=== PATIENT | male | born 1940 | race African-American/Black ===

== ENCOUNTER 2016-09-18 10:22 | Emergency (ER) | payer MEDICARE, OTHER ==
[2016-09-18 10:48] LABS: ABSOLUTE BASOPHILS # (AUTO) 0.1 10^3/uL (0.0-0.2); ABSOLUTE LYMPHOCYTES (AUTO) 1.6 10^3/uL (0.5-4.7); ABSOLUTE MONOCYTES (AUTO) 0.5 10^3/uL (0.1-1.4); ABSOLUTE NEUT (AUTO) 11.3 10^3/uL (1.7-8.2); BASOPHILS % (AUTO) 0.5 % (0-2); EOSINOPHILS % (AUTO) 0.1 % (0-6); HEMATOCRIT 37.8 % (37.9-51.0); HEMOGLOBIN 11.6 g/dL (13.5-17.0); LYMPHOCYTES % (AUTO) 11.8 % (13-45); MEAN CORPUSCULAR HEMOGLOBIN 28.7 pg (27.0-33.4); MEAN CORPUSCULAR HGB CONC 30.6 g/dL (32.0-36.0); MEAN CORPUSCULAR VOLUME 94 fl (80-97); MONOCYTES % (AUTO) 3.4 % (3-13); RED BLOOD COUNT 4.04 10^6/uL (4.35-5.55); RED CELL DISTRIBUTION WIDTH 15.8 % (11.5-14.0); SEGMENTED NEUTROPHILS % (AUTO) 84.2 % (42-78); WHITE BLOOD COUNT 13.4 10^3/uL (4.0-10.5)
[2016-09-18] MEDS ORDERED: PIPERACILLIN/TAZOBACTAM 3.375 GM VIAL IV ONE (11:01)
[2016-09-18] MEDS ORDERED: VANCOMYCIN HCL INJ 1000 MG VIAL IV ONE (11:01)
--- NOTE | 2016-09-18 11:03 | ER Document Report ---
ED General - General Stated Complaint: RESPIRATORY DISTRESS Time Seen by Provider: 09/18/16 10:37 Mode of Arrival: Medic Information source: Emergency Med Personnel Notes: 76-year-old male who presents by EMS status post cardiac arrest. They state that the patient called EMS secondary to some shortness of breath. Supposedly the patient complained of some "congestion" yesterday EMS states that the patient. Was having some shortness of breath but was ambulating on his own. EMS states that the patient actually walked to the stretcher but then became more short of breath and then progressed to being unresponsive. They state they initially started CPR secondary to lack of pulses. They state after 2 minutes of CPR the patient had ventricular fibrillation and they shocked the patient with return of spontaneous circulation. They then rapid sequence intubated the patient. They did provide 1 dose of epinephrine. They state however that the oxygen saturations were in the low 70s en route. - HPI Onset: Just prior to arrival Onset/Duration: Sudden Quality of pain: No pain Severity: Severe Associated symptoms: Other - See above Exacerbated by: Denies Relieved by: Denies Similar symptoms previously: No Recently seen / treated by doctor: No - Related Data Allergies/Adverse Reactions: No Known Allergies Allergy (Unverified 10/16/12 14:18) Past Medical History - General Information source: Emergency Med Personnel - Social History Smoking Status: Unknown if Ever Smoked Cigarette use (# per day): No Chew tobacco use (# tins/day): No Smoking Education Provided: No Frequency of alcohol use: None Drug Abuse: None Family History: Reviewed & Not Pertinent - Past Medical History Cardiac Medical History: Reports: Hx Hypertension - medicated Denies: Hx Heart Attack Pulmonary Medical History: Denies: Hx Asthma Neurological Medical History: Denies: Hx Cerebrovascular Accident, Hx Seizures GI Medical History: Reports: Hx Hepatitis - hep A?? treated 1992. 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 CONSTITUTIONAL: Patient is intubated with a 2-23 at the teeth HEAD: Normocephalic; atraumatic EYES: Bilaterally pupils are pinpoint ENT: Patient is intubated NECK: Palpable carotid pulses; no cervical lymphadenopathy, no masses CARD: Regular rate and rhythm; no murmurs, no clicks, no rubs, no gallops; symmetric distal pulses RESP: Patient has been placed on a ventilator. Bilateral breath sounds present. No air in the stomach. Patient has some scattered rhonchi and rales ABD/GI: Normal bowel sounds; very elevated BMI; soft; no palpable organomegaly or masses BACK: The back appears normal and is non-tender to palpation EXT: No cyanosis, no effusions, no edema SKIN: Normal color for age and race; warm NEURO: Patient is currently not moving any extremity Course - Re-evaluation Re-evalutation: Patient came in supposedly status post cardiac arrest. Concern about possible increase potassium we provided bicarb and calcium carbonate. Patient's blood pressure and vital signs are otherwise stable. Patient has bilateral breath sounds with good condensation on the tube. Satting 98%. Blood cultures, lactic acid, and basic labs have been sent. Patient cardiac arrest patient with lidocaine and started the patient on lidocaine drip. I called and spoke to Dr. Washington, the field examiner at [facility]. They are trying to obtain a bed. Patient is 397 pounds and I do not believe able to fly. 09/18/16 10:45 Pressure started to decrease. Heart rate 56. EKG shows a normal sinus rhythm with first-degree AV block with inverted T waves in lead aVL. No obvious ST elevation or depression. Narrow QRS. 2 L of fluid intravenously. Repeat blood pressure still 77/40. I started the patient on Norepi drip. There is some concern about possible massive pulmonary embolism given the rapid respiratory decline. Dr. Washington agrees that he most likely bolus the patient with heparin. I did call the CT scan team here and they state they think they can perform the CTA. We are trying to stabilize the blood pressure. 09/18/16 11:01 X-ray of the chest shows what appears to be a multilobar pneumonia or heart failure. Pt has obvious cardiomegally. Vancomycin and Zosyn has been ordered. Blood cultures have been sent. 09/18/16 11:33 Blood pressure has improved to 90/50. Patient has received 3 L of fluid and is on a norepi drip. I have spoken to the family in the waiting room. Given the above history, we will provide a heparin bolus. I am uncomfortable transferring the patient currently to CT scan given his tenuous vital signs. 09/18/16 12:13 Blood pressure has normalized. ABG is still pending. The ICU physician would like a CTA prior to transfer. Patient's creatinine initially upon arrival 1.7. I have spoken to the radiology team and they do state that they will attempt to use a minimal amount of contrast. 09/18/16 12:55 Patient vital signs are still stable. Patient has returned from CT scan. We will start the cooling protocol. ABG is still pending. 09/18/16 13:09 Patient rectal examination shows no gross blood. Hemoccult has been sent. There are no lesions to the patient's back on rotation. 09/18/16 13:10 ABG appears to be most likely a venous blood gas. PH 7.29. PCO2 slightly elevated. 09/18/16 13:41 CTA of the chest shows what appears to be a bilateral pneumonia. Antibiotics have been given. No signs or evidence of pulmonary embolism - Vital Signs Vital signs: Temp Pulse Resp BP Pulse Ox 96.6 F L 16 145/115 H 95 09/18/16 13:16 09/18/16 13:16 09/18/16 13:16 09/18/16 13:16 - Laboratory Result Diagrams: 09/18/16 10:30 09/18/16 10:30 Laboratory results interpreted by me: 09/18/16 09/18/16 09/18/16 10:27 10:30 10:30 WBC 13.4 H RBC 4.04 L Hgb 11.6 L Hct 37.8 L MCHC 30.6 L RDW 15.8 H Seg Neutrophils % 84.2 H Lymphocytes % 11.8 L Absolute Neutrophils 11.3 H Carbonic Acid ABG pH ABG pCO2 ABG pO2 ABG Total CO2 ABG O2 Saturation Potassium 5.9 H BUN 41 H Creatinine 1.76 H Est GFR ( Amer) 46 L Est GFR (Non-Af Amer) 38 L Glucose 214 H POC Glucose 197 H Lactic Acid Calcium 7.6 L NT-Pro-B Natriuret Pep 09/18/16 09/18/16 09/18/16 10:30 10:30 12:30 WBC RBC Hgb Hct MCHC RDW Seg Neutrophils % Lymphocytes % Absolute Neutrophils Carbonic Acid 1.63 H ABG pH 7.29 L ABG pCO2 54.3 H ABG pO2 60.1 L ABG Total CO2 27.3 H ABG O2 Saturation 87.9 L Potassium BUN Creatinine Est GFR ( Amer) Est GFR (Non-Af Amer) Glucose POC Glucose Lactic Acid 3.7 H Calcium NT-Pro-B Natriuret Pep 5120 H Critical Care Note - Critical Care Note Total time excluding time spent on procedures (mins): 130 Discharge - Discharge Clinical Impression: Respiratory arrest, Bacterial pneumonia Condition: Critical Disposition: [facility] Unit Admitted: ICU Referrals: TOR ANDREWS MD [Primary Care Provider] - Follow up as needed
[2016-09-18] MEDS ORDERED: NOREPINEPHRINE BITARTRATE INJ/PF 4 MG/4 ML SDV IV ONE (11:04)
[2016-09-18 11:06] LABS: ANION GAP 13 (5-19); BLOOD UREA NITROGEN 41 mg/dL (7-20); CALCIUM 7.6 mg/dL (8.4-10.2); CARBON DIOXIDE 28 mmol/L (22-30); CHLORIDE 103 mmol/L (98-107); CREATININE RESULT 1.76 mg/dL (0.52-1.25); GLUCOSE 214 mg/dL (75-110); POTASSIUM 5.9 mmol/L (3.6-5.0); SODIUM 143.5 mmol/L (137-145)
[2016-09-18 11:20] LABS: TROPONIN I 0.052 ng/mL
[2016-09-18] MEDS ORDERED: HEPARIN SOD (PORCINE) 1,000 UNIT/ML 10 ML VIAL IV PRN (11:34)
[2016-09-18] MEDS ORDERED: HEPARIN SOD (PORCINE) 1,000 UNIT/ML 10 ML VIAL IV ONE (11:34)
[2016-09-18] MEDS ORDERED: HEPARIN SODIUM,PORCINE/D5W 250 ML IV PRN (11:34)
[2016-09-18] MEDS ORDERED: MIDAZOLAM 2 MG/2 ML INJ ONE ×2 (11:54→12:22)
--- NOTE | 2016-09-18 12:26 | RADIOLOGY REPORT (SQ) ---
EXAM DESCRIPTION: CHEST SINGLE VIEW COMPLETED DATE/TIME: 09/18/2016 11:12 am REASON FOR STUDY: Tr1; S/p cardiac arrest/intubation COMPARISON: None. EXAM PARAMETERS: NUMBER OF VIEWS: One view. TECHNIQUE: Single frontal radiographic view of the chest acquired. RADIATION DOSE: NA LIMITATIONS: None. FINDINGS: LUNGS AND PLEURA: Pulmonary edema is present. There is marked opacification behind the le ft heart. The left diaphragm is not definable. MEDIASTINUM AND HILAR STRUCTURES: No masses. Contour normal. HEART AND VASCULAR STRUCTURES: Cardiomegaly with pulmonary vascular congestion and pulmonary edema. BONES: No acute findings. HARDWARE: None in the chest. OTHER: No other significant finding. IMPRESSION: 1. CHF. 2. Left lower lobe consolidation cannot be ruled out. TECHNICAL DOCUMENTATION: JOB ID: [id number]
[2016-09-18] MEDS ORDERED: FENTANYL CITRATE INJ/PF 100 MCG/2 ML AMPUL ONE ×2 (12:33→13:37)
[2016-09-18 13:07] LABS: ARTERIAL BLOOD BASE EXCESS -1.6 mmol/L; ARTERIAL BLOOD O2 SATURATION 87.9 % (94-98)
--- NOTE | 2016-09-18 13:37 | RADIOLOGY REPORT (SQ) ---
EXAM DESCRIPTION: CTA CHEST COMPLETED DATE/TIME: 09/18/2016 1:02 pm REASON FOR STUDY: tr1; rapid respiratory arrest COMPARISON: None. TECHNIQUE: CT scan of the chest performed using helical scanning technique with dynamic intravenous contrast injection. Images reviewed with lung, soft tissue and bone windows. Reconstructed coronal and sagittal MPR images reviewed. Additional 3 dimensional post-processing performed to develop Maximal Intensity Projection images (WI P). All images stored on PACS. All CT scanners at this facility use dose modulation, iterative reconstruction, and/or weight based d osing when appropriate to reduce radiation dose to as low as reasonably achievable (ALARA). [facility]: Dose Right [facility]: CareDose [facility]: Dose Right [facility]: Teradose 4D [facility]: [place] [employer] CONTRAST TYPE AND DOSE: contrast/concentration: Isovue 370.00 mg/ml; Total Contrast Delivered: 71.0 ml; Total Saline Delivered: 70.0 ml RENAL FUNCTION: Creatinine 1.76 RADIATION DOSE: Up-to-date CT equipment and radiation dose reduction techniques were employed. CTDIv ol: 56.2 - 58.6 mGy. DLP: 2133 mGy-cm. . LIMITATIONS: None. FINDINGS: LUNGS AND PLEURA: Small bilateral pleural effusions. Areas of abnormal air space density are seen bilaterally in all lobes most consistent with pneumonia. Associated air bronchograms are se en. Pulmonary edema is felt to be unlikely. Mild emphysematous changes. AORTA AND GREAT VESSELS: No aneurysm or dissection. HEART: No pericardial effusion. PULMONARY ARTERIES: No emboli visualized in the main pulmonary arteries or the segmental branches. HILAR AND MEDIASTINAL STRUCTURES: Mild to moderate mediastinal and bilateral hilar adenopathy which m ay be reactive. Follow-up examination would be warranted. HARDWARE: NG tube and endotracheal tube appear to be in good position. UPPER ABDOMEN: Minimal ascites. Limited examination. THYROID AND OTHER SOFT TISSUES: No masses. No adenopathy. BONES: No acute or significant finding. 3D MIPS: Confirm above findings. OTHER: No other significant finding. IMPRESSION: 1. No evidence of pulmonary embolus. 2. Abnormal air space density is seen bilaterally the appearance of which is most suggestive of bila teral pneumonia rather than pulmonary edema. 3. Small bilateral pleural effusions. 4. Mild to moderate mediastinal and hilar adenopathy which may be reactive. Follow-up CT would be w arranted to ensure resolution. TECHNICAL DOCUMENTATION: JOB ID: [id number] Quality ID # [id number]: Final reports with documentation of one or more dose reduction techniques (e.g., Au tomated exposure control, adjustment of the mA and/or kV according to patient size, use of iterative reconstruction technique) 2010 [employer]- All Rights Reserved
[2016-09-18 16:01] VITALS: BP 119/64
--- NOTE | 2016-09-18 17:02 | EKG REPORT ---
SEVERITY:- ABNORMAL ECG - SINUS RHYTHM FIRST DEGREE AV BLOCK BORDERLINE LEFT AXIS DEVIATION : Confirmed by: Sarah Aguillon MD 18-Sep-2016 17:01:56
== END 2016-09-18 14:00 | disposition short-term general hospital (02) ==
LOC: ER 10:22
DX: I46.9 Cardiac arrest, cause unspecified (principal); J15.9 Unspecified bacterial pneumonia; I10 Essential (primary) hypertension; I44.0 Atrioventricular block, first degree; I51.7 Cardiomegaly
CPT/HCPCS: 93005; 99291; 99292; 96365; 96366; 96368; 36415; 87040; 82962; 82803; 85025; 82272; 80048; 84484; 83605; 83880; 71010; 71275; 93010; 36600; J1644; J3370

== ENCOUNTER 2016-10-26 03:56 | Inpatient (IN) | payer MEDICARE, OTHER ==
--- NOTE | 2016-10-26 04:15 | ER Document Report ---
ED Respiratory Problem - General Mode of Arrival: Medic Information source: Patient - HPI Patient complains to provider of: Short of breath Onset: Other - Refer to HPI Notes Associated symptoms: Difficulty breathing, Wheezing Similar symptoms previously: No Recently seen / treated by doctor: No <JESSIE PRUITT - Last Filed: 10/26/16 04:51> <JEFFREY LOYA - Last Filed: 10/26/16 05:58> - General Stated Complaint: BREATHING DIFFICULTY Time Seen by Provider: 10/26/16 04:07 Notes: Patient is a 76-year-old male presented emergency department for difficulty breathing. Patient states his symptoms were onset this morning. Patient was seen here on 09/18/2016 for cardiac arrest and respiratory distress. Patient was residing at [facility] for recovery and was discharged yesterday. Patient was on oxygen at [facility] and was discharged without oxygen at home yesterday. Patinet was placed on BiPAP and states he is feeling better during exam. Patient has no known drug allergies. (JESSIE PRUITT) - Related Data Allergies/Adverse Reactions: No Known Allergies Allergy (Unverified 10/16/12 14:18) Past Medical History - General Information source: Patient - Social History Smoking Status: Current Every Day Smoker Family History: None - Past Medical History Cardiac Medical History: Reports: Hx Hypertension - medicated GI Medical History: Reports: Hx Hepatitis - hep A?? treated 1992 Infectious Medical History: Reports: Hx Hepatitis - hep A?? treated 1992 <JESSIE PRUITT - Last Filed: 10/26/16 04:51> Review of Systems - Review of Systems Constitutional: No symptoms reported EENT: No symptoms reported Cardiovascular: No symptoms reported Respiratory: See HPI Gastrointestinal: No symptoms reported Genitourinary: No symptoms reported Male Genitourinary: No symptoms reported Musculoskeletal: No symptoms reported Skin: No symptoms reported Hematologic/Lymphatic: No symptoms reported Neurological/Psychological: No symptoms reported -: Yes All other systems reviewed and negative <JESSIE PRUITT - Last Filed: 10/26/16 04:51> Physical Exam - Vital signs Interpretation: Hypertensive <JESSIE PRUITT - Last Filed: 10/26/16 04:51> <JEFFREY LOYA - Last Filed: 10/26/16 05:58> - Vital signs Vitals: Temp Resp BP Pulse Ox 98.3 F 15 149/55 H 100 10/26/16 04:13 10/26/16 04:13 10/26/16 04:13 10/26/16 04:13 - Notes Notes: GENERAL: Alert, interacts well. No acute distress. HEAD: Normocephalic, atraumatic. EYES: Appear normal. Pupils equal, round, and reactive to light. ENT: Moist mucus membranes, tongue midline. NECK: Full range of motion. Supple. Trachea midline. LUNGS: Clear to auscultation bilaterally, no wheezes, rales, or rhonchi. No respiratory distress. HEART: Regular rate and rhythm. No murmurs, gallops, or rubs. ABDOMEN: Morbidly obese. Soft, non-tender. Non-distended. Normal bowel sounds. EXTREMITIES: Moves all 4 extremities spontaneously. Normal strength. No edema. NEUROLOGICAL: Alert and oriented x3. Normal speech. No focal neurological deficits. GSC 15. PSYCH: Normal affect, normal mood. SKIN: Warm, dry, normal turgor. Chronic brawning and skin thickening to the bilateral lower extremities. (JESSIE PRUITT) Course - Laboratory Result Diagrams: 10/26/16 04:15 10/26/16 04:15 <JESSIE PRUITT - Last Filed: 10/26/16 04:51> - Laboratory Result Diagrams: 10/26/16 04:15 10/26/16 04:15 - Diagnostic Test Radiology reviewed: Image reviewed, Reports reviewed - Chest x-ray is read as mild cardiac enlargement with central pulmonary edema pattern. There is mild to moderate mixed interstitial and airspace opacities improved since the visit on 09/18/2016 - EKG Interpretation by Ia EKG shows normal: Sinus rhythm, [place], Intervals, QRS Complexes. abnormal: ST-T Waves - Nonspecific lateral T abnormalities Rate: Normal - 68 Rhythm: NSR When compared to previous EKG there are: No significant change - Consults Dr. Pedersen Time consulted: 05:45 Consulted provider: will see as inpatient - Admit to the [facility] <JEFFREY LOYA - Last Filed: 10/26/16 05:58> - Re-evaluation Re-evalutation: 10/26/16 05:57 The patient reports that his breathing feels much better since being on the BiPAP. (JEFFREY LOYA) - Vital Signs Vital signs: Temp Pulse Resp BP Pulse Ox 98.8 F 20 143/52 H 94 10/26/16 05:02 10/26/16 05:02 10/26/16 05:02 10/26/16 05:02 - Laboratory Laboratory results interpreted by me: 10/26/16 10/26/16 10/26/16 04:15 04:15 04:15 RBC 3.25 L Hgb 9.5 L Hct 29.9 L MCHC 31.8 L RDW 16.6 H Plt Count 124 L Lymphocytes % 12.7 L Carbon Dioxide 31 H BUN 46 H Creatinine 1.89 H Est GFR ( Amer) 42 L Est GFR (Non-Af Amer) 35 L Glucose 150 H Calcium 8.0 L NT-Pro-B Natriuret Pep 1180 H Total Protein 6.2 L Albumin 2.6 L Critical Care Note - Critical Care Note Total time excluding time spent on procedures (mins): 30 <JEFFREY LOYA - Last Filed: 10/26/16 05:58> Discharge <JESSIE PRUITT - Last Filed: 10/26/16 04:51> - Discharge Admitting Provider: [facility] Unit Admitted: IMCU <JEFFREY LOYA - Last Filed: 10/26/16 05:58> - Discharge Clinical Impression: Pulmonary vascular congestion, Morbid obesity Dyspnea Qualifiers: Dyspnea type: unspecified Qualified Code(s): R06.00 - Dyspnea, unspecified Condition: Stable Disposition: ADMITTED INPATIENT Scribe Attestation: 10/26/16 05:57 I personally performed the services described in the documentation, reviewed and edited the documentation which was dictated to the scribe in my presence, and it accurately records my words and actions. (JEFFREY LOYA) Scribe Documentation - Scribe Written by Satish:: Satish Claudio, 10/26/2016 4:56 acting as scribe for :: Chrissy <JESSIE PRUITT - Last Filed: 10/26/16 04:51>
--- NOTE | 2016-10-26 04:47 | RADIOLOGY REPORT (SQ) ---
EXAM DESCRIPTION: CHEST SINGLE VIEW COMPLETED DATE/TIME: 10/26/2016 4:15 am REASON FOR STUDY: difficulty breathing COMPARISON: CR and CT, 09/18/2016. EXAM PARAMETERS: NUMBER OF VIEWS: One view. TECHNIQUE: Single frontal radiographic view of the chest acquired. RADIATION DOSE: NA LIMITATIONS: None. FINDINGS: LUNGS AND PLEURA: Moderate left basilar opacity -layered effusion. Small right infrahilar opacity. Central pulmonary edema pattern. Moderate lung volume. MEDIASTINUM AND HILAR STRUCTURES: No masses. Contour normal. HEART AND VASCULAR STRUCTURES: Mild enlargement of the cardiac silhouette. BONES: No acute findings. HARDWARE: Interval extubation. OTHER: No other significant finding. IMPRESSION: [id number] mixed interstitial and airspace opacities with some improvement. Mild cardiac enlargement. Interval extubation. TECHNICAL DOCUMENTATION: JOB ID: [id number]
[2016-10-26 04:53] LABS: ABSOLUTE BASOPHILS # (AUTO) 0.1 10^3/uL (0.0-0.2); ABSOLUTE EOSINOPHILS # (AUTO) 0.3 10^3/uL (0.0-0.6); ABSOLUTE MONOCYTES (AUTO) 0.5 10^3/uL (0.1-1.4); ABSOLUTE NEUT (AUTO) 6.1 10^3/uL (1.7-8.2); BASOPHILS % (AUTO) 0.9 % (0-2); EOSINOPHILS % (AUTO) 3.7 % (0-6); HEMATOCRIT 29.9 % (37.9-51.0); HEMOGLOBIN 9.5 g/dL (13.5-17.0); HGB HCT DIFFERENCE -1.4; LYMPHOCYTES % (AUTO) 12.7 % (13-45); MEAN CORPUSCULAR HEMOGLOBIN 29.2 pg (27.0-33.4); MEAN CORPUSCULAR HGB CONC 31.8 g/dL (32.0-36.0); MEAN CORPUSCULAR VOLUME 92 fl (80-97); MONOCYTES % (AUTO) 6.5 % (3-13); RED BLOOD COUNT 3.25 10^6/uL (4.35-5.55); RED CELL DISTRIBUTION WIDTH 16.6 % (11.5-14.0); SEGMENTED NEUTROPHILS % (AUTO) 76.2 % (42-78)
[2016-10-26 05:05] LABS: ALANINE AMINOTRANSFERASE 30 U/L (21-72); ALBUMIN 2.6 g/dL (3.5-5.0); ALKALINE PHOSPHATASE 109 U/L (38-126); ANION GAP 7 (5-19); ASPARTATE AMINO TRANSFERASE 31 U/L (17-59); BILIRUBIN,DIRECT 0.3 mg/dL (0.0-0.4); BILIRUBIN,TOTAL 0.5 mg/dL (0.2-1.3); BLOOD UREA NITROGEN 46 mg/dL (7-20); CARBON DIOXIDE 31 mmol/L (22-30); CHLORIDE 106 mmol/L (98-107); CREATINE KINASE 138 U/L (55-170); CREATININE RESULT 1.89 mg/dL (0.52-1.25); GLUCOSE 150 mg/dL (75-110); POTASSIUM 3.9 mmol/L (3.6-5.0); SODIUM 143.5 mmol/L (137-145); TOTAL PROTEIN 6.2 g/dL (6.3-8.2)
[2016-10-26 05:18] LABS: TROPONIN I < 0.012 ng/mL
--- NOTE | 2016-10-26 08:53 | PDOC H&P ---
History of Present Illness Admission Date/PCP: 10/26/16 06:12 TOR ANDREWS MD Patient complains of: orthopnea History of Present Illness: HANSEL DELGADILLO is a 76 year old male sent by ID to [facility] on after vf arrest, pneumonia, vent, lactic acidosis, sepsis, and nonobsructive cath. Echo showed big atria, mild mr, diastolic dysfunction, and Rv pressure 61. He refused defibrillator. He had been on oxygen at [facility] until he went home yesterday. Past Medical History Cardiac Medical History: Reports: Hyperlipidema, Hypertension - 4-6meds since Denies: Myocardial Infarction Pulmonary Medical History: Reports: Intubation, Pneumonia, Respiratory Failure Neurological Medical History: Reports: Other - diabetic neuropathy Denies: Seizures Endocrine Medical History: Reports: Diabetes Mellitus Type 2, Obesity - [id number] Renal/ Medical History: Reports: Chronic Kidney Disease - 2015 cr1.1. [id number] Malignancy Medical History: Reports: None GI Medical History: Reports: None, Hepatitis - hepB treated 1990 Denies: Hiatal Hernia Musculoskeltal Medical History: Reports: Arthritis, Gout Traumatic Medical History: Reports: None Hematology: Denies: Anemia, Sickle Cell Disease Infectious Medical History: Reports: Hepatitis B Past Surgical History Past Surgical History: Reports: Orthopedic Surgery - L menisectomy Denies: Pacemaker Social History Information Source: Dr. Vanessa Lives with: Family Smoking Status: Former Smoker Number of Years Smokin Last Time Smoked: 1991 Frequency of Alcohol Use: None Hx Recreational Drug Use: No Hx Prescription Drug Abuse: No - Advance Directive Resuscitation Status: Full Code Family History Family History: Hypertension Parental Family History Reviewed: Yes Children Family History Reviewed: Yes Sibling(s) Family History Reviewed.: Yes Medication/Allergy Home Medications: Allopurinol [Zyloprim] 300 mg PO DAILY 10/26/16 Aspirin [Aspirin 81 mg Chewable Tablet] 81 mg PO DAILY 10/26/16 Atorvastatin Calcium [Lipitor 40 mg Tablet] 40 mg PO QHS 10/26/16 Carvedilol [Coreg 25 mg Tablet] 1 tab PO Q12 10/26/16 Felodipine [Felodipine ER] 10 mg PO DAILY 10/26/16 Hydrochlorothiazide 25 mg PO DAILY 10/26/16 Insulin Glargine,Hum.rec.anlog [Lantus Solostar] 10 unit SQ QHS 10/26/16 Insulin Lispro [Humalog Kwikpen] 0 - 16 unit SQ AC 10/26/16 Lisinopril [Prinivil 40 mg Tablet] 40 mg PO DAILY 10/26/16 Allergies/Adverse Reactions: No Known Allergies Allergy (Unverified 10/16/12 14:18) Review of Systems Constitutional: ABSENT: fever(s), headache(s), weight loss Nose, Mouth, and Throat: ABSENT: sore throat Cardiovascular: PRESENT: dyspnea on exertion, orthropnea. ABSENT: chest pain Respiratory: PRESENT: cough - slight, sputum Gastrointestinal: ABSENT: abdominal pain, constipation, diarrhea, hematochezia, melena, vomiting Genitourinary: ABSENT: difficulty urinating, dysuria, hematuria Physical Exam Vital Signs: Temp Pulse Resp BP Pulse Ox 98 F 18 143/82 H 96 10/26/16 06:02 10/26/16 06:02 10/26/16 06:02 10/26/16 06:02 General appearance: PRESENT: no acute distress Mouth exam: PRESENT: moist Respiratory exam: PRESENT: decreased breath sounds Cardiovascular exam: ABSENT: diastolic murmur, irregular rhythm, systolic murmur GI/Abdominal exam: PRESENT: other - big. ABSENT: mass, organolmegaly, tenderness Extremities exam: PRESENT: pedal edema - 3+ to thighs Neurological exam: PRESENT: oriented to situation Psychiatric exam: PRESENT: appropriate affect Results Laboratory Results: Abnormal - 24 hr 10/26/16 10/26/16 10/26/16 04:15 04:15 04:15 RBC 3.25 L Hgb 9.5 L Hct 29.9 L MCHC 31.8 L RDW 16.6 H Plt Count 124 L Lymphocytes % 12.7 L Carbon Dioxide 31 H BUN 46 H Creatinine 1.89 H Est GFR ( Amer) 42 L Est GFR (Non-Af Amer) 35 L Glucose 150 H Calcium 8.0 L NT-Pro-B Natriuret Pep 1180 H Total Protein 6.2 L Albumin 2.6 L Impressions: Chest X-Ray 10/26/16 03:57 IMPRESSION: [id number] mixed interstitial and airspace opacities with some improvement. Mild cardiac enlargement. Interval extubation. Assessment & Plan - Diagnosis (1) Morbid (severe) obesity with alveolar hypoventilation Is this a current diagnosis for this admission?: YesPlan: bipap (2) Pulmonary hypertension Is this a current diagnosis for this admission?: Yes (3) Respiratory failure Qualifiers: Respiratory failure complication: hypoxia and hypercapnia Is this a current diagnosis for this admission?: YesPlan: consult pulmonary. Needs sleep study (4) Acute on chronic combined systolic and diastolic congestive heart failure Is this a current diagnosis for this admission?: YesPlan: already azotemic. Furosemide 20mg qd - Inpatient Certification Based on my medical assessment, after consideration of the patient's comorbidities, presenting symptoms, or acuity I expect that the services needed warrant INPATIENT care.: Yes I certify that my determination is in accordance with my understanding of Medicare's requirements for reasonable and necessary INPATIENT services [42 CFR 412.3e].: Yes Medical Necessity: Failure to Improve With Outpatient Therapy, Significant Comorbidiites Make Outpatient Treatment Too Risky, Need Close Monitoring Due to Risk of Patient Decompensation, Need For Continuous Telemetry Monitoring, Risk of Complication if Not Cared For in Hospital, Risk of Diagnosis Which Will Require Inpatient Eval/Care/Monitoring
[2016-10-26] MEDS ORDERED: DEXTROSE 50%-WATER 25 GM/50 ML DISP.SYRIN IV PRN ×2 (09:03)
[2016-10-26] MEDS ORDERED: GLUCAGON,HUMAN RECOMB 1 MG INJ IM PRN (09:03)
[2016-10-26] MEDS ORDERED: DEXTROSE 40% GEL 15 GM TUBE PO PRN ×2 (09:03)
[2016-10-26] MEDS ORDERED: ENOXAPARIN SODIUM INJ 30 MG/0.3 ML DISP.SYRIN SUBCUT SCH (10:00)
[2016-10-26] MEDS ORDERED: (PENDING PHARMACY ID) (Felodipine [Felodipine Er] 10 MG) PO SCH (10:00)
[2016-10-26] MEDS ORDERED: (PENDING PHARMACY ID) (Carvedilol [Coreg 25 Mg Tablet] 1 TAB) PO SCH (10:00)
--- NOTE | 2016-10-26 10:44 | PDOC CONSULTATION ---
Consultation Consult Date: 10/26/16 Attending physician:: TOR ANDREWS Consult reason:: Congestive heart failure History of Present Illness Admission Date/PCP: 10/26/16 06:12 TOR ANDREWS MD Patient complains of: Shortness of breath History of Present Illness: Patient is a 76-year-old male presented emergency department for difficulty breathing. Patient states his symptoms were onset this morning. Patient was seen here on 09/18/2016 for cardiac arrest and respiratory distress. Patient was residing at [place] for recovery and was discharged yesterday. Patient was on oxygen at [facility] and was discharged without oxygen at home yesterday. Patinet was placed on BiPAP and states he is feeling better during exam. Patient has patient is not questioning is denying any chest discomfort. He has noted some diarrhea. He denied any fever chills. Patient has morbid obesity. Past Medical History Cardiac Medical History: Reports: Hyperlipidema, Hypertension - 4-6meds since Denies: Myocardial Infarction Pulmonary Medical History: Reports: Intubation, Pneumonia, Respiratory Failure Denies: Asthma Neurological Medical History: Reports: Other - diabetic neuropathy Denies: Seizures Endocrine Medical History: Reports: Diabetes Mellitus Type 2, Obesity - [id number] Renal/ Medical History: Reports: Chronic Kidney Disease - 2016 cr1.1. [id number] Malignancy Medical History: Reports: None GI Medical History: Reports: None, Hepatitis - hepB treated 1990 Denies: Hiatal Hernia Musculoskeltal Medical History: Reports: Arthritis, Gout Traumatic Medical History: Reports: None Hematology: Denies: Anemia, Sickle Cell Disease Infectious Medical History: Reports: Hepatitis B Past Surgical History Past Surgical History: Reports: Orthopedic Surgery - L menisectomy Denies: Pacemaker Social History Information Source: Patient Lives with: Family Smoking Status: Former Smoker Number of Years Smokin Last Time Smoked: 1991 Frequency of Alcohol Use: None Hx Recreational Drug Use: No Hx Prescription Drug Abuse: No - Advance Directive Resuscitation Status: Full Code Family History Family History: Hypertension Parental Family History Reviewed: Yes Children Family History Reviewed: Yes Sibling(s) Family History Reviewed.: Yes Medication/Allergy Home Medications: Allopurinol [Zyloprim] 300 mg PO DAILY 10/26/16 Aspirin [Aspirin 81 mg Chewable Tablet] 81 mg PO DAILY 10/26/16 Atorvastatin Calcium [Lipitor 40 mg Tablet] 40 mg PO QHS 10/26/16 Carvedilol [Coreg 25 mg Tablet] 1 tab PO Q12 10/26/16 Felodipine [Felodipine ER] 10 mg PO DAILY 10/26/16 Hydrochlorothiazide 25 mg PO DAILY 10/26/16 Insulin Glargine,Hum.rec.anlog [Lantus Solostar] 10 unit SQ QHS 10/26/16 Insulin Lispro [Humalog Kwikpen] 0 - 16 unit SQ AC 10/26/16 Lisinopril [Prinivil 40 mg Tablet] 40 mg PO DAILY 10/26/16 Allergies/Adverse Reactions: No Known Allergies Allergy (Unverified 10/16/12 14:18) Review of Systems Review of Systems: Please see history of present illness and past medical history as wall. Constitutional: No fever or chills reported. Head : No recent chronic headaches, recent head injury. Eyes: No recent eye pain, diplopia, redness, discharge, acute visual changes. Ears: No recent chronic ear pain, acute hearing loss, ear discharge. Oral cavity: No recent ulcerations, bleeding, oral cavity discomfort. Neck: No recent acute neck pain reported. Hematologic: No recent easy bruising or bleeding or hematologic malignancy reported. Lymphatic: No recent lymphatic malignancy, chronic lymphadenopathy reported yet Cardiovascular system review: See history of present illness. Respiratory system review: Noted increased cough and shortness of breath but denied hemoptysis, blood clots in the lungs reported. Mild Shortness of breath on exertion Gastrointestinal system review: Negative for any recent acute or chronic abdominal pain, hematemesis, melena, recent change in bowel habits. Genitourinary system review: No recent acute or chronic hematuria, flank pain, UTI etc. reported. Skin system review: Negative for any recent abnormal bruising, no rash, no pruritus reported. Neurologic: No prior history of strokes, mini strokes, seizure disorder. Psychologic: No history of major psychosis or major depression reported. Musculoskeletal: Minor aches and pains reported. No acute joint swelling reported. Endocrine: No recent polyuria, polydipsia, recent heat or cold intolerance. Physical Exam Vital Signs: Temp Pulse Resp BP Pulse Ox 97.9 F 69 20 138/55 H 98 10/26/16 07:50 10/26/16 07:50 10/26/16 07:50 10/26/16 07:50 10/26/16 07:50 Exam: GENERAL: well-nourished and in no acute distress. Alert and oriented x3 HEAD: Atraumatic, normocephalic. EYES: Pupils equal round and reactive to light, extraocular movements intact, sclera anicteric, conjunctiva are normal. ENT: TMs normal, nares patent, oropharynx clear without exudates. Moist mucous membranes. No oral ulcerations or bleeding gums noted NECK: supple without lymphadenopathy. Trachea is central. No cervical or axillary lymphadenopathy noted. Carotids are 2+, JVD difficult to assess LUNGS: Respiration seems nonlabored, no significant accessory muscle action noted. Breath sounds clear to auscultation bilaterally and equal noted. No wheezes rales or rhonchi noted. No significant dullness noted on percussion. CHEST: Palpation of the chest wall shows no significant chest wall tenderness. No other significant abnormalities noted. 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 ABDOMEN: Soft, no significant tenderness appreciated, normoactive bowel sounds. No guarding, no rebound. No rigidity noted . No masses appreciated. EXTREMITIES: Pedal pulses are 1-2+, no calf tenderness noted. No clubbing or cyanosis. Chronic 1-2 + pedal edema noted, some dermatitis changes noted. NEUROLOGICAL: Focused neurological exam showed no significant neurologic deficit. Normal speech, no focal weakness appreciated. PSYCH: Normal mood, normal affect. Judgment and insight within normal limits. SKIN: No significant ecchymosis, ulcerations or signs of pruritus noted. Dermatitis changes noted. MUSCULOSKELETAL EXAM: No significant joint swelling noted. Results EKG Comments: Sinus rhythm, no acute ST-T wave changes noted. Impressions: Chest X-Ray 10/26/16 03:57 IMPRESSION: [id number] mixed interstitial and airspace opacities with some improvement. Mild cardiac enlargement. Interval extubation. Assessment & Plan - Diagnosis (1) Acute on chronic combined systolic and diastolic congestive heart failure Is this a current diagnosis for this admission?: Yes (2) Dyspnea Qualifiers: Dyspnea type: unspecified Qualified Code(s): R06.00 - Dyspnea, unspecified (3) Morbid (severe) obesity with alveolar hypoventilation Is this a current diagnosis for this admission?: Yes (4) Pulmonary hypertension Is this a current diagnosis for this admission?: Yes (5) Respiratory failure Qualifiers: Chronicity: chronic Respiratory failure complication: hypoxia and hypercapnia Qualified Code(s): J96.11 - Chronic respiratory failure with hypoxia; J96.12 - Chronic respiratory failure with hypercapnia Is this a current diagnosis for this admission?: Yes - Notes Notes: Switch to Diovan in preparation for switch to entresto. Continue diuretic therapy. Consider nightly bilevel therapy. Acute on chronic combined systolic and diastolic heart failure: Patient probably has significant contribution from right-sided heart failure as well. Patient's medical regimen reviewed and is noted to be satisfactory. Will recommend switch to entresto. In this regard will switch patient to Diovan in preparation for starting entresto later on. Continue diuretic therapy. Dyspnea: This is certainly multifactorial with morbid obesity, systolic and diastolic dysfunction as well as possible underlying COPD etc. contributing. May consider pulmonary evaluation. Morbid obesity with alveolar hypoventilation: Patient will benefit from nightly bilevel therapy. Pulmonary hypertension: Most likely related to obesity hypoventilation syndrome , severe obesity as well as secondary to systolic and diastolic dysfunction and chronic left heart failure. Oxygen supplementation certainly help this condition. Respiratory failure: Acute on chronic systolic plus diastolic, both hypoxemic and hypercarbic. Maintain oxygenation and ventilation. Patient would benefit from aggressive weight loss. Continue to monitor and follow patient. - Time Time Spent: 30 to 50 Minutes - CODE STATUS was discussed, patient remains full code. Surrogate decision-maker patient's spouse. Multiple medical problems were addressed. More than 50% of the time spent coordinating care, discussing management plans with involved caregivers. Management plans discussed with involved personnels. Medical decision making was of moderate to high complexity , patient's has multiple comorbidities. Medications reviewed and adjusted accordingly: Yes
[2016-10-26] MEDS: FUROSEMIDE INJ/PF 20 MG/2 ML SDV IV SCH (10:48)
[2016-10-26] MEDS: CARVEDILOL 12.5 MG TABLET PO SCH ×2 (10:48→22:02)
[2016-10-26] MEDS: LISINOPRIL 10 MG TABLET PO SCH (10:49)
[2016-10-26] MEDS: AMLODIPINE BESYLATE 5 MG TABLET PO SCH (10:49)
[2016-10-26] MEDS: ASPIRIN 81 MG TABLET, CHEWABLE PO SCH (10:49)
[2016-10-26] MEDS: ALLOPURINOL 300 MG TABLET PO SCH (10:50)
--- NOTE | 2016-10-26 12:10 | EKG REPORT ---
SEVERITY:- DEFECTIVE ECG - BASELLINE ARTIFACTS .REPEAT EKG SINUS RHYTHM NONSPECIFIC T ABNORMALITIES, LATERAL LEADS : Confirmed by: Sarah Aguillon MD 26-Oct-2016 12:09:54
[2016-10-26] MEDS ORDERED: ENOXAPARIN SODIUM INJ 40 MG/0.4 ML DISP.SYRIN SUBCUT ONE (15:00)
--- NOTE | 2016-10-26 19:45 | XCELERA REPORT ---
[address] [address] Transthoracic Echocardiogram Report Name: HANSEL DELGADILLO Age: 76 yrs Gender: Male : 1940 Patient Status: Inpatient Patient Location: [id number]\304\S\B Study Date: 10/26/2016 01:40 PM Height: 72 in Weight: 420 lb BSA: 2.9 m2 Procedure: A complete two-dimensional transthoracic echocardiogram was performed (2D, M-mode, spectral and color flow Doppler). The study was technically difficult with many images being suboptimal in quality. Reason For Study: CHF Ordering Physician: ABY RUSSELL Performed By: Mayuri Tobin Interpretation Summary The study was technically difficult with many images being suboptimal in quality. The left ventricular ejection fraction is normal. Doppler measurements suggest pseudonormalized left ventricular relaxation, which is associated with grade II/IV or mild to moderate diastolic dysfunction There is mild concentric left ventricular hypertrophy. The left ventricle is grossly normal size. Not all wall segments were well visualized. Wall motion cannot be accurately commented on, but no definite regional wall motion abnormalities noted. The right ventricular systolic function is mild to moderately reduced. The right ventricle is moderately dilated. The right ventricle appears to be hypertrophied The left atrium is moderately dilated. The right atrium is moderate to severely dilated. There is a mild amount of mitral regurgitation There is no mitral valve stenosis. No aortic regurgitation is present. There is no aortic valve stenosis The aortic root is not well visualized but is probably normal size. The inferior vena cava was not visualized There is no pericardial effusion. MMode/2D Measurements \T\ Calculations RVDd: 3.2 cm LVIDd: 5.2 cm FS: 38.2 % Ao root diam: 2.2 cm IVSd: 1.0 cm LVIDs: 3.2 cm EDV(Teich): 128.7 ml LVPWd: 1.1 cm ESV(Teich): 41.2 ml Ao root area: 3.8 cm2 EF(Teich): 68.0 % LA dimension: 4.9 cm Doppler Measurements \T\ Calculations MV E max nayeli: MV P1/2t max nayeli: Ao V2 max: LV V1 max P.6 cm/sec 135.7 cm/sec 166.8 cm/sec 6.3 mmHg MV A max nayeli: MV P1/2t: 54.9 msec Ao max PG: LV V1 max: 69.7 cm/sec 11.1 mmHg 125.4 cm/sec MV E/A: 2.0 MVA(P1/2t): 4.0 cm2 MV dec slope: 724.1 cm/sec2 PA V2 max: TR max nayeli: 108.6 cm/sec 320.3 cm/sec PA max PG: TR max P.0 mmHg 4.7 mmHg Left Ventricle The left ventricle is grossly normal size. There is mild concentric left ventricular hypertrophy. The left ventricular ejection fraction is normal. Doppler measurements suggest pseudonormalized left ventricular relaxation, which is associated with grade II/IV or mild to moderate diastolic dysfunction. Not all wall segments were well visualized. Wall motion cannot be accurately commented on, but no definite regional wall motion abnormalities noted. Right Ventricle The right ventricle is moderately dilated. The right ventricle appears to be hypertrophied. The right ventricular systolic function is mild to moderately reduced. Atria The right atrium is moderate to severely dilated. The left atrium is moderately dilated. Interarterial septum not well visualized and not well dopplered. Cannot comment on ASD/PFO presence. Mitral Valve The mitral valve is grossly normal. There is no mitral valve stenosis. There is a mild amount of mitral regurgitation. Aortic Valve The aortic valve is not well visualized secondary to technical limitations. There is no aortic valve stenosis. No aortic regurgitation is present. Tricuspid Valve The tricuspid valve is not well visualized secondary to technical limitations. There is no tricuspid stenosis. There is a mild amount of tricuspid regurgitation. There is mild to moderate pulmonary hypertension by echo. Right ventricular systolic pressure is estimated to be elevated at 40-50mmHg. Pulmonic Valve The pulmonic valve is not well visualized. Great Vessels The aortic root is not well visualized but is probably normal size. The inferior vena cava was not visualized. Effusions There is no pericardial effusion. : ABY RUSSELL > Aby Russell
[2016-10-26] MEDS: INSULIN REG, HUMAN 100 UNIT/ML 3 ML VIAL (PYX) SUBCUT PRN (22:03)
[2016-10-26] MEDS: ATORVASTATIN CALCIUM 40 MG TABLET PO SCH (22:03)
[2016-10-27 05:12] LABS: ANION GAP 7 (5-19); BLOOD UREA NITROGEN 46 mg/dL (7-20); CALCIUM 8.2 mg/dL (8.4-10.2); CARBON DIOXIDE 32 mmol/L (22-30); CHLORIDE 105 mmol/L (98-107); CREATININE RESULT 1.76 mg/dL (0.52-1.25); GLUCOSE 152 mg/dL (75-110); POTASSIUM 4.4 mmol/L (3.6-5.0); SODIUM 143.5 mmol/L (137-145)
[2016-10-27 07:02] LABS: APPEARANCE,URINE CLEAR; BILIRUBIN,URINE NEGATIVE (NEGATIVE); GLUCOSE, URINE NEGATIVE (NEGATIVE); KETONES,URINE NEGATIVE (NEGATIVE); LEUKOCYTE ESTERASE,URINE NEGATIVE (NEGATIVE); NITRITE,URINE NEGATIVE (NEGATIVE); PROTEIN,URINE NEGATIVE (NEGATIVE); UROBILINOGEN,URINE NEGATIVE mg/dL (<2.0)
--- NOTE | 2016-10-27 07:07 | PDOC PROGRESS REPORT ---
Subjective Progress Note for:: 10/27/16 Subjective:: tired of bed. Does not like nasal canula. Physical Exam Vital Signs: Temp Pulse Resp BP Pulse Ox 97.7 F 62 22 H 118/51 L 91 L 10/27/16 03:17 10/27/16 03:17 10/27/16 03:17 10/27/16 03:17 10/27/16 03:17 Intake & Output 10/25/16 10/26/16 10/27/16 07:59 07:59 07:59 Intake Total 605 Balance 605 Weight 421 lb 4.854 oz General appearance: PRESENT: no acute distress Respiratory exam: PRESENT: clear to auscultation maryann Cardiovascular exam: ABSENT: diastolic murmur, irregular rhythm, systolic murmur GI/Abdominal exam: ABSENT: mass, organolmegaly, tenderness Extremities exam: PRESENT: pedal edema - 3+ to thighs Neurological exam: PRESENT: oriented to situation Psychiatric exam: PRESENT: appropriate affect Results Laboratory Results: 10/27/16 04:03 10/27/16 04:03 Sodium 143.5 Potassium 4.4 Chloride 105 Carbon Dioxide 32 H Anion Gap 7 BUN 46 H Creatinine 1.76 H Est GFR ( Amer) 46 L Est GFR (Non-Af Amer) 38 L Glucose 152 H Calcium 8.2 L Impressions: Chest X-Ray 10/26/16 03:57 IMPRESSION: [id number] mixed interstitial and airspace opacities with some improvement. Mild cardiac enlargement. Interval extubation. 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 Needs senior care oxygen and sleep study. ?bipap at home. Pft in office. (3) Respiratory failure Qualifiers: Chronicity: chronic Respiratory failure complication: hypoxia and hypercapnia Qualified Code(s): J96.11 - Chronic respiratory failure with hypoxia Is this a current diagnosis for this admission?: YesPlan: ok on 2.5L (4) Acute on chronic combined systolic and diastolic congestive heart failure Is this a current diagnosis for this admission?: YesPlan: bun no worse on fur20 - Inpatient Certification Medical Necessity: Failure to Improve With Outpatient Therapy, Significant Comorbidiites Make Outpatient Treatment Too Risky, Need Close Monitoring Due to Risk of Patient Decompensation, Need For Continuous Telemetry Monitoring, Risk of Complication if Not Cared For in Hospital, Risk of Diagnosis Which Will Require Inpatient Eval/Care/Monitoring
[2016-10-27] MEDS: FUROSEMIDE INJ/PF 20 MG/2 ML SDV IV SCH (10:16)
[2016-10-27] MEDS: AMLODIPINE BESYLATE 5 MG TABLET PO SCH (10:18)
[2016-10-27] MEDS: ASPIRIN 81 MG TABLET, CHEWABLE PO SCH (10:18)
[2016-10-27] MEDS: ENOXAPARIN SODIUM INJ 40 MG/0.4 ML DISP.SYRIN SUBCUT SCH (10:18)
[2016-10-27] MEDS: ALLOPURINOL 300 MG TABLET PO SCH (10:18)
[2016-10-27] MEDS: LISINOPRIL 10 MG TABLET PO SCH (10:18)
[2016-10-27] MEDS: CARVEDILOL 12.5 MG TABLET PO SCH ×2 (10:23→21:17)
[2016-10-27] MEDS: INSULIN REG, HUMAN 100 UNIT/ML 3 ML VIAL (PYX) SUBCUT PRN ×2 (12:42→23:00)
--- NOTE | 2016-10-27 13:19 | PDOC PROGRESS REPORT ---
Subjective Progress Note for:: 10/27/16 Subjective:: Patient seems to be doing better with gradual improvement. Patient noted to be sitting on the bedside chair with few audible wheezing. Pt is denying any chest arm or neck discomfort. Patient denying any PND, orthopnea. Patient denied any sustained palpitations, dizziness, syncope, near syncope. Patient denying any fever chills. Patient denying any other significant discomfort. Patient is maintaining sinus rhythm. Review of systems: Rest review of systems negative. Medications: Medications have been reviewed. Physical Exam Vital Signs: Temp Pulse Resp BP Pulse Ox 97.3 F 52 L 26 H 130/60 H 100 10/27/16 11:04 10/27/16 11:04 10/27/16 11:04 10/27/16 11:04 10/27/16 11:04 Intake & Output 10/26/16 10/27/16 10/28/16 06:59 06:59 06:59 Intake Total 605 Balance 605 Weight 191.1 kg Exam: GENERAL: well-nourished and in no acute distress. Alert and oriented x3 HEAD: Atraumatic, normocephalic. EYES: Pupils equal round and reactive to light, extraocular movements intact, sclera anicteric, conjunctiva are normal. ENT: TMs normal, nares patent, oropharynx clear without exudates. Moist mucous membranes. No oral ulcerations or bleeding gums noted NECK: supple without lymphadenopathy. Trachea is central. No cervical or axillary lymphadenopathy noted. Carotids are 2+, JVD WNL LUNGS: Respiration seems nonlabored, no significant accessory muscle action noted. Breath sounds clear to auscultation bilaterally and equal noted. No wheezes rales or rhonchi noted. No significant dullness noted on percussion. CHEST: Palpation of the chest wall shows no significant chest wall tenderness. No other significant abnormalities noted. 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 ABDOMEN: Soft, no significant tenderness appreciated, normoactive bowel sounds. No guarding, no rebound. No rigidity noted . No masses appreciated. EXTREMITIES: Pedal pulses are 1-2+, no calf tenderness noted. No clubbing or cyanosis. 1+ pedal edema noted NEUROLOGICAL: Focused neurological exam showed no significant neurologic deficit. Normal speech, no focal weakness appreciated. PSYCH: Normal mood, normal affect. Judgment and insight within normal limits. SKIN: No significant ecchymosis, ulcerations or signs of pruritus noted. Chronic dermatitis changes noted both lower legs. MUSCULOSKELETAL EXAM: No significant joint swelling noted. Results Laboratory Results: 10/27/16 04:03 10/27/16 10/27/16 04:03 05:40 Sodium 143.5 Potassium 4.4 Chloride 105 Carbon Dioxide 32 H Anion Gap 7 BUN 46 H Creatinine 1.76 H Est GFR ( Amer) 46 L Est GFR (Non-Af Amer) 38 L Glucose 152 H Calcium 8.2 L Urine Color YELLOW Urine Appearance CLEAR Urine pH 5.0 Ur Specific [place] 1.010 Urine Protein NEGATIVE Urine Glucose (UA) NEGATIVE Urine Ketones NEGATIVE Urine Blood NEGATIVE Urine Nitrite NEGATIVE Ur Leukocyte Esterase NEGATIVE Urine WBC (Auto) 0 Urine RBC (Auto) 0 Impressions: Chest X-Ray 10/26/16 03:57 IMPRESSION: [id number] mixed interstitial and airspace opacities with some improvement. Mild cardiac enlargement. Interval extubation. Assessment & Plan - Diagnosis (1) Acute on chronic combined systolic and diastolic congestive heart failure Is this a current diagnosis for this admission?: Yes (2) Dyspnea Qualifiers: Dyspnea type: unspecified Qualified Code(s): R06.00 - Dyspnea, unspecified (3) Morbid (severe) obesity with alveolar hypoventilation Is this a current diagnosis for this admission?: Yes (4) Pulmonary hypertension Is this a current diagnosis for this admission?: Yes (5) Respiratory failure Qualifiers: Chronicity: chronic Respiratory failure complication: hypoxia and hypercapnia Qualified Code(s): J96.11 - Chronic respiratory failure with hypoxia Is this a current diagnosis for this admission?: Yes (6) Chronic kidney disease (CKD) Qualifiers: Chronic kidney disease stage: stage 3 (moderate) Qualified Code(s): N18.3 - Chronic kidney disease, stage 3 (moderate) Is this a current diagnosis for this admission?: Yes - Notes Notes: CHF symptoms related to RV systolic dysfunction and LV diastolic dysfunction: Patient with significant contribution from right-sided heart failure as well. Patient's medical regimen reviewed and is noted to be satisfactory. Continue with lisinopril, diuretic therapy. Dyspnea: This is certainly multifactorial with morbid obesity, RV systolic plus diastolic dysfunction, LV diastolic dysfunction as well as underlying COPD etc. contributing. May consider pulmonary evaluation. Morbid obesity with alveolar hypoventilation: Patient will benefit from nightly bilevel therapy. An order to such effect was written today. Pulmonary hypertension: Most likely related to obesity hypoventilation syndrome , severe obesity as well as secondary to chronic combined heart failure. Oxygen supplementation certainly help this condition. Respiratory failure: Acute on chronic systolic plus diastolic, both hypoxemic and hypercarbic. Maintain oxygenation and ventilation. Chronic kidney disease: This is an independent risk factor. Continue to monitor this. Patient would benefit from aggressive weight loss. Continue to monitor and follow patient. - Time Time with patient: Greater than 35 minutes - CODE STATUS was discussed, patient remains full code. Surrogate decision-maker unchanged. Multiple medical problems were addressed. More than 50% of the time spent coordinating care, discussing management plans with involved caregivers. Management plans discussed with involved personnels. Medical decision making was of high complexity, patient's has multiple comorbidities. Medications reviewed and adjusted accordingly: Yes
[2016-10-27] MEDS: ATORVASTATIN CALCIUM 40 MG TABLET PO SCH (21:10)
[2016-10-28 05:49] LABS: ANION GAP 7 (5-19); BLOOD UREA NITROGEN 49 mg/dL (7-20); CALCIUM 8.4 mg/dL (8.4-10.2); CARBON DIOXIDE 32 mmol/L (22-30); CHLORIDE 103 mmol/L (98-107); CREATININE RESULT 1.83 mg/dL (0.52-1.25); GLUCOSE 154 mg/dL (75-110); POTASSIUM 4.4 mmol/L (3.6-5.0); SODIUM 142.2 mmol/L (137-145)
--- NOTE | 2016-10-28 05:56 | PDOC PROGRESS REPORT ---
Subjective Progress Note for:: 10/28/16 Subjective:: pulled bipap off after 40min. It made face cold. Physical Exam Vital Signs: Temp Pulse Resp BP Pulse Ox 97.4 F 55 L 18 140/52 H 95 10/28/16 04:13 10/28/16 04:13 10/28/16 04:13 10/28/16 04:13 10/28/16 04:13 Intake & Output 10/26/16 10/27/16 10/28/16 07:59 07:59 07:59 Intake Total 605 564 Balance 605 564 Weight 421 lb 4.854 oz General appearance: PRESENT: no acute distress Respiratory exam: PRESENT: clear to auscultation maryann Cardiovascular exam: ABSENT: diastolic murmur, irregular rhythm, systolic murmur GI/Abdominal exam: ABSENT: mass, organolmegaly, tenderness Extremities exam: PRESENT: pedal edema - 3+ Neurological exam: PRESENT: oriented to situation Psychiatric exam: PRESENT: appropriate affect Results Laboratory Results: Abnormal - 24 hr 10/27/16 10/27/16 10/27/16 05:39 11:03 15:55 POC Glucose 153 H 172 H 194 H 10/27/16 10/28/16 22:46 05:32 POC Glucose 196 H 146 H Impressions: Chest X-Ray 10/26/16 03:57 IMPRESSION: [id number] mixed interstitial and airspace opacities with some improvement. Mild cardiac enlargement. Interval extubation. Assessment & Plan - Diagnosis (1) Morbid (severe) obesity with alveolar hypoventilation Is this a current diagnosis for this admission?: YesPlan: needs sleep study. Bipap compliance may be an issue. (2) Pulmonary hypertension Is this a current diagnosis for this admission?: Yes (3) Respiratory failure Qualifiers: Chronicity: chronic Respiratory failure complication: hypoxia and hypercapnia Qualified Code(s): J96.11 - Chronic respiratory failure with hypoxia Is this a current diagnosis for this admission?: YesPlan: improved but chronic. Consult Dr Lantigua. (4) Acute on chronic combined systolic and diastolic congestive heart failure Is this a current diagnosis for this admission?: YesPlan: switch furosemide to po 40mg - Inpatient Certification Medical Necessity: Failure to Improve With Outpatient Therapy, Significant Comorbidiites Make Outpatient Treatment Too Risky, Need Close Monitoring Due to Risk of Patient Decompensation, Risk of Complication if Not Cared For in Hospital, Risk of Diagnosis Which Will Require Inpatient Eval/Care/Monitoring
[2016-10-28] MEDS: LISINOPRIL 10 MG TABLET PO SCH (09:48)
[2016-10-28] MEDS: ENOXAPARIN SODIUM INJ 40 MG/0.4 ML DISP.SYRIN SUBCUT SCH (09:48)
[2016-10-28] MEDS: ASPIRIN 81 MG TABLET, CHEWABLE PO SCH (09:49)
[2016-10-28] MEDS: AMLODIPINE BESYLATE 5 MG TABLET PO SCH (09:49)
[2016-10-28] MEDS: ALLOPURINOL 300 MG TABLET PO SCH (09:50)
[2016-10-28] MEDS: CARVEDILOL 12.5 MG TABLET PO SCH ×2 (09:50→23:01)
[2016-10-28] MEDS ORDERED: FUROSEMIDE 40 MG TABLET PO SCH (10:00)
[2016-10-28] MEDS: INSULIN REG, HUMAN 100 UNIT/ML 3 ML VIAL (PYX) SUBCUT PRN ×2 (13:20→23:01)
--- NOTE | 2016-10-28 17:59 | PDOC PROGRESS REPORT ---
Subjective Progress Note for:: 10/28/16 Subjective:: Patient seems to be doing better with gradual improvement. Patient noted to be laying comfortably in bed with head propped up. He did use BiPAP therapy for about an hour then he took it off. Pt is denying any chest arm or neck discomfort. Patient denying any PND, orthopnea. Patient denied any sustained palpitations, dizziness, syncope, near syncope. Patient denying any fever chills. Patient denying any other significant discomfort. Patient is maintaining sinus rhythm. Patient noted to have mild intermittent bradycardia. He still has some pedal edema. Review of systems: Rest review of systems negative. Medications: Medications have been reviewed. Physical Exam Vital Signs: Temp Pulse Resp BP Pulse Ox 97.4 F 55 L 18 140/52 H 95 10/28/16 04:13 10/28/16 04:13 10/28/16 04:13 10/28/16 04:13 10/28/16 04:13 Intake & Output 10/27/16 10/28/16 10/29/16 06:59 06:59 06:59 Intake Total 605 574 250 Balance 605 574 250 Weight 191.1 kg 191 kg Exam: GENERAL: well-nourished and in no acute distress. Alert and oriented x3 HEAD: Atraumatic, normocephalic. EYES: Pupils equal round and reactive to light, extraocular movements intact, sclera anicteric, conjunctiva are normal. ENT: TMs normal, nares patent, oropharynx clear without exudates. Moist mucous membranes. No oral ulcerations or bleeding gums noted NECK: supple without lymphadenopathy. Trachea is central. No cervical or axillary lymphadenopathy noted. Carotids are 2+, JVD WNL LUNGS: Respiration seems nonlabored, no significant accessory muscle action noted. Breath sounds clear to auscultation bilaterally and equal noted. No wheezes rales or rhonchi noted. No significant dullness noted on percussion. CHEST: Palpation of the chest wall shows no significant chest wall tenderness. No other significant abnormalities noted. HEART: [place] [employer], No PSH, 1/6 JEFFREY aortic area, 1/6 newell systolic murmur mitral area, no rubs, no gallops. ABDOMEN: Soft, no significant tenderness appreciated, normoactive bowel sounds. No guarding, no rebound. No rigidity noted . No masses appreciated. EXTREMITIES: Pedal pulses are 1-2+, no calf tenderness noted. No clubbing or cyanosis. 2 + pedal edema noted, with some chronic dermatitis changes. NEUROLOGICAL: Focused neurological exam showed no significant neurologic deficit. Normal speech, no focal weakness appreciated. PSYCH: Normal mood, normal affect. Judgment and insight within normal limits. SKIN: No significant ecchymosis, rash, ulcerations or signs of pruritus noted. MUSCULOSKELETAL EXAM: No significant joint swelling noted. Results Laboratory Results: 10/28/16 04:17 10/28/16 04:17 Sodium 142.2 Potassium 4.4 Chloride 103 Carbon Dioxide 32 H Anion Gap 7 BUN 49 H Creatinine 1.83 H Est GFR ( Amer) 44 L Est GFR (Non-Af Amer) 36 L Glucose 154 H Calcium 8.4 Impressions: Chest X-Ray 10/26/16 03:57 IMPRESSION: [id number] mixed interstitial and airspace opacities with some improvement. Mild cardiac enlargement. Interval extubation. Assessment & Plan - Diagnosis (1) Acute on chronic combined systolic and diastolic congestive heart failure Is this a current diagnosis for this admission?: Yes (2) Dyspnea Qualifiers: Dyspnea type: unspecified Qualified Code(s): R06.00 - Dyspnea, unspecified (3) Morbid (severe) obesity with alveolar hypoventilation Is this a current diagnosis for this admission?: Yes (4) Pulmonary hypertension Is this a current diagnosis for this admission?: Yes (5) Respiratory failure Qualifiers: Chronicity: chronic Respiratory failure complication: hypoxia and hypercapnia Qualified Code(s): J96.11 - Chronic respiratory failure with hypoxia Is this a current diagnosis for this admission?: Yes (6) Chronic kidney disease (CKD) Qualifiers: Chronic kidney disease stage: stage 3 (moderate) Qualified Code(s): N18.3 - Chronic kidney disease, stage 3 (moderate) Is this a current diagnosis for this admission?: Yes - Notes Notes: CHF symptoms related to RV systolic dysfunction and LV diastolic dysfunction: Patient with significant contribution from right-sided heart failure as well. Patient's medical regimen reviewed and is noted to be satisfactory. Continue with lisinopril, diuretic therapy. Agree with switching to p.o. Lasix. Demadex could be used if patient develops tolerance to Lasix. Dyspnea: This is certainly multifactorial with morbid obesity, RV systolic plus diastolic dysfunction, LV diastolic dysfunction as well as underlying COPD etc. contributing. May consider pulmonary evaluation. Morbid obesity with alveolar hypoventilation: Patient will benefit from nightly bilevel therapy. An order to such effect was written today. Pulmonary hypertension: Most likely related to obesity hypoventilation syndrome , severe obesity as well as secondary to chronic combined heart failure. Oxygen supplementation certainly help this condition. Respiratory failure: Acute on chronic systolic plus diastolic, both hypoxemic and hypercarbic. Maintain oxygenation and ventilation. Chronic kidney disease: This is an independent risk factor. Continue to monitor this. Patient would benefit from aggressive weight loss. Continue to monitor and follow patient. Explained to the patient that nightly bilevel therapy would help as will aggressive weight loss. - Time Time with patient: Greater than 35 minutes - CODE STATUS was discussed, patient remains full code. Surrogate decision-maker unchanged. Multiple medical problems were addressed. More than 50% of the time spent coordinating care, discussing management plans with involved caregivers. Management plans discussed with involved personnels. Medical decision making was of moderate to high complexity, patient's has multiple comorbidities. Medications reviewed and adjusted accordingly: Yes
[2016-10-28] MEDS ORDERED: INSULIN GLARGINE,HUM.REC.ANLOG 300 UNIT/3 ML INSULN.PEN SUBCUT SCH (22:00)
[2016-10-28] MEDS: ATORVASTATIN CALCIUM 40 MG TABLET PO SCH (23:00)
[2016-10-29] MEDS ORDERED: ALBUTEROL SULFATE 0.083% NEB 2.5 MG/3 ML AMPUL NEB PRN (05:11)
[2016-10-29 05:14] LABS: PARTIAL THROMBOPLASTIN TIME 36.6 SEC (23.5-35.8)
[2016-10-29 05:25] LABS: ANION GAP 6 (5-19); BLOOD UREA NITROGEN 44 mg/dL (7-20); CALCIUM 8.3 mg/dL (8.4-10.2); CARBON DIOXIDE 34 mmol/L (22-30); CHLORIDE 103 mmol/L (98-107); CREATININE RESULT 1.69 mg/dL (0.52-1.25); GLUCOSE 160 mg/dL (75-110); POTASSIUM 4.4 mmol/L (3.6-5.0); SODIUM 143.2 mmol/L (137-145)
[2016-10-29 06:22] LABS: ABSOLUTE LYMPHOCYTES (AUTO) 0.6 10^3/uL (0.5-4.7); EOSINOPHILS % (AUTO) 0.3 % (0-6)
[2016-10-29 06:55] LABS: ABSOLUTE MONOCYTES (AUTO) 0.9 10^3/uL (0.1-1.4); ABSOLUTE NEUT (AUTO) 10.5 10^3/uL (1.7-8.2); BASOPHILS % (AUTO) 0.2 % (0-2); HEMATOCRIT 30.2 % (37.9-51.0); HEMOGLOBIN 9.6 g/dL (13.5-17.0); HGB HCT DIFFERENCE -1.4; LYMPHOCYTES % (AUTO) 5.1 % (13-45); MEAN CORPUSCULAR HEMOGLOBIN 28.9 pg (27.0-33.4); MEAN CORPUSCULAR HGB CONC 31.7 g/dL (32.0-36.0); MEAN CORPUSCULAR VOLUME 91 fl (80-97); MONOCYTES % (AUTO) 7.4 % (3-13); RED BLOOD COUNT 3.32 10^6/uL (4.35-5.55); RED CELL DISTRIBUTION WIDTH 16.8 % (11.5-14.0); WHITE BLOOD COUNT 12.1 10^3/uL (4.0-10.5)
--- NOTE | 2016-10-29 08:09 | PDOC PROGRESS REPORT ---
Subjective Progress Note for:: 10/29/16 Subjective:: more dyspnea. Slight productive cough. No dysuria. Physical Exam Vital Signs: Temp Pulse Resp BP Pulse Ox 98.2 F 62 22 H 122/51 L 91 L 10/29/16 03:30 10/29/16 03:30 10/29/16 05:20 10/29/16 03:30 10/29/16 05:20 Intake & Output 10/27/16 10/28/16 10/29/16 07:59 07:59 07:59 Intake Total 605 574 874 Output Total 300 Balance 605 574 574 Weight 421 lb 4.854 oz 421 lb 1.326 oz 421 lb 1.326 oz General appearance: PRESENT: no acute distress Respiratory exam: PRESENT: clear to auscultation maryann Cardiovascular exam: ABSENT: diastolic murmur, irregular rhythm, systolic murmur GI/Abdominal exam: ABSENT: mass, organolmegaly, tenderness Extremities exam: PRESENT: pedal edema - less=2+ Neurological exam: PRESENT: oriented to situation Psychiatric exam: PRESENT: appropriate affect Results Laboratory Results: 10/29/16 04:41 10/29/16 04:41 Abnormal - 24 hr 10/29/16 10/29/16 10/29/16 04:41 04:41 04:41 WBC 12.1 H RBC 3.32 L Hgb 9.6 L Hct 30.2 L MCHC 31.7 L RDW 16.8 H Plt Count 115 L Seg Neutrophils % 87.0 H Lymphocytes % 5.1 L Absolute Neutrophils 10.5 H APTT 36.6 H Carbon Dioxide 34 H BUN 44 H Creatinine 1.69 H Est GFR ( Amer) 48 L Est GFR (Non-Af Amer) 40 L Glucose 160 H POC Glucose Calcium 8.3 L Impressions: Chest X-Ray 10/26/16 03:57 IMPRESSION: [id number] mixed interstitial and airspace opacities with some improvement. Mild cardiac enlargement. Interval extubation. Assessment & Plan - Diagnosis (1) Respiratory failure Qualifiers: Chronicity: chronic Respiratory failure complication: hypoxia and hypercapnia Qualified Code(s): J96.11 - Chronic respiratory failure with hypoxia Is this a current diagnosis for this admission?: YesPlan: [id number]% all night for sats low 80s. WBC up. CXR & pulmonary consult pending. (2) Morbid (severe) obesity with alveolar hypoventilation Is this a current diagnosis for this admission?: YesPlan: Pulmonary consult pending. Pft, volumes, dlco. Sister wanted him transfered to [place]. He wants to stay here for now. (3) Pulmonary hypertension Is this a current diagnosis for this admission?: Yes (4) Acute on chronic combined systolic and diastolic congestive heart failure Is this a current diagnosis for this admission?: YesPlan: bun&cr stable and high. Consider torsemide at a cost of worsening renal function. (5) Hematuria Qualifiers: Hematuria type: gross Qualified Code(s): R31.0 - Gross hematuria Is this a current diagnosis for this admission?: YesPlan: ua culture. Outpatient cysto. - Inpatient Certification Medical Necessity: Failure to Improve With Outpatient Therapy, Significant Comorbidiites Make Outpatient Treatment Too Risky, Need Close Monitoring Due to Risk of Patient Decompensation, Need For Continuous Telemetry Monitoring, Risk of Complication if Not Cared For in Hospital, Risk of Diagnosis Which Will Require Inpatient Eval/Care/Monitoring
[2016-10-29] MEDS ORDERED: FUROSEMIDE INJ/PF 100 MG/10 ML SDV ONE (08:17)
--- NOTE | 2016-10-29 08:38 | PDOC PROGRESS REPORT ---
Subjective Progress Note for:: 10/29/16 Subjective:: KAMINI CAO called secondary to respiratory arrest and asystole. Nursing staff performed chest compressions briefly and patient became responsive and had pulse. He was profoundly hypoxic in the high 70s to low 80s O2 sat. Physical Exam Vital Signs: Temp Pulse Resp BP Pulse Ox 98.2 F 62 22 H 122/51 L 91 L 10/29/16 03:30 10/29/16 03:30 10/29/16 05:20 10/29/16 03:30 10/29/16 05:20 Intake & Output 10/28/16 10/29/16 10/30/16 06:59 06:59 06:59 Intake Total 574 874 Output Total 300 Balance 574 574 Weight 191 kg 191 kg GENERAL: Drowsy but arousable, tachypneic HEENT: Conjunctiva clear, nonicteric, moist mucous membranes, no JVD, midline trachea RESPIRATORY: Diffuse bilateral wheezes CARDIAC: Regular rate and rhythm, no murmurs/gallops/rubs ABDOMEN: Soft, morbidly obese, nontender, positive bowel sounds, no rebound, no guarding EXTREMETIES: 1+ bilateral lower extremity NEUROLOGIC: Alert, oriented to person/place/time, CN's grossly intact, no focal deficits SKIN: Skin changes on lower extremities consistent with chronic venous stasis Results Laboratory Results: 10/29/16 04:41 10/29/16 04:41 10/29/16 10/29/16 04:41 04:41 WBC 12.1 H RBC 3.32 L Hgb 9.6 L Hct 30.2 L MCV 91 MCH 28.9 MCHC 31.7 L RDW 16.8 H Plt Count 115 L Seg Neutrophils % 87.0 H Lymphocytes % 5.1 L Monocytes % 7.4 Eosinophils % 0.3 Basophils % 0.2 Absolute Neutrophils 10.5 H Absolute Lymphocytes 0.6 Absolute Monocytes 0.9 Absolute Eosinophils 0.0 Absolute Basophils 0.0 Sodium 143.2 Potassium 4.4 Chloride 103 Carbon Dioxide 34 H Anion Gap 6 BUN 44 H Creatinine 1.69 H Est GFR ( Amer) 48 L Est GFR (Non-Af Amer) 40 L Glucose 160 H Calcium 8.3 L Assessment & Plan - Diagnosis (1) Respiratory failure Qualifiers: Chronicity: chronic Respiratory failure complication: hypoxia and hypercapnia Qualified Code(s): J96.11 - Chronic respiratory failure with hypoxia Is this a current diagnosis for this admission?: YesPlan: Patient failed noninvasive ventilation with BiPAP. He is full CODE STATUS. Patient was intubated by anesthesia and Ambu bag ventilation performed with improvement of O2 sat into the low 90s. Patient is being transferred to the ICU for mechanical ventilation. He will need pulmonary medicine consult. (2) Acute on chronic combined systolic and diastolic congestive heart failure Is this a current diagnosis for this admission?: YesPlan: Chest x-ray shows diffuse pulmonary edema. Patient given Lasix 80 mg IV 1 dose. Will defer further management to primary care provider Dr. Pedersen. (3) Cardiac arrest Is this a current diagnosis for this admission?: YesPlan: Reviewing telemetry strips it looks like patient became bradycardic as a result of respiratory failure. (4) Chronic kidney disease (CKD) Qualifiers: Chronic kidney disease stage: stage 3 (moderate) Qualified Code(s): N18.3 - Chronic kidney disease, stage 3 (moderate) Is this a current diagnosis for this admission?: Yes (5) Hematuria Qualifiers: Hematuria type: gross Qualified Code(s): R31.0 - Gross hematuria Is this a current diagnosis for this admission?: Yes (6) Morbid obesity Is this a current diagnosis for this admission?: Yes (7) Pulmonary hypertension Is this a current diagnosis for this admission?: Yes - Time Critical Time spent with patient: 35 or more minutes
[2016-10-29] MEDS ORDERED: NOREPINEPHRINE BITARTRATE INJ/PF 4 MG/4 ML SDV IV ONE ×2 (08:48→12:01)
[2016-10-29] MEDS: DEXTROSE 5%-WATER 250 ML with NOREPINEPHRINE BITARTRATE 4 MG IV PRN ×4 (08:58→18:12)
[2016-10-29] MEDS ORDERED: FUROSEMIDE INJ/PF 20 MG/2 ML SDV IV ONE (09:00)
[2016-10-29] MEDS ORDERED: PHENYLEPHRINE HCL INJ/PF 10 MG/1 ML SDV ONE ×2 (09:01→12:06)
[2016-10-29] MEDS ORDERED: DOPAMINE HCL/DEXTROSE 5%-WATER 800 MG/250 ML RTUINJ IV ONE (09:04)
[2016-10-29] MEDS: DEXTROSE 5%-WATER 250 ML with PHENYLEPHRINE HCL 40 MG IV PRN ×4 (09:05→20:27)
[2016-10-29] MEDS: DOPAMINE HCL 800 MG/D5W 250 ML IV PRN ×2 (09:07→22:37)
[2016-10-29] MEDS ORDERED: VANCOMYCIN HCL 0 MG in DEXTROSE 5%-WATER 250 ML IV NR (09:30)
[2016-10-29] MEDS ORDERED: FUROSEMIDE INJ/PF 40 MG/4 ML SDV ONE (09:32)
[2016-10-29] MEDS ORDERED: MORPHINE SULFATE 10 MG/ML INJ ONE (09:33)
[2016-10-29] MEDS: ASPIRIN 81 MG TABLET, CHEWABLE PO SCH (10:00)
[2016-10-29] MEDS: ENOXAPARIN SODIUM INJ 40 MG/0.4 ML DISP.SYRIN SUBCUT SCH (10:00)
[2016-10-29] MEDS ORDERED: PROPOFOL 100 ML IV ONE ×4 (10:07→18:11)
--- NOTE | 2016-10-29 10:21 | RADIOLOGY REPORT (SQ) ---
EXAM DESCRIPTION: CHEST SINGLE VIEW COMPLETED DATE/TIME: 10/29/2016 8:37 am REASON FOR STUDY: wbc up hypoxia COMPARISON: 09/26/2016 and 09/18/2016 NUMBER OF VIEWS: One view. TECHNIQUE: Single frontal radiographic view of the chest acquired. LIMITATIONS: Patient is rotated to the left. The large body habitus. FINDINGS: LUNGS AND PLEURA: Continued areas diffuse infiltrate of the right lung. Left lung is obsc ured behind the heart. Likely increasing airspace density and/or atelectasis on the left. MEDIASTINUM AND HILAR STRUCTURES: Obscured HEART AND VASCULAR STRUCTURES: Cardiomegaly. Vascular congestion difficult to exclude. BONES: No acute findings. HARDWARE: Endotracheal tube tip above the anastacio. OTHER: No other significant finding. IMPRESSION: Limited filming. Endotracheal tube above the anastacio. Diffuse pulmonary airspace densit y. TECHNICAL DOCUMENTATION: JOB ID: [id number] [employer]- All Rights Reserved
--- NOTE | 2016-10-29 10:57 | OPERATIVE REPORT E ---
Operative Report NAME: HANSEL DELGADILLO : 1940 AGE: 76Y DATE OF SURGERY: ROOM: 610 PREOPERATIVE DIAGNOSES: 1. MORBID OBESITY. 2. CARDIOGENIC SHOCK. POSTOPERATIVE DIAGNOSES: 1. MORBID OBESITY. 2. CARDIOGENIC SHOCK. OPERATION: 1. Focused ultrasound of the right neck. 2. Ultrasound-directed insertion of triple lumen central venous access catheter via internal jugular vein. 3. Ultrasound-directed insertion of right radial arterial line monitoring catheter. SURGEON: ROC TORRES M.D. ANESTHESIA: 1% plain lidocaine. COMPLICATIONS: None. ESTIMATED BLOOD LOSS: Minimal. DRAINS: None. TISSUE REMOVED OR ALTERED: None. PROCEDURE: The patient was in the process of being stabilized following a cardiac arrest. He was in the intensive care unit where emergent procedures were being performed, given the circumstances of the post code. The right neck was exposed, prepped and draped in sterile fashion. Using ultrasound as a guide, a triple lumen central venous access catheter was threaded into the right internal jugular vein without difficulty. There was excellent blood flow through all 3 limbs. The catheter was flushed with heparinized saline and was secured to the skin with 2-0 silk suture x2. A Biopatch sterile dressing was applied. A portable upright chest x-ray is pending at the time of dictation. The right arm was exposed, strapped to a bedside table with the palm up. An ultrasound was used to scan the radial artery. There was evidence of previous percutaneous intervention to the distal right radial artery over the flexor crease of the wrist. We scanned and identified the brachial artery, which appeared to be of decent caliber and patent but with some tortuosity at the wrist. The skin was prepped with Betadine, anesthetized with 1% lidocaine plain. A small shauna was made with the 18-gauge needle and several attempts were made to thread a percutaneous arterial radial monitoring device into the radial artery but were unsuccessful. Therefore, the more distal radial artery was aborted and we moved up approximately 5 cm. A second area of access was then prepped with Betadine, anesthetized with 1% lidocaine plain. A second small shauna was made with the 18-gauge needle and using again, a new radial arterial line, using the Seldinger technique, we were able to successfully access the right radial artery under ultrasound guidance. The catheter was threaded into position, hooked to a monitoring device and appropriate wave form acquired. The catheter was secured to the skin at 3 sites with 3-0 Prolene suture. A Biopatch sterile dressing was applied and a wrist stabilizer was installed. The patient tolerated the procedure well. DICTATING PHYSICIAN: ROC TORRES M.D. [id number] PHY#: [id number] ID: [id number] JOB#: [id number] ACCT: [id number] cc:ROC TORRES M.D. >
[2016-10-29] MEDS ORDERED: VANCOMYCIN HCL 2,000 MG in DEXTROSE 5%-WATER 500 ML IV ONE (11:00)
[2016-10-29 11:13] LABS: ARTERIAL BLOOD BASE EXCESS 5.4 mmol/L; ARTERIAL BLOOD O2 SATURATION 95.2 % (94-98)
[2016-10-29] MEDS ORDERED: ROCURONIUM BROMIDE INJ 50 MG/5 ML VIAL IV ONE ×2 (12:00→20:15)
--- NOTE | 2016-10-29 12:10 | RADIOLOGY REPORT (SQ) ---
EXAM DESCRIPTION: CHEST SINGLE VIEW COMPLETED DATE/TIME: 10/29/2016 11:02 am REASON FOR STUDY: central line placement COMPARISON: 10/29/2016 EXAM PARAMETERS: NUMBER OF VIEWS: One view. TECHNIQUE: Single frontal radiographic view of the chest acquired. RADIATION DOSE: NA LIMITATIONS: None. FINDINGS: LUNGS AND PLEURA: Pulmonary edema is present. There is no pneumothorax. MEDIASTINUM AND HILAR STRUCTURES: No masses. Contour normal. HEART AND VASCULAR STRUCTURES: Cardiomegaly with pulmonary edema. BONES: No acute findings. HARDWARE: The endotracheal tube. A right internal jugular catheter is present. The tip of the joy ter is in the superior vena cava near the right atrium. OTHER: No other significant finding. IMPRESSION: 1. Pulmonary edema. 2. Right internal jugular catheter placement as described. TECHNICAL DOCUMENTATION: JOB ID: [id number]
--- NOTE | 2016-10-29 12:47 | PDOC CONSULTATION ---
Consultation Consult Date: 10/29/16 Attending physician:: TOR ANDREWS Consult reason:: acute resp failure History of Present Illness Admission Date/PCP: 10/26/16 08:54 TOR ANDREWS MD History of Present Illness: Patient is a 76-year-old male Recently discharged from [facility] where he was intubated and treated for congestive heart failure as well as pneumonia. He was presented today short of breath and coughing and he was subsequently reintubated was profoundly acidotic as well as hypoxemic is a long-standing history of congestive heart failure, BOUBACAR, obesity hypoventilation. Past Medical History Cardiac Medical History: Reports: Hyperlipidema, Hypertension - 4-6meds since Denies: Myocardial Infarction Pulmonary Medical History: Reports: Intubation, Pneumonia, Respiratory Failure Denies: Asthma Neurological Medical History: Reports: Other - diabetic neuropathy Denies: Seizures Endocrine Medical History: Reports: Diabetes Mellitus Type 2, Obesity - [id number] Renal/ Medical History: Reports: Chronic Kidney Disease - 2015 cr1.1. [id number] Malignancy Medical History: Reports: None GI Medical History: Reports: None, Hepatitis - hepB treated 1990 Denies: Hiatal Hernia Musculoskeltal Medical History: Reports: Arthritis, Gout Traumatic Medical History: Reports: None Hematology: Denies: Anemia, Sickle Cell Disease Infectious Medical History: Reports: Hepatitis B Past Surgical History Past Surgical History: Reports: Orthopedic Surgery - L menisectomy Denies: Pacemaker Social History Information Source: [facility] Records Lives with: Family Smoking Status: Former Smoker Number of Years Smokin Last Time Smoked: 1991 Frequency of Alcohol Use: None Hx Recreational Drug Use: No Drugs: None Hx Prescription Drug Abuse: No - Advance Directive Resuscitation Status: Full Code Family History Family History: Hypertension Parental Family History Reviewed: No Children Family History Reviewed: No Sibling(s) Family History Reviewed.: No Medication/Allergy Home Medications: Atorvastatin Calcium [Lipitor 40 mg Tablet] 40 mg PO DAILY 10/26/16 Carvedilol [Coreg 25 mg Tablet] 25 mg PO Q12 10/26/16 Felodipine [Felodipine ER] 10 mg PO DAILY 10/26/16 Insulin Glargine,Hum.rec.anlog [Lantus Solostar] 33 units SQ QHS 10/26/16 Lisinopril [Prinivil 40 mg Tablet] 40 mg PO DAILY 10/26/16 Allergies/Adverse Reactions: No Known Allergies Allergy (Unverified 10/16/12 14:18) Review of Systems ROS unobtainable: Due to endotracheal tube Physical Exam Vital Signs: Temp Pulse Resp BP Pulse Ox 98.2 F 62 22 H 122/51 L 91 L 10/29/16 03:30 10/29/16 03:30 10/29/16 05:20 10/29/16 03:30 10/29/16 05:20 Intake & Output 10/28/16 10/29/16 10/30/16 06:59 06:59 06:59 Intake Total 574 874 Output Total 300 Balance 574 574 Weight 191 kg 191 kg General appearance: PRESENT: no acute distress, disheveled, morbidly obese Head exam: PRESENT: atraumatic, normocephalic Eye exam: PRESENT: conjunctiva pale Mouth exam: PRESENT: dry mucosa, neck supple, tongue midline, other - ET tube in place Neck exam: ABSENT: carotid bruit, JVD, lymphadenopathy, thyromegaly Respiratory exam: PRESENT: decreased breath sounds, prolonged expiratory phas, rales, rhonchi, symmetrical Cardiovascular exam: PRESENT: RRR, +S1, +S2 Pulses: PRESENT: normal radial pulses GI/Abdominal exam: PRESENT: normal bowel sounds, soft. ABSENT: distended, guarding, mass, organolmegaly, rebound, tenderness Rectal exam: PRESENT: deferred Gentrourinary exam: PRESENT: indwelling catheter Extremities exam: PRESENT: +1 edema Skin exam: PRESENT: dry, warm Results Laboratory Results: 10/29/16 04:41 10/29/16 04:41 10/29/16 10/29/16 04:41 04:41 WBC 12.1 H RBC 3.32 L Hgb 9.6 L Hct 30.2 L MCV 91 MCH 28.9 MCHC 31.7 L RDW 16.8 H Plt Count 115 L Seg Neutrophils % 87.0 H Lymphocytes % 5.1 L Monocytes % 7.4 Eosinophils % 0.3 Basophils % 0.2 Absolute Neutrophils 10.5 H Absolute Lymphocytes 0.6 Absolute Monocytes 0.9 Absolute Eosinophils 0.0 Absolute Basophils 0.0 Sodium 143.2 Potassium 4.4 Chloride 103 Carbon Dioxide 34 H Anion Gap 6 BUN 44 H Creatinine 1.69 H Est GFR ( Amer) 48 L Est GFR (Non-Af Amer) 40 L Glucose 160 H Calcium 8.3 L Assessment & Plan - Diagnosis (1) Acute on chronic combined systolic and diastolic congestive heart failure Is this a current diagnosis for this admission?: YesPlan: As per cardiology currently on 3 vasopressor agents (2) Dyspnea Qualifiers: Dyspnea type: unspecified Qualified Code(s): R06.00 - Dyspnea, unspecified Is this a current diagnosis for this admission?: YesPlan: Unable to sustain oxygenation on SIMV patient was switched to BiPAP which eventually maintain his saturations in the 90% or greater level (3) Morbid (severe) obesity with alveolar hypoventilation Is this a current diagnosis for this admission?: Yes (4) Pulmonary vascular congestion Is this a current diagnosis for this admission?: YesPlan: [place] frothy sputum (5) Respiratory failure Qualifiers: Chronicity: chronic Respiratory failure complication: hypoxia and hypercapnia Qualified Code(s): J96.11 - Chronic respiratory failure with hypoxia Is this a current diagnosis for this admission?: YesPlan: Great difficulty ventilating patient oxygenating them on the mechanical ventilation they would however respond to bagging and bagging the patient with I Peep valve subsequently patient was put on by vent and begin to maintain saturations above 90% (6) Cardiac arrest Is this a current diagnosis for this admission?: YesPlan: Status post code - Time Critical Time spent with patient: 35 or more minutes - 210 minutes Spoke with attending physician RN and attending physician respiratory respiratory again respiratory third time attending physician fortunate to have ductus [place] rapidly responded to request for central line and arterial line. Decision to abandon volume Ventilation and initiate BI- ventilation
[2016-10-29 13:04] LABS: APPEARANCE,URINE CLOUDY; BILIRUBIN,URINE NEGATIVE (NEGATIVE); GLUCOSE, URINE NEGATIVE (NEGATIVE); KETONES,URINE NEGATIVE (NEGATIVE); LEUKOCYTE ESTERASE,URINE NEGATIVE (NEGATIVE); NITRITE,URINE NEGATIVE (NEGATIVE); PROTEIN,URINE NEGATIVE (NEGATIVE); URINE SPECIFIC GRAVITY 1.006; UROBILINOGEN,URINE NEGATIVE mg/dL (<2.0)
--- NOTE | 2016-10-29 13:58 | PDOC PROGRESS REPORT ---
Subjective Progress Note for:: 10/29/16 Subjective:: caded on floor. Moved to ICU. Physical Exam Vital Signs: Temp Pulse Resp BP Pulse Ox 98.2 F 61 22 H 122/51 L 91 L 10/29/16 03:30 10/29/16 07:00 10/29/16 05:20 10/29/16 03:30 10/29/16 05:20 Intake & Output 10/28/16 10/29/16 10/30/16 07:59 07:59 07:59 Intake Total 574 874 Output Total 300 Balance 574 574 Weight 421 lb 1.326 oz 421 lb 1.326 oz General appearance: PRESENT: morbidly obese Respiratory exam: PRESENT: decreased breath sounds Cardiovascular exam: ABSENT: diastolic murmur, irregular rhythm, systolic murmur GI/Abdominal exam: ABSENT: mass Extremities exam: PRESENT: pedal edema Neurological exam: ABSENT: alert Results Laboratory Results: 10/29/16 04:41 10/29/16 04:41 10/29/16 10/29/16 04:41 04:41 WBC 12.1 H RBC 3.32 L Hgb 9.6 L Hct 30.2 L MCV 91 MCH 28.9 MCHC 31.7 L RDW 16.8 H Plt Count 115 L Seg Neutrophils % 87.0 H Lymphocytes % 5.1 L Monocytes % 7.4 Eosinophils % 0.3 Basophils % 0.2 Absolute Neutrophils 10.5 H Absolute Lymphocytes 0.6 Absolute Monocytes 0.9 Absolute Eosinophils 0.0 Absolute Basophils 0.0 Sodium 143.2 Potassium 4.4 Chloride 103 Carbon Dioxide 34 H Anion Gap 6 BUN 44 H Creatinine 1.69 H Est GFR ( Amer) 48 L Est GFR (Non-Af Amer) 40 L Glucose 160 H Calcium 8.3 L Assessment & Plan - Diagnosis (1) Respiratory failure Qualifiers: Chronicity: chronic Respiratory failure complication: hypoxia and hypercapnia Qualified Code(s): J96.11 - Chronic respiratory failure with hypoxia Is this a current diagnosis for this admission?: YesPlan: chf worse. Given furosemide 100mg. Vent by Dr Lantigua. Kana & melba. Could not reach on phone. (2) Morbid (severe) obesity with alveolar hypoventilation Is this a current diagnosis for this admission?: Yes (3) Pulmonary hypertension Is this a current diagnosis for this admission?: Yes (4) Acute on chronic combined systolic and diastolic congestive heart failure Is this a current diagnosis for this admission?: Yes (5) Hematuria Qualifiers: Hematuria type: gross Qualified Code(s): R31.0 - Gross hematuria Is this a current diagnosis for this admission?: YesPlan: passed another clot. CBI started. (6) TALI (acute kidney injury) Is this a current diagnosis for this admission?: YesPlan: out40 in 4h. Consult nephrology.
[2016-10-29] MEDS ORDERED: NORMAL SALINE INJ/PF 0.9% 10 ML SDV IV PRN (14:33)
[2016-10-29] MEDS: PROPOFOL 100 ML IV PRN ×7 (14:44→22:37)
[2016-10-29] MEDS: PIPERACILLIN SODIUM/TAZOBACTAM 4.5 GM in NORMAL SALINE 100 ML IV SCH ×3 (14:53→23:30)
[2016-10-29] MEDS: MIDAZOLAM HCL 100 ML IV PRN (14:54)
[2016-10-29] MEDS ORDERED: SUCCINYLCHOLINE CHLORIDE INJ 200 MG/10 ML VIAL ONE (15:29)
[2016-10-29] MEDS ORDERED: FUROSEMIDE INJ/PF 100 MG/10 ML SDV IV ONE (19:15)
--- NOTE | 2016-10-29 19:42 | RADIOLOGY REPORT (SQ) ---
EXAM DESCRIPTION: U/S RETROPERITON (RENAL/AORTA) COMPLETED DATE/TIME: 10/29/2016 7:24 pm REASON FOR STUDY: oliguria COMPARISON: None. TECHNIQUE: Dynamic and static grayscale images acquired of the kidneys and bladder and recorded on P ACS. Additional selected color Doppler and spectral images recorded. LIMITATIONS: Study is limited due to the patient's body habitus. FINDINGS: RIGHT KIDNEY: 10.3 cm in length Normal echogenicity. No solid or suspicious masses. No hydronephrosis. No calcifications. LEFT KIDNEY: Left kidney could not be visualized. BLADDER: The bladder was not well evaluated due to its decompressed state. Eaton catheter is identif ied in the bladder. OTHER FINDINGS: No other significant finding. IMPRESSION: Limited study as noted above. No right renal abnormalities were identified. Left kidne y could not be visualized. Eaton catheter in the bladder. TECHNICAL DOCUMENTATION: JOB ID: [id number] [employer]- All Rights Reserved
--- NOTE | 2016-10-29 19:52 | PDOC PROGRESS REPORT ---
Subjective Progress Note for:: 10/29/16 Subjective:: Early this morning, KAMINI CAO was called on the patient. He was noted to be asystolic and apneic. Patient subsequently had cardiopulmonary resuscitation. He was noted to have a return of pulse but was noted to be severely hypoxic. Subsequently patient was moved to the unit. Patient was started on multiple pressure. He was intubated. He was also noted to be bradycardic. Patient was subsequently started on dopamine drip following which his heart rate improved. Review of systems: Could not be obtained. Medications: Medications have been reviewed. Physical Exam Vital Signs: Temp Pulse Resp BP Pulse Ox 97.7 F 67 6 L 122/52 L 96 10/29/16 18:00 10/29/16 18:00 10/29/16 18:08 10/29/16 18:00 10/29/16 18:09 Intake & Output 10/28/16 10/29/16 10/30/16 06:59 06:59 06:59 Intake Total 692 336 1261 Output Total 300 740 Balance 583 981 8717 Weight 191 kg 191 kg Exam: GENERAL: well-nourished and in no acute distress. Patient is intubated and sedated. Orientation cannot be checked HEAD: Atraumatic, normocephalic. EYES: Pupils equal round and reactive to light, extraocular movements could not be checked, sclera anicteric, conjunctiva are normal. ENT: TMs normal, nares patent, oropharynx clear without exudates. Moist mucous membranes. No oral ulcerations or bleeding gums noted NECK: supple without lymphadenopathy . Trachea is central. No cervical or axillary lymphadenopathy noted. Carotids are 2+. JVP is difficult to evaluate. LUNGS: Breath sounds mostly clear to auscultation patient is noted to have bibasal crackles at the extreme bases CHEST: Palpation of the chest wall shows no significant chest wall tenderness or abnormalities. HEART: [place] [employer], No PSH, 2/6 JEFFREY aortic area, 1/6 newell systolic murmur mitral area , no rubs or gallops. ABDOMEN: Soft, no significant tenderness appreciated, normoactive bowel sounds. No guarding, no rebound. No rigidity noted . No masses appreciated. EXTREMITIES: Pedal pulses are 1-2+, no calf tenderness noted, 2-3 + pedal edema noted. No clubbing or cyanosis. NEUROLOGICAL: The patient cannot participate in the neurological exam but no facial asymmetry noted. Extremities slightly hypotonic PSYCH: This cannot be evaluated. Patient cannot participate. SKIN: No significant ecchymosis, rash, or signs of pruritus noted. MUSCULOSKELETAL EXAM: No significant joint swelling noted. Patient cannot participate in musculoskeletal exam Results Laboratory Results: 10/29/16 04:41 10/29/16 04:41 10/29/16 10/29/16 10/29/16 04:41 04:41 11:00 WBC 12.1 H RBC 3.32 L Hgb 9.6 L Hct 30.2 L MCV 91 MCH 28.9 MCHC 31.7 L RDW 16.8 H Plt Count 115 L Seg Neutrophils % 87.0 H Lymphocytes % 5.1 L Monocytes % 7.4 Eosinophils % 0.3 Basophils % 0.2 Absolute Neutrophils 10.5 H Absolute Lymphocytes 0.6 Absolute Monocytes 0.9 Absolute Eosinophils 0.0 Absolute Basophils 0.0 Carbonic Acid 1.73 H HCO3/H2CO3 Ratio 18:1 ABG pH 7.36 ABG pCO2 57.6 H ABG pO2 80.0 ABG HCO3 32.1 H ABG O2 Saturation 95.2 ABG Base Excess 5.4 FiO2 100% Sodium 143.2 Potassium 4.4 Chloride 103 Carbon Dioxide 34 H Anion Gap 6 BUN 44 H Creatinine 1.69 H Est GFR ( Amer) 48 L Est GFR (Non-Af Amer) 40 L Glucose 160 H Calcium 8.3 L Urine Color Urine Appearance Urine pH Ur Specific [place] Urine Protein Urine Glucose (UA) Urine Ketones Urine Blood Urine Nitrite Ur Leukocyte Esterase Urine WBC (Auto) Urine RBC (Auto) 10/29/16 11:30 WBC RBC Hgb Hct MCV MCH MCHC RDW Plt Count Seg Neutrophils % Lymphocytes % Monocytes % Eosinophils % Basophils % Absolute Neutrophils Absolute Lymphocytes Absolute Monocytes Absolute Eosinophils Absolute Basophils Carbonic Acid HCO3/H2CO3 Ratio ABG pH ABG pCO2 ABG pO2 ABG HCO3 ABG O2 Saturation ABG Base Excess FiO2 Sodium Potassium Chloride Carbon Dioxide Anion Gap BUN Creatinine Est GFR ( Amer) Est GFR (Non-Af Amer) Glucose Calcium Urine Color RED Urine Appearance CLOUDY Urine pH 5.0 Ur Specific [place] 1.006 Urine Protein NEGATIVE Urine Glucose (UA) NEGATIVE Urine Ketones NEGATIVE Urine Blood LARGE H Urine Nitrite NEGATIVE Ur Leukocyte Esterase NEGATIVE Urine WBC (Auto) 21 Urine RBC (Auto) >182 Impressions: Chest X-Ray 10/29/16 00:00 IMPRESSION: 1. Pulmonary edema. 2. Right internal jugular catheter placement as described. Renal Ultrasound 10/29/16 00:00 IMPRESSION: Limited study as noted above. No right renal abnormalities were identified. Left kidney could not be visualized. Eaton catheter in the bladder. Assessment & Plan - Diagnosis (1) Cardiopulmonary arrest with successful resuscitation Is this a current diagnosis for this admission?: Yes (2) Respiratory failure Qualifiers: Chronicity: chronic Respiratory failure complication: hypoxia and hypercapnia Qualified Code(s): J96.11 - Chronic respiratory failure with hypoxia Is this a current diagnosis for this admission?: Yes (3) Aspiration pneumonia Qualifiers: Aspiration pneumonia type: due to gastric secretions Laterality: bilateral Lung location: unspecified part of lung Qualified Code(s): J69.0 - Pneumonitis due to inhalation of food and vomit Is this a current diagnosis for this admission?: Yes (4) Acute on chronic combined systolic and diastolic congestive heart failure Is this a current diagnosis for this admission?: Yes (5) Dyspnea Qualifiers: Dyspnea type: unspecified Qualified Code(s): R06.00 - Dyspnea, unspecified Is this a current diagnosis for this admission?: Yes (6) Morbid (severe) obesity with alveolar hypoventilation Is this a current diagnosis for this admission?: Yes (7) Pulmonary hypertension Is this a current diagnosis for this admission?: Yes (8) Chronic kidney disease (CKD) Qualifiers: Chronic kidney disease stage: stage 3 (moderate) Qualified Code(s): N18.3 - Chronic kidney disease, stage 3 (moderate) Is this a current diagnosis for this admission?: Yes - Notes Notes: Status post cardiopulmonary arrest with successful resuscitation: Believed that patient predominantly and primarily had respiratory arrest most likely brought on by aspiration pneumonia. That is my view based on chest x-ray review. Continue ventilatory support, continue oxygenation. Respiratory failure: Acute on chronic. Pulmonary assisting in care. Aspiration pneumonia: Feel that this must have happened this morning to precipitate sudden cardiopulmonary arrest. However will obtain an EKG to rule out any cardiac ischemia. Biventricular failure: Patient has LV systolic diastolic failure and significant RV failure. Continue diuretic therapy. Morbid obesity: Currently stable. Pulmonary hypertension: Possibly severe. Chronic kidney disease: Currently stable. - Time Time with patient: Greater than 35 minutes - Patient noted to be critically ill on ventilatory and cardiac support. CODE STATUS was discussed, patient remains full code. Surrogate decision-maker patient's . Multiple medical problems were addressed. More than 50% of the time spent coordinating care, discussing management plans with involved caregivers. Management plans discussed with involved personnels. Medical decision making was of moderate to high complexity, patient's has multiple comorbidities. Medications reviewed and adjusted accordingly: Yes
[2016-10-29] MEDS ORDERED: MORPHINE SULFATE 10 MG/ML INJ IV ONE (20:00)
[2016-10-29 20:18] LABS: ARTERIAL BLOOD O2 SATURATION 98.6 % (94-98)
[2016-10-29] MEDS ORDERED: NORMAL SALINE 250 ML with FUROSEMIDE 250 MG IV PRN ×2 (20:22)
--- NOTE | 2016-10-29 20:30 | EKG REPORT ---
SEVERITY:- ABNORMAL ECG - SINUS RHYTHM FIRST DEGREE AV BLOCK LOW VOLTAGE THROUGHOUT BORDERLINE R WAVE PROGRESSION, ANTERIOR LEADS : Confirmed by: Tony Clement MD 29-Oct-2016 20:30:07
[2016-10-29 20:55] LABS: CREATINE KINASE MB 1.52 ng/mL (<4.55)
[2016-10-29 21:01] LABS: TROPONIN I < 0.012 ng/mL
[2016-10-29] MEDS: VANCOMYCIN HCL 1,000 MG in DEXTROSE 5%-WATER 250 ML IV SCH (21:20)
--- NOTE | 2016-10-29 21:53 | PDOC CONSULTATION ---
Consultation Consult Date: 10/29/16 Consult reason:: Anuric renal failure History of Present Illness Admission Date/PCP: 10/26/16 08:54 TOR ANDREWS MD History of Present Illness: Patient is a 76-year-old male admitted with worsening respiratory failure.On 18 September he was admitted here with parent cardiorespiratory arrest and was transferred to [facility]. He was recently discharged from [facility] where he was intubated and treated for congestive heart failure as well as pneumonia. He was discharged to the long-term from where apparently he had been home couple of days earlier. He has a history of congestive heart failure, BOUBACAR, obesity hypoventilation. He was admitted to the floor initially failure on BiPAP. He was transferred today to the ICU because of worsening respiratory failure, bradycardia with possibility of asystole and was resuscitated with conservative measures and began on dopamine along with pressor agents because of possible septic shock with cardiogenic shock. Likelihood of aspiration/aspiration pneumonia. Is currently intubated and sedated.Has a history of intermittent clots through his bladder for the last few hours and currently he has irrigating Eaton catheter. Past Medical History Cardiac Medical History: Reports: Hyperlipidemia, Hypertension-primary Denies: Myocardial Infarction Pulmonary Medical History: Reports: Intubation, Pneumonia, Respiratory Failure Denies: Asthma Neurological Medical History: Reports: Other - diabetic neuropathy Denies: Seizures Endocrine Medical History: Reports: Diabetes Mellitus Type 2, Obesity - [id number] Complications of Diabetes: Reports: None Renal/ Medical History: Reports: Chronic Kidney Disease Stage III Malignancy Medical History: Reports: None GI Medical History: Reports: None, Hepatitis - hepB treated 1990 Denies: Hiatal Hernia Musculoskeltal Medical History: Reports: Arthritis, Gout Traumatic Medical History: Reports: None Infectious Medical History: Reports: Hepatitis B Past Surgical History Past Surgical History: Reports: Orthopedic Surgery - L menisectomy Denies: Pacemaker Social History Lives with: Family Smoking Status: Former Smoker Number of Years Smokin Last Time Smoked: 1991 Frequency of Alcohol Use: None Hx Recreational Drug Use: No Drugs: None Hx Prescription Drug Abuse: No - Advance Directive Resuscitation Status: Full Code Family History Parental Family History Reviewed: Yes - Negative for ESRD Children Family History Reviewed: No Sibling(s) Family History Reviewed.: No Medication/Allergy Home Medications: Atorvastatin Calcium [Lipitor 40 mg Tablet] 40 mg PO DAILY 10/26/16 Carvedilol [Coreg 25 mg Tablet] 25 mg PO Q12 10/26/16 Felodipine [Felodipine ER] 10 mg PO DAILY 10/26/16 Insulin Glargine,Hum.rec.anlog [Lantus Solostar] 33 units SQ QHS 10/26/16 Lisinopril [Prinivil 40 mg Tablet] 40 mg PO DAILY 10/26/16 Allergies/Adverse Reactions: No Known Allergies Allergy (Unverified 10/16/12 14:18) Review of Systems Review of Systems: Currently intubated and sedated. Therefore chart review was done and discussions were done with the treating nurse. Physical Exam Vital Signs: Temp Pulse Resp BP Pulse Ox 97.2 F 70 17 131/54 H 96 10/29/16 14:00 10/29/16 14:00 10/29/16 14:00 10/29/16 14:00 10/29/16 14:00 Intake & Output 10/28/16 10/29/16 10/30/16 06:59 06:59 06:59 Intake Total 988 393 4895 Output Total 300 4060 Balance 574 574 -60 Weight 191 kg 191 kg General appearance: PRESENT: morbidly obese Exam: Vision intubated and sedated. Discussions done with the treating nurse.Is a morbidly obese individual Eye exam: PRESENT: conjunctiva pink, EOMI, PERRLA Ear exam: PRESENT: normal external ear exam Neck exam: ABSENT: lymphadenopathy, meningismus, tenderness, thyromegaly, tracheal deviation Respiratory exam: PRESENT: clear to auscultation maryann. ABSENT: crackles, rhonchi Cardiovascular exam: PRESENT: +S1, +S2, systolic murmur GI/Abdominal exam: PRESENT: normal bowel sounds, soft. ABSENT: organomegaly, tenderness Extremities exam: PRESENT: +2 edema Skin exam: PRESENT: mottled - Venous stasis changes in both lower extremities., other - Large pannus with intertrigo. ABSENT: cyanosis, erythema, rash Results Laboratory Results: 10/29/16 04:41 10/29/16 04:41 10/29/16 10/29/16 10/29/16 04:41 04:41 11:00 WBC 12.1 H RBC 3.32 L Hgb 9.6 L Hct 30.2 L MCV 91 MCH 28.9 MCHC 31.7 L RDW 16.8 H Plt Count 115 L Seg Neutrophils % 87.0 H Lymphocytes % 5.1 L Monocytes % 7.4 Eosinophils % 0.3 Basophils % 0.2 Absolute Neutrophils 10.5 H Absolute Lymphocytes 0.6 Absolute Monocytes 0.9 Absolute Eosinophils 0.0 Absolute Basophils 0.0 Carbonic Acid 1.73 H HCO3/H2CO3 Ratio 18:1 ABG pH 7.36 ABG pCO2 57.6 H ABG pO2 80.0 ABG HCO3 32.1 H ABG O2 Saturation 95.2 ABG Base Excess 5.4 FiO2 100% Sodium 143.2 Potassium 4.4 Chloride 103 Carbon Dioxide 34 H Anion Gap 6 BUN 44 H Creatinine 1.69 H Est GFR ( Amer) 48 L Est GFR (Non-Af Amer) 40 L Glucose 160 H Calcium 8.3 L Urine Color Urine Appearance Urine pH Ur Specific [place] Urine Protein Urine Glucose (UA) Urine Ketones Urine Blood Urine Nitrite Ur Leukocyte Esterase Urine WBC (Auto) Urine RBC (Auto) 10/29/16 11:30 WBC RBC Hgb Hct MCV MCH MCHC RDW Plt Count Seg Neutrophils % Lymphocytes % Monocytes % Eosinophils % Basophils % Absolute Neutrophils Absolute Lymphocytes Absolute Monocytes Absolute Eosinophils Absolute Basophils Carbonic Acid HCO3/H2CO3 Ratio ABG pH ABG pCO2 ABG pO2 ABG HCO3 ABG O2 Saturation ABG Base Excess FiO2 Sodium Potassium Chloride Carbon Dioxide Anion Gap BUN Creatinine Est GFR ( Amer) Est GFR (Non-Af Amer) Glucose Calcium Urine Color RED Urine Appearance CLOUDY Urine pH 5.0 Ur Specific [place] 1.006 Urine Protein NEGATIVE Urine Glucose (UA) NEGATIVE Urine Ketones NEGATIVE Urine Blood LARGE H Urine Nitrite NEGATIVE Ur Leukocyte Esterase NEGATIVE Urine WBC (Auto) 21 Urine RBC (Auto) >182 Impressions: Chest X-Ray 10/29/16 00:00 IMPRESSION: 1. Pulmonary edema. 2. Right internal jugular catheter placement as described. Assessment & Plan - Diagnosis (1) CHF (congestive heart failure) Plan: Biventricular failure. start lasix infusion. Monitor. Very critical. Poor prognosis (2) CKD (chronic kidney disease) stage 3, GFR 30-59 ml/min Plan: His baseline creatinine is around 1.5 suggestive of CKD stage III.Likely underlying causes would be diabetes and hypertension with possibility of secondary FSGS (3) TALI (acute kidney injury) Is this a current diagnosis for this admission?: YesPlan: Most likely combination of prerenal from his cardiac failure in combination with septic/cardiogenic shock. Patient on multiple pressor agents in combination with multiple antibiotics. Currently the patient is fluid overloaded will start to see if he would respond to conservative measures. No indications for renal replacements currently. (4) Acute on chronic combined systolic and diastolic congestive heart failure Is this a current diagnosis for this admission?: YesPlan: Being managed by cardiology. (5) Hematuria Qualifiers: Hematuria type: gross Qualified Code(s): R31.0 - Gross hematuria Is this a current diagnosis for this admission?: YesPlan: Plan history of blood clots coming through his Eaton catheterHe did get renal ultrasound. We will had to see if he can fit in for the CT scan later on. Unsure if patient apparently was on anticoagulants like Plavix. (6) Morbid obesity Is this a current diagnosis for this admission?: Yes (7) Pulmonary hypertension Is this a current diagnosis for this admission?: YesPlan: In the face of her biventricular failure, morbid obesity with possible pickwickian and possibly underlying sleep apnea.
[2016-10-29] MEDS ORDERED: FUROSEMIDE INJ/PF 40 MG/4 ML SDV IV SCH (22:00)
[2016-10-29] MEDS: INSULIN REG, HUMAN 100 UNIT/ML 3 ML VIAL (PYX) SUBCUT PRN (23:30)
[2016-10-30] MEDS: MIDAZOLAM HCL 100 ML IV PRN ×3 (00:23→19:46)
[2016-10-30] MEDS: DEXTROSE 5%-WATER 250 ML with NOREPINEPHRINE BITARTRATE 4 MG IV PRN ×4 (01:13→14:58)
[2016-10-30 04:09] LABS: ARTERIAL BLOOD O2 SATURATION 92.6 % (94-98)
[2016-10-30 04:12] LABS: HEMATOCRIT 29.5 % (37.9-51.0); HEMOGLOBIN 9.5 g/dL (13.5-17.0); MEAN CORPUSCULAR HEMOGLOBIN 28.6 pg (27.0-33.4); MEAN CORPUSCULAR HGB CONC 32.3 g/dL (32.0-36.0); MEAN CORPUSCULAR VOLUME 89 fl (80-97); RED BLOOD COUNT 3.33 10^6/uL (4.35-5.55); RED CELL DISTRIBUTION WIDTH 16.1 % (11.5-14.0); WHITE BLOOD COUNT 14.3 10^3/uL (4.0-10.5)
[2016-10-30 04:27] LABS: ANION GAP 9 (5-19); BLOOD UREA NITROGEN 41 mg/dL (7-20); CARBON DIOXIDE 29 mmol/L (22-30); CHLORIDE 100 mmol/L (98-107); CREATINE KINASE 55 U/L (55-170); CREATININE RESULT 1.68 mg/dL (0.52-1.25); GLUCOSE 193 mg/dL (75-110); MAGNESIUM 1.5 mg/dL (1.6-2.3); PHOSPHORUS 2.6 mg/dL (2.5-4.5); SODIUM 138.3 mmol/L (137-145)
[2016-10-30 04:39] LABS: CREATINE KINASE MB 0.89 ng/mL (<4.55)
[2016-10-30 04:42] LABS: TROPONIN I < 0.012 ng/mL
[2016-10-30] MEDS: PIPERACILLIN SODIUM/TAZOBACTAM 4.5 GM in NORMAL SALINE 100 ML IV SCH ×4 (05:01→23:12)
[2016-10-30] MEDS: INSULIN REG, HUMAN 100 UNIT/ML 3 ML VIAL (PYX) SUBCUT PRN ×2 (05:02→23:12)
--- NOTE | 2016-10-30 07:00 | RADIOLOGY REPORT (SQ) ---
EXAM DESCRIPTION: CHEST SINGLE VIEW COMPLETED DATE/TIME: 10/30/2016 6:32 am REASON FOR STUDY: intubation/mechanical ventilation COMPARISON: 10/29/2016. EXAM PARAMETERS: NUMBER OF VIEWS: One view. TECHNIQUE: Single frontal radiographic view of the chest acquired. RADIATION DOSE: NA LIMITATIONS: As below. FINDINGS: LUNGS AND PLEURA: Severe extensive masslike airspace opacities of both lung linares, right more than left. Left costophrenic angle is minimally clipped off the image. MEDIASTINUM AND HILAR STRUCTURES: No masses. Contour normal. HEART AND VASCULAR STRUCTURES: Mild-moderate enlargement of the cardiac silhouette. BONES: No acute findings. HARDWARE: Adequate appearing endotracheal tube. Partially obscured right internal jugular central li ne and partially obscured distal NG tube. OTHER: No other significant finding. IMPRESSION: Severe extensive airspace opacities of both lung linares. Lines and tubes with partially imaged. Limitation. TECHNICAL DOCUMENTATION: JOB ID: [id number]
--- NOTE | 2016-10-30 07:06 | PDOC PROGRESS REPORT ---
Subjective Progress Note for:: 10/30/16 Subjective:: sedated Physical Exam Vital Signs: Temp Pulse Resp BP Pulse Ox 97.8 F 57 L 0 L 108/52 L 95 10/30/16 06:01 10/30/16 06:01 10/30/16 06:19 10/30/16 06:01 10/30/16 06:20 Intake & Output 10/28/16 10/29/16 10/30/16 07:59 07:59 07:59 Intake Total 574 874 75657 Output Total 300 9490 Balance 770 849 5623 Weight 421 lb 1.326 oz 421 lb 1.326 oz 425 lb 11.402 oz Respiratory exam: PRESENT: rhonchi Cardiovascular exam: ABSENT: diastolic murmur, irregular rhythm, systolic murmur GI/Abdominal exam: ABSENT: mass, organolmegaly Extremities exam: PRESENT: pedal edema Results Laboratory Results: 10/30/16 03:58 10/30/16 03:58 Abnormal - 24 hr 10/29/16 10/29/16 10/29/16 11:00 11:30 18:06 WBC RBC Hgb Hct RDW Plt Count Carbonic Acid 1.73 H ABG pH ABG pCO2 57.6 H ABG pO2 ABG HCO3 32.1 H ABG Total CO2 33.9 H ABG O2 Saturation BUN Creatinine Est GFR ( Amer) Est GFR (Non-Af Amer) Glucose POC Glucose 214 H Calcium Magnesium Urine Blood LARGE H 10/29/16 10/29/16 10/30/16 20:00 23:27 03:58 WBC RBC Hgb Hct RDW Plt Count Carbonic Acid 0.96 L ABG pH 7.63 H* ABG pCO2 31.8 L ABG pO2 104.7 H ABG HCO3 32.4 H ABG Total CO2 33.4 H ABG O2 Saturation 98.6 H BUN 41 H Creatinine 1.68 H Est GFR ( Amer) 49 L Est GFR (Non-Af Amer) 40 L Glucose 193 H POC Glucose 272 H Calcium 8.0 L Magnesium 1.5 L Urine Blood 10/30/16 10/30/16 03:58 03:58 WBC 14.3 H RBC 3.33 L Hgb 9.5 L Hct 29.5 L RDW 16.1 H Plt Count 131 L Carbonic Acid ABG pH 7.59 H ABG pCO2 ABG pO2 53.7 L ABG HCO3 33.3 H ABG Total CO2 34.3 H ABG O2 Saturation 92.6 L BUN Creatinine Est GFR ( Amer) Est GFR (Non-Af Amer) Glucose POC Glucose Calcium Magnesium Urine Blood Impressions: Renal Ultrasound 10/29/16 00:00 IMPRESSION: Limited study as noted above. No right renal abnormalities were identified. Left kidney could not be visualized. Eaton catheter in the bladder. Assessment & Plan - Diagnosis (1) Respiratory failure Qualifiers: Chronicity: chronic Respiratory failure complication: hypoxia and hypercapnia Qualified Code(s): J96.11 - Chronic respiratory failure with hypoxia Is this a current diagnosis for this admission?: YesPlan: sat ok with bilevel vent. Peak [id number]. XR fluffy infiltrate R>L ?edema. Continue vanc & zosyn. (2) Morbid (severe) obesity with alveolar hypoventilation Is this a current diagnosis for this admission?: Yes (3) Pulmonary hypertension Is this a current diagnosis for this admission?: Yes (4) Acute on chronic combined systolic and diastolic congestive heart failure Is this a current diagnosis for this admission?: YesPlan: making urine on furosemide 6mg/h. Down to 2 pressors. (5) Hematuria Qualifiers: Hematuria type: gross Qualified Code(s): R31.0 - Gross hematuria Is this a current diagnosis for this admission?: YesPlan: stopped. Stop irrigation. (6) TALI (acute kidney injury) Is this a current diagnosis for this admission?: YesPlan: creatinine suprisingly stable - Inpatient Certification Medical Necessity: Failure to Improve With Outpatient Therapy, Significant Comorbidiites Make Outpatient Treatment Too Risky, Need Close Monitoring Due to Risk of Patient Decompensation, Need For Continuous Telemetry Monitoring, Need for IV Antibiotics, Risk of Complication if Not Cared For in Hospital, Risk of Diagnosis Which Will Require Inpatient Eval/Care/Monitoring
[2016-10-30] MEDS ORDERED: NORMAL SALINE 250 ML with FUROSEMIDE 250 MG IV PRN ×2 (08:38)
[2016-10-30] MEDS: MAGNESIUM SULFATE/D5W 100 ML IV SCH ×2 (10:03→21:20)
[2016-10-30] MEDS: VANCOMYCIN HCL 1,000 MG in DEXTROSE 5%-WATER 250 ML IV SCH ×2 (10:03→21:19)
--- NOTE | 2016-10-30 11:40 | PDOC PROGRESS REPORT ---
Subjective Progress Note for:: 10/30/16 Physical Exam Vital Signs: Temp Pulse Resp BP Pulse Ox 97.7 F 61 15 114/55 L 97 10/30/16 08:00 10/30/16 08:00 10/30/16 08:00 10/30/16 08:00 10/30/16 08:00 Intake & Output 10/29/16 10/30/16 10/31/16 06:59 06:59 06:59 Intake Total 874 62478 Output Total 300 9490 350 Balance 574 5533 -350 Weight 191 kg 193.1 kg General appearance: PRESENT: no acute distress, disheveled, morbidly obese, well -developed Head exam: PRESENT: atraumatic, normocephalic Eye exam: PRESENT: conjunctiva pale Mouth exam: PRESENT: dry mucosa, neck supple, tongue midline, other - ET tube in place Neck exam: ABSENT: carotid bruit, JVD, lymphadenopathy, thyromegaly Respiratory exam: PRESENT: decreased breath sounds, prolonged expiratory phas, rales, rhonchi, unlabored Cardiovascular exam: PRESENT: RRR, +S1, +S2 GI/Abdominal exam: PRESENT: normal bowel sounds, soft. ABSENT: distended, guarding, mass, organolmegaly, rebound, tenderness Rectal exam: PRESENT: deferred Gentrourinary exam: PRESENT: indwelling catheter Extremities exam: PRESENT: +1 edema Skin exam: PRESENT: dry, warm Results Laboratory Results: 10/30/16 03:58 10/30/16 03:58 10/29/16 10/29/16 10/29/16 11:00 11:30 20:00 WBC RBC Hgb Hct MCV MCH MCHC RDW Plt Count Carbonic Acid 1.73 H 0.96 L HCO3/H2CO3 Ratio 18:1 33:1 ABG pH 7.36 7.63 H* ABG pCO2 57.6 H 31.8 L ABG pO2 80.0 104.7 H ABG HCO3 32.1 H 32.4 H ABG O2 Saturation 95.2 98.6 H ABG Base Excess 5.4 11.0 FiO2 100% 60% Sodium Potassium Chloride Carbon Dioxide Anion Gap BUN Creatinine Est GFR ( Amer) Est GFR (Non-Af Amer) Glucose Calcium Phosphorus Magnesium Urine Color RED Urine Appearance CLOUDY Urine pH 5.0 Ur Specific [place] 1.006 Urine Protein NEGATIVE Urine Glucose (UA) NEGATIVE Urine Ketones NEGATIVE Urine Blood LARGE H Urine Nitrite NEGATIVE Ur Leukocyte Esterase NEGATIVE Urine WBC (Auto) 21 Urine RBC (Auto) >182 10/30/16 10/30/16 10/30/16 03:58 03:58 03:58 WBC 14.3 H RBC 3.33 L Hgb 9.5 L Hct 29.5 L MCV 89 MCH 28.6 MCHC 32.3 RDW 16.1 H Plt Count 131 L Carbonic Acid 1.06 HCO3/H2CO3 Ratio 31:1 ABG pH 7.59 H ABG pCO2 35.3 ABG pO2 53.7 L ABG HCO3 33.3 H ABG O2 Saturation 92.6 L ABG Base Excess 11.0 FiO2 40% Sodium 138.3 Potassium 4.0 Chloride 100 Carbon Dioxide 29 Anion Gap 9 BUN 41 H Creatinine 1.68 H Est GFR ( Amer) 49 L Est GFR (Non-Af Amer) 40 L Glucose 193 H Calcium 8.0 L Phosphorus 2.6 Magnesium 1.5 L Urine Color Urine Appearance Urine pH Ur Specific [place] Urine Protein Urine Glucose (UA) Urine Ketones Urine Blood Urine Nitrite Ur Leukocyte Esterase Urine WBC (Auto) Urine RBC (Auto) 10/29/16 10/29/16 10/30/16 20:00 20:00 03:58 Creatine Kinase 72 55 CK-MB (CK-2) 1.52 Troponin I < 0.012 10/30/16 03:58 Creatine Kinase CK-MB (CK-2) 0.89 Troponin I < 0.012 Impressions: Renal Ultrasound 10/29/16 00:00 IMPRESSION: Limited study as noted above. No right renal abnormalities were identified. Left kidney could not be visualized. Eaton catheter in the bladder. Chest X-Ray 10/30/16 06:00 IMPRESSION: Severe extensive airspace opacities of both lung linares. Lines and tubes with partially imaged. Limitation. Assessment & Plan - Diagnosis (1) Acute on chronic combined systolic and diastolic congestive heart failure Is this a current diagnosis for this admission?: Yes (2) Dyspnea Qualifiers: Dyspnea type: unspecified Qualified Code(s): R06.00 - Dyspnea, unspecified Is this a current diagnosis for this admission?: Yes (3) Morbid (severe) obesity with alveolar hypoventilation Is this a current diagnosis for this admission?: Yes (4) Pulmonary vascular congestion Is this a current diagnosis for this admission?: Yes (5) Respiratory failure Qualifiers: Chronicity: chronic Respiratory failure complication: hypoxia and hypercapnia Qualified Code(s): J96.11 - Chronic respiratory failure with hypoxia Is this a current diagnosis for this admission?: Yes (6) Cardiac arrest Is this a current diagnosis for this admission?: Yes - Time Critical Time spent with patient: 35 or more minutes
--- NOTE | 2016-10-30 12:13 | PDOC PROGRESS REPORT ---
Subjective Progress Note for:: 10/30/16 Subjective:: Patient about the same and has made very little progress. There is no significant change in general condition. Patient remains intubated, sedated, patient however looks comfortable and in acute distress. Twelve-lead EKG shows no significant ST-T wave changes. There is low voltage QRS all over possibly related to severe RV enlargement. Cardiac enzymes surprisingly have come back all negative in spite of patient suffering cardiorespiratory arrest. Chest x-ray showed bilateral airspace disease, most likely bilateral aspiration pneumonia. Medications reviewed. Medications: Medications have been reviewed. Physical Exam Vital Signs: Temp Pulse Resp BP Pulse Ox 97.6 F 77 23 H 119/57 L 98 10/30/16 12:00 10/30/16 12:00 10/30/16 12:00 10/30/16 12:00 10/30/16 12:00 Intake & Output 10/29/16 10/30/16 10/31/16 06:59 06:59 06:59 Intake Total 874 92111 Output Total 300 9490 1025 Balance 574 5533 -1025 Weight 191 kg 193.1 kg Exam: GENERAL: well-nourished and in no acute distress. Patient is intubated and sedated. Orientation cannot be checked HEAD: Atraumatic, normocephalic. EYES: Pupils equal round and reactive to light, extraocular movements could not be checked, sclera anicteric, conjunctiva are normal. ENT: TMs normal, nares patent, oropharynx clear without exudates. Moist mucous membranes. No oral ulcerations or bleeding gums noted NECK: supple without lymphadenopathy or JVD. Trachea is central. No cervical or axillary lymphadenopathy noted. Carotids are 2+ LUNGS: Breath sounds mostly clear to auscultation patient is noted to have bibasal crackles. CHEST: Palpation of the chest wall shows no significant chest wall tenderness or abnormalities. 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 ABDOMEN: Soft, no significant tenderness appreciated, normoactive bowel sounds. No guarding, no rebound. No rigidity noted . No masses appreciated. EXTREMITIES: Pedal pulses are 1-2+, no calf tenderness noted, 1-2+ pedal edema noted. No clubbing or cyanosis. Some dermatitis changes noted. NEUROLOGICAL: The patient cannot participate in the neurological exam but no facial asymmetry noted. Extremities slightly hypotonic PSYCH: This cannot be evaluated. Patient cannot participate. SKIN: No significant ecchymosis, rash, or signs of pruritus noted. MUSCULOSKELETAL EXAM: No significant joint swelling noted. Patient cannot participate in musculoskeletal exam Results Laboratory Results: 10/30/16 03:58 10/30/16 03:58 10/29/16 10/29/16 10/30/16 11:30 20:00 03:58 WBC RBC Hgb Hct MCV MCH MCHC RDW Plt Count Carbonic Acid 0.96 L HCO3/H2CO3 Ratio 33:1 ABG pH 7.63 H* ABG pCO2 31.8 L ABG pO2 104.7 H ABG HCO3 32.4 H ABG O2 Saturation 98.6 H ABG Base Excess 11.0 FiO2 60% Sodium 138.3 Potassium 4.0 Chloride 100 Carbon Dioxide 29 Anion Gap 9 BUN 41 H Creatinine 1.68 H Est GFR ( Amer) 49 L Est GFR (Non-Af Amer) 40 L Glucose 193 H Calcium 8.0 L Phosphorus 2.6 Magnesium 1.5 L Urine Color RED Urine Appearance CLOUDY Urine pH 5.0 Ur Specific [place] 1.006 Urine Protein NEGATIVE Urine Glucose (UA) NEGATIVE Urine Ketones NEGATIVE Urine Blood LARGE H Urine Nitrite NEGATIVE Ur Leukocyte Esterase NEGATIVE Urine WBC (Auto) 21 Urine RBC (Auto) >182 10/30/16 10/30/16 03:58 03:58 WBC 14.3 H RBC 3.33 L Hgb 9.5 L Hct 29.5 L MCV 89 MCH 28.6 MCHC 32.3 RDW 16.1 H Plt Count 131 L Carbonic Acid 1.06 HCO3/H2CO3 Ratio 31:1 ABG pH 7.59 H ABG pCO2 35.3 ABG pO2 53.7 L ABG HCO3 33.3 H ABG O2 Saturation 92.6 L ABG Base Excess 11.0 FiO2 40% Sodium Potassium Chloride Carbon Dioxide Anion Gap BUN Creatinine Est GFR ( Amer) Est GFR (Non-Af Amer) Glucose Calcium Phosphorus Magnesium Urine Color Urine Appearance Urine pH Ur Specific [place] Urine Protein Urine Glucose (UA) Urine Ketones Urine Blood Urine Nitrite Ur Leukocyte Esterase Urine WBC (Auto) Urine RBC (Auto) 10/29/16 10/29/16 10/30/16 20:00 20:00 03:58 Creatine Kinase 72 55 CK-MB (CK-2) 1.52 Troponin I < 0.012 10/30/16 03:58 Creatine Kinase CK-MB (CK-2) 0.89 Troponin I < 0.012 EKG Comments: Telemetry strips shows sinus bradycardia. Impressions: Renal Ultrasound 10/29/16 00:00 IMPRESSION: Limited study as noted above. No right renal abnormalities were identified. Left kidney could not be visualized. Eaton catheter in the bladder. Chest X-Ray 10/30/16 06:00 IMPRESSION: Severe extensive airspace opacities of both lung linares. Lines and tubes with partially imaged. Limitation. Assessment & Plan - Diagnosis (1) Cardiopulmonary arrest with successful resuscitation Is this a current diagnosis for this admission?: Yes (2) Respiratory failure Qualifiers: Chronicity: chronic Respiratory failure complication: hypoxia and hypercapnia Qualified Code(s): J96.11 - Chronic respiratory failure with hypoxia Is this a current diagnosis for this admission?: Yes (3) Aspiration pneumonia Qualifiers: Aspiration pneumonia type: due to gastric secretions Laterality: bilateral Lung location: unspecified part of lung Qualified Code(s): J69.0 - Pneumonitis due to inhalation of food and vomit Is this a current diagnosis for this admission?: Yes (4) Acute on chronic combined systolic and diastolic congestive heart failure Is this a current diagnosis for this admission?: Yes (5) Dyspnea Qualifiers: Dyspnea type: unspecified Qualified Code(s): R06.00 - Dyspnea, unspecified Is this a current diagnosis for this admission?: Yes (6) Morbid (severe) obesity with alveolar hypoventilation Is this a current diagnosis for this admission?: Yes (7) Pulmonary hypertension Is this a current diagnosis for this admission?: Yes (8) Chronic kidney disease (CKD) Qualifiers: Chronic kidney disease stage: stage 3 (moderate) Qualified Code(s): N18.3 - Chronic kidney disease, stage 3 (moderate) Is this a current diagnosis for this admission?: Yes (9) Hypotension (arterial) Qualifiers: Hypotension type: other hypotension type Qualified Code(s): I95.89 - Other hypotension Is this a current diagnosis for this admission?: Yes (10) Acute kidney injury superimposed on chronic kidney disease Is this a current diagnosis for this admission?: Yes (11) Bradycardia Is this a current diagnosis for this admission?: Yes - Notes Notes: Status post cardiopulmonary arrest with successful resuscitation: Believe that patient predominantly and primarily had respiratory arrest most likely brought on by aspiration pneumonia. That is my view based on chest x-ray review. Continue ventilatory support, continue oxygenation. Respiratory failure: Acute on chronic. Pulmonary assisting in care. Hypotension: Possibly related to severe RV dysfunction, sepsis etc. continue with vasopressor therapy. Aspiration pneumonia: Feel that this must have happened this morning to precipitate sudden cardiopulmonary arrest. EKGs were negative for any significant ST segment changes and also cardiac enzymes have come back surprisingly negative. Do not feel patient had a myocardial infarction. Biventricular failure: Patient has LV systolic diastolic failure and significant RV failure. Continue diuretic therapy. Morbid obesity: Currently stable. Pulmonary hypertension: Possibly severe. Bradycardia: Patient noted to be in mild sinus bradycardia. No need for temporary pacemaker. Continue dopamine drip. Acute on Chronic kidney disease: Currently stable. Dr Mijares following. Prognosis poor. - Time Time with patient: Greater than 35 minutes - Patient remains critically ill needing both ventilatory and cardiac support. CODE STATUS was discussed, patient remains full code. Surrogate decision-maker unchanged. Multiple medical problems were addressed. More than 50% of the time spent coordinating care, discussing management plans with involved caregivers. Management plans discussed with involved personnels. Medical decision making was of moderate to high complexity, patient's has multiple comorbidities. Medications reviewed and adjusted accordingly: Yes
[2016-10-30 13:41] LABS: ARTERIAL BLOOD BASE EXCESS 11.4 mmol/L
[2016-10-30 14:24] LABS: CREATINE KINASE MB 0.46 ng/mL (<4.55)
[2016-10-30 14:31] LABS: TROPONIN I < 0.012 ng/mL
[2016-10-30] MEDS: DOPAMINE HCL 800 MG/D5W 250 ML IV PRN (14:57)
[2016-10-30 15:21] LABS: ARTERIAL BLOOD O2 SATURATION 96.9 % (94-98)
--- NOTE | 2016-10-30 15:39 | PDOC PROGRESS REPORT ---
Subjective Progress Note for:: 10/30/16 Subjective:: Patient seen in the ICU today. He remains intubated and sedated. 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 Dr. Pedersen has discontinued the bladder irrigation as it is clear now. He is making good urine output to the diuretic regimen that has been instituted medications were reviewed with the treating nurse. Electrolytes are stable but for lowish magnesium. Physical Exam Vital Signs: Temp Pulse Resp BP Pulse Ox 97.6 F 64 0 L 115/55 L 96 10/30/16 14:00 10/30/16 14:00 10/30/16 14:20 10/30/16 14:00 10/30/16 14:20 Intake & Output 10/29/16 10/30/16 10/31/16 06:59 06:59 06:59 Intake Total 874 75389 Output Total 300 9490 1425 Balance 574 5533 -1425 Weight 191 kg 193.1 kg Exam: Remains intubated and sedated. Respiratory exam: PRESENT: decreased breath sounds, other - Harsh vesicular breath sounds with scattered wheezing Cardiovascular exam: PRESENT: +S1, +S2, systolic murmur GI/Abdominal exam: PRESENT: normal bowel sounds, soft. ABSENT: organomegaly, tenderness Extremities exam: PRESENT: +2 edema Skin exam: PRESENT: mottled - Lower extremity venous stasis change Results Laboratory Results: 10/30/16 03:58 10/30/16 03:58 10/29/16 10/30/16 10/30/16 20:00 03:58 03:58 WBC RBC Hgb Hct MCV MCH MCHC RDW Plt Count Carbonic Acid 0.96 L 1.06 HCO3/H2CO3 Ratio 33:1 31:1 ABG pH 7.63 H* 7.59 H ABG pCO2 31.8 L 35.3 ABG pO2 104.7 H 53.7 L ABG HCO3 32.4 H 33.3 H ABG O2 Saturation 98.6 H 92.6 L ABG Base Excess 11.0 11.0 FiO2 60% 40% Sodium 138.3 Potassium 4.0 Chloride 100 Carbon Dioxide 29 Anion Gap 9 BUN 41 H Creatinine 1.68 H Est GFR ( Amer) 49 L Est GFR (Non-Af Amer) 40 L Glucose 193 H Calcium 8.0 L Phosphorus 2.6 Magnesium 1.5 L 10/30/16 10/30/16 10/30/16 03:58 13:30 15:12 WBC 14.3 H RBC 3.33 L Hgb 9.5 L Hct 29.5 L MCV 89 MCH 28.6 MCHC 32.3 RDW 16.1 H Plt Count 131 L Carbonic Acid 0.89 L 1.06 HCO3/H2CO3 Ratio 36:1 31:1 ABG pH 7.66 H* 7.59 H ABG pCO2 29.5 L 35.2 ABG pO2 71.6 L 74.8 L ABG HCO3 32.3 H 33.3 H ABG O2 Saturation 97.0 96.9 ABG Base Excess 11.4 11.0 FiO2 40% 40% Sodium Potassium Chloride Carbon Dioxide Anion Gap BUN Creatinine Est GFR ( Amer) Est GFR (Non-Af Amer) Glucose Calcium Phosphorus Magnesium 10/29/16 10/29/16 10/30/16 20:00 20:00 03:58 Creatine Kinase 72 55 CK-MB (CK-2) 1.52 Troponin I < 0.012 10/30/16 10/30/16 10/30/16 03:58 13:40 13:40 Creatine Kinase 45 L CK-MB (CK-2) 0.89 0.46 Troponin I < 0.012 < 0.012 Impressions: Renal Ultrasound 10/29/16 00:00 IMPRESSION: Limited study as noted above. No right renal abnormalities were identified. Left kidney could not be visualized. Eaton catheter in the bladder. Chest X-Ray 10/30/16 06:00 IMPRESSION: Severe extensive airspace opacities of both lung linares. Lines and tubes with partially imaged. Limitation. Assessment & Plan - Diagnosis (1) CHF (congestive heart failure) Plan: Biventricular failure. Will continue on Lasix infusion. Monitor. (2) CKD (chronic kidney disease) stage 3, GFR 30-59 ml/min Plan: His baseline creatinine is around 1.5 suggestive of CKD stage III.Likely underlying causes would be diabetes and hypertension with possibility of secondary FSGS (3) TALI (acute kidney injury) Is this a current diagnosis for this admission?: YesPlan: Most likely combination of prerenal from his cardiac failure and possible sepsis. Currently the patient is fluid overloaded will start to see if he would respond to conservative measures. No indications for renal replacements currently. On the Lasix infusion and see the response as he is making good urine output (4) Acute on chronic combined systolic and diastolic congestive heart failure Is this a current diagnosis for this admission?: Yes (5) Hematuria Qualifiers: Hematuria type: gross Qualified Code(s): R31.0 - Gross hematuria Is this a current diagnosis for this admission?: YesPlan: Currently clean urine of the moment with a Eaton catheter (6) Morbid obesity Is this a current diagnosis for this admission?: Yes (7) Pulmonary hypertension Is this a current diagnosis for this admission?: Yes (8) Hypomagnesemia Plan: Replace and monitor (9) Septic shock Plan: On multiple pressor agents. Monitor closely. (10) Aspiration pneumonia Qualifiers: Lung location: unspecified part of lung Is this a current diagnosis for this admission?: YesPlan: As evidenced clinically. Patient on antibiotics. Monitor.
[2016-10-30 17:03] LABS: ARTERIAL BLOOD BASE EXCESS 9.5 mmol/L; ARTERIAL BLOOD O2 SATURATION 88.7 % (94-98)
[2016-10-30 18:16] LABS: ARTERIAL BLOOD BASE EXCESS 6.7 mmol/L; ARTERIAL BLOOD O2 SATURATION 96.9 % (94-98)
[2016-10-31] MEDS: DEXTROSE 5%-WATER 250 ML with NOREPINEPHRINE BITARTRATE 4 MG IV PRN ×6 (04:19→21:16)
[2016-10-31] MEDS: MIDAZOLAM HCL 100 ML IV PRN ×3 (04:19→17:48)
[2016-10-31 04:54] LABS: HEMATOCRIT 28.8 % (37.9-51.0); HEMOGLOBIN 9.7 g/dL (13.5-17.0); HGB HCT DIFFERENCE 0.3; MEAN CORPUSCULAR HEMOGLOBIN 29.6 pg (27.0-33.4); MEAN CORPUSCULAR HGB CONC 33.8 g/dL (32.0-36.0); MEAN CORPUSCULAR VOLUME 88 fl (80-97); RED BLOOD COUNT 3.29 10^6/uL (4.35-5.55); RED CELL DISTRIBUTION WIDTH 16.6 % (11.5-14.0); WHITE BLOOD COUNT 13.8 10^3/uL (4.0-10.5)
[2016-10-31 04:58] LABS: ARTERIAL BLOOD BASE EXCESS 10.7 mmol/L; ARTERIAL BLOOD O2 SATURATION 98.2 % (94-98)
[2016-10-31] MEDS: PIPERACILLIN SODIUM/TAZOBACTAM 4.5 GM in NORMAL SALINE 100 ML IV SCH ×4 (05:11→23:28)
[2016-10-31 05:13] LABS: ANION GAP 9 (5-19); BLOOD UREA NITROGEN 44 mg/dL (7-20); CALCIUM 7.7 mg/dL (8.4-10.2); CARBON DIOXIDE 29 mmol/L (22-30); CHLORIDE 99 mmol/L (98-107); CREATININE RESULT 1.87 mg/dL (0.52-1.25); GLUCOSE 218 mg/dL (75-110); MAGNESIUM 1.6 mg/dL (1.6-2.3); PHOSPHORUS 3.2 mg/dL (2.5-4.5); POTASSIUM 3.5 mmol/L (3.6-5.0)
[2016-10-31] MEDS: INSULIN REG, HUMAN 100 UNIT/ML 3 ML VIAL (PYX) SUBCUT PRN ×2 (05:34→18:02)
--- NOTE | 2016-10-31 07:15 | RADIOLOGY REPORT (SQ) ---
EXAM DESCRIPTION: CHEST SINGLE VIEW COMPLETED DATE/TIME: 10/31/2016 6:57 am REASON FOR STUDY: intubation/mechanical ventilation COMPARISON: 10/30/2016. EXAM PARAMETERS: NUMBER OF VIEWS: One view. TECHNIQUE: Single frontal radiographic view of the chest acquired. RADIATION DOSE: NA LIMITATIONS: None. FINDINGS: LUNGS AND PLEURA: Extensive moderate -severe airspace opacity of both lung linares. MEDIASTINUM AND HILAR STRUCTURES: No masses. Contour normal. HEART AND VASCULAR STRUCTURES: Mild enlargement of the cardiac silhouette. BONES: No acute findings. HARDWARE: Adequate appearing endotracheal tube and likely adequate partially obscured NG tube. Right internal jugular central line tip is at the right atrium, partially obscured; consider 11 cm retract ion. OTHER: No other significant finding. IMPRESSION: No significant interval change. TECHNICAL DOCUMENTATION: JOB ID: [id number]
--- NOTE | 2016-10-31 08:06 | PDOC PROGRESS REPORT ---
Subjective Progress Note for:: 10/31/16 Subjective:: sedated Physical Exam Vital Signs: Temp Pulse Resp BP Pulse Ox 97.9 F 60 16 113/56 L 96 10/31/16 04:00 10/30/16 20:00 10/31/16 06:00 10/30/16 18:00 10/31/16 06:14 Intake & Output 10/29/16 10/30/16 10/31/16 07:59 07:59 07:59 Intake Total 874 59623 2677 Output Total 300 9471 4205 Balance 574 5533 -1528 Weight 421 lb 1.326 oz 425 lb 11.402 oz 425 lb 14.929 oz Respiratory exam: PRESENT: rhonchi Cardiovascular exam: ABSENT: diastolic murmur, irregular rhythm, systolic murmur GI/Abdominal exam: PRESENT: normal bowel sounds. ABSENT: mass, organolmegaly Extremities exam: PRESENT: pedal edema - 1+ Results Laboratory Results: 10/31/16 04:48 10/31/16 04:48 Abnormal - 24 hr 10/30/16 10/30/16 10/30/16 13:30 13:40 15:12 WBC RBC Hgb Hct RDW Plt Count Carbonic Acid 0.89 L ABG pH 7.66 H* 7.59 H ABG pCO2 29.5 L ABG pO2 71.6 L 74.8 L ABG HCO3 32.3 H 33.3 H ABG Total CO2 33.2 H 34.4 H ABG O2 Saturation Potassium BUN Creatinine Est GFR ( Amer) Est GFR (Non-Af Amer) Glucose POC Glucose Calcium Creatine Kinase 45 L 10/30/16 10/30/16 10/30/16 16:56 18:05 18:05 WBC RBC Hgb Hct RDW Plt Count Carbonic Acid 1.02 L 0.93 L ABG pH 7.59 H 7.58 H ABG pCO2 33.8 L 30.9 L ABG pO2 46.0 L 75.5 L ABG HCO3 31.6 H 28.5 H ABG Total CO2 32.7 H 29.5 H ABG O2 Saturation 88.7 L Potassium BUN Creatinine Est GFR ( Amer) Est GFR (Non-Af Amer) Glucose POC Glucose 194 H Calcium Creatine Kinase 10/30/16 10/31/16 10/31/16 23:09 04:48 04:48 WBC RBC Hgb Hct RDW Plt Count Carbonic Acid 0.88 L ABG pH 7.65 H* ABG pCO2 29.3 L ABG pO2 ABG HCO3 31.6 H ABG Total CO2 32.4 H ABG O2 Saturation 98.2 H Potassium 3.5 L BUN 44 H Creatinine 1.87 H Est GFR ( Amer) 43 L Est GFR (Non-Af Amer) 35 L Glucose 218 H POC Glucose 275 H Calcium 7.7 L Creatine Kinase 10/31/16 04:48 WBC 13.8 H RBC 3.29 L Hgb 9.7 L Hct 28.8 L RDW 16.6 H Plt Count 125 L Carbonic Acid ABG pH ABG pCO2 ABG pO2 ABG HCO3 ABG Total CO2 ABG O2 Saturation Potassium BUN Creatinine Est GFR ( Amer) Est GFR (Non-Af Amer) Glucose POC Glucose Calcium Creatine Kinase Impressions: Renal Ultrasound 10/29/16 00:00 IMPRESSION: Limited study as noted above. No right renal abnormalities were identified. Left kidney could not be visualized. Eaton catheter in the bladder. Chest X-Ray 10/31/16 06:00 IMPRESSION: No significant interval change. Assessment & Plan - Diagnosis (1) Aspiration pneumonia Qualifiers: Aspiration pneumonia type: due to gastric secretions Laterality: bilateral Lung location: unspecified part of lung Qualified Code(s): J69.0 - Pneumonitis due to inhalation of food and vomit Is this a current diagnosis for this admission?: YesPlan: xr same B mass like consolidations. Continue zosyn vanc. (2) Respiratory failure Qualifiers: Chronicity: chronic Respiratory failure complication: hypoxia and hypercapnia Qualified Code(s): J96.11 - Chronic respiratory failure with hypoxia Is this a current diagnosis for this admission?: YesPlan: continue bilevel vent (3) Morbid (severe) obesity with alveolar hypoventilation Is this a current diagnosis for this admission?: Yes (4) Pulmonary hypertension Is this a current diagnosis for this admission?: Yes (5) Acute on chronic combined systolic and diastolic congestive heart failure Is this a current diagnosis for this admission?: YesPlan: making urine on furosemide drip:2700 in 4100 out (6) Hematuria Qualifiers: Hematuria type: gross Qualified Code(s): R31.0 - Gross hematuria Is this a current diagnosis for this admission?: Yes (7) Cardiopulmonary arrest with successful resuscitation Is this a current diagnosis for this admission?: YesPlan: 2nd in 2 months. Prognosis guarded.
[2016-10-31] MEDS ORDERED: POTASSIUM CHLORIDE 20 MEQ/50 ML RTU IV SCH (10:00)
[2016-10-31] MEDS: DOPAMINE HCL 800 MG/D5W 250 ML IV PRN (10:05)
[2016-10-31] MEDS: VANCOMYCIN HCL 1,000 MG in DEXTROSE 5%-WATER 250 ML IV SCH (11:35)
[2016-10-31] MEDS: MAGNESIUM SULFATE/D5W 1 GM/100 ML RTUPB IV SCH ×2 (11:36→17:47)
--- NOTE | 2016-10-31 11:43 | PDOC PROGRESS REPORT ---
Subjective Progress Note for:: 10/31/16 Subjective:: Patient about the same and has made very little progress. There is no significant change in general condition. Chest x-ray and telemetry strips were reviewed. Chest x-ray showed bilateral infiltrate which seems slightly improved. Patient remains intubated, sedated, patient however looks comfortable and in acute distress. Hypotension has improved. Patient still on Levophed. Dopamine has been discontinued or currently on hold. Twelve-lead EKG shows no significant ST-T wave changes. There is low voltage QRS all over possibly related to severe RV enlargement. Cardiac enzymes surprisingly have come back all negative in spite of patient suffering cardiorespiratory arrest. Chest x-ray showed bilateral airspace disease, most likely bilateral aspiration pneumonia. Medications reviewed. Medications: Medications have been reviewed. Physical Exam Vital Signs: Temp Pulse Resp BP Pulse Ox 97.4 F 54 L 7 L 116/52 L 97 10/31/16 10:00 10/31/16 10:00 10/31/16 10:00 10/31/16 10:00 10/31/16 10:00 Intake & Output 10/30/16 10/31/16 11/01/16 06:59 06:59 06:59 Intake Total 10336 2677 Output Total 9490 4205 820 Balance 5533 -1528 -820 Weight 193.1 kg 193.2 kg Exam: GENERAL: well-nourished and in no acute distress. Patient is intubated and sedated. Orientation cannot be checked HEAD: Atraumatic, normocephalic. EYES: Pupils equal round and reactive to light, extraocular movements could not be checked, sclera anicteric, conjunctiva are normal. ENT: TMs normal, nares patent, oropharynx clear without exudates. Moist mucous membranes. No oral ulcerations or bleeding gums noted NECK: supple without lymphadenopathy or JVD. Trachea is central. No cervical or axillary lymphadenopathy noted. Carotids are 2+ LUNGS: Breath sounds mostly clear to auscultation patient is noted to have bibasal crackles at the extreme bases CHEST: Palpation of the chest wall shows no significant chest wall tenderness or abnormalities. 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 ABDOMEN: Soft, no significant tenderness appreciated, normoactive bowel sounds. No guarding, no rebound. No rigidity noted . No masses appreciated. EXTREMITIES: Pedal pulses are 1-2+, no calf tenderness noted, chronic dermatitis changes noted. 1+ pedal edema noted. No clubbing or cyanosis. NEUROLOGICAL: The patient cannot participate in the neurological exam but no facial asymmetry noted. Extremities slightly hypotonic PSYCH: This cannot be evaluated. Patient cannot participate. SKIN: No significant ecchymosis, chronic dermatitis changes noted in both legs. MUSCULOSKELETAL EXAM: No significant joint swelling noted. Patient cannot participate in musculoskeletal exam Results Laboratory Results: 10/31/16 04:48 10/31/16 04:48 10/30/16 10/30/16 10/30/16 13:30 15:12 16:56 WBC RBC Hgb Hct MCV MCH MCHC RDW Plt Count Carbonic Acid 0.89 L 1.06 1.02 L HCO3/H2CO3 Ratio 36:1 31:1 30:1 ABG pH 7.66 H* 7.59 H 7.59 H ABG pCO2 29.5 L 35.2 33.8 L ABG pO2 71.6 L 74.8 L 46.0 L ABG HCO3 32.3 H 33.3 H 31.6 H ABG O2 Saturation 97.0 96.9 88.7 L ABG Base Excess 11.4 11.0 9.5 FiO2 40% 40% 40% Sodium Potassium Chloride Carbon Dioxide Anion Gap BUN Creatinine Est GFR ( Amer) Est GFR (Non-Af Amer) Glucose Lactic Acid Calcium Phosphorus Magnesium 10/30/16 10/31/16 10/31/16 18:05 04:48 04:48 WBC RBC Hgb Hct MCV MCH MCHC RDW Plt Count Carbonic Acid 0.93 L 0.88 L HCO3/H2CO3 Ratio 30:1 35:1 ABG pH 7.58 H 7.65 H* ABG pCO2 30.9 L 29.3 L ABG pO2 75.5 L 91.2 ABG HCO3 28.5 H 31.6 H ABG O2 Saturation 96.9 98.2 H ABG Base Excess 6.7 10.7 FiO2 45% 45% Sodium 137.0 Potassium 3.5 L Chloride 99 Carbon Dioxide 29 Anion Gap 9 BUN 44 H Creatinine 1.87 H Est GFR ( Amer) 43 L Est GFR (Non-Af Amer) 35 L Glucose 218 H Lactic Acid Calcium 7.7 L Phosphorus 3.2 Magnesium 1.6 10/31/16 10/31/16 04:48 04:48 WBC 13.8 H RBC 3.29 L Hgb 9.7 L Hct 28.8 L MCV 88 MCH 29.6 MCHC 33.8 RDW 16.6 H Plt Count 125 L Carbonic Acid HCO3/H2CO3 Ratio ABG pH ABG pCO2 ABG pO2 ABG HCO3 ABG O2 Saturation ABG Base Excess FiO2 Sodium Potassium Chloride Carbon Dioxide Anion Gap BUN Creatinine Est GFR ( Amer) Est GFR (Non-Af Amer) Glucose Lactic Acid 1.4 Calcium Phosphorus Magnesium 10/29/16 11:30 Catheterized Urine Urine Culture - Final NO GROWTH 2 DAYS 10/29/16 10/29/16 10/30/16 20:00 20:00 03:58 Creatine Kinase 72 55 CK-MB (CK-2) 1.52 Troponin I < 0.012 10/30/16 10/30/16 10/30/16 03:58 13:40 13:40 Creatine Kinase 45 L CK-MB (CK-2) 0.89 0.46 Troponin I < 0.012 < 0.012 EKG Comments: Telemetry strips shows sinus bradycardia. Arterial line tracing is reviewed and noted to be satisfactory. Impressions: Renal Ultrasound 10/29/16 00:00 IMPRESSION: Limited study as noted above. No right renal abnormalities were identified. Left kidney could not be visualized. Eaton catheter in the bladder. Chest X-Ray 10/31/16 06:00 IMPRESSION: No significant interval change. Assessment & Plan - Diagnosis (1) Cardiopulmonary arrest with successful resuscitation Is this a current diagnosis for this admission?: Yes (2) Respiratory failure Qualifiers: Chronicity: chronic Respiratory failure complication: hypoxia and hypercapnia Qualified Code(s): J96.11 - Chronic respiratory failure with hypoxia Is this a current diagnosis for this admission?: Yes (3) Aspiration pneumonia Qualifiers: Aspiration pneumonia type: due to gastric secretions Laterality: bilateral Lung location: unspecified part of lung Qualified Code(s): J69.0 - Pneumonitis due to inhalation of food and vomit Is this a current diagnosis for this admission?: Yes (4) Acute on chronic combined systolic and diastolic congestive heart failure Is this a current diagnosis for this admission?: Yes (5) Dyspnea Qualifiers: Dyspnea type: unspecified Qualified Code(s): R06.00 - Dyspnea, unspecified Is this a current diagnosis for this admission?: Yes (6) Morbid (severe) obesity with alveolar hypoventilation Is this a current diagnosis for this admission?: Yes (7) Pulmonary hypertension Is this a current diagnosis for this admission?: Yes (8) Chronic kidney disease (CKD) Qualifiers: Chronic kidney disease stage: stage 3 (moderate) Qualified Code(s): N18.3 - Chronic kidney disease, stage 3 (moderate) Is this a current diagnosis for this admission?: Yes (9) Hypotension (arterial) Qualifiers: Hypotension type: other hypotension type Qualified Code(s): I95.89 - Other hypotension Is this a current diagnosis for this admission?: Yes (10) Acute kidney injury superimposed on chronic kidney disease Is this a current diagnosis for this admission?: Yes - Notes Notes: Status post cardiopulmonary arrest with successful resuscitation: Believe that patient predominantly and primarily had respiratory arrest most likely brought on by aspiration pneumonia. That is my view based on chest x-ray review. Continue ventilatory support, continue oxygenation. Chest x-ray shows slight improvement by my review. Continue antibiotic therapy. Currently on Levophed. Respiratory failure: Acute on chronic. Pulmonary assisting in care. Hypotension: Possibly related to severe RV dysfunction, sepsis etc. continue with vasopressor therapy. Currently on levophed. Aspiration pneumonia: Continue antibiotic therapy. EKGs were negative for any significant ST segment changes and also cardiac enzymes have come back surprisingly negative. Biventricular failure: Patient has LV systolic diastolic failure and significant RV failure. Continue diuretic therapy. Morbid obesity: Currently stable. Pulmonary hypertension: Possibly severe. Bradycardia: Patient noted to have minor sinus bradycardia. Will recheck a TSH free T3 and free T4 level. Acute on Chronic kidney disease: Currently stable. Dr Mijares following. - Time Time with patient: Greater than 35 minutes - Patient remains critically ill on vasopressors and also on ventilatory support. CODE STATUS was discussed, patient remains full code. Surrogate decision-maker unchanged. Multiple medical problems were addressed. More than 50% of the time spent coordinating care, discussing management plans with involved caregivers. Management plans discussed with involved personnels. Medical decision making was of high complexity, patient's has multiple comorbidities. Medications reviewed and adjusted accordingly: Yes
[2016-10-31 13:21] LABS: FREE T3 2.93 pg/mL (2.77-5.27)
[2016-10-31] MEDS ORDERED: NORMAL SALINE 250 ML with FUROSEMIDE 250 MG IV PRN ×2 (13:26)
[2016-10-31 14:22] LABS: ARTERIAL BLOOD BASE EXCESS 10.2 mmol/L; ARTERIAL BLOOD O2 SATURATION 99.5 % (94-98)
--- NOTE | 2016-10-31 16:23 | PDOC PROGRESS REPORT ---
Subjective Progress Note for:: 10/31/16 Subjective:: Patient seen in the ICU today. He remains intubated and sedated. Pains were done with the treating nurse Naomie. Medications were reviewed. He still remains hypotensive on pressors. Had a very good output of about 4 L of urine which is encouraging on current diuretic regimen. Physical Exam Vital Signs: Temp Pulse Resp BP Pulse Ox 97.4 F 66 10 L 118/59 L 100 10/31/16 14:00 10/31/16 14:00 10/31/16 14:00 10/31/16 14:00 10/31/16 14:00 Intake & Output 10/30/16 10/31/16 11/01/16 06:59 06:59 06:59 Intake Total 17373 2677 Output Total 9493 4203 1840 Balance 5533 -1528 -1840 Weight 193.1 kg 193.2 kg Exam: Remains intubated and sedated. Morbidly obese individual. Respiratory exam: PRESENT: clear to auscultation maryann, symmetrical. ABSENT: crackles, rhonchi Cardiovascular exam: PRESENT: +S1, +S2, systolic murmur GI/Abdominal exam: PRESENT: normal bowel sounds, soft. ABSENT: organomegaly, tenderness Extremities exam: PRESENT: +2 edema Skin exam: PRESENT: mottled - Venous stasis rash of both lower extremities Results Laboratory Results: 10/31/16 04:48 10/31/16 04:48 10/30/16 10/30/16 10/31/16 16:56 18:05 04:48 WBC RBC Hgb Hct MCV MCH MCHC RDW Plt Count Carbonic Acid 1.02 L 0.93 L 0.88 L HCO3/H2CO3 Ratio 30:1 30:1 35:1 ABG pH 7.59 H 7.58 H 7.65 H* ABG pCO2 33.8 L 30.9 L 29.3 L ABG pO2 46.0 L 75.5 L 91.2 ABG HCO3 31.6 H 28.5 H 31.6 H ABG O2 Saturation 88.7 L 96.9 98.2 H ABG Base Excess 9.5 6.7 10.7 FiO2 40% 45% 45% Sodium Potassium Chloride Carbon Dioxide Anion Gap BUN Creatinine Est GFR ( Amer) Est GFR (Non-Af Amer) Glucose Lactic Acid Calcium Phosphorus Magnesium TSH Free T4 Free T3 pg/mL 10/31/16 10/31/16 10/31/16 04:48 04:48 04:48 WBC 13.8 H RBC 3.29 L Hgb 9.7 L Hct 28.8 L MCV 88 MCH 29.6 MCHC 33.8 RDW 16.6 H Plt Count 125 L Carbonic Acid HCO3/H2CO3 Ratio ABG pH ABG pCO2 ABG pO2 ABG HCO3 ABG O2 Saturation ABG Base Excess FiO2 Sodium 137.0 Potassium 3.5 L Chloride 99 Carbon Dioxide 29 Anion Gap 9 BUN 44 H Creatinine 1.87 H Est GFR ( Amer) 43 L Est GFR (Non-Af Amer) 35 L Glucose 218 H Lactic Acid 1.4 Calcium 7.7 L Phosphorus 3.2 Magnesium 1.6 TSH Free T4 Free T3 pg/mL 10/31/16 10/31/16 10/31/16 11:08 11:08 14:15 WBC RBC Hgb Hct MCV MCH MCHC RDW Plt Count Carbonic Acid 1.02 L HCO3/H2CO3 Ratio 31:1 ABG pH 7.60 H* ABG pCO2 34.0 L ABG pO2 180.3 H ABG HCO3 32.3 H ABG O2 Saturation 99.5 H ABG Base Excess 10.2 FiO2 65% Sodium Potassium Chloride Carbon Dioxide Anion Gap BUN Creatinine Est GFR ( Amer) Est GFR (Non-Af Amer) Glucose Lactic Acid Calcium Phosphorus Magnesium TSH 1.53 Free T4 1.50 Free T3 pg/mL 2.93 10/30/16 08:52 Tracheal Aspirate Gram Stain - Final 10/29/16 11:30 Catheterized Urine Urine Culture - Final NO GROWTH 2 DAYS 10/29/16 10/29/16 10/30/16 20:00 20:00 03:58 Creatine Kinase 72 55 CK-MB (CK-2) 1.52 Troponin I < 0.012 10/30/16 10/30/16 10/30/16 03:58 13:40 13:40 Creatine Kinase 45 L CK-MB (CK-2) 0.89 0.46 Troponin I < 0.012 < 0.012 Impressions: Renal Ultrasound 10/29/16 00:00 IMPRESSION: Limited study as noted above. No right renal abnormalities were identified. Left kidney could not be visualized. Eaton catheter in the bladder. Chest X-Ray 10/31/16 06:00 IMPRESSION: No significant interval change. Assessment & Plan - Diagnosis (1) CHF (congestive heart failure) Plan: Biventricular failure. On Lasix infusion. Monitor. Very critical. Poor prognosis (3) TALI (acute kidney injury) Is this a current diagnosis for this admission?: YesPlan: Most likely combination of prerenal from his cardiac failure in combination with septic/cardiogenic shock. Patient on multiple pressor agents in combination with multiple antibiotics. Good response to intravenous diuretics and will therefore continue current medications. No indications for renal replacements currently. (4) Acute on chronic combined systolic and diastolic congestive heart failure Is this a current diagnosis for this admission?: Yes (5) Hematuria Qualifiers: Hematuria type: gross Qualified Code(s): R31.0 - Gross hematuria Is this a current diagnosis for this admission?: YesPlan: . Urine looks clear in the Eaton catheter. (6) Morbid obesity Is this a current diagnosis for this admission?: Yes (7) Pulmonary hypertension Is this a current diagnosis for this admission?: Yes (8) Hypomagnesemia Plan: Replace and monitor
[2016-10-31] MEDS: DEXTROSE 5%-WATER 250 ML with PHENYLEPHRINE HCL 40 MG IV PRN ×2 (17:49)
--- NOTE | 2016-10-31 18:56 | PDOC PROGRESS REPORT ---
Subjective Progress Note for:: 10/31/16 Subjective:: Intubated and sedated Physical Exam Vital Signs: Temp Pulse Resp BP Pulse Ox 97.5 F 66 17 114/55 L 98 10/31/16 08:00 10/31/16 08:00 10/31/16 08:00 10/31/16 08:00 10/31/16 08:00 Intake & Output 10/30/16 10/31/16 11/01/16 06:59 06:59 06:59 Intake Total 07507 2677 Output Total 9490 4205 420 Balance 5533 -1528 -420 Weight 193.1 kg 193.2 kg General appearance: PRESENT: no acute distress, disheveled, morbidly obese, well -developed Head exam: PRESENT: atraumatic, normocephalic Eye exam: PRESENT: conjunctiva pale Mouth exam: PRESENT: dry mucosa, neck supple, tongue midline, other - ET tube Neck exam: ABSENT: carotid bruit, JVD, lymphadenopathy, thyromegaly Respiratory exam: PRESENT: decreased breath sounds, prolonged expiratory phas, rales, rhonchi, symmetrical, unlabored Cardiovascular exam: PRESENT: RRR, +S1, +S2 Pulses: PRESENT: normal radial pulses GI/Abdominal exam: PRESENT: normal bowel sounds, soft. ABSENT: distended, guarding, mass, organolmegaly, rebound, tenderness Rectal exam: PRESENT: deferred Gentrourinary exam: PRESENT: indwelling catheter Extremities exam: PRESENT: +2 edema Results Laboratory Results: 10/31/16 04:48 10/31/16 04:48 10/30/16 10/30/16 10/30/16 13:30 15:12 16:56 WBC RBC Hgb Hct MCV MCH MCHC RDW Plt Count Carbonic Acid 0.89 L 1.06 1.02 L HCO3/H2CO3 Ratio 36:1 31:1 30:1 ABG pH 7.66 H* 7.59 H 7.59 H ABG pCO2 29.5 L 35.2 33.8 L ABG pO2 71.6 L 74.8 L 46.0 L ABG HCO3 32.3 H 33.3 H 31.6 H ABG O2 Saturation 97.0 96.9 88.7 L ABG Base Excess 11.4 11.0 9.5 FiO2 40% 40% 40% Sodium Potassium Chloride Carbon Dioxide Anion Gap BUN Creatinine Est GFR ( Amer) Est GFR (Non-Af Amer) Glucose Lactic Acid Calcium Phosphorus Magnesium 10/30/16 10/31/16 10/31/16 18:05 04:48 04:48 WBC RBC Hgb Hct MCV MCH MCHC RDW Plt Count Carbonic Acid 0.93 L 0.88 L HCO3/H2CO3 Ratio 30:1 35:1 ABG pH 7.58 H 7.65 H* ABG pCO2 30.9 L 29.3 L ABG pO2 75.5 L 91.2 ABG HCO3 28.5 H 31.6 H ABG O2 Saturation 96.9 98.2 H ABG Base Excess 6.7 10.7 FiO2 45% 45% Sodium 137.0 Potassium 3.5 L Chloride 99 Carbon Dioxide 29 Anion Gap 9 BUN 44 H Creatinine 1.87 H Est GFR ( Amer) 43 L Est GFR (Non-Af Amer) 35 L Glucose 218 H Lactic Acid Calcium 7.7 L Phosphorus 3.2 Magnesium 1.6 10/31/16 10/31/16 04:48 04:48 WBC 13.8 H RBC 3.29 L Hgb 9.7 L Hct 28.8 L MCV 88 MCH 29.6 MCHC 33.8 RDW 16.6 H Plt Count 125 L Carbonic Acid HCO3/H2CO3 Ratio ABG pH ABG pCO2 ABG pO2 ABG HCO3 ABG O2 Saturation ABG Base Excess FiO2 Sodium Potassium Chloride Carbon Dioxide Anion Gap BUN Creatinine Est GFR ( Amer) Est GFR (Non-Af Amer) Glucose Lactic Acid 1.4 Calcium Phosphorus Magnesium 10/29/16 10/29/16 10/30/16 20:00 20:00 03:58 Creatine Kinase 72 55 CK-MB (CK-2) 1.52 Troponin I < 0.012 10/30/16 10/30/16 10/30/16 03:58 13:40 13:40 Creatine Kinase 45 L CK-MB (CK-2) 0.89 0.46 Troponin I < 0.012 < 0.012 Impressions: Renal Ultrasound 10/29/16 00:00 IMPRESSION: Limited study as noted above. No right renal abnormalities were identified. Left kidney could not be visualized. Eaton catheter in the bladder. Chest X-Ray 10/31/16 06:00 IMPRESSION: No significant interval change. Assessment & Plan - Diagnosis (1) Acute on chronic combined systolic and diastolic congestive heart failure Is this a current diagnosis for this admission?: Yes (2) Dyspnea Qualifiers: Dyspnea type: unspecified Qualified Code(s): R06.00 - Dyspnea, unspecified Is this a current diagnosis for this admission?: Yes (3) Morbid (severe) obesity with alveolar hypoventilation Is this a current diagnosis for this admission?: Yes (4) Pulmonary vascular congestion Is this a current diagnosis for this admission?: Yes (5) Respiratory failure Qualifiers: Chronicity: chronic Respiratory failure complication: hypoxia and hypercapnia Qualified Code(s): J96.11 - Chronic respiratory failure with hypoxia Is this a current diagnosis for this admission?: Yes (6) Cardiac arrest Is this a current diagnosis for this admission?: Yes - Time Critical Time spent with patient: 35 or more minutes - discussed with RN RT PCP family 55 min
--- NOTE | 2016-10-31 19:15 | PDOC PROGRESS REPORT ---
Subjective Progress Note for:: 10/30/16 Subjective:: Intubated and sedated Physical Exam Vital Signs: Temp Pulse Resp BP Pulse Ox 97.7 F 54 L 0 L 112/54 L 98 10/30/16 10:00 10/30/16 10:00 10/30/16 10:55 10/30/16 10:00 10/30/16 10:55 Intake & Output 10/29/16 10/30/16 10/31/16 06:59 06:59 06:59 Intake Total 874 93275 Output Total 300 9490 675 Balance 574 5533 -675 Weight 191 kg 193.1 kg General appearance: PRESENT: no acute distress, disheveled, morbidly obese, well -developed Head exam: PRESENT: atraumatic, normocephalic Eye exam: PRESENT: conjunctiva pale Mouth exam: PRESENT: dry mucosa, neck supple, tongue midline, other - ET tube in place Neck exam: ABSENT: carotid bruit, JVD, lymphadenopathy, thyromegaly Respiratory exam: PRESENT: decreased breath sounds, prolonged expiratory phas, rales, rhonchi, symmetrical Cardiovascular exam: PRESENT: RRR, +S1 Pulses: PRESENT: normal radial pulses GI/Abdominal exam: PRESENT: normal bowel sounds, soft. ABSENT: distended, guarding, mass, organolmegaly, rebound, tenderness Rectal exam: PRESENT: deferred Gentrourinary exam: PRESENT: indwelling catheter Extremities exam: PRESENT: +2 edema Results Laboratory Results: 10/30/16 03:58 10/30/16 03:58 10/29/16 10/29/16 10/30/16 11:30 20:00 03:58 WBC RBC Hgb Hct MCV MCH MCHC RDW Plt Count Carbonic Acid 0.96 L HCO3/H2CO3 Ratio 33:1 ABG pH 7.63 H* ABG pCO2 31.8 L ABG pO2 104.7 H ABG HCO3 32.4 H ABG O2 Saturation 98.6 H ABG Base Excess 11.0 FiO2 60% Sodium 138.3 Potassium 4.0 Chloride 100 Carbon Dioxide 29 Anion Gap 9 BUN 41 H Creatinine 1.68 H Est GFR ( Amer) 49 L Est GFR (Non-Af Amer) 40 L Glucose 193 H Calcium 8.0 L Phosphorus 2.6 Magnesium 1.5 L Urine Color RED Urine Appearance CLOUDY Urine pH 5.0 Ur Specific [place] 1.006 Urine Protein NEGATIVE Urine Glucose (UA) NEGATIVE Urine Ketones NEGATIVE Urine Blood LARGE H Urine Nitrite NEGATIVE Ur Leukocyte Esterase NEGATIVE Urine WBC (Auto) 21 Urine RBC (Auto) >182 10/30/16 10/30/16 03:58 03:58 WBC 14.3 H RBC 3.33 L Hgb 9.5 L Hct 29.5 L MCV 89 MCH 28.6 MCHC 32.3 RDW 16.1 H Plt Count 131 L Carbonic Acid 1.06 HCO3/H2CO3 Ratio 31:1 ABG pH 7.59 H ABG pCO2 35.3 ABG pO2 53.7 L ABG HCO3 33.3 H ABG O2 Saturation 92.6 L ABG Base Excess 11.0 FiO2 40% Sodium Potassium Chloride Carbon Dioxide Anion Gap BUN Creatinine Est GFR ( Amer) Est GFR (Non-Af Amer) Glucose Calcium Phosphorus Magnesium Urine Color Urine Appearance Urine pH Ur Specific [place] Urine Protein Urine Glucose (UA) Urine Ketones Urine Blood Urine Nitrite Ur Leukocyte Esterase Urine WBC (Auto) Urine RBC (Auto) 10/29/16 10/29/16 10/30/16 20:00 20:00 03:58 Creatine Kinase 72 55 CK-MB (CK-2) 1.52 Troponin I < 0.012 10/30/16 03:58 Creatine Kinase CK-MB (CK-2) 0.89 Troponin I < 0.012 Impressions: Renal Ultrasound 10/29/16 00:00 IMPRESSION: Limited study as noted above. No right renal abnormalities were identified. Left kidney could not be visualized. Eaton catheter in the bladder. Chest X-Ray 10/30/16 06:00 IMPRESSION: Severe extensive airspace opacities of both lung linarse. Lines and tubes with partially imaged. Limitation. Assessment & Plan - Diagnosis (1) Acute on chronic combined systolic and diastolic congestive heart failure Is this a current diagnosis for this admission?: Yes (2) Dyspnea Qualifiers: Dyspnea type: unspecified Qualified Code(s): R06.00 - Dyspnea, unspecified Is this a current diagnosis for this admission?: Yes (3) Morbid (severe) obesity with alveolar hypoventilation Is this a current diagnosis for this admission?: Yes (4) Pulmonary vascular congestion Is this a current diagnosis for this admission?: Yes (5) Respiratory failure Qualifiers: Chronicity: chronic Respiratory failure complication: hypoxia and hypercapnia Qualified Code(s): J96.11 - Chronic respiratory failure with hypoxia Is this a current diagnosis for this admission?: Yes (6) Cardiac arrest Is this a current diagnosis for this admission?: Yes - Time Critical Time spent with patient: 35 or more minutes
[2016-10-31] MEDS: VANCOMYCIN HCL 1,250 MG in DEXTROSE 5%-WATER 250 ML IV SCH (21:15)
[2016-10-31] MEDS: FAMOTIDINE INJ/PF 20 MG/2 ML SDV IV SCH (21:16)
[2016-11-01] MEDS: INSULIN REG, HUMAN 100 UNIT/ML 3 ML VIAL (PYX) SUBCUT PRN (00:09)
[2016-11-01] MEDS: MIDAZOLAM HCL 100 ML IV PRN ×3 (02:31→17:03)
[2016-11-01] MEDS: DOPAMINE HCL 800 MG/D5W 250 ML IV PRN ×2 (02:32→18:25)
[2016-11-01 05:38] LABS: APPEARANCE,URINE CLEAR; BILIRUBIN,URINE NEGATIVE (NEGATIVE); GLUCOSE, URINE NEGATIVE (NEGATIVE); KETONES,URINE NEGATIVE (NEGATIVE); LEUKOCYTE ESTERASE,URINE NEGATIVE (NEGATIVE); NITRITE,URINE NEGATIVE (NEGATIVE); PROTEIN,URINE NEGATIVE (NEGATIVE); URINE SPECIFIC GRAVITY 1.006; UROBILINOGEN,URINE NEGATIVE mg/dL (<2.0)
[2016-11-01 05:40] LABS: ABSOLUTE EOSINOPHILS # (AUTO) 0.3 10^3/uL (0.0-0.6); ABSOLUTE LYMPHOCYTES (AUTO) 0.7 10^3/uL (0.5-4.7); ABSOLUTE MONOCYTES (AUTO) 0.6 10^3/uL (0.1-1.4); ABSOLUTE NEUT (AUTO) 8.9 10^3/uL (1.7-8.2); BASOPHILS % (AUTO) 0.4 % (0-2); EOSINOPHILS % (AUTO) 2.8 % (0-6); HEMATOCRIT 27.4 % (37.9-51.0); HEMOGLOBIN 9.3 g/dL (13.5-17.0); HGB HCT DIFFERENCE 0.5; LYMPHOCYTES % (AUTO) 6.3 % (13-45); MEAN CORPUSCULAR HEMOGLOBIN 29.2 pg (27.0-33.4); MEAN CORPUSCULAR VOLUME 86 fl (80-97); MONOCYTES % (AUTO) 5.5 % (3-13); RED BLOOD COUNT 3.19 10^6/uL (4.35-5.55); RED CELL DISTRIBUTION WIDTH 16.7 % (11.5-14.0); WHITE BLOOD COUNT 10.5 10^3/uL (4.0-10.5)
[2016-11-01] MEDS: PIPERACILLIN SODIUM/TAZOBACTAM 4.5 GM in NORMAL SALINE 100 ML IV SCH ×3 (05:46→17:04)
[2016-11-01 06:05] LABS: ANION GAP 10 (5-19)
[2016-11-01 06:08] LABS: ARTERIAL BLOOD BASE EXCESS 10.3 mmol/L; ARTERIAL BLOOD O2 SATURATION 97.8 % (94-98)
[2016-11-01 06:17] LABS: BLOOD UREA NITROGEN 45 mg/dL (7-20); CALCIUM 7.7 mg/dL (8.4-10.2); CARBON DIOXIDE 31 mmol/L (22-30); CHLORIDE 96 mmol/L (98-107); CREATININE RESULT 1.91 mg/dL (0.52-1.25); GLUCOSE 180 mg/dL (75-110); MAGNESIUM 1.8 mg/dL (1.6-2.3); POTASSIUM 3.2 mmol/L (3.6-5.0); SODIUM 137.3 mmol/L (137-145)
--- NOTE | 2016-11-01 06:50 | RADIOLOGY REPORT (SQ) ---
EXAM DESCRIPTION: CHEST SINGLE VIEW COMPLETED DATE/TIME: 11/01/2016 6:35 am REASON FOR STUDY: intubation/mechanical ventilation COMPARISON: 10/31/2016. EXAM PARAMETERS: NUMBER OF VIEWS: One view. TECHNIQUE: Single frontal radiographic view of the chest acquired. RADIATION DOSE: NA LIMITATIONS: None. FINDINGS: LUNGS AND PLEURA: Extensive multifocal airspace opacities of both lung linares. MEDIASTINUM AND HILAR STRUCTURES: No masses. Contour normal. HEART AND VASCULAR STRUCTURES: Mild enlargement of the cardiac silhouette. BONES: No acute findings. HARDWARE: Adequate appearing endotracheal tube. Tip of a right internal jugular central line is part ially obscured likely at the right atrium ; consider 10 cm retraction. Adequate appearing NG tube. OTHER: No other significant finding. IMPRESSION: Extensive multifocal airspace opacities with slight improvement. Lines and tubes. TECHNICAL DOCUMENTATION: JOB ID: [id number]
--- NOTE | 2016-11-01 07:28 | PDOC PROGRESS REPORT ---
Subjective Progress Note for:: 11/01/16 Subjective:: sedated Physical Exam Vital Signs: Temp Pulse Resp BP Pulse Ox 97.7 F 53 L 10 L 97/47 L 97 11/01/16 04:00 10/31/16 20:00 11/01/16 06:45 10/31/16 18:00 11/01/16 06:45 Intake & Output 10/30/16 10/31/16 11/01/16 07:59 07:59 07:59 Intake Total [id number] 7956 1317 Output Total 7459 1523 5351 Balance 7745 -0424 -7850 Weight 425 lb 11.402 oz 425 lb 14.929 oz 423 lb 1.073 oz Respiratory exam: PRESENT: clear to auscultation maryann Cardiovascular exam: PRESENT: bradycardia. ABSENT: diastolic murmur, irregular rhythm, systolic murmur GI/Abdominal exam: ABSENT: mass, organolmegaly Extremities exam: PRESENT: pedal edema - 1+ Results Laboratory Results: 11/01/16 05:22 11/01/16 05:22 11/01/16 11/01/16 11/01/16 05:22 05:22 05:22 WBC 10.5 RBC 3.19 L Hgb 9.3 L Hct 27.4 L MCV 86 MCH 29.2 MCHC 34.0 RDW 16.7 H Plt Count 108 L Seg Neutrophils % 85.0 H Lymphocytes % 6.3 L Monocytes % 5.5 Eosinophils % 2.8 Basophils % 0.4 Absolute Neutrophils 8.9 H Absolute Lymphocytes 0.7 Absolute Monocytes 0.6 Absolute Eosinophils 0.3 Absolute Basophils 0.0 Carbonic Acid 1.16 HCO3/H2CO3 Ratio 28:1 ABG pH 7.55 H ABG pCO2 38.6 ABG pO2 90.3 ABG HCO3 33.3 H ABG O2 Saturation 97.8 ABG Base Excess 10.3 FiO2 40% Sodium 137.3 Potassium 3.2 L Chloride 96 L Carbon Dioxide 31 H Anion Gap 10 BUN 45 H Creatinine 1.91 H Est GFR ( Amer) 42 L Est GFR (Non-Af Amer) 35 L Glucose 180 H Calcium 7.7 L Magnesium 1.8 TSH Free T4 Free T3 pg/mL Urine Color Urine Appearance Urine pH Ur Specific [place] Urine Protein Urine Glucose (UA) Urine Ketones Urine Blood Urine Nitrite Ur Leukocyte Esterase Urine WBC (Auto) Urine RBC (Auto) 10/30/16 08:52 Tracheal Aspirate Gram Stain - Final 10/29/16 11:30 Catheterized Urine Urine Culture - Final NO GROWTH 2 DAYS Impressions: Renal Ultrasound 10/29/16 00:00 IMPRESSION: Limited study as noted above. No right renal abnormalities were identified. Left kidney could not be visualized. Eaton catheter in the bladder. Chest X-Ray 11/01/16 06:00 IMPRESSION: Extensive multifocal airspace opacities with slight improvement. Lines and tubes. Assessment & Plan - Diagnosis (1) Aspiration pneumonia Qualifiers: Aspiration pneumonia type: due to gastric secretions Laterality: bilateral Lung location: unspecified part of lung Qualified Code(s): J69.0 - Pneumonitis due to inhalation of food and vomit Is this a current diagnosis for this admission?: YesPlan: xr slightly better. Vanc decreased. Start oxepa at 10/h (2) Respiratory failure Qualifiers: Chronicity: chronic Respiratory failure complication: hypoxia and hypercapnia Qualified Code(s): J96.11 - Chronic respiratory failure with hypoxia Is this a current diagnosis for this admission?: Yes (3) Morbid (severe) obesity with alveolar hypoventilation Is this a current diagnosis for this admission?: Yes (4) Pulmonary hypertension Is this a current diagnosis for this admission?: Yes (5) Acute on chronic combined systolic and diastolic congestive heart failure Is this a current diagnosis for this admission?: YesPlan: just on dopamine for john. TSH ok (6) Hematuria Qualifiers: Hematuria type: gross Qualified Code(s): R31.0 - Gross hematuria Is this a current diagnosis for this admission?: Yes (7) Cardiopulmonary arrest with successful resuscitation Is this a current diagnosis for this admission?: Yes - Inpatient Certification Medical Necessity: Failure to Improve With Outpatient Therapy, Significant Comorbidiites Make Outpatient Treatment Too Risky, Need Close Monitoring Due to Risk of Patient Decompensation, Need For Continuous Telemetry Monitoring, Need for IV Antibiotics, Risk of Complication if Not Cared For in Hospital
[2016-11-01] MEDS ORDERED: NORMAL SALINE 250 ML with FUROSEMIDE 250 MG IV PRN ×2 (09:00)
[2016-11-01] MEDS: POTASSIUM CHLORIDE 20 MEQ/50 ML RTU IV SCH ×2 (09:52→17:04)
[2016-11-01] MEDS: MAGNESIUM SULFATE/D5W 1 GM/100 ML RTUPB IV SCH ×2 (09:52→17:04)
[2016-11-01] MEDS: FAMOTIDINE INJ/PF 20 MG/2 ML SDV IV SCH ×2 (09:53→21:27)
[2016-11-01] MEDS ORDERED: POTASSI CL 20 MEQ/50 ML RIDER 20 MEQ/50 ML RTUPB IV SCH (10:00)
--- NOTE | 2016-11-01 12:11 | PDOC PROGRESS REPORT ---
Subjective Progress Note for:: 11/01/16 Subjective:: Patient about the same and has made very little progress. There is no significant change in general condition. Patient remains intubated, sedated, patient however looks comfortable and in acute distress. Chest x-ray showed bilateral airspace disease, most likely bilateral aspiration pneumonia. Medications reviewed. Medications: Medications have been reviewed. Physical Exam Vital Signs: Temp Pulse Resp BP Pulse Ox 97.7 F 54 L 0 L 115/56 L 97 11/01/16 04:00 11/01/16 10:00 11/01/16 10:10 11/01/16 08:00 11/01/16 10:10 Intake & Output 10/31/16 11/01/16 11/02/16 06:59 06:59 06:59 Intake Total 2677 1907 Output Total 4201 5385 325 Balance -3232 -4573 -325 Weight 193.2 kg 191.9 kg Exam: GENERAL: well-nourished and in no acute distress. Patient is intubated and sedated. Orientation cannot be checked HEAD: Atraumatic, normocephalic. EYES: Pupils equal round and reactive to light, extraocular movements could not be checked, sclera anicteric, conjunctiva are normal. ENT: TMs normal, nares patent, oropharynx clear without exudates. Moist mucous membranes. No oral ulcerations or bleeding gums noted NECK: supple without lymphadenopathy or JVD. Trachea is central. No cervical or axillary lymphadenopathy noted. Carotids are 2+ LUNGS: Breath sounds mostly clear to auscultation patient is noted to have bibasal crackles at the extreme bases CHEST: Palpation of the chest wall shows no significant chest wall tenderness or abnormalities. 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 ABDOMEN: Soft, no significant tenderness appreciated, normoactive bowel sounds. No guarding, no rebound. No rigidity noted . No masses appreciated. EXTREMITIES: Pedal pulses are 1-2+, no calf tenderness noted, 1-2 + pedal edema noted. No clubbing or cyanosis. NEUROLOGICAL: The patient cannot participate in the neurological exam but no facial asymmetry noted. Extremities slightly hypotonic PSYCH: This cannot be evaluated. Patient cannot participate. SKIN: No significant ecchymosis, chronic dermatitis changes noted both lower extremity. MUSCULOSKELETAL EXAM: No significant joint swelling noted. Patient cannot participate in musculoskeletal exam Results Laboratory Results: 11/01/16 05:22 11/01/16 05:22 10/31/16 10/31/16 10/31/16 11:08 11:08 14:15 WBC RBC Hgb Hct MCV MCH MCHC RDW Plt Count Seg Neutrophils % Lymphocytes % Monocytes % Eosinophils % Basophils % Absolute Neutrophils Absolute Lymphocytes Absolute Monocytes Absolute Eosinophils Absolute Basophils Carbonic Acid 1.02 L HCO3/H2CO3 Ratio 31:1 ABG pH 7.60 H* ABG pCO2 34.0 L ABG pO2 180.3 H ABG HCO3 32.3 H ABG O2 Saturation 99.5 H ABG Base Excess 10.2 FiO2 65% Sodium Potassium Chloride Carbon Dioxide Anion Gap BUN Creatinine Est GFR ( Amer) Est GFR (Non-Af Amer) Glucose Calcium Magnesium TSH 1.53 Free T4 1.50 Free T3 pg/mL 2.93 Urine Color Urine Appearance Urine pH Ur Specific [place] Urine Protein Urine Glucose (UA) Urine Ketones Urine Blood Urine Nitrite Ur Leukocyte Esterase Urine WBC (Auto) Urine RBC (Auto) 11/01/16 11/01/16 11/01/16 05:22 05:22 05:22 WBC 10.5 RBC 3.19 L Hgb 9.3 L Hct 27.4 L MCV 86 MCH 29.2 MCHC 34.0 RDW 16.7 H Plt Count 108 L Seg Neutrophils % 85.0 H Lymphocytes % 6.3 L Monocytes % 5.5 Eosinophils % 2.8 Basophils % 0.4 Absolute Neutrophils 8.9 H Absolute Lymphocytes 0.7 Absolute Monocytes 0.6 Absolute Eosinophils 0.3 Absolute Basophils 0.0 Carbonic Acid 1.16 HCO3/H2CO3 Ratio 28:1 ABG pH 7.55 H ABG pCO2 38.6 ABG pO2 90.3 ABG HCO3 33.3 H ABG O2 Saturation 97.8 ABG Base Excess 10.3 FiO2 40% Sodium 137.3 Potassium 3.2 L Chloride 96 L Carbon Dioxide 31 H Anion Gap 10 BUN 45 H Creatinine 1.91 H Est GFR ( Amer) 42 L Est GFR (Non-Af Amer) 35 L Glucose 180 H Calcium 7.7 L Magnesium 1.8 TSH Free T4 Free T3 pg/mL Urine Color Urine Appearance Urine pH Ur Specific [place] Urine Protein Urine Glucose (UA) Urine Ketones Urine Blood Urine Nitrite Ur Leukocyte Esterase Urine WBC (Auto) Urine RBC (Auto) 11/01/16 05:22 WBC RBC Hgb Hct MCV MCH MCHC RDW Plt Count Seg Neutrophils % Lymphocytes % Monocytes % Eosinophils % Basophils % Absolute Neutrophils Absolute Lymphocytes Absolute Monocytes Absolute Eosinophils Absolute Basophils Carbonic Acid HCO3/H2CO3 Ratio ABG pH ABG pCO2 ABG pO2 ABG HCO3 ABG O2 Saturation ABG Base Excess FiO2 Sodium Potassium Chloride Carbon Dioxide Anion Gap BUN Creatinine Est GFR ( Amer) Est GFR (Non-Af Amer) Glucose Calcium Magnesium TSH Free T4 Free T3 pg/mL Urine Color STRAW Urine Appearance CLEAR Urine pH 6.0 Ur Specific [place] 1.006 Urine Protein NEGATIVE Urine Glucose (UA) NEGATIVE Urine Ketones NEGATIVE Urine Blood SMALL H Urine Nitrite NEGATIVE Ur Leukocyte Esterase NEGATIVE Urine WBC (Auto) 2 Urine RBC (Auto) 3 10/30/16 08:52 Tracheal Aspirate Gram Stain - Final 10/30/16 08:52 Tracheal Aspirate Sputum Culture - Final Klebsiella Pneumoniae C.albicans/C.dubliniensis Normal Noemi Absent 10/29/16 11:30 Catheterized Urine Urine Culture - Final NO GROWTH 2 DAYS 10/29/16 10/29/16 10/30/16 20:00 20:00 03:58 Creatine Kinase 72 55 CK-MB (CK-2) 1.52 Troponin I < 0.012 10/30/16 10/30/16 10/30/16 03:58 13:40 13:40 Creatine Kinase 45 L CK-MB (CK-2) 0.89 0.46 Troponin I < 0.012 < 0.012 Impressions: Renal Ultrasound 10/29/16 00:00 IMPRESSION: Limited study as noted above. No right renal abnormalities were identified. Left kidney could not be visualized. Eaton catheter in the bladder. Chest X-Ray 11/01/16 06:00 IMPRESSION: Extensive multifocal airspace opacities with slight improvement. Lines and tubes. Assessment & Plan - Diagnosis (1) Cardiopulmonary arrest with successful resuscitation Is this a current diagnosis for this admission?: Yes (2) Respiratory failure Qualifiers: Chronicity: chronic Respiratory failure complication: hypoxia and hypercapnia Qualified Code(s): J96.11 - Chronic respiratory failure with hypoxia Is this a current diagnosis for this admission?: Yes (3) Aspiration pneumonia Qualifiers: Aspiration pneumonia type: due to gastric secretions Laterality: bilateral Lung location: unspecified part of lung Qualified Code(s): J69.0 - Pneumonitis due to inhalation of food and vomit Is this a current diagnosis for this admission?: Yes (4) Acute on chronic combined systolic and diastolic congestive heart failure Is this a current diagnosis for this admission?: Yes (5) Dyspnea Qualifiers: Dyspnea type: unspecified Qualified Code(s): R06.00 - Dyspnea, unspecified Is this a current diagnosis for this admission?: Yes (6) Morbid (severe) obesity with alveolar hypoventilation Is this a current diagnosis for this admission?: Yes (7) Pulmonary hypertension Is this a current diagnosis for this admission?: Yes (8) Chronic kidney disease (CKD) Qualifiers: Chronic kidney disease stage: stage 3 (moderate) Qualified Code(s): N18.3 - Chronic kidney disease, stage 3 (moderate) Is this a current diagnosis for this admission?: Yes (9) Hypotension (arterial) Qualifiers: Hypotension type: other hypotension type Qualified Code(s): I95.89 - Other hypotension Is this a current diagnosis for this admission?: Yes (10) Acute kidney injury superimposed on chronic kidney disease Is this a current diagnosis for this admission?: Yes (11) Bradycardia Is this a current diagnosis for this admission?: Yes - Notes Notes: Status post cardiopulmonary arrest with successful resuscitation: Believe that patient predominantly and primarily had respiratory arrest most likely brought on by aspiration pneumonia. Continue ventilatory support, continue oxygenation. Chest x-ray shows slight improvement by my review. Continue antibiotic therapy. Currently on dopamine at low-dose. Respiratory failure: Acute on chronic. Pulmonary assisting in care. Hypotension: Possibly related to severe RV dysfunction, sepsis etc. continue with vasopressor therapy. Currently on dopamine. Aspiration pneumonia: Continue antibiotic therapy. EKGs were negative for any significant ST segment changes and also cardiac enzymes were also surprisingly negative. Biventricular failure: Patient has LV systolic diastolic failure and significant RV failure. Continue diuretic therapy. Morbid obesity: Currently stable. Pulmonary hypertension: Possibly severe. Bradycardia: Patient noted to have minor sinus bradycardia. Lab work including TSH free T3 and free T4 level, came back normal. Will start patient on a scopolamine patch just to see if it will help with bradycardia if this is due to vagal stimulation. Acute on Chronic kidney disease: Currently stable. Dr Mijares following. - Time Time with patient: Greater than 35 minutes - CODE STATUS was discussed, patient remains full code. Surrogate decision-maker unchanged. Multiple medical problems were addressed. More than 50% of the time spent coordinating care, discussing management plans with involved caregivers. Management plans discussed with involved personnels. Medical decision making was of moderate to high complexity, patient's has multiple comorbidities. Medications reviewed and adjusted accordingly: Yes
[2016-11-01] MEDS ORDERED: SCOPOLAMINE HYDROBROMIDE 1.5 MG PATCH.TD72 TD ONE (12:30)
--- NOTE | 2016-11-01 14:01 | PDOC PROGRESS REPORT ---
Subjective Progress Note for:: 11/01/16 Subjective:: Intubated and sedated Physical Exam Vital Signs: Temp Pulse Resp BP Pulse Ox 97.7 F 51 L 12 115/56 L 97 11/01/16 04:00 11/01/16 08:00 11/01/16 08:00 11/01/16 08:00 11/01/16 08:00 Intake & Output 10/31/16 11/01/16 11/02/16 06:59 06:59 06:59 Intake Total 2677 1907 Output Total 4205 5385 325 Balance -1528 -3478 -325 Weight 193.2 kg 191.9 kg General appearance: PRESENT: no acute distress, disheveled, morbidly obese, well -developed Head exam: PRESENT: atraumatic, normocephalic Eye exam: PRESENT: conjunctiva pale Mouth exam: PRESENT: dry mucosa, neck supple, tongue midline, other - ET tube Neck exam: ABSENT: carotid bruit, JVD, lymphadenopathy, thyromegaly Respiratory exam: PRESENT: crackles, decreased breath sounds, prolonged expiratory phas, rhonchi, symmetrical, unlabored, wheezes Pulses: PRESENT: normal radial pulses GI/Abdominal exam: PRESENT: normal bowel sounds, soft. ABSENT: distended, guarding, mass, organolmegaly, rebound, tenderness Rectal exam: PRESENT: deferred Gentrourinary exam: PRESENT: indwelling catheter Extremities exam: PRESENT: +2 edema Skin exam: PRESENT: dry, warm Results Laboratory Results: 11/01/16 05:22 11/01/16 05:22 10/31/16 10/31/16 10/31/16 11:08 11:08 14:15 WBC RBC Hgb Hct MCV MCH MCHC RDW Plt Count Seg Neutrophils % Lymphocytes % Monocytes % Eosinophils % Basophils % Absolute Neutrophils Absolute Lymphocytes Absolute Monocytes Absolute Eosinophils Absolute Basophils Carbonic Acid 1.02 L HCO3/H2CO3 Ratio 31:1 ABG pH 7.60 H* ABG pCO2 34.0 L ABG pO2 180.3 H ABG HCO3 32.3 H ABG O2 Saturation 99.5 H ABG Base Excess 10.2 FiO2 65% Sodium Potassium Chloride Carbon Dioxide Anion Gap BUN Creatinine Est GFR ( Amer) Est GFR (Non-Af Amer) Glucose Calcium Magnesium TSH 1.53 Free T4 1.50 Free T3 pg/mL 2.93 Urine Color Urine Appearance Urine pH Ur Specific [place] Urine Protein Urine Glucose (UA) Urine Ketones Urine Blood Urine Nitrite Ur Leukocyte Esterase Urine WBC (Auto) Urine RBC (Auto) 11/01/16 11/01/16 11/01/16 05:22 05:22 05:22 WBC 10.5 RBC 3.19 L Hgb 9.3 L Hct 27.4 L MCV 86 MCH 29.2 MCHC 34.0 RDW 16.7 H Plt Count 108 L Seg Neutrophils % 85.0 H Lymphocytes % 6.3 L Monocytes % 5.5 Eosinophils % 2.8 Basophils % 0.4 Absolute Neutrophils 8.9 H Absolute Lymphocytes 0.7 Absolute Monocytes 0.6 Absolute Eosinophils 0.3 Absolute Basophils 0.0 Carbonic Acid 1.16 HCO3/H2CO3 Ratio 28:1 ABG pH 7.55 H ABG pCO2 38.6 ABG pO2 90.3 ABG HCO3 33.3 H ABG O2 Saturation 97.8 ABG Base Excess 10.3 FiO2 40% Sodium 137.3 Potassium 3.2 L Chloride 96 L Carbon Dioxide 31 H Anion Gap 10 BUN 45 H Creatinine 1.91 H Est GFR ( Amer) 42 L Est GFR (Non-Af Amer) 35 L Glucose 180 H Calcium 7.7 L Magnesium 1.8 TSH Free T4 Free T3 pg/mL Urine Color Urine Appearance Urine pH Ur Specific [place] Urine Protein Urine Glucose (UA) Urine Ketones Urine Blood Urine Nitrite Ur Leukocyte Esterase Urine WBC (Auto) Urine RBC (Auto) 11/01/16 05:22 WBC RBC Hgb Hct MCV MCH MCHC RDW Plt Count Seg Neutrophils % Lymphocytes % Monocytes % Eosinophils % Basophils % Absolute Neutrophils Absolute Lymphocytes Absolute Monocytes Absolute Eosinophils Absolute Basophils Carbonic Acid HCO3/H2CO3 Ratio ABG pH ABG pCO2 ABG pO2 ABG HCO3 ABG O2 Saturation ABG Base Excess FiO2 Sodium Potassium Chloride Carbon Dioxide Anion Gap BUN Creatinine Est GFR ( Amer) Est GFR (Non-Af Amer) Glucose Calcium Magnesium TSH Free T4 Free T3 pg/mL Urine Color STRAW Urine Appearance CLEAR Urine pH 6.0 Ur Specific [place] 1.006 Urine Protein NEGATIVE Urine Glucose (UA) NEGATIVE Urine Ketones NEGATIVE Urine Blood SMALL H Urine Nitrite NEGATIVE Ur Leukocyte Esterase NEGATIVE Urine WBC (Auto) 2 Urine RBC (Auto) 3 10/30/16 08:52 Tracheal Aspirate Gram Stain - Final 10/29/16 11:30 Catheterized Urine Urine Culture - Final NO GROWTH 2 DAYS 10/29/16 10/29/16 10/30/16 20:00 20:00 03:58 Creatine Kinase 72 55 CK-MB (CK-2) 1.52 Troponin I < 0.012 10/30/16 10/30/16 10/30/16 03:58 13:40 13:40 Creatine Kinase 45 L CK-MB (CK-2) 0.89 0.46 Troponin I < 0.012 < 0.012 Impressions: Renal Ultrasound 10/29/16 00:00 IMPRESSION: Limited study as noted above. No right renal abnormalities were identified. Left kidney could not be visualized. Eaton catheter in the bladder. Chest X-Ray 11/01/16 06:00 IMPRESSION: Extensive multifocal airspace opacities with slight improvement. Lines and tubes. Assessment & Plan - Diagnosis (1) Acute on chronic combined systolic and diastolic congestive heart failure Is this a current diagnosis for this admission?: Yes (2) Dyspnea Qualifiers: Dyspnea type: unspecified Qualified Code(s): R06.00 - Dyspnea, unspecified Is this a current diagnosis for this admission?: Yes (3) Morbid (severe) obesity with alveolar hypoventilation Is this a current diagnosis for this admission?: Yes (4) Pulmonary vascular congestion Is this a current diagnosis for this admission?: Yes (5) Respiratory failure Qualifiers: Chronicity: chronic Respiratory failure complication: hypoxia and hypercapnia Qualified Code(s): J96.11 - Chronic respiratory failure with hypoxia Is this a current diagnosis for this admission?: Yes (6) Cardiac arrest Is this a current diagnosis for this admission?: Yes - Time Critical Time spent with patient: 35 or more minutes
--- NOTE | 2016-11-01 15:45 | PDOC PROGRESS REPORT ---
Subjective Progress Note for:: 11/01/16 Subjective:: Patient is currently intubated and sedated. Plans were discussed with supervising nurse of the patient. He currently is just on Versed for sedation and his FiO2 is down to 40% compared to the 90% that it was at when I saw him yesterday. Blood pressures are stable heart rate is bradycardic. He remains on dopamine to help with his heart rate. He produced 5 L of urine yesterday even after decreasing the Lasix drip from 10 mg to 5 mg. Physical Exam Vital Signs: Temp Pulse Resp BP Pulse Ox 97.9 F 49 L 0 L 119/57 L 97 11/01/16 12:00 11/01/16 12:00 11/01/16 14:50 11/01/16 12:00 11/01/16 14:50 Intake & Output 10/31/16 11/01/16 11/02/16 06:59 06:59 06:59 Intake Total 2677 1907 Output Total 4205 5385 950 Balance -2739 -9815 -950 Weight 193.2 kg 191.9 kg General appearance: PRESENT: mild distress, morbidly obese Head exam: PRESENT: atraumatic, normocephalic Mouth exam: PRESENT: moist, neck supple Neck exam: PRESENT: other - JVD was unable to be assessed due to body habitus. ABSENT: tracheal deviation Respiratory exam: PRESENT: crackles, decreased breath sounds, rhonchi. ABSENT: accessory muscle use, clear to auscultation maryann, tachypnea, wheezes Cardiovascular exam: PRESENT: bradycardia, +S1, +S2, systolic murmur GI/Abdominal exam: PRESENT: normal bowel sounds, soft. ABSENT: organomegaly, tenderness Extremities exam: PRESENT: +1 edema. ABSENT: joint swelling Musculoskeletal exam: PRESENT: normal inspection. ABSENT: ambulatory, deformity Neurological exam: PRESENT: other - sedated with minor movements Skin exam: PRESENT: rash - ankles-scaly skin, warm. ABSENT: cyanosis Results Laboratory Results: 11/01/16 05:22 11/01/16 05:22 11/01/16 11/01/16 11/01/16 05:22 05:22 05:22 WBC 10.5 RBC 3.19 L Hgb 9.3 L Hct 27.4 L MCV 86 MCH 29.2 MCHC 34.0 RDW 16.7 H Plt Count 108 L Seg Neutrophils % 85.0 H Lymphocytes % 6.3 L Monocytes % 5.5 Eosinophils % 2.8 Basophils % 0.4 Absolute Neutrophils 8.9 H Absolute Lymphocytes 0.7 Absolute Monocytes 0.6 Absolute Eosinophils 0.3 Absolute Basophils 0.0 Carbonic Acid 1.16 HCO3/H2CO3 Ratio 28:1 ABG pH 7.55 H ABG pCO2 38.6 ABG pO2 90.3 ABG HCO3 33.3 H ABG O2 Saturation 97.8 ABG Base Excess 10.3 FiO2 40% Sodium 137.3 Potassium 3.2 L Chloride 96 L Carbon Dioxide 31 H Anion Gap 10 BUN 45 H Creatinine 1.91 H Est GFR ( Amer) 42 L Est GFR (Non-Af Amer) 35 L Glucose 180 H Calcium 7.7 L Magnesium 1.8 Urine Color Urine Appearance Urine pH Ur Specific [place] Urine Protein Urine Glucose (UA) Urine Ketones Urine Blood Urine Nitrite Ur Leukocyte Esterase Urine WBC (Auto) Urine RBC (Auto) 11/01/16 05:22 WBC RBC Hgb Hct MCV MCH MCHC RDW Plt Count Seg Neutrophils % Lymphocytes % Monocytes % Eosinophils % Basophils % Absolute Neutrophils Absolute Lymphocytes Absolute Monocytes Absolute Eosinophils Absolute Basophils Carbonic Acid HCO3/H2CO3 Ratio ABG pH ABG pCO2 ABG pO2 ABG HCO3 ABG O2 Saturation ABG Base Excess FiO2 Sodium Potassium Chloride Carbon Dioxide Anion Gap BUN Creatinine Est GFR ( Amer) Est GFR (Non-Af Amer) Glucose Calcium Magnesium Urine Color STRAW Urine Appearance CLEAR Urine pH 6.0 Ur Specific [place] 1.006 Urine Protein NEGATIVE Urine Glucose (UA) NEGATIVE Urine Ketones NEGATIVE Urine Blood SMALL H Urine Nitrite NEGATIVE Ur Leukocyte Esterase NEGATIVE Urine WBC (Auto) 2 Urine RBC (Auto) 3 10/30/16 08:52 Tracheal Aspirate Gram Stain - Final 10/30/16 08:52 Tracheal Aspirate Sputum Culture - Final Klebsiella Pneumoniae C.albicans/C.dubliniensis Normal Noemi Absent 10/29/16 10/29/16 10/30/16 20:00 20:00 03:58 Creatine Kinase 72 55 CK-MB (CK-2) 1.52 Troponin I < 0.012 10/30/16 10/30/16 10/30/16 03:58 13:40 13:40 Creatine Kinase 45 L CK-MB (CK-2) 0.89 0.46 Troponin I < 0.012 < 0.012 Impressions: Renal Ultrasound 10/29/16 00:00 IMPRESSION: Limited study as noted above. No right renal abnormalities were identified. Left kidney could not be visualized. Eaton catheter in the bladder. Chest X-Ray 11/01/16 06:00 IMPRESSION: Extensive multifocal airspace opacities with slight improvement. Lines and tubes. Assessment & Plan - Diagnosis (1) Hypokalemia Plan: low and IV potassium already ordered. If low tomorrow he may need daily potassium replacement. (2) Acute kidney injury superimposed on chronic kidney disease Is this a current diagnosis for this admission?: YesPlan: TALI looks to be resolving. He is producing several liters of urine on a lasix drip. We will decrease the Lasix drip down to 2 mg/hour. Will look to see what the urine output is and consider changing him to IV bolus Lasix if still high output. Creatinine remains to be stable around 1.8-1.9. (3) Aspiration pneumonia Qualifiers: Aspiration pneumonia type: due to gastric secretions Laterality: bilateral Lung location: unspecified part of lung Qualified Code(s): J69.0 - Pneumonitis due to inhalation of food and vomit Is this a current diagnosis for this admission?: YesPlan: Continue on vancomycin and pip tazo until cultures come back with sensitivities. (4) Bradycardia Is this a current diagnosis for this admission?: YesPlan: Looks to be unstable without dopamine. Would recommend continuing dopamine until heart rate increases. (5) CHF (congestive heart failure) Plan: Congestive heart failure looks to be resolving. Decreased the Lasix from 5 mg to 2 mg/h. (6) Respiratory failure Qualifiers: Chronicity: chronic Respiratory failure complication: hypoxia and hypercapnia Qualified Code(s): J96.11 - Chronic respiratory failure with hypoxia Is this a current diagnosis for this admission?: YesPlan: Looks to be requiring less FiO2, showing improvement.
[2016-11-01 18:21] LABS: APPEARANCE,URINE CLEAR; BILIRUBIN,URINE NEGATIVE (NEGATIVE); GLUCOSE, URINE NEGATIVE (NEGATIVE); KETONES,URINE NEGATIVE (NEGATIVE); LEUKOCYTE ESTERASE,URINE TRACE (NEGATIVE); NITRITE,URINE NEGATIVE (NEGATIVE); PROTEIN,URINE NEGATIVE (NEGATIVE); URINE SPECIFIC GRAVITY 1.008; UROBILINOGEN,URINE NEGATIVE mg/dL (<2.0)
[2016-11-01] MEDS: TOBRAMYCIN SULFATE NEB 40 MG/ML 30 ML NEB SCH (19:50)
[2016-11-01] MEDS: VANCOMYCIN HCL 1,250 MG in DEXTROSE 5%-WATER 250 ML IV SCH (21:27)
[2016-11-02] MEDS: PIPERACILLIN SODIUM/TAZOBACTAM 4.5 GM in NORMAL SALINE 100 ML IV SCH ×2 (00:04→05:10)
[2016-11-02] MEDS: INSULIN REG, HUMAN 100 UNIT/ML 3 ML VIAL (PYX) SUBCUT PRN ×2 (00:05→06:15)
[2016-11-02] MEDS: MIDAZOLAM HCL 100 ML IV PRN ×3 (00:05→12:06)
[2016-11-02] MEDS: DOPAMINE HCL 800 MG/D5W 250 ML IV PRN ×3 (03:43→20:43)
[2016-11-02] MEDS: DEXTROSE 5%-WATER 250 ML with NOREPINEPHRINE BITARTRATE 4 MG IV PRN ×4 (05:11→21:50)
[2016-11-02 05:38] LABS: ARTERIAL BLOOD BASE EXCESS -0.1 mmol/L
[2016-11-02 06:02] LABS: ANION GAP 11 (5-19); BLOOD UREA NITROGEN 45 mg/dL (7-20); CALCIUM 7.3 mg/dL (8.4-10.2); CARBON DIOXIDE 31 mmol/L (22-30); CHLORIDE 96 mmol/L (98-107); CREATININE RESULT 2.11 mg/dL (0.52-1.25); GLUCOSE 182 mg/dL (75-110); POTASSIUM 3.9 mmol/L (3.6-5.0)
--- NOTE | 2016-11-02 07:39 | RADIOLOGY REPORT (SQ) ---
EXAM DESCRIPTION: CHEST SINGLE VIEW COMPLETED DATE/TIME: 11/02/2016 7:20 am REASON FOR STUDY: ARDS COMPARISON: 11/01/2016. EXAM PARAMETERS: NUMBER OF VIEWS: One view. TECHNIQUE: Single frontal radiographic view of the chest acquired. RADIATION DOSE: NA LIMITATIONS: None. FINDINGS: LUNGS AND PLEURA: Consolidative airspace opacities both lung linares including a large opac ity of the left upper lobe and scattered opacities of the right lung. With moderate interstitial mar kings. MEDIASTINUM AND HILAR STRUCTURES: No masses. Contour normal. HEART AND VASCULAR STRUCTURES: With borderline cardiac silhouette size. BONES: No acute findings. HARDWARE: Adequate appearing endotracheal tube. Tip of a right internal jugular central line obscure d at the level of the right atrium; consider 10 cm retraction. Likely adequate NG tube distally obsc ured over the left upper abdominal quadrant. OTHER: No other significant finding. IMPRESSION: No significant interval change. TECHNICAL DOCUMENTATION: JOB ID: [id number]
--- NOTE | 2016-11-02 08:13 | PDOC PROGRESS REPORT ---
Subjective Progress Note for:: 11/02/16 Subjective:: sedated Physical Exam Vital Signs: Temp Pulse Resp BP Pulse Ox 99.5 F 50 L 9 L 124/59 L 95 11/02/16 06:30 11/01/16 20:00 11/02/16 06:25 11/01/16 18:00 11/02/16 06:30 Intake & Output 11/01/16 11/02/16 11/03/16 07:59 07:59 07:59 Intake Total 1907 2803 Output Total 5353 9650 Balance -3478 253 Weight 423 lb 1.073 oz 421 lb 4.854 oz Respiratory exam: PRESENT: clear to auscultation maryann Cardiovascular exam: ABSENT: diastolic murmur, irregular rhythm, systolic murmur GI/Abdominal exam: ABSENT: mass, organolmegaly Extremities exam: PRESENT: pedal edema Results Laboratory Results: 11/01/16 05:22 11/02/16 05:24 Abnormal - 24 hr 11/01/16 11/01/16 11/02/16 17:14 18:03 00:01 Carbonic Acid ABG pCO2 ABG Total CO2 Chloride Carbon Dioxide BUN Creatinine Est GFR ( Amer) Est GFR (Non-Af Amer) Glucose POC Glucose 184 H 213 H Calcium Urine Blood SMALL H Ur Leukocyte Esterase TRACE H 11/02/16 11/02/16 05:24 05:24 Carbonic Acid 1.42 H ABG pCO2 47.2 H ABG Total CO2 27.3 H Chloride 96 L Carbon Dioxide 31 H BUN 45 H Creatinine 2.11 H Est GFR ( Amer) 37 L Est GFR (Non-Af Amer) 31 L Glucose 182 H POC Glucose Calcium 7.3 L Urine Blood Ur Leukocyte Esterase 10/30/16 08:52 Tracheal Aspirate Gram Stain - Final 10/30/16 08:52 Tracheal Aspirate Sputum Culture - Final Klebsiella Pneumoniae C.albicans/C.dubliniensis Normal Noemi Absent Impressions: Renal Ultrasound 10/29/16 00:00 IMPRESSION: Limited study as noted above. No right renal abnormalities were identified. Left kidney could not be visualized. Eaton catheter in the bladder. Chest X-Ray 11/02/16 06:00 IMPRESSION: No significant interval change. Assessment & Plan - Diagnosis (1) Aspiration pneumonia Qualifiers: Aspiration pneumonia type: due to gastric secretions Laterality: bilateral Lung location: unspecified part of lung Qualified Code(s): J69.0 - Pneumonitis due to inhalation of food and vomit Is this a current diagnosis for this admission?: YesPlan: XR same. Growing kleb sensitive to augmentin. Try unasyn for aspiration bugs. Stop vanc since cr up (2) Respiratory failure Qualifiers: Chronicity: chronic Respiratory failure complication: hypoxia and hypercapnia Qualified Code(s): J96.11 - Chronic respiratory failure with hypoxia Is this a current diagnosis for this admission?: Yes (3) Morbid (severe) obesity with alveolar hypoventilation Is this a current diagnosis for this admission?: Yes (4) Pulmonary hypertension Is this a current diagnosis for this admission?: Yes (5) Acute on chronic combined systolic and diastolic congestive heart failure Is this a current diagnosis for this admission?: Yes (6) Hematuria Qualifiers: Hematuria type: gross Qualified Code(s): R31.0 - Gross hematuria Is this a current diagnosis for this admission?: Yes (7) Cardiopulmonary arrest with successful resuscitation Is this a current diagnosis for this admission?: Yes (8) Hypothermia due to anesthesia Is this a current diagnosis for this admission?: YesPlan: temp 90 last pm until [facility] - Inpatient Certification Medical Necessity: Failure to Improve With Outpatient Therapy, Significant Comorbidiites Make Outpatient Treatment Too Risky, Need Close Monitoring Due to Risk of Patient Decompensation, Need For IV Fluids, Need For Continuous Telemetry Monitoring, Need for IV Antibiotics, Risk of Complication if Not Cared For in Hospital, Risk of Diagnosis Which Will Require Inpatient Eval/Care/ Monitoring
[2016-11-02] MEDS: TOBRAMYCIN SULFATE NEB 40 MG/ML 30 ML NEB SCH ×2 (08:45→20:32)
[2016-11-02] MEDS: POTASSIUM CHLORIDE 20 MEQ/50 ML RTU IV SCH (09:56)
[2016-11-02] MEDS: MAGNESIUM SULFATE/D5W 1 GM/100 ML RTUPB IV SCH ×2 (09:56→17:35)
[2016-11-02] MEDS: FAMOTIDINE INJ/PF 20 MG/2 ML SDV IV SCH ×2 (09:57→21:52)
[2016-11-02] MEDS: AMPICILLIN SODIUM/SULBACTAM NA 3 GM in NORMAL SALINE 100 ML IV SCH ×3 (12:07→23:35)
--- NOTE | 2016-11-02 12:10 | PDOC PROGRESS REPORT ---
Subjective Progress Note for:: 11/02/16 Subjective:: Patient is currently intubated and sedated. Plans were discussed with supervising nurse of the patient. He currently is on 8mg of Versed for sedation and his FiO2 has maintained at 40%. Blood pressures are stable heart rate is bradycardic. His dopamine was increased to 8mcg to help with his heart rate. He is now also on 2mcg of levophed. He produced 5 L of urine yesterday even after decreasing the Lasix drip to 2mg from 5 mg. Physical Exam Vital Signs: Temp Pulse Resp BP Pulse Ox 99.3 F 63 9 L 122/53 L 94 11/02/16 11:20 11/02/16 10:00 11/02/16 11:20 11/02/16 10:00 11/02/16 11:20 Intake & Output 11/01/16 11/02/16 11/03/16 06:59 06:59 06:59 Intake Total 1907 2803 Output Total 5393 2550 275 Balance -3478 253 -275 Weight 191.9 kg 191.1 kg General appearance: PRESENT: morbidly obese, other - sedated Head exam: PRESENT: atraumatic, normocephalic Neck exam: PRESENT: other - could not determine JVD due to body habitus. ABSENT : tracheal deviation Respiratory exam: PRESENT: crackles, rales. ABSENT: accessory muscle use, chest wall tenderness, clear to auscultation maryann, tachypnea, wheezes Cardiovascular exam: PRESENT: bradycardia, +S1, +S2, systolic murmur GI/Abdominal exam: PRESENT: normal bowel sounds, soft. ABSENT: organomegaly, tenderness Extremities exam: PRESENT: +2 edema, other - stiff when trying to passively move them Neurological exam: PRESENT: other - sedated Skin exam: PRESENT: dry - around the ankles, normal color, warm Results Laboratory Results: 11/01/16 05:22 11/02/16 05:24 11/01/16 11/02/16 11/02/16 18:03 05:24 05:24 Carbonic Acid 1.42 H HCO3/H2CO3 Ratio 18:1 ABG pH 7.36 ABG pCO2 47.2 H ABG pO2 96.2 ABG HCO3 25.8 ABG O2 Saturation 97.0 ABG Base Excess -0.1 FiO2 40% Sodium 138.0 Potassium 3.9 Chloride 96 L Carbon Dioxide 31 H Anion Gap 11 BUN 45 H Creatinine 2.11 H Est GFR ( Amer) 37 L Est GFR (Non-Af Amer) 31 L Glucose 182 H Calcium 7.3 L Magnesium 2.0 Urine Color STRAW Urine Appearance CLEAR Urine pH 5.0 Ur Specific [place] 1.008 Urine Protein NEGATIVE Urine Glucose (UA) NEGATIVE Urine Ketones NEGATIVE Urine Blood SMALL H Urine Nitrite NEGATIVE Ur Leukocyte Esterase TRACE H Urine WBC (Auto) 4 Urine RBC (Auto) 3 10/30/16 08:52 Tracheal Aspirate Gram Stain - Final 10/30/16 08:52 Tracheal Aspirate Sputum Culture - Final Klebsiella Pneumoniae C.albicans/C.dubliniensis Normal Noemi Absent 10/29/16 10/29/16 10/30/16 20:00 20:00 03:58 Creatine Kinase 72 55 CK-MB (CK-2) 1.52 Troponin I < 0.012 10/30/16 10/30/16 10/30/16 03:58 13:40 13:40 Creatine Kinase 45 L CK-MB (CK-2) 0.89 0.46 Troponin I < 0.012 < 0.012 Impressions: Renal Ultrasound 10/29/16 00:00 IMPRESSION: Limited study as noted above. No right renal abnormalities were identified. Left kidney could not be visualized. Eaton catheter in the bladder. Chest X-Ray 11/02/16 06:00 IMPRESSION: No significant interval change. Assessment & Plan - Diagnosis (1) Hypokalemia Plan: Recommend continuing daily IV potassium replacement (2) Acute kidney injury superimposed on chronic kidney disease Is this a current diagnosis for this admission?: YesPlan: Recommend continuing daily IV potassium replacement creatinine has increased a slight bit. Could be due to the infection he has are due to the hypotensive episodes that he occasionally has. Also could be elevated because the creatinine is no longer diluted down since drawling off several liters. (3) Aspiration pneumonia Qualifiers: Aspiration pneumonia type: due to gastric secretions Laterality: bilateral Lung location: unspecified part of lung Qualified Code(s): J69.0 - Pneumonitis due to inhalation of food and vomit Is this a current diagnosis for this admission?: YesPlan: Culture and sensitivity came back. Vancomycin and Pip Tazo were discontinued. Antibiotics were switched to tobramycin, which is more sensitive. (4) Bradycardia Is this a current diagnosis for this admission?: YesPlan: Dopamine was recently increased, patient looks to be getting worse by needing an increased level of dopamine. Currently at 8 mcg. (5) CHF (congestive heart failure) Plan: Lungs sound more clear, but leg is more swollen. Went from 1+ edema to 2+ edema. Will increase Lasix drip to 3 mg an hour. (6) Respiratory failure Qualifiers: Chronicity: chronic Respiratory failure complication: hypoxia and hypercapnia Qualified Code(s): J96.11 - Chronic respiratory failure with hypoxia Is this a current diagnosis for this admission?: YesPlan: Respiratory failure looks to be stable has not needed increased FiO2. Chest x- ray looks about the same - Notes Notes: Patient appears to be getting worse as needed increase in dopamine, Lasix, and levophed was added back on.
--- NOTE | 2016-11-02 19:38 | PDOC PROGRESS REPORT ---
Subjective Progress Note for:: 11/02/16 Subjective:: Patient about the same and has made very little progress. There is no significant change in general condition. Patient remains intubated, sedated, patient however looks comfortable and in acute distress. Chest x-ray showed bilateral airspace disease, most likely bilateral aspiration pneumonia. Overnight dopamine drip was increased because of bradycardia and hypotension. Patient currently on a smaller dose of Levophed. Medications reviewed. Medications: Medications have been reviewed. Physical Exam Vital Signs: Temp Pulse Resp BP Pulse Ox 97.9 F 62 0 L 114/50 L 95 11/02/16 19:00 11/02/16 16:00 11/02/16 19:00 11/02/16 16:00 11/02/16 19:00 Intake & Output 11/01/16 11/02/16 11/03/16 06:59 06:59 06:59 Intake Total 1907 2803 1529 Output Total 5385 2550 750 Balance -3478 253 779 Weight 191.9 kg 191.1 kg Exam: GENERAL: well-nourished and in no acute distress. Patient is intubated and sedated. Orientation cannot be checked HEAD: Atraumatic, normocephalic. EYES: Pupils equal round and reactive to light, extraocular movements could not be checked, sclera anicteric, conjunctiva are normal. ENT: TMs normal, nares patent, oropharynx clear without exudates. Moist mucous membranes. No oral ulcerations or bleeding gums noted NECK: supple without lymphadenopathy or JVD. Trachea is central. No cervical or axillary lymphadenopathy noted. Carotids are 2+ LUNGS: Breath sounds mostly clear to auscultation patient is noted to have bibasal crackles at the extreme bases CHEST: Palpation of the chest wall shows no significant chest wall tenderness or abnormalities. 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 ABDOMEN: Soft, no significant tenderness appreciated, normoactive bowel sounds. No guarding, no rebound. No rigidity noted . No masses appreciated. EXTREMITIES: Pedal pulses are 1-2+, no calf tenderness noted, 2-3+ pedal edema noted. No clubbing or cyanosis. NEUROLOGICAL: The patient cannot participate in the neurological exam but no facial asymmetry noted. Extremities slightly hypotonic PSYCH: This cannot be evaluated. Patient cannot participate. SKIN: No significant ecchymosis, rash, or signs of pruritus noted. MUSCULOSKELETAL EXAM: No significant joint swelling noted. Patient cannot participate in musculoskeletal exam Results Laboratory Results: 11/01/16 05:22 11/02/16 05:24 11/02/16 11/02/16 05:24 05:24 Carbonic Acid 1.42 H HCO3/H2CO3 Ratio 18:1 ABG pH 7.36 ABG pCO2 47.2 H ABG pO2 96.2 ABG HCO3 25.8 ABG O2 Saturation 97.0 ABG Base Excess -0.1 FiO2 40% Sodium 138.0 Potassium 3.9 Chloride 96 L Carbon Dioxide 31 H Anion Gap 11 BUN 45 H Creatinine 2.11 H Est GFR ( Amer) 37 L Est GFR (Non-Af Amer) 31 L Glucose 182 H Calcium 7.3 L Magnesium 2.0 10/29/16 10/29/16 10/30/16 20:00 20:00 03:58 Creatine Kinase 72 55 CK-MB (CK-2) 1.52 Troponin I < 0.012 10/30/16 10/30/16 10/30/16 03:58 13:40 13:40 Creatine Kinase 45 L CK-MB (CK-2) 0.89 0.46 Troponin I < 0.012 < 0.012 Impressions: Renal Ultrasound 10/29/16 00:00 IMPRESSION: Limited study as noted above. No right renal abnormalities were identified. Left kidney could not be visualized. Eaton catheter in the bladder. Chest X-Ray 11/02/16 06:00 IMPRESSION: No significant interval change. Assessment & Plan - Diagnosis (1) Cardiopulmonary arrest with successful resuscitation Is this a current diagnosis for this admission?: Yes (2) Respiratory failure Qualifiers: Chronicity: chronic Respiratory failure complication: hypoxia and hypercapnia Qualified Code(s): J96.11 - Chronic respiratory failure with hypoxia Is this a current diagnosis for this admission?: Yes (3) Aspiration pneumonia Qualifiers: Aspiration pneumonia type: due to gastric secretions Laterality: bilateral Lung location: unspecified part of lung Qualified Code(s): J69.0 - Pneumonitis due to inhalation of food and vomit Is this a current diagnosis for this admission?: Yes (4) Acute on chronic combined systolic and diastolic congestive heart failure Is this a current diagnosis for this admission?: Yes (5) Dyspnea Qualifiers: Dyspnea type: unspecified Qualified Code(s): R06.00 - Dyspnea, unspecified Is this a current diagnosis for this admission?: Yes (6) Morbid (severe) obesity with alveolar hypoventilation Is this a current diagnosis for this admission?: Yes (7) Pulmonary hypertension Is this a current diagnosis for this admission?: Yes (8) Chronic kidney disease (CKD) Qualifiers: Chronic kidney disease stage: stage 3 (moderate) Qualified Code(s): N18.3 - Chronic kidney disease, stage 3 (moderate) Is this a current diagnosis for this admission?: Yes (9) Hypotension (arterial) Qualifiers: Hypotension type: other hypotension type Qualified Code(s): I95.89 - Other hypotension Is this a current diagnosis for this admission?: Yes (10) Acute kidney injury superimposed on chronic kidney disease Is this a current diagnosis for this admission?: Yes (11) Bradycardia Is this a current diagnosis for this admission?: Yes - Notes Notes: Status post cardiopulmonary arrest with successful resuscitation: Believe that patient predominantly and primarily had respiratory arrest most likely brought on by aspiration pneumonia. Continue ventilatory support, continue oxygenation. Chest x-ray shows progressive but slight improvement each day by my review. Continue antibiotic therapy. Currently on dopamine at low-dose. Continue Levophed. Respiratory failure: Acute on chronic. Pulmonary assisting in care. Hypotension: Possibly related to severe RV dysfunction, sepsis etc. continue with vasopressor therapy. Currently on dopamine. Aspiration pneumonia: Continue antibiotic therapy. EKGs were negative for any significant ST segment changes and also cardiac enzymes were also surprisingly negative. Biventricular failure: Patient has LV systolic diastolic failure and significant RV failure. Continue diuretic therapy. Morbid obesity: Currently stable. Pulmonary hypertension: Possibly severe. Bradycardia: Patient noted to have sinus bradycardia. Lab work including TSH free T3 and free T4 level, came back normal. Will start patient on a scopolamine patch just to see if it will help with bradycardia if this is due to vagal stimulation. Continue dopamine drip for heart rate. May consider Sudafed p.o. if needed. Acute on Chronic kidney disease: Currently stable. Dr Dyllan workman. - Time Time with patient: Greater than 35 minutes - CODE STATUS was discussed, patient remains full code. Surrogate decision-maker unchanged. Multiple medical problems were addressed. More than 50% of the time spent coordinating care, discussing management plans with involved caregivers. Management plans discussed with involved personnels. Medical decision making was of moderate to high complexity, patient's has multiple comorbidities. Overall prognosis on the poor side. Medications reviewed and adjusted accordingly: Yes
[2016-11-02] MEDS ORDERED: ALTEPLASE INJ 2 MG VIAL (CATH CLEARANCE) INJ ONE (19:45)
[2016-11-02] MEDS: HEPARIN SOD (PORCINE) 5,000 UNIT/ML 1 ML SYRINGE SUBCUT SCH (21:52)
[2016-11-02 23:10] LABS: APPEARANCE,URINE SLIGHTLY-CLOUDY; BILIRUBIN,URINE NEGATIVE (NEGATIVE); GLUCOSE, URINE NEGATIVE (NEGATIVE); KETONES,URINE NEGATIVE (NEGATIVE); LEUKOCYTE ESTERASE,URINE NEGATIVE (NEGATIVE); NITRITE,URINE NEGATIVE (NEGATIVE); PROTEIN,URINE NEGATIVE (NEGATIVE); URINE SPECIFIC GRAVITY 1.012; UROBILINOGEN,URINE NEGATIVE mg/dL (<2.0)
[2016-11-02] MEDS: NORMAL SALINE 250 ML with FUROSEMIDE 250 MG IV PRN ×2 (23:30)
[2016-11-03] MEDS: MIDAZOLAM HCL 100 ML IV PRN ×2 (00:21→08:22)
[2016-11-03] MEDS ORDERED: SODIUM CHLORIDE IV PRN (03:31)
[2016-11-03] MEDS ORDERED: HEPARIN IV PRN (03:31)
[2016-11-03] MEDS: AMPICILLIN SODIUM/SULBACTAM NA 3 GM in NORMAL SALINE 100 ML IV SCH ×4 (05:01→23:47)
[2016-11-03] MEDS: DOPAMINE HCL 800 MG/D5W 250 ML IV PRN ×2 (05:03→15:02)
[2016-11-03 05:30] LABS: ARTERIAL BLOOD BASE EXCESS 2.6 mmol/L; ARTERIAL BLOOD O2 SATURATION 97.2 % (94-98)
[2016-11-03 05:38] LABS: ABSOLUTE EOSINOPHILS # (AUTO) 0.2 10^3/uL (0.0-0.6); ABSOLUTE LYMPHOCYTES (AUTO) 0.8 10^3/uL (0.5-4.7); ABSOLUTE MONOCYTES (AUTO) 0.8 10^3/uL (0.1-1.4); ABSOLUTE NEUT (AUTO) 6.5 10^3/uL (1.7-8.2); BASOPHILS % (AUTO) 0.4 % (0-2); EOSINOPHILS % (AUTO) 2.7 % (0-6); HEMATOCRIT 25.9 % (37.9-51.0); HEMOGLOBIN 8.4 g/dL (13.5-17.0); HGB HCT DIFFERENCE -0.7; LYMPHOCYTES % (AUTO) 9.9 % (13-45); MEAN CORPUSCULAR HEMOGLOBIN 28.6 pg (27.0-33.4); MEAN CORPUSCULAR HGB CONC 32.5 g/dL (32.0-36.0); MEAN CORPUSCULAR VOLUME 88 fl (80-97); MONOCYTES % (AUTO) 9.7 % (3-13); RED BLOOD COUNT 2.94 10^6/uL (4.35-5.55); RED CELL DISTRIBUTION WIDTH 17.1 % (11.5-14.0); SEGMENTED NEUTROPHILS % (AUTO) 77.3 % (42-78); WHITE BLOOD COUNT 8.4 10^3/uL (4.0-10.5)
[2016-11-03 06:32] LABS: ALANINE AMINOTRANSFERASE 21 U/L (21-72); ALBUMIN 2.3 g/dL (3.5-5.0); ALKALINE PHOSPHATASE 88 U/L (38-126); ANION GAP 12 (5-19); ASPARTATE AMINO TRANSFERASE 17 U/L (17-59); BILIRUBIN,DIRECT 0.6 mg/dL (0.0-0.4); BILIRUBIN,TOTAL 0.7 mg/dL (0.2-1.3); BLOOD UREA NITROGEN 49 mg/dL (7-20); CALCIUM 7.3 mg/dL (8.4-10.2); CARBON DIOXIDE 29 mmol/L (22-30); CHLORIDE 98 mmol/L (98-107); CREATININE RESULT 2.46 mg/dL (0.52-1.25); GLUCOSE 191 mg/dL (75-110); MAGNESIUM 2.3 mg/dL (1.6-2.3); POTASSIUM 4.2 mmol/L (3.6-5.0); SODIUM 138.6 mmol/L (137-145); TOTAL PROTEIN 5.4 g/dL (6.3-8.2)
--- NOTE | 2016-11-03 06:50 | PDOC PROGRESS REPORT ---
Subjective Progress Note for:: 11/03/16 Subjective:: sedated by little versed Physical Exam Vital Signs: Temp Pulse Resp BP Pulse Ox 97.3 F 56 L 0 L 118/53 L 91 L 11/03/16 06:15 11/03/16 06:00 11/03/16 06:15 11/03/16 06:00 11/03/16 06:15 Intake & Output 11/01/16 11/02/16 11/03/16 07:59 07:59 07:59 Intake Total 1907 2803 2562 Output Total 5385 2550 1800 Balance -3478 253 762 Weight 423 lb 1.073 oz 421 lb 4.854 oz 420 lb 6.744 oz Respiratory exam: PRESENT: rhonchi Cardiovascular exam: ABSENT: diastolic murmur, irregular rhythm, systolic murmur GI/Abdominal exam: PRESENT: diminished bowel sounds. ABSENT: mass, organolmegaly Extremities exam: PRESENT: pedal edema Results Laboratory Results: 11/03/16 05:20 10/29/16 10/29/16 10/30/16 20:00 20:00 03:58 Creatine Kinase 72 55 CK-MB (CK-2) 1.52 Troponin I < 0.012 10/30/16 10/30/16 10/30/16 03:58 13:40 13:40 Creatine Kinase 45 L CK-MB (CK-2) 0.89 0.46 Troponin I < 0.012 < 0.012 Impressions: Renal Ultrasound 10/29/16 00:00 IMPRESSION: Limited study as noted above. No right renal abnormalities were identified. Left kidney could not be visualized. Eaton catheter in the bladder. Chest X-Ray 11/02/16 06:00 IMPRESSION: No significant interval change. Assessment & Plan - Diagnosis (1) Aspiration pneumonia Qualifiers: Aspiration pneumonia type: due to gastric secretions Laterality: bilateral Lung location: unspecified part of lung Qualified Code(s): J69.0 - Pneumonitis due to inhalation of food and vomit Is this a current diagnosis for this admission?: YesPlan: sat ok on 35%. Continue unasyn (2) Respiratory failure Qualifiers: Chronicity: chronic Respiratory failure complication: hypoxia and hypercapnia Qualified Code(s): J96.11 - Chronic respiratory failure with hypoxia Is this a current diagnosis for this admission?: YesPlan: pco2 up. ?increase rate. Had long family conference with 5 family yesterday. He had not been telling them about his chf last few years. Now they understand the poor prognosis and will confer again in 6d to consider dnr. (3) Morbid (severe) obesity with alveolar hypoventilation Is this a current diagnosis for this admission?: Yes (4) Pulmonary hypertension Is this a current diagnosis for this admission?: Yes (5) Acute on chronic combined systolic and diastolic congestive heart failure Is this a current diagnosis for this admission?: YesPlan: output slowing some on furosemide 3mg/h. BP drops without levo. Eliezer on dopamine (6) Hematuria Qualifiers: Hematuria type: gross Qualified Code(s): R31.0 - Gross hematuria Is this a current diagnosis for this admission?: YesPlan: gone. Back on heparin. (7) Cardiopulmonary arrest with successful resuscitation Is this a current diagnosis for this admission?: Yes (8) Hypothermia due to anesthesia Is this a current diagnosis for this admission?: Yes (9) Malnutrition due to starvation Is this a current diagnosis for this admission?: YesPlan: tube feeding held for residuals.
--- NOTE | 2016-11-03 08:14 | RADIOLOGY REPORT (SQ) ---
EXAM DESCRIPTION: CHEST SINGLE VIEW COMPLETED DATE/TIME: 11/03/2016 7:11 am REASON FOR STUDY: ARDS COMPARISON: Chest x-ray 11/02/2016. EXAM PARAMETERS: NUMBER OF VIEWS: One view TECHNIQUE: Single frontal radiograph of the chest. RADIATION DOSE: N/A LIMITATIONS: Patient positioning. FINDINGS: TEMPORARY SUPPORT DEVICES:ETT in expected location. An enteric tube courses along the mid line, its tip is not well evaluated on this exam. Right IJ central line with the tip overlying the re gion of the right atrium. LUNGS AND PLEURA: The patient is rotated. Redemonstration of bilateral airspace opacities, right mo re than left. No obvious pleural effusion or pneumothorax. MEDIASTINUM AND HILAR STRUCTURES: Stable. HEART AND VASCULAR STRUCTURES: Stable. BONES: No acute findings. IMPRESSION: No significant interval change in the appearance of the chest with bilateral airspace op acities. Right IJ central line with the tip overlying the region of the right atrium, retraction by approximat dereck 7 cm recommended. RECOMMENDATIONS: Retraction of the right IJ central line. TECHNICAL DOCUMENTATION: JOB ID: [id number] [employer]- All Rights Reserved
[2016-11-03] MEDS: TOBRAMYCIN SULFATE NEB 40 MG/ML 30 ML NEB SCH ×2 (08:27→20:05)
[2016-11-03] MEDS: FAMOTIDINE INJ/PF 20 MG/2 ML SDV IV SCH ×2 (09:47→21:51)
[2016-11-03] MEDS: HEPARIN SOD (PORCINE) 5,000 UNIT/ML 1 ML SYRINGE SUBCUT SCH ×2 (09:47→21:51)
[2016-11-03 10:42] LABS: ARTERIAL BLOOD BASE EXCESS 3.3 mmol/L; ARTERIAL BLOOD O2 SATURATION 88.2 % (94-98)
--- NOTE | 2016-11-03 18:12 | PDOC PROGRESS REPORT ---
Subjective Progress Note for:: 11/03/16 Subjective:: Patient about the same and has made very little progress. There is no significant change in general condition. Patient remains intubated, sedated, patient however looks comfortable and in acute distress. Chest x-ray showed bilateral airspace disease, most likely bilateral aspiration pneumonia. Overnight dopamine drip was increased because of bradycardia and hypotension. Patient currently on a smaller dose of Levophed. Patient also on a scopolamine patch, will reorder it. Medications reviewed. Medications: Medications have been reviewed. Physical Exam Vital Signs: Temp Pulse Resp BP Pulse Ox 97.0 F 73 18 129/54 H 92 11/03/16 17:58 11/03/16 17:58 11/03/16 17:58 11/03/16 17:58 11/03/16 17:58 Intake & Output 11/02/16 11/03/16 11/04/16 06:59 06:59 06:59 Intake Total 2803 2562 908 Output Total 2550 1800 2550 Balance 253 762 -1642 Weight 191.1 kg 190.7 kg Exam: GENERAL: well-nourished and in no acute distress. Patient is intubated and sedated. Orientation cannot be checked HEAD: Atraumatic, normocephalic. EYES: Pupils equal round and reactive to light, extraocular movements could not be checked, sclera anicteric, conjunctiva are normal. ENT: TMs normal, nares patent, oropharynx clear without exudates. Moist mucous membranes. No oral ulcerations or bleeding gums noted NECK: supple without lymphadenopathy or JVD. Trachea is central. No cervical or axillary lymphadenopathy noted. Carotids are 2+ LUNGS: Breath sounds mostly clear to auscultation patient is noted to have bibasal crackles at the extreme bases CHEST: Palpation of the chest wall shows no significant chest wall tenderness or abnormalities. 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 ABDOMEN: Soft, no significant tenderness appreciated, normoactive bowel sounds. No guarding, no rebound. No rigidity noted . No masses appreciated. EXTREMITIES: Pedal pulses are 1-2+, no calf tenderness noted, 1+ pedal edema noted. No clubbing or cyanosis. NEUROLOGICAL: The patient cannot participate in the neurological exam but no facial asymmetry noted. Extremities slightly hypotonic PSYCH: This cannot be evaluated. Patient cannot participate. SKIN: No significant ecchymosis, dermatitis changes noted both lower extremity MUSCULOSKELETAL EXAM: No significant joint swelling noted. Patient cannot participate in musculoskeletal exam Results Laboratory Results: 11/03/16 05:20 11/03/16 05:20 11/02/16 11/03/16 11/03/16 19:55 05:20 05:20 WBC 8.4 RBC 2.94 L Hgb 8.4 L Hct 25.9 L MCV 88 MCH 28.6 MCHC 32.5 RDW 17.1 H Plt Count 109 L Seg Neutrophils % 77.3 Lymphocytes % 9.9 L Monocytes % 9.7 Eosinophils % 2.7 Basophils % 0.4 Absolute Neutrophils 6.5 Absolute Lymphocytes 0.8 Absolute Monocytes 0.8 Absolute Eosinophils 0.2 Absolute Basophils 0.0 Carbonic Acid 1.85 H HCO3/H2CO3 Ratio 16:1 ABG pH 7.31 L ABG pCO2 61.4 H ABG pO2 105.2 H ABG HCO3 29.9 H ABG O2 Saturation 97.2 ABG Base Excess 2.6 FiO2 30% Sodium Potassium Chloride Carbon Dioxide Anion Gap BUN Creatinine Est GFR ( Amer) Est GFR (Non-Af Amer) Glucose Calcium Magnesium Total Bilirubin AST ALT Alkaline Phosphatase Total Protein Albumin Urine Color YELLOW Urine Appearance SLIGHTLY-CLOUDY Urine pH 5.0 Ur Specific [place] 1.012 Urine Protein NEGATIVE Urine Glucose (UA) NEGATIVE Urine Ketones NEGATIVE Urine Blood MODERATE H Urine Nitrite NEGATIVE Ur Leukocyte Esterase NEGATIVE Urine WBC (Auto) 13 Urine RBC (Auto) 74 11/03/16 11/03/16 05:20 10:30 WBC RBC Hgb Hct MCV MCH MCHC RDW Plt Count Seg Neutrophils % Lymphocytes % Monocytes % Eosinophils % Basophils % Absolute Neutrophils Absolute Lymphocytes Absolute Monocytes Absolute Eosinophils Absolute Basophils Carbonic Acid 1.39 H HCO3/H2CO3 Ratio 20:1 ABG pH 7.41 ABG pCO2 46.2 H ABG pO2 54.3 L ABG HCO3 28.4 H ABG O2 Saturation 88.2 L ABG Base Excess 3.3 FiO2 35% Sodium 138.6 Potassium 4.2 Chloride 98 Carbon Dioxide 29 Anion Gap 12 BUN 49 H Creatinine 2.46 H Est GFR ( Amer) 31 L Est GFR (Non-Af Amer) 26 L Glucose 191 H Calcium 7.3 L Magnesium 2.3 Total Bilirubin 0.7 AST 17 ALT 21 Alkaline Phosphatase 88 Total Protein 5.4 L Albumin 2.3 L Urine Color Urine Appearance Urine pH Ur Specific [place] Urine Protein Urine Glucose (UA) Urine Ketones Urine Blood Urine Nitrite Ur Leukocyte Esterase Urine WBC (Auto) Urine RBC (Auto) 10/29/16 10/29/16 10/30/16 20:00 20:00 03:58 Creatine Kinase 72 55 CK-MB (CK-2) 1.52 Troponin I < 0.012 10/30/16 10/30/16 10/30/16 03:58 13:40 13:40 Creatine Kinase 45 L CK-MB (CK-2) 0.89 0.46 Troponin I < 0.012 < 0.012 EKG Comments: Telemetry strips shows sinus bradycardia intermittent. Impressions: Renal Ultrasound 10/29/16 00:00 IMPRESSION: Limited study as noted above. No right renal abnormalities were identified. Left kidney could not be visualized. Eaton catheter in the bladder. Chest X-Ray 11/03/16 06:00 IMPRESSION: No significant interval change in the appearance of the chest with bilateral airspace opacities. Right IJ central line with the tip overlying the region of the right atrium, retraction by approximately 7 cm recommended. Assessment & Plan - Diagnosis (1) Cardiopulmonary arrest with successful resuscitation Is this a current diagnosis for this admission?: Yes (2) Respiratory failure Qualifiers: Chronicity: chronic Respiratory failure complication: hypoxia and hypercapnia Qualified Code(s): J96.11 - Chronic respiratory failure with hypoxia Is this a current diagnosis for this admission?: Yes (3) Aspiration pneumonia Qualifiers: Aspiration pneumonia type: due to gastric secretions Laterality: bilateral Lung location: unspecified part of lung Qualified Code(s): J69.0 - Pneumonitis due to inhalation of food and vomit Is this a current diagnosis for this admission?: Yes (4) Acute on chronic combined systolic and diastolic congestive heart failure Is this a current diagnosis for this admission?: Yes (5) Dyspnea Qualifiers: Dyspnea type: unspecified Qualified Code(s): R06.00 - Dyspnea, unspecified Is this a current diagnosis for this admission?: Yes (6) Morbid (severe) obesity with alveolar hypoventilation Is this a current diagnosis for this admission?: Yes (7) Pulmonary hypertension Is this a current diagnosis for this admission?: Yes (8) Chronic kidney disease (CKD) Qualifiers: Chronic kidney disease stage: stage 3 (moderate) Qualified Code(s): N18.3 - Chronic kidney disease, stage 3 (moderate) Is this a current diagnosis for this admission?: Yes (9) Hypotension (arterial) Qualifiers: Hypotension type: other hypotension type Qualified Code(s): I95.89 - Other hypotension Is this a current diagnosis for this admission?: Yes (10) Acute kidney injury superimposed on chronic kidney disease Is this a current diagnosis for this admission?: Yes (11) Bradycardia Is this a current diagnosis for this admission?: Yes - Notes Notes: Status post cardiopulmonary arrest with successful resuscitation: Believe that patient predominantly and primarily had respiratory arrest most likely brought on by aspiration pneumonia. Continue ventilatory support, continue oxygenation. Chest x-ray shows progressive but slight improvement each day by my review. Continue antibiotic therapy. Currently on dopamine at low-dose to moderate dose. Continue Levophed. Respiratory failure: Acute on chronic. Pulmonary assisting in care. Hypotension: Possibly related to severe RV dysfunction, sepsis etc. continue with vasopressor therapy. Currently on dopamine. Aspiration pneumonia: Continue antibiotic therapy. EKGs were negative for any significant ST segment changes and also cardiac enzymes were also surprisingly negative. Biventricular failure: Patient has LV systolic diastolic failure and significant RV failure. Continue diuretic therapy. Morbid obesity: Currently stable. Pulmonary hypertension: Possibly severe. Bradycardia: Patient noted to have sinus bradycardia. Lab work including TSH free T3 and free T4 level, came back normal. Reorder scopolamine patch just to see if it will help with bradycardia if this is due to vagal stimulation. Continue dopamine drip for heart rate. May consider Sudafed p.o. if needed or may consider theophylline. Acute on Chronic kidney disease: Currently stable. Dr Dyllan workman. - Time Time with patient: Greater than 35 minutes - CODE STATUS was discussed, patient remains full code. Surrogate decision-maker unchanged. Multiple medical problems were addressed. More than 50% of the time spent coordinating care, discussing management plans with involved caregivers. Management plans discussed with involved personnels. Medical decision making was of moderate to high complexity, patient's has multiple comorbidities. Medications reviewed and adjusted accordingly: Yes
--- NOTE | 2016-11-03 18:26 | PDOC PROGRESS REPORT ---
Subjective Progress Note for:: 11/02/16 Subjective:: Intubated and sedated Physical Exam Vital Signs: Temp Pulse Resp BP Pulse Ox 99.5 F 50 L 9 L 124/59 L 95 11/02/16 06:30 11/01/16 20:00 11/02/16 06:25 11/01/16 18:00 11/02/16 06:30 Intake & Output 11/01/16 11/02/16 11/03/16 06:59 06:59 06:59 Intake Total 1907 2803 Output Total 5355 8160 Balance -3478 253 Weight 191.9 kg 191.1 kg General appearance: PRESENT: no acute distress, morbidly obese Head exam: PRESENT: atraumatic, normocephalic Eye exam: PRESENT: conjunctiva pale Mouth exam: PRESENT: dry mucosa, neck supple, tongue midline Neck exam: ABSENT: carotid bruit, JVD, lymphadenopathy, thyromegaly Respiratory exam: PRESENT: decreased breath sounds, prolonged expiratory phas, rales, rhonchi, symmetrical, unlabored Cardiovascular exam: PRESENT: RRR, +S1, +S2 Pulses: PRESENT: normal radial pulses GI/Abdominal exam: PRESENT: diminished bowel sounds, soft. ABSENT: distended, guarding, mass, organolmegaly, rebound, tenderness Rectal exam: PRESENT: deferred Gentrourinary exam: PRESENT: indwelling catheter Skin exam: PRESENT: dry Results Laboratory Results: 11/01/16 05:22 11/02/16 05:24 11/01/16 11/02/16 11/02/16 18:03 05:24 05:24 Carbonic Acid 1.42 H HCO3/H2CO3 Ratio 18:1 ABG pH 7.36 ABG pCO2 47.2 H ABG pO2 96.2 ABG HCO3 25.8 ABG O2 Saturation 97.0 ABG Base Excess -0.1 FiO2 40% Sodium 138.0 Potassium 3.9 Chloride 96 L Carbon Dioxide 31 H Anion Gap 11 BUN 45 H Creatinine 2.11 H Est GFR ( Amer) 37 L Est GFR (Non-Af Amer) 31 L Glucose 182 H Calcium 7.3 L Magnesium 2.0 Urine Color STRAW Urine Appearance CLEAR Urine pH 5.0 Ur Specific [place] 1.008 Urine Protein NEGATIVE Urine Glucose (UA) NEGATIVE Urine Ketones NEGATIVE Urine Blood SMALL H Urine Nitrite NEGATIVE Ur Leukocyte Esterase TRACE H Urine WBC (Auto) 4 Urine RBC (Auto) 3 10/30/16 08:52 Tracheal Aspirate Gram Stain - Final 10/30/16 08:52 Tracheal Aspirate Sputum Culture - Final Klebsiella Pneumoniae C.albicans/C.dubliniensis Normal Noemi Absent 10/29/16 10/29/16 10/30/16 20:00 20:00 03:58 Creatine Kinase 72 55 CK-MB (CK-2) 1.52 Troponin I < 0.012 10/30/16 10/30/16 10/30/16 03:58 13:40 13:40 Creatine Kinase 45 L CK-MB (CK-2) 0.89 0.46 Troponin I < 0.012 < 0.012 Impressions: Renal Ultrasound 10/29/16 00:00 IMPRESSION: Limited study as noted above. No right renal abnormalities were identified. Left kidney could not be visualized. Eaton catheter in the bladder. Chest X-Ray 11/02/16 06:00 IMPRESSION: No significant interval change. Assessment & Plan - Diagnosis (1) Acute on chronic combined systolic and diastolic congestive heart failure Is this a current diagnosis for this admission?: YesPlan: improved (2) Dyspnea Qualifiers: Dyspnea type: unspecified Qualified Code(s): R06.00 - Dyspnea, unspecified Is this a current diagnosis for this admission?: Yes (3) Morbid (severe) obesity with alveolar hypoventilation Is this a current diagnosis for this admission?: Yes (4) Pulmonary vascular congestion Is this a current diagnosis for this admission?: Yes (5) Respiratory failure Qualifiers: Chronicity: chronic Respiratory failure complication: hypoxia and hypercapnia Qualified Code(s): J96.11 - Chronic respiratory failure with hypoxia Is this a current diagnosis for this admission?: YesPlan: improving (6) Cardiac arrest Is this a current diagnosis for this admission?: Yes - Time Critical Time spent with patient: 35 or more minutes - 50 min discussions with rn rt family
--- NOTE | 2016-11-03 18:31 | PDOC PROGRESS REPORT ---
Subjective Progress Note for:: 11/03/16 Subjective:: Intubated and sedated Physical Exam Vital Signs: Temp Pulse Resp BP Pulse Ox 96.6 F L 57 L 9 L 121/64 96 11/03/16 07:53 11/03/16 08:25 11/03/16 08:25 11/03/16 07:53 11/03/16 08:25 Intake & Output 11/02/16 11/03/16 11/04/16 06:59 06:59 06:59 Intake Total 2803 2562 Output Total 2550 1800 100 Balance 253 762 -100 Weight 191.1 kg 190.7 kg General appearance: PRESENT: no acute distress, disheveled, morbidly obese Head exam: PRESENT: normocephalic Eye exam: PRESENT: conjunctiva pale Mouth exam: PRESENT: dry mucosa, neck supple, tongue midline, other - ET tube Teeth exam: PRESENT: poor dentation Neck exam: ABSENT: carotid bruit, JVD, lymphadenopathy, thyromegaly Respiratory exam: PRESENT: crackles, decreased breath sounds, prolonged expiratory phas, rhonchi, symmetrical, unlabored Cardiovascular exam: PRESENT: RRR, +S1, +S2 Pulses: PRESENT: normal radial pulses GI/Abdominal exam: PRESENT: diminished bowel sounds, soft. ABSENT: distended, guarding, mass, organolmegaly, rebound, tenderness Rectal exam: PRESENT: deferred Gentrourinary exam: PRESENT: indwelling catheter Extremities exam: PRESENT: +1 edema Skin exam: PRESENT: dry Results Laboratory Results: 11/03/16 05:20 11/03/16 05:20 11/02/16 11/03/16 11/03/16 19:55 05:20 05:20 WBC 8.4 RBC 2.94 L Hgb 8.4 L Hct 25.9 L MCV 88 MCH 28.6 MCHC 32.5 RDW 17.1 H Plt Count 109 L Seg Neutrophils % 77.3 Lymphocytes % 9.9 L Monocytes % 9.7 Eosinophils % 2.7 Basophils % 0.4 Absolute Neutrophils 6.5 Absolute Lymphocytes 0.8 Absolute Monocytes 0.8 Absolute Eosinophils 0.2 Absolute Basophils 0.0 Carbonic Acid 1.85 H HCO3/H2CO3 Ratio 16:1 ABG pH 7.31 L ABG pCO2 61.4 H ABG pO2 105.2 H ABG HCO3 29.9 H ABG O2 Saturation 97.2 ABG Base Excess 2.6 FiO2 30% Sodium Potassium Chloride Carbon Dioxide Anion Gap BUN Creatinine Est GFR ( Amer) Est GFR (Non-Af Amer) Glucose Calcium Magnesium Total Bilirubin AST ALT Alkaline Phosphatase Total Protein Albumin Urine Color YELLOW Urine Appearance SLIGHTLY-CLOUDY Urine pH 5.0 Ur Specific [place] 1.012 Urine Protein NEGATIVE Urine Glucose (UA) NEGATIVE Urine Ketones NEGATIVE Urine Blood MODERATE H Urine Nitrite NEGATIVE Ur Leukocyte Esterase NEGATIVE Urine WBC (Auto) 13 Urine RBC (Auto) 74 11/03/16 05:20 WBC RBC Hgb Hct MCV MCH MCHC RDW Plt Count Seg Neutrophils % Lymphocytes % Monocytes % Eosinophils % Basophils % Absolute Neutrophils Absolute Lymphocytes Absolute Monocytes Absolute Eosinophils Absolute Basophils Carbonic Acid HCO3/H2CO3 Ratio ABG pH ABG pCO2 ABG pO2 ABG HCO3 ABG O2 Saturation ABG Base Excess FiO2 Sodium 138.6 Potassium 4.2 Chloride 98 Carbon Dioxide 29 Anion Gap 12 BUN 49 H Creatinine 2.46 H Est GFR ( Amer) 31 L Est GFR (Non-Af Amer) 26 L Glucose 191 H Calcium 7.3 L Magnesium 2.3 Total Bilirubin 0.7 AST 17 ALT 21 Alkaline Phosphatase 88 Total Protein 5.4 L Albumin 2.3 L Urine Color Urine Appearance Urine pH Ur Specific [place] Urine Protein Urine Glucose (UA) Urine Ketones Urine Blood Urine Nitrite Ur Leukocyte Esterase Urine WBC (Auto) Urine RBC (Auto) 10/29/16 10/29/16 10/30/16 20:00 20:00 03:58 Creatine Kinase 72 55 CK-MB (CK-2) 1.52 Troponin I < 0.012 10/30/16 10/30/16 10/30/16 03:58 13:40 13:40 Creatine Kinase 45 L CK-MB (CK-2) 0.89 0.46 Troponin I < 0.012 < 0.012 Impressions: Renal Ultrasound 10/29/16 00:00 IMPRESSION: Limited study as noted above. No right renal abnormalities were identified. Left kidney could not be visualized. Eaton catheter in the bladder. Chest X-Ray 11/03/16 06:00 IMPRESSION: No significant interval change in the appearance of the chest with bilateral airspace opacities. Right IJ central line with the tip overlying the region of the right atrium, retraction by approximately 7 cm recommended. Assessment & Plan - Diagnosis (1) Acute on chronic combined systolic and diastolic congestive heart failure Is this a current diagnosis for this admission?: Yes (2) Dyspnea Qualifiers: Dyspnea type: unspecified Qualified Code(s): R06.00 - Dyspnea, unspecified Is this a current diagnosis for this admission?: YesPlan: Unable to sustain oxygenation on SIMV patient was switched to BiPAP which eventually maintain his saturations in the 90% or greater level (3) Morbid (severe) obesity with alveolar hypoventilation Is this a current diagnosis for this admission?: Yes (4) Pulmonary vascular congestion Is this a current diagnosis for this admission?: Yes (5) Respiratory failure Qualifiers: Chronicity: chronic Respiratory failure complication: hypoxia and hypercapnia Qualified Code(s): J96.11 - Chronic respiratory failure with hypoxia Is this a current diagnosis for this admission?: YesPlan: FIO2 decreased (6) Cardiac arrest Is this a current diagnosis for this admission?: Yes - Time Critical Time spent with patient: 35 or more minutes - 40 min
[2016-11-04] MEDS: DOPAMINE HCL 800 MG/D5W 250 ML IV PRN ×3 (02:17→21:48)
[2016-11-04] MEDS: AMPICILLIN SODIUM/SULBACTAM NA 3 GM in NORMAL SALINE 100 ML IV SCH ×4 (05:28→23:29)
[2016-11-04 05:47] LABS: ARTERIAL BLOOD BASE EXCESS 7.3 mmol/L; ARTERIAL BLOOD O2 SATURATION 94.9 % (94-98)
[2016-11-04 05:48] LABS: ABSOLUTE BASOPHILS # (AUTO) 0.1 10^3/uL (0.0-0.2); ABSOLUTE EOSINOPHILS # (AUTO) 0.3 10^3/uL (0.0-0.6); ABSOLUTE LYMPHOCYTES (AUTO) 1.1 10^3/uL (0.5-4.7); ABSOLUTE MONOCYTES (AUTO) 0.9 10^3/uL (0.1-1.4); ABSOLUTE NEUT (AUTO) 5.2 10^3/uL (1.7-8.2); BASOPHILS % (AUTO) 0.7 % (0-2); EOSINOPHILS % (AUTO) 3.8 % (0-6); HEMATOCRIT 28.7 % (37.9-51.0); HEMOGLOBIN 9.5 g/dL (13.5-17.0); HGB HCT DIFFERENCE -0.2; LYMPHOCYTES % (AUTO) 14.4 % (13-45); MEAN CORPUSCULAR HEMOGLOBIN 28.6 pg (27.0-33.4); MEAN CORPUSCULAR HGB CONC 33.1 g/dL (32.0-36.0); MEAN CORPUSCULAR VOLUME 87 fl (80-97); MONOCYTES % (AUTO) 12.3 % (3-13); RED BLOOD COUNT 3.31 10^6/uL (4.35-5.55); RED CELL DISTRIBUTION WIDTH 16.5 % (11.5-14.0); SEGMENTED NEUTROPHILS % (AUTO) 68.8 % (42-78); WHITE BLOOD COUNT 7.5 10^3/uL (4.0-10.5)
[2016-11-04 06:11] LABS: ALANINE AMINOTRANSFERASE 26 U/L (21-72); ALBUMIN 2.4 g/dL (3.5-5.0); ALKALINE PHOSPHATASE 96 U/L (38-126); ANION GAP 14 (5-19); ASPARTATE AMINO TRANSFERASE 29 U/L (17-59); BILIRUBIN,DIRECT 0.6 mg/dL (0.0-0.4); BILIRUBIN,TOTAL 0.8 mg/dL (0.2-1.3); BLOOD UREA NITROGEN 47 mg/dL (7-20); CALCIUM 7.5 mg/dL (8.4-10.2); CARBON DIOXIDE 30 mmol/L (22-30); CHLORIDE 98 mmol/L (98-107); CREATININE RESULT 2.38 mg/dL (0.52-1.25); GLUCOSE 172 mg/dL (75-110); MAGNESIUM 2.1 mg/dL (1.6-2.3); PHOSPHORUS 4.9 mg/dL (2.5-4.5); POTASSIUM 3.4 mmol/L (3.6-5.0); SODIUM 141.6 mmol/L (137-145); TOTAL PROTEIN 5.9 g/dL (6.3-8.2)
[2016-11-04] MEDS ORDERED: POTASSI CL 20 MEQ/50 ML RIDER 50 ML IV ONE (06:45)
--- NOTE | 2016-11-04 06:47 | PDOC PROGRESS REPORT ---
Subjective Progress Note for:: 11/04/16 Subjective:: shakes head NO to ?pain Physical Exam Vital Signs: Temp Pulse Resp BP Pulse Ox 98.8 F 74 19 137/57 H 98 11/04/16 06:05 11/04/16 04:00 11/04/16 06:00 11/04/16 04:00 11/04/16 06:05 Intake & Output 11/02/16 11/03/16 11/04/16 07:59 07:59 07:59 Intake Total 2803 2562 1651 Output Total 2550 1900 7950 Balance 253 662 -6255 Weight 421 lb 4.854 oz 420 lb 6.744 oz 411 lb 2.594 oz General appearance: PRESENT: no acute distress Respiratory exam: PRESENT: clear to auscultation maryann Cardiovascular exam: PRESENT: bradycardia - pauses. ABSENT: diastolic murmur, irregular rhythm, systolic murmur GI/Abdominal exam: PRESENT: hypoactive bowel sounds. ABSENT: mass, organolmegaly, tenderness Extremities exam: PRESENT: pedal edema Results Laboratory Results: 11/04/16 05:34 11/04/16 05:34 Abnormal - 24 hr 11/03/16 11/04/16 11/04/16 23:50 05:34 05:34 RBC 3.31 L Hgb 9.5 L Hct 28.7 L RDW 16.5 H Plt Count 148 L Carbonic Acid ABG pH 7.49 H ABG pCO2 ABG pO2 68.3 L ABG HCO3 31.2 H ABG Total CO2 32.5 H ABG O2 Saturation Potassium BUN Creatinine Est GFR ( Amer) Est GFR (Non-Af Amer) Glucose POC Glucose 155 H Calcium Phosphorus Direct Bilirubin Total Protein Albumin 11/04/16 05:34 RBC Hgb Hct RDW Plt Count Carbonic Acid ABG pH ABG pCO2 ABG pO2 ABG HCO3 ABG Total CO2 ABG O2 Saturation Potassium 3.4 L BUN 47 H Creatinine 2.38 H Est GFR ( Amer) 32 L Est GFR (Non-Af Amer) 27 L Glucose 172 H POC Glucose Calcium 7.5 L Phosphorus 4.9 H Direct Bilirubin 0.6 H Total Protein 5.9 L Albumin 2.4 L 10/29/16 21:48 Blood Blood Culture - Final NO GROWTH IN 5 DAYS 10/29/16 20:00 Blood Blood Culture - Final NO GROWTH IN 5 DAYS Impressions: Renal Ultrasound 10/29/16 00:00 IMPRESSION: Limited study as noted above. No right renal abnormalities were identified. Left kidney could not be visualized. Eaton catheter in the bladder. Chest X-Ray 11/03/16 06:00 IMPRESSION: No significant interval change in the appearance of the chest with bilateral airspace opacities. Right IJ central line with the tip overlying the region of the right atrium, retraction by approximately 7 cm recommended. Assessment & Plan - Diagnosis (1) Aspiration pneumonia Qualifiers: Aspiration pneumonia type: due to gastric secretions Laterality: bilateral Lung location: unspecified part of lung Qualified Code(s): J69.0 - Pneumonitis due to inhalation of food and vomit Is this a current diagnosis for this admission?: YesPlan: xr same. Afebrile. Continue unasyn. (2) Respiratory failure Qualifiers: Chronicity: chronic Respiratory failure complication: hypoxia and hypercapnia Qualified Code(s): J96.11 - Chronic respiratory failure with hypoxia Is this a current diagnosis for this admission?: YesPlan: stupor off versed. 50% simv. Peak [id number]. XR not ready for wean. Grim prognosis (3) Morbid (severe) obesity with alveolar hypoventilation Is this a current diagnosis for this admission?: Yes (4) Pulmonary hypertension Is this a current diagnosis for this admission?: Yes (5) Acute on chronic combined systolic and diastolic congestive heart failure Is this a current diagnosis for this admission?: YesPlan: [id number]. Less each day on furosemide 3/h. Off levophed on dopamine. K3.4. 1 rider pending. Cr2.4 (6) Hematuria Qualifiers: Hematuria type: gross Qualified Code(s): R31.0 - Gross hematuria Is this a current diagnosis for this admission?: Yes (7) Cardiopulmonary arrest with successful resuscitation Is this a current diagnosis for this admission?: Yes (8) Hypothermia due to anesthesia Is this a current diagnosis for this admission?: Yes (9) Malnutrition due to starvation Is this a current diagnosis for this admission?: YesPlan: feeding held for G output 300. No stool since admisson.
--- NOTE | 2016-11-04 07:44 | RADIOLOGY REPORT (SQ) ---
EXAM DESCRIPTION: CHEST SINGLE VIEW COMPLETED DATE/TIME: 11/04/2016 7:08 am REASON FOR STUDY: ARDS COMPARISON: Chest x-ray 11/03/2016. EXAM PARAMETERS: NUMBER OF VIEWS: One view TECHNIQUE: Single frontal radiograph of the chest. RADIATION DOSE: N/A LIMITATIONS: None. FINDINGS: TEMPORARY SUPPORT DEVICES:ETT in expected location. NG tube courses below the left ada-d iaphragm in to the stomach. Right IJ central catheter with the tip overlying the region of the right atrium. LUNGS AND PLEURA: There are small bilateral pleural effusions. Mild interval increase in the bilater al patchy ground-glass opacities. No pneumothorax. MEDIASTINUM AND HILAR STRUCTURES: Stable. HEART AND VASCULAR STRUCTURES: The heart is enlarged. There is vascular congestion. BONES: No acute findings. IMPRESSION: Worsening appearance of the chest with small bilateral pleural effusions and mild interv al increase in the bilateral patchy ground-glass opacities. Cardiomegaly and vascular congestion. Right IJ central line with the tip overlying the region of the right atrium, retraction by approximat dereck 7 cm recommended. RECOMMENDATIONS: Retraction of the right IJ central line. TECHNICAL DOCUMENTATION: JOB ID: [id number]- All Rights Reserved
[2016-11-04] MEDS: TOBRAMYCIN SULFATE NEB 40 MG/ML 30 ML NEB SCH ×2 (08:46→19:33)
[2016-11-04] MEDS: FAMOTIDINE INJ/PF 20 MG/2 ML SDV IV SCH ×2 (10:34→21:49)
[2016-11-04] MEDS: HEPARIN SOD (PORCINE) 5,000 UNIT/ML 1 ML SYRINGE SUBCUT SCH ×2 (10:34→21:50)
[2016-11-04] MEDS: NORMAL SALINE 250 ML with FUROSEMIDE 250 MG IV PRN ×2 (11:09)
[2016-11-04] MEDS: THEOPHYLLINE ANHYDROUS 80 MG/15 ML PO SCH ×3 (11:45→23:29)
[2016-11-04] MEDS: UDCUP PO SCH ×3 (11:45→23:29)
[2016-11-04 11:48] LABS: ARTERIAL BLOOD BASE EXCESS 9.1 mmol/L; ARTERIAL BLOOD O2 SATURATION 97.5 % (94-98)
[2016-11-04] MEDS ORDERED: SCOPOLAMINE HYDROBROMIDE 1.5 MG PATCH.TD72 TD SCH (12:00)
--- NOTE | 2016-11-04 15:37 | PDOC PROGRESS REPORT ---
Subjective Progress Note for:: 11/04/16 Subjective:: Patient about the same and has made very little progress. There is no significant change in general condition. Patient has been noted to have significant bradycardia intermittently but these are short lasting and heart rate has been in the high 30s with normal blood pressure. Looks like sinus arrhythmia. Patient remains intubated, sedated, patient however looks comfortable and in acute distress. Chest x-ray showed bilateral airspace disease, most likely bilateral aspiration pneumonia. Overnight dopamine drip was increased because of bradycardia and hypotension. Patient currently off Levophed. Patient also on a scopolamine patch, will reorder it. Have also placed patient on theophylline elixir 200 mg p.o. every 6 p.o. Medications reviewed. Medications: Medications have been reviewed. Physical Exam Vital Signs: Temp Pulse Resp BP Pulse Ox 98.4 F 71 8 L 137/57 H 97 11/04/16 14:15 11/04/16 09:37 11/04/16 14:15 11/04/16 04:00 11/04/16 14:15 Intake & Output 11/03/16 11/04/16 11/05/16 06:59 06:59 06:59 Intake Total 2562 1651 Output Total 1800 8089 2185 Balance 426 -7717 -2099 Weight 190.7 kg 186.5 kg Exam: GENERAL: well-nourished and in no acute distress. Patient is intubated and sedated. Orientation cannot be checked HEAD: Atraumatic, normocephalic. EYES: Pupils equal round and reactive to light, extraocular movements could not be checked, sclera anicteric, conjunctiva are normal. ENT: TMs normal, nares patent, oropharynx clear without exudates. Moist mucous membranes. No oral ulcerations or bleeding gums noted NECK: supple without lymphadenopathy or JVD. Trachea is central. No cervical or axillary lymphadenopathy noted. Carotids are 2+ LUNGS: Breath sounds mostly clear to auscultation patient is noted to have bibasal crackles at the extreme bases CHEST: Palpation of the chest wall shows no significant chest wall tenderness or abnormalities. 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 ABDOMEN: Soft, no significant tenderness appreciated, normoactive bowel sounds. No guarding, no rebound. No rigidity noted . No masses appreciated. EXTREMITIES: Pedal pulses are 1-2+, no calf tenderness noted, 1+ pedal edema noted. No clubbing or cyanosis. NEUROLOGICAL: The patient cannot participate in the neurological exam but no facial asymmetry noted. Extremities slightly hypotonic PSYCH: This cannot be evaluated. Patient cannot participate. SKIN: No significant ecchymosis, rash, or signs of pruritus noted. MUSCULOSKELETAL EXAM: No significant joint swelling noted. Patient cannot participate in musculoskeletal exam Results Laboratory Results: 11/04/16 05:34 11/04/16 05:34 11/04/16 11/04/16 11/04/16 05:34 05:34 05:34 WBC 7.5 RBC 3.31 L Hgb 9.5 L Hct 28.7 L MCV 87 MCH 28.6 MCHC 33.1 RDW 16.5 H Plt Count 148 L Seg Neutrophils % 68.8 Lymphocytes % 14.4 Monocytes % 12.3 Eosinophils % 3.8 Basophils % 0.7 Absolute Neutrophils 5.2 Absolute Lymphocytes 1.1 Absolute Monocytes 0.9 Absolute Eosinophils 0.3 Absolute Basophils 0.1 Carbonic Acid 1.25 HCO3/H2CO3 Ratio 24:1 ABG pH 7.49 H ABG pCO2 41.5 ABG pO2 68.3 L ABG HCO3 31.2 H ABG O2 Saturation 94.9 ABG Base Excess 7.3 FiO2 50% Sodium 141.6 Potassium 3.4 L Chloride 98 Carbon Dioxide 30 Anion Gap 14 BUN 47 H Creatinine 2.38 H Est GFR ( Amer) 32 L Est GFR (Non-Af Amer) 27 L Glucose 172 H Calcium 7.5 L Phosphorus 4.9 H Magnesium 2.1 Total Bilirubin 0.8 AST 29 ALT 26 Alkaline Phosphatase 96 Total Protein 5.9 L Albumin 2.4 L 11/04/16 11:30 WBC RBC Hgb Hct MCV MCH MCHC RDW Plt Count Seg Neutrophils % Lymphocytes % Monocytes % Eosinophils % Basophils % Absolute Neutrophils Absolute Lymphocytes Absolute Monocytes Absolute Eosinophils Absolute Basophils Carbonic Acid 1.39 H HCO3/H2CO3 Ratio 24:1 ABG pH 7.48 H ABG pCO2 46.3 H ABG pO2 93.3 ABG HCO3 33.6 H ABG O2 Saturation 97.5 ABG Base Excess 9.1 FiO2 50% Sodium Potassium Chloride Carbon Dioxide Anion Gap BUN Creatinine Est GFR ( Amer) Est GFR (Non-Af Amer) Glucose Calcium Phosphorus Magnesium Total Bilirubin AST ALT Alkaline Phosphatase Total Protein Albumin 10/29/16 21:48 Blood Blood Culture - Final NO GROWTH IN 5 DAYS 10/29/16 20:00 Blood Blood Culture - Final NO GROWTH IN 5 DAYS 10/29/16 10/29/16 10/30/16 20:00 20:00 03:58 Creatine Kinase 72 55 CK-MB (CK-2) 1.52 Troponin I < 0.012 10/30/16 10/30/16 10/30/16 03:58 13:40 13:40 Creatine Kinase 45 L CK-MB (CK-2) 0.89 0.46 Troponin I < 0.012 < 0.012 EKG Comments: Telemetry strips reviews shows sinus bradycardia, intermittently severe but with normal blood pressure. Impressions: Renal Ultrasound 10/29/16 00:00 IMPRESSION: Limited study as noted above. No right renal abnormalities were identified. Left kidney could not be visualized. Eaton catheter in the bladder. Chest X-Ray 11/04/16 06:00 IMPRESSION: Worsening appearance of the chest with small bilateral pleural effusions and mild interval increase in the bilateral patchy ground-glass opacities. Cardiomegaly and vascular congestion. Right IJ central line with the tip overlying the region of the right atrium, retraction by approximately 7 cm recommended. Assessment & Plan - Diagnosis (1) Cardiopulmonary arrest with successful resuscitation Is this a current diagnosis for this admission?: Yes (2) Respiratory failure Qualifiers: Chronicity: chronic Respiratory failure complication: hypoxia and hypercapnia Qualified Code(s): J96.11 - Chronic respiratory failure with hypoxia Is this a current diagnosis for this admission?: Yes (3) Aspiration pneumonia Qualifiers: Aspiration pneumonia type: due to gastric secretions Laterality: bilateral Lung location: unspecified part of lung Qualified Code(s): J69.0 - Pneumonitis due to inhalation of food and vomit Is this a current diagnosis for this admission?: Yes (4) Acute on chronic combined systolic and diastolic congestive heart failure Is this a current diagnosis for this admission?: Yes (5) Dyspnea Qualifiers: Dyspnea type: unspecified Qualified Code(s): R06.00 - Dyspnea, unspecified Is this a current diagnosis for this admission?: Yes (6) Morbid (severe) obesity with alveolar hypoventilation Is this a current diagnosis for this admission?: Yes (7) Pulmonary hypertension Is this a current diagnosis for this admission?: Yes (8) Chronic kidney disease (CKD) Qualifiers: Chronic kidney disease stage: stage 3 (moderate) Qualified Code(s): N18.3 - Chronic kidney disease, stage 3 (moderate) Is this a current diagnosis for this admission?: Yes (9) Hypotension (arterial) Qualifiers: Hypotension type: other hypotension type Qualified Code(s): I95.89 - Other hypotension Is this a current diagnosis for this admission?: Yes (10) Acute kidney injury superimposed on chronic kidney disease Is this a current diagnosis for this admission?: Yes (11) Bradycardia Is this a current diagnosis for this admission?: Yes - Notes Notes: Telemetry strips reviewed shows intermittent severe bradycardia. Have reordered a scopolamine patch and also started patient on theophylline. Continue dopamine for blood pressure and heart rate support. Chest x-ray reviewed shows significant worsening. Status post cardiopulmonary arrest with successful resuscitation: Believe that patient predominantly and primarily had respiratory arrest most likely brought on by aspiration pneumonia. Continue ventilatory support, continue oxygenation. Chest x-ray shows progressive but slight improvement each day by my review. Continue antibiotic therapy. Currently on dopamine at low-dose to moderate dose. Continue Levophed. Respiratory failure: Acute on chronic. Pulmonary assisting in care. Hypotension: Possibly related to severe RV dysfunction, sepsis etc. continue with vasopressor therapy. Currently on dopamine. Aspiration pneumonia: Continue antibiotic therapy. EKGs were negative for any significant ST segment changes and also cardiac enzymes were also surprisingly negative. Biventricular failure: Patient has LV systolic diastolic failure and significant RV failure. Continue diuretic therapy. Morbid obesity: Currently stable. Pulmonary hypertension: Possibly severe. Bradycardia: Patient noted to have sinus bradycardia. Lab work including TSH free T3 and free T4 level, came back normal. Reorder scopolamine patch just to see if it will help with bradycardia if this is due to vagal stimulation. Continue dopamine drip for heart rate. Have reordered a scopolamine patch and also started patient on theophylline. Acute on Chronic kidney disease: Currently stable. Dr Dyllan workman. Overall prognosis is poor. - Time Time with patient: Greater than 35 minutes - CODE STATUS was discussed, patient remains full code. Surrogate decision-maker unchanged. Multiple medical problems were addressed. More than 50% of the time spent coordinating care, discussing management plans with involved caregivers. Management plans discussed with involved personnels. Medical decision making was of moderate to high complexity, patient's has multiple comorbidities. Medications reviewed and adjusted accordingly: Yes
--- NOTE | 2016-11-04 17:05 | PDOC PROGRESS REPORT ---
Subjective Progress Note for:: 11/04/16 Subjective:: Intubated and sedated Physical Exam Vital Signs: Temp Pulse Resp BP Pulse Ox 98.8 F 71 18 137/57 H 98 11/04/16 06:05 11/04/16 09:37 11/04/16 08:00 11/04/16 04:00 11/04/16 08:45 Intake & Output 11/03/16 11/04/16 11/05/16 06:59 06:59 06:59 Intake Total 2562 1651 Output Total 1800 8050 660 Balance 213 -0799 -660 Weight 190.7 kg 186.5 kg General appearance: PRESENT: no acute distress, disheveled, morbidly obese Head exam: PRESENT: atraumatic, normocephalic Eye exam: PRESENT: conjunctiva pale, EOMI Mouth exam: PRESENT: dry mucosa, neck supple, tongue midline, other - ET tube Teeth exam: PRESENT: poor dentation Neck exam: ABSENT: carotid bruit, JVD, lymphadenopathy, thyromegaly Skin exam: PRESENT: dry, warm Results Laboratory Results: 11/04/16 05:34 11/04/16 05:34 11/04/16 11/04/16 11/04/16 05:34 05:34 05:34 WBC 7.5 RBC 3.31 L Hgb 9.5 L Hct 28.7 L MCV 87 MCH 28.6 MCHC 33.1 RDW 16.5 H Plt Count 148 L Seg Neutrophils % 68.8 Lymphocytes % 14.4 Monocytes % 12.3 Eosinophils % 3.8 Basophils % 0.7 Absolute Neutrophils 5.2 Absolute Lymphocytes 1.1 Absolute Monocytes 0.9 Absolute Eosinophils 0.3 Absolute Basophils 0.1 Carbonic Acid 1.25 HCO3/H2CO3 Ratio 24:1 ABG pH 7.49 H ABG pCO2 41.5 ABG pO2 68.3 L ABG HCO3 31.2 H ABG O2 Saturation 94.9 ABG Base Excess 7.3 FiO2 50% Sodium 141.6 Potassium 3.4 L Chloride 98 Carbon Dioxide 30 Anion Gap 14 BUN 47 H Creatinine 2.38 H Est GFR ( Amer) 32 L Est GFR (Non-Af Amer) 27 L Glucose 172 H Calcium 7.5 L Phosphorus 4.9 H Magnesium 2.1 Total Bilirubin 0.8 AST 29 ALT 26 Alkaline Phosphatase 96 Total Protein 5.9 L Albumin 2.4 L 10/29/16 21:48 Blood Blood Culture - Final NO GROWTH IN 5 DAYS 10/29/16 20:00 Blood Blood Culture - Final NO GROWTH IN 5 DAYS 10/29/16 10/29/16 10/30/16 20:00 20:00 03:58 Creatine Kinase 72 55 CK-MB (CK-2) 1.52 Troponin I < 0.012 10/30/16 10/30/16 10/30/16 03:58 13:40 13:40 Creatine Kinase 45 L CK-MB (CK-2) 0.89 0.46 Troponin I < 0.012 < 0.012 Impressions: Renal Ultrasound 10/29/16 00:00 IMPRESSION: Limited study as noted above. No right renal abnormalities were identified. Left kidney could not be visualized. Eaton catheter in the bladder. Chest X-Ray 11/04/16 06:00 IMPRESSION: Worsening appearance of the chest with small bilateral pleural effusions and mild interval increase in the bilateral patchy ground-glass opacities. Cardiomegaly and vascular congestion. Right IJ central line with the tip overlying the region of the right atrium, retraction by approximately 7 cm recommended. Assessment & Plan - Diagnosis (1) Acute on chronic combined systolic and diastolic congestive heart failure Is this a current diagnosis for this admission?: YesPlan: still requires vasopressors (2) Dyspnea Qualifiers: Dyspnea type: unspecified Qualified Code(s): R06.00 - Dyspnea, unspecified Is this a current diagnosis for this admission?: Yes (3) Morbid (severe) obesity with alveolar hypoventilation Is this a current diagnosis for this admission?: Yes (4) Pulmonary vascular congestion Is this a current diagnosis for this admission?: Yes (5) Respiratory failure Qualifiers: Chronicity: chronic Respiratory failure complication: hypoxia and hypercapnia Qualified Code(s): J96.11 - Chronic respiratory failure with hypoxia Is this a current diagnosis for this admission?: YesPlan: significant improval airway pressures improved still requiring high peep (6) Cardiac arrest Is this a current diagnosis for this admission?: YesPlan: as per cardiology - Time Critical Time spent with patient: 25-34 minutes
[2016-11-05] MEDS: MIDAZOLAM HCL 100 ML IV PRN (03:30)
[2016-11-05] MEDS: AMPICILLIN SODIUM/SULBACTAM NA 3 GM in NORMAL SALINE 100 ML IV SCH ×4 (05:42→23:34)
[2016-11-05] MEDS: UDCUP PO SCH ×4 (05:43→23:34)
[2016-11-05] MEDS: THEOPHYLLINE ANHYDROUS 80 MG/15 ML PO SCH ×4 (05:43→23:34)
[2016-11-05 06:09] LABS: ABSOLUTE EOSINOPHILS # (AUTO) 0.2 10^3/uL (0.0-0.6); ABSOLUTE LYMPHOCYTES (AUTO) 0.9 10^3/uL (0.5-4.7); ABSOLUTE NEUT (AUTO) 5.9 10^3/uL (1.7-8.2); BASOPHILS % (AUTO) 0.5 % (0-2); EOSINOPHILS % (AUTO) 2.8 % (0-6); HEMATOCRIT 27.7 % (37.9-51.0); HGB HCT DIFFERENCE -0.7; LYMPHOCYTES % (AUTO) 10.7 % (13-45); MEAN CORPUSCULAR HEMOGLOBIN 28.2 pg (27.0-33.4); MEAN CORPUSCULAR HGB CONC 32.6 g/dL (32.0-36.0); MEAN CORPUSCULAR VOLUME 87 fl (80-97); MONOCYTES % (AUTO) 12.8 % (3-13); RED CELL DISTRIBUTION WIDTH 16.3 % (11.5-14.0); SEGMENTED NEUTROPHILS % (AUTO) 73.2 % (42-78); WHITE BLOOD COUNT 8.1 10^3/uL (4.0-10.5)
[2016-11-05 06:13] LABS: ARTERIAL BLOOD BASE EXCESS 5.3 mmol/L; ARTERIAL BLOOD O2 SATURATION 95.4 % (94-98)
[2016-11-05 06:24] LABS: ANION GAP 12 (5-19); BLOOD UREA NITROGEN 41 mg/dL (7-20); CALCIUM 7.8 mg/dL (8.4-10.2); CARBON DIOXIDE 31 mmol/L (22-30); CHLORIDE 98 mmol/L (98-107); CREATININE RESULT 2.15 mg/dL (0.52-1.25); GLUCOSE 185 mg/dL (75-110); MAGNESIUM 1.8 mg/dL (1.6-2.3); POTASSIUM 3.2 mmol/L (3.6-5.0); SODIUM 140.5 mmol/L (137-145)
--- NOTE | 2016-11-05 07:23 | RADIOLOGY REPORT (SQ) ---
EXAM DESCRIPTION: CHEST SINGLE VIEW COMPLETED DATE/TIME: 11/05/2016 6:59 am REASON FOR STUDY: ARDS COMPARISON: 11/04/2016. EXAM PARAMETERS: NUMBER OF VIEWS: One view. TECHNIQUE: Single frontal radiographic view of the chest acquired. RADIATION DOSE: NA LIMITATIONS: None. FINDINGS: LUNGS AND PLEURA: Moderate to severe extensive bilateral airspace opacities with lower lob e predominance. Moderate bibasilar opacity-effusion. MEDIASTINUM AND HILAR STRUCTURES: No masses. Contour normal. HEART AND VASCULAR STRUCTURES: Moderate enlargement of the cardiac silhouette. BONES: No acute findings. HARDWARE: Adequate appearing endotracheal tube. NG tube is obscured at the level of the distal esoph holli. OTHER: No other significant finding. IMPRESSION: No significant interval change. TECHNICAL DOCUMENTATION: JOB ID: [id number]
--- NOTE | 2016-11-05 07:51 | EKG REPORT ---
SEVERITY:- ABNORMAL ECG - SINUS RHYTHM FIRST DEGREE AV BLOCK BORDERLINE R WAVE PROGRESSION, ANTERIOR LEADS NONSPECIFIC T ABNORMALITIES, LATERAL LEADS : Confirmed by: Aby Brownlee 05-Nov-2016 07:50:35
[2016-11-05] MEDS: TOBRAMYCIN SULFATE NEB 40 MG/ML 30 ML NEB SCH ×2 (07:55→20:15)
--- NOTE | 2016-11-05 08:06 | PDOC PROGRESS REPORT ---
Subjective Progress Note for:: 11/05/16 Subjective:: sedated back on versed Physical Exam Vital Signs: Temp Pulse Resp BP Pulse Ox 97.0 F 58 L 26 H 130/61 H 98 11/05/16 07:34 11/05/16 07:34 11/05/16 07:34 11/05/16 07:34 11/05/16 07:34 Intake & Output 11/03/16 11/04/16 11/05/16 07:59 07:59 07:59 Intake Total 2562 1651 1128 Output Total 1900 8248 5125 Balance 722 -5540 -2891 Weight 420 lb 6.744 oz 411 lb 2.594 oz 401 lb 14.443 oz Respiratory exam: PRESENT: rhonchi Cardiovascular exam: ABSENT: diastolic murmur, irregular rhythm, systolic murmur GI/Abdominal exam: PRESENT: diminished bowel sounds. ABSENT: mass, organolmegaly Extremities exam: PRESENT: pedal edema Results Laboratory Results: 11/05/16 05:15 11/05/16 05:15 Abnormal - 24 hr 11/04/16 11/04/16 11/05/16 11:30 17:14 05:15 RBC Hgb Hct RDW Lymphocytes % Carbonic Acid 1.39 H ABG pH 7.48 H 7.51 H ABG pCO2 46.3 H ABG pO2 69.2 L ABG HCO3 33.6 H 28.6 H ABG Total CO2 35.1 H 29.8 H Potassium Carbon Dioxide BUN Creatinine Est GFR ( Amer) Est GFR (Non-Af Amer) Glucose POC Glucose 161 H Calcium 11/05/16 11/05/16 05:15 05:15 RBC 3.20 L Hgb 9.0 L Hct 27.7 L RDW 16.3 H Lymphocytes % 10.7 L Carbonic Acid ABG pH ABG pCO2 ABG pO2 ABG HCO3 ABG Total CO2 Potassium 3.2 L Carbon Dioxide 31 H BUN 41 H Creatinine 2.15 H Est GFR ( Amer) 37 L Est GFR (Non-Af Amer) 30 L Glucose 185 H POC Glucose Calcium 7.8 L Impressions: Renal Ultrasound 10/29/16 00:00 IMPRESSION: Limited study as noted above. No right renal abnormalities were identified. Left kidney could not be visualized. Eaton catheter in the bladder. Chest X-Ray 11/05/16 06:00 IMPRESSION: No significant interval change. Assessment & Plan - Diagnosis (1) Respiratory failure Qualifiers: Chronicity: chronic Respiratory failure complication: hypoxia and hypercapnia Qualified Code(s): J96.11 - Chronic respiratory failure with hypoxia Is this a current diagnosis for this admission?: YesPlan: pCO2=37. Day 8 on vent (2) Aspiration pneumonia Qualifiers: Aspiration pneumonia type: due to gastric secretions Laterality: bilateral Lung location: unspecified part of lung Qualified Code(s): J69.0 - Pneumonitis due to inhalation of food and vomit Is this a current diagnosis for this admission?: YesPlan: infiltrates worse. Effusions inspite of diuresis. (3) Acute on chronic combined systolic and diastolic congestive heart failure Is this a current diagnosis for this admission?: YesPlan: 5100 out on furosemide 3mg/h. BUN 41. K3.4. Increase riders to q8h (4) Malnutrition due to starvation Is this a current diagnosis for this admission?: YesPlan: on hold for high Gtube output 550 (5) Morbid (severe) obesity with alveolar hypoventilation Is this a current diagnosis for this admission?: Yes (6) Pulmonary hypertension Is this a current diagnosis for this admission?: Yes (7) Hematuria Qualifiers: Hematuria type: gross Qualified Code(s): R31.0 - Gross hematuria Is this a current diagnosis for this admission?: Yes (8) Cardiopulmonary arrest with successful resuscitation Is this a current diagnosis for this admission?: Yes (9) Hypothermia due to anesthesia Is this a current diagnosis for this admission?: Yes - Inpatient Certification Medical Necessity: Failure to Improve With Outpatient Therapy, Significant Comorbidiites Make Outpatient Treatment Too Risky, Need Close Monitoring Due to Risk of Patient Decompensation, Need For Continuous Telemetry Monitoring, Need for IV Antibiotics, Risk of Complication if Not Cared For in Hospital, Risk of Diagnosis Which Will Require Inpatient Eval/Care/Monitoring
[2016-11-05 08:34] LABS: PROTHROMBIN TIME 14.9 SEC (11.4-15.4)
[2016-11-05 08:35] LABS: PARTIAL THROMBOPLASTIN TIME 61.9 SEC (23.5-35.8)
[2016-11-05] MEDS ORDERED: FUROSEMIDE INJ/PF 20 MG/2 ML SDV IV ONE (09:00)
[2016-11-05] MEDS: HEPARIN SOD (PORCINE) 5,000 UNIT/ML 1 ML SYRINGE SUBCUT SCH ×2 (09:54→22:00)
[2016-11-05] MEDS: POTASSI CL 20 MEQ/50 ML RIDER 20 MEQ/50 ML RTUPB IV SCH ×2 (09:54→18:48)
[2016-11-05] MEDS: FAMOTIDINE INJ/PF 20 MG/2 ML SDV IV SCH ×2 (09:55→21:29)
--- NOTE | 2016-11-05 11:05 | PDOC PROGRESS REPORT ---
Subjective Progress Note for:: 11/05/16 Subjective:: Intubated and sedated;Was responding appropriately during sedation vacation Physical Exam Vital Signs: Temp Pulse Resp BP Pulse Ox 97.0 F 58 L 26 H 130/61 H 98 11/05/16 07:34 11/05/16 07:34 11/05/16 07:34 11/05/16 07:34 11/05/16 07:34 Intake & Output 11/04/16 11/05/16 11/06/16 06:59 06:59 06:59 Intake Total 1651 1128 Output Total 8050 5280 175 [facility] -6399 -4152 -175 Weight 186.5 kg 182.3 kg General appearance: PRESENT: no acute distress, disheveled, morbidly obese Head exam: PRESENT: atraumatic, normocephalic Eye exam: PRESENT: conjunctiva pale Mouth exam: PRESENT: dry mucosa, neck supple, tongue midline, other - ET tube in place Neck exam: ABSENT: carotid bruit, JVD, lymphadenopathy, thyromegaly Respiratory exam: PRESENT: decreased breath sounds, prolonged expiratory phas, rales, rhonchi, symmetrical, unlabored Cardiovascular exam: PRESENT: bradycardia, RRR, +S1, +S2 Pulses: PRESENT: normal radial pulses GI/Abdominal exam: PRESENT: normal bowel sounds, soft. ABSENT: distended, guarding, mass, organolmegaly, rebound, tenderness Rectal exam: PRESENT: deferred Gentrourinary exam: PRESENT: indwelling catheter Extremities exam: PRESENT: +1 edema Skin exam: PRESENT: dry, warm Results Laboratory Results: 11/05/16 05:15 11/05/16 05:15 11/04/16 11/05/16 11/05/16 11:30 05:15 05:15 WBC RBC Hgb Hct MCV MCH MCHC RDW Plt Count Seg Neutrophils % Lymphocytes % Monocytes % Eosinophils % Basophils % Absolute Neutrophils Absolute Lymphocytes Absolute Monocytes Absolute Eosinophils Absolute Basophils Carbonic Acid 1.39 H 1.11 HCO3/H2CO3 Ratio 24:1 25:1 ABG pH 7.48 H 7.51 H ABG pCO2 46.3 H 36.8 ABG pO2 93.3 69.2 L ABG HCO3 33.6 H 28.6 H ABG O2 Saturation 97.5 95.4 ABG Base Excess 9.1 5.3 FiO2 50% 30% Sodium 140.5 Potassium 3.2 L Chloride 98 Carbon Dioxide 31 H Anion Gap 12 BUN 41 H Creatinine 2.15 H Est GFR ( Amer) 37 L Est GFR (Non-Af Amer) 30 L Glucose 185 H Calcium 7.8 L Magnesium 1.8 11/05/16 05:15 WBC 8.1 RBC 3.20 L Hgb 9.0 L Hct 27.7 L MCV 87 MCH 28.2 MCHC 32.6 RDW 16.3 H Plt Count 159 Seg Neutrophils % 73.2 Lymphocytes % 10.7 L Monocytes % 12.8 Eosinophils % 2.8 Basophils % 0.5 Absolute Neutrophils 5.9 Absolute Lymphocytes 0.9 Absolute Monocytes 1.0 Absolute Eosinophils 0.2 Absolute Basophils 0.0 Carbonic Acid HCO3/H2CO3 Ratio ABG pH ABG pCO2 ABG pO2 ABG HCO3 ABG O2 Saturation ABG Base Excess FiO2 Sodium Potassium Chloride Carbon Dioxide Anion Gap BUN Creatinine Est GFR ( Amer) Est GFR (Non-Af Amer) Glucose Calcium Magnesium 10/29/16 10/29/16 10/30/16 20:00 20:00 03:58 Creatine Kinase 72 55 CK-MB (CK-2) 1.52 Troponin I < 0.012 10/30/16 10/30/16 10/30/16 03:58 13:40 13:40 Creatine Kinase 45 L CK-MB (CK-2) 0.89 0.46 Troponin I < 0.012 < 0.012 Impressions: Renal Ultrasound 10/29/16 00:00 IMPRESSION: Limited study as noted above. No right renal abnormalities were identified. Left kidney could not be visualized. Eaton catheter in the bladder. Chest X-Ray 11/05/16 06:00 IMPRESSION: No significant interval change. Assessment & Plan - Diagnosis (1) Acute on chronic combined systolic and diastolic congestive heart failure Is this a current diagnosis for this admission?: Yes (2) Dyspnea Qualifiers: Dyspnea type: unspecified Qualified Code(s): R06.00 - Dyspnea, unspecified Is this a current diagnosis for this admission?: Yes (3) Morbid (severe) obesity with alveolar hypoventilation Is this a current diagnosis for this admission?: Yes (4) Pulmonary vascular congestion Is this a current diagnosis for this admission?: Yes (5) Respiratory failure Qualifiers: Chronicity: chronic Respiratory failure complication: hypoxia and hypercapnia Qualified Code(s): J96.11 - Chronic respiratory failure with hypoxia Is this a current diagnosis for this admission?: YesPlan: significant improvement in airway pressures improved still requiring high peep; Dramatic improvements over the last 7 days many medical issues not yet resolved (6) Cardiac arrest Is this a current diagnosis for this admission?: Yes - Plan Summary Plan Summary: Although significantly improved long-term prognosis remains poor
--- NOTE | 2016-11-05 14:34 | PDOC PROGRESS REPORT ---
Subjective Progress Note for:: 11/05/16 Subjective:: Patient is currently intubated and sedated. Plans were discussed with supervising nurse of the patient. He currently is on 8mg of Versed for sedation and his FiO2 has maintained at 35%. Blood pressures increasing to the 130s and heart rate has increased to the 70s. His dopamine drip is decreased 2mcg. Levophed is turned off now. He produced 12.7L of urine over the weekend wit the lasix drip being at 3mg/hour. Patient showed ability to open eyes and follow commands. Physical Exam Vital Signs: Temp Pulse Resp BP Pulse Ox 97.0 F 62 9 L 112/54 L 95 11/05/16 10:55 11/05/16 10:00 11/05/16 10:55 11/05/16 10:49 11/05/16 10:55 Intake & Output 11/04/16 11/05/16 11/06/16 06:59 06:59 06:59 Intake Total 1651 1128 Output Total 8050 5280 535 Balance -6399 -4152 -535 Weight 186.5 kg 182.3 kg General appearance: PRESENT: mild distress, well-developed, well-nourished Head exam: PRESENT: atraumatic, normocephalic Mouth exam: PRESENT: moist, neck supple Respiratory exam: PRESENT: crackles - -bases of the lungs. ABSENT: accessory muscle use, clear to auscultation maryann, rales, rhonchi Cardiovascular exam: PRESENT: RRR, +S1, +S2, systolic murmur GI/Abdominal exam: PRESENT: normal bowel sounds, soft. ABSENT: organomegaly, tenderness Extremities exam: PRESENT: tenderness, +1 edema. ABSENT: joint swelling Neurological exam: PRESENT: altered, awake, other - -patient was able to follow commands and had his eyes open Skin exam: PRESENT: normal color. ABSENT: erythema, rash Results Laboratory Results: 11/05/16 05:15 11/05/16 05:15 11/04/16 11/05/16 11/05/16 11:30 05:15 05:15 WBC RBC Hgb Hct MCV MCH MCHC RDW Plt Count Seg Neutrophils % Lymphocytes % Monocytes % Eosinophils % Basophils % Absolute Neutrophils Absolute Lymphocytes Absolute Monocytes Absolute Eosinophils Absolute Basophils Carbonic Acid 1.39 H 1.11 HCO3/H2CO3 Ratio 24:1 25:1 ABG pH 7.48 H 7.51 H ABG pCO2 46.3 H 36.8 ABG pO2 93.3 69.2 L ABG HCO3 33.6 H 28.6 H ABG O2 Saturation 97.5 95.4 ABG Base Excess 9.1 5.3 FiO2 50% 30% Sodium 140.5 Potassium 3.2 L Chloride 98 Carbon Dioxide 31 H Anion Gap 12 BUN 41 H Creatinine 2.15 H Est GFR ( Amer) 37 L Est GFR (Non-Af Amer) 30 L Glucose 185 H Calcium 7.8 L Magnesium 1.8 11/05/16 05:15 WBC 8.1 RBC 3.20 L Hgb 9.0 L Hct 27.7 L MCV 87 MCH 28.2 MCHC 32.6 RDW 16.3 H Plt Count 159 Seg Neutrophils % 73.2 Lymphocytes % 10.7 L Monocytes % 12.8 Eosinophils % 2.8 Basophils % 0.5 Absolute Neutrophils 5.9 Absolute Lymphocytes 0.9 Absolute Monocytes 1.0 Absolute Eosinophils 0.2 Absolute Basophils 0.0 Carbonic Acid HCO3/H2CO3 Ratio ABG pH ABG pCO2 ABG pO2 ABG HCO3 ABG O2 Saturation ABG Base Excess FiO2 Sodium Potassium Chloride Carbon Dioxide Anion Gap BUN Creatinine Est GFR ( Amer) Est GFR (Non-Af Amer) Glucose Calcium Magnesium 10/29/16 10/29/16 10/30/16 20:00 20:00 03:58 Creatine Kinase 72 55 CK-MB (CK-2) 1.52 Troponin I < 0.012 10/30/16 10/30/16 10/30/16 03:58 13:40 13:40 Creatine Kinase 45 L CK-MB (CK-2) 0.89 0.46 Troponin I < 0.012 < 0.012 Impressions: Renal Ultrasound 10/29/16 00:00 IMPRESSION: Limited study as noted above. No right renal abnormalities were identified. Left kidney could not be visualized. Eaton catheter in the bladder. Chest X-Ray 11/05/16 06:00 IMPRESSION: No significant interval change. Assessment & Plan - Diagnosis (1) Hypokalemia Plan: Recommend continuing daily IV potassium replacement (2) Acute kidney injury superimposed on chronic kidney disease Is this a current diagnosis for this admission?: YesPlan: creatinine has improved a slight bit. Changing IV infusion lasix to bolus lasix. Will adjust to 20mg q8. (3) Aspiration pneumonia Qualifiers: Aspiration pneumonia type: due to gastric secretions Laterality: bilateral Lung location: unspecified part of lung Qualified Code(s): J69.0 - Pneumonitis due to inhalation of food and vomit Is this a current diagnosis for this admission?: YesPlan: looks to be resolving (4) Bradycardia Is this a current diagnosis for this admission?: YesPlan: resolving down to 2mc of dopamine (5) CHF (congestive heart failure) Plan: Looks to be improving. IV lasix changed to bolus 20mg q8. (6) Respiratory failure Qualifiers: Chronicity: chronic Respiratory failure complication: hypoxia and hypercapnia Qualified Code(s): J96.11 - Chronic respiratory failure with hypoxia Is this a current diagnosis for this admission?: YesPlan: looks to be improving
--- NOTE | 2016-11-05 18:13 | PDOC PROGRESS REPORT ---
Subjective Progress Note for:: 11/05/16 Subjective:: Patient about the same and has made very little progress. There is no significant change in general condition. Patient has been noted to have significant bradycardia intermittently but these are short lasting and heart rate has been in the high 30s with normal blood pressure. Looks like sinus arrhythmia. Patient remains intubated, sedated, patient however looks comfortable and in acute distress. Chest x-ray showed bilateral airspace disease, most likely bilateral aspiration pneumonia. Overnight dopamine drip was increased because of bradycardia and hypotension. Patient currently off Levophed. Patient also on a scopolamine patch, will reorder it. Have also placed patient on theophylline elixir 200 mg p.o. every 6 p.o. have ordered a theophylline level today. I have also pulled back the central line about 6 cm. A chest x-ray to be obtained tomorrow. Medications reviewed. Medications: Medications have been reviewed. Physical Exam Vital Signs: Temp Pulse Resp BP Pulse Ox 97.0 F 69 16 130/61 H 99 11/05/16 07:34 11/05/16 07:56 11/05/16 07:56 11/05/16 07:34 11/05/16 07:56 Intake & Output 11/04/16 11/05/16 11/06/16 06:59 06:59 06:59 Intake Total 1651 1128 Output Total 8050 5280 175 [facility], [place] -6399 -4152 -175 Weight 186.5 kg 182.3 kg Exam: GENERAL: well-nourished and in no acute distress. Patient is intubated and sedated. Orientation cannot be checked HEAD: Atraumatic, normocephalic. EYES: Pupils equal round and reactive to light, extraocular movements could not be checked, sclera anicteric, conjunctiva are normal. ENT: TMs normal, nares patent, oropharynx clear without exudates. Moist mucous membranes. No oral ulcerations or bleeding gums noted NECK: supple without lymphadenopathy or JVD. Trachea is central. No cervical or axillary lymphadenopathy noted. Carotids are 2+ LUNGS: Breath sounds mostly clear to auscultation patient is noted to have bibasal crackles at the extreme bases CHEST: Palpation of the chest wall shows no significant chest wall tenderness or abnormalities. HEART: [place] [employer], No PSH, 2/6 JEFFREY aortic area, 1/6 newell systolic murmur mitral area , no rubs or gallops. ABDOMEN: Soft, no significant tenderness appreciated, normoactive bowel sounds. No guarding, no rebound. No rigidity noted . No masses appreciated. EXTREMITIES: Pedal pulses are 1-2+, no calf tenderness noted, 1+ pedal edema noted. No clubbing or cyanosis. NEUROLOGICAL: The patient cannot participate in the neurological exam but no facial asymmetry noted. Extremities slightly hypotonic PSYCH: This cannot be evaluated. Patient cannot participate. SKIN: No significant ecchymosis, chronic dermatitis changes noted both lower extremities. MUSCULOSKELETAL EXAM: No significant joint swelling noted. Patient cannot participate in musculoskeletal exam Results Laboratory Results: 11/05/16 05:15 11/05/16 05:15 11/04/16 11/05/16 11/05/16 11:30 05:15 05:15 WBC RBC Hgb Hct MCV MCH MCHC RDW Plt Count Seg Neutrophils % Lymphocytes % Monocytes % Eosinophils % Basophils % Absolute Neutrophils Absolute Lymphocytes Absolute Monocytes Absolute Eosinophils Absolute Basophils Carbonic Acid 1.39 H 1.11 HCO3/H2CO3 Ratio 24:1 25:1 ABG pH 7.48 H 7.51 H ABG pCO2 46.3 H 36.8 ABG pO2 93.3 69.2 L ABG HCO3 33.6 H 28.6 H ABG O2 Saturation 97.5 95.4 ABG Base Excess 9.1 5.3 FiO2 50% 30% Sodium 140.5 Potassium 3.2 L Chloride 98 Carbon Dioxide 31 H Anion Gap 12 BUN 41 H Creatinine 2.15 H Est GFR ( Amer) 37 L Est GFR (Non-Af Amer) 30 L Glucose 185 H Calcium 7.8 L Magnesium 1.8 11/05/16 05:15 WBC 8.1 RBC 3.20 L Hgb 9.0 L Hct 27.7 L MCV 87 MCH 28.2 MCHC 32.6 RDW 16.3 H Plt Count 159 Seg Neutrophils % 73.2 Lymphocytes % 10.7 L Monocytes % 12.8 Eosinophils % 2.8 Basophils % 0.5 Absolute Neutrophils 5.9 Absolute Lymphocytes 0.9 Absolute Monocytes 1.0 Absolute Eosinophils 0.2 Absolute Basophils 0.0 Carbonic Acid HCO3/H2CO3 Ratio ABG pH ABG pCO2 ABG pO2 ABG HCO3 ABG O2 Saturation ABG Base Excess FiO2 Sodium Potassium Chloride Carbon Dioxide Anion Gap BUN Creatinine Est GFR ( Amer) Est GFR (Non-Af Amer) Glucose Calcium Magnesium 10/29/16 10/29/16 10/30/16 20:00 20:00 03:58 Creatine Kinase 72 55 CK-MB (CK-2) 1.52 Troponin I < 0.012 10/30/16 10/30/16 10/30/16 03:58 13:40 13:40 Creatine Kinase 45 L CK-MB (CK-2) 0.89 0.46 Troponin I < 0.012 < 0.012 Impressions: Renal Ultrasound 10/29/16 00:00 IMPRESSION: Limited study as noted above. No right renal abnormalities were identified. Left kidney could not be visualized. Eaton catheter in the bladder. Chest X-Ray 11/05/16 06:00 IMPRESSION: No significant interval change. Assessment & Plan - Diagnosis (1) Cardiopulmonary arrest with successful resuscitation Is this a current diagnosis for this admission?: Yes (2) Respiratory failure Qualifiers: Chronicity: chronic Respiratory failure complication: hypoxia and hypercapnia Qualified Code(s): J96.11 - Chronic respiratory failure with hypoxia Is this a current diagnosis for this admission?: Yes (3) Aspiration pneumonia Qualifiers: Aspiration pneumonia type: due to gastric secretions Laterality: bilateral Lung location: unspecified part of lung Qualified Code(s): J69.0 - Pneumonitis due to inhalation of food and vomit Is this a current diagnosis for this admission?: Yes (4) Acute on chronic combined systolic and diastolic congestive heart failure Is this a current diagnosis for this admission?: Yes (5) Dyspnea Qualifiers: Dyspnea type: unspecified Qualified Code(s): R06.00 - Dyspnea, unspecified Is this a current diagnosis for this admission?: Yes (6) Morbid (severe) obesity with alveolar hypoventilation Is this a current diagnosis for this admission?: Yes (7) Pulmonary hypertension Is this a current diagnosis for this admission?: Yes (8) Chronic kidney disease (CKD) Qualifiers: Chronic kidney disease stage: stage 3 (moderate) Qualified Code(s): N18.3 - Chronic kidney disease, stage 3 (moderate) Is this a current diagnosis for this admission?: Yes (9) Hypotension (arterial) Qualifiers: Hypotension type: other hypotension type Qualified Code(s): I95.89 - Other hypotension Is this a current diagnosis for this admission?: Yes (10) Acute kidney injury superimposed on chronic kidney disease Is this a current diagnosis for this admission?: Yes (11) Bradycardia Is this a current diagnosis for this admission?: Yes - Notes Notes: Status post cardiopulmonary arrest with successful resuscitation: Believe that patient predominantly and primarily had respiratory arrest most likely brought on by aspiration pneumonia. Continue ventilatory support, continue oxygenation. Chest x-ray shows progressive but slight improvement each day by my review. Continue antibiotic therapy. Currently on dopamine at low-dose to moderate dose. Currently also on a scopolamine and theophylline. Respiratory failure: Acute on chronic. Pulmonary assisting in care. Hypotension: Possibly related to severe RV dysfunction, sepsis etc. continue with vasopressor therapy. Currently on dopamine at low-dose. Aspiration pneumonia: Continue antibiotic therapy. EKGs were negative for any significant ST segment changes and also cardiac enzymes were also surprisingly negative. Biventricular failure: Patient has LV systolic diastolic failure and significant RV failure. Continue diuretic therapy. Morbid obesity: Currently stable. Pulmonary hypertension: Possibly severe. Bradycardia: Patient noted to have sinus bradycardia. Telemetry strips reviewed showed intermittent Wenckebach. Lab work including TSH free T3 and free T4 level, came back normal. Continue dopamine drip for heart rate. Have reordered a scopolamine patch and also started patient on theophylline. Theophylline level to be obtained later on today Acute on Chronic kidney disease: Currently stable. Dr Mijares following. Overall prognosis is poor. - Time Time with patient: Greater than 35 minutes - CODE STATUS was discussed, patient remains full code. Surrogate decision-maker unchanged. Multiple medical problems were addressed. More than 50% of the time spent coordinating care, discussing management plans with involved caregivers. Management plans discussed with involved personnels. Medical decision making was of moderate to high complexity, patient's has multiple comorbidities. Dr. Cohn covering from tomorrow. Medications reviewed and adjusted accordingly: Yes
[2016-11-05] MEDS: FUROSEMIDE INJ/PF 20 MG/2 ML SDV IV SCH (18:48)
[2016-11-06] MEDS: POTASSI CL 20 MEQ/50 ML RIDER 20 MEQ/50 ML RTUPB IV SCH (01:34)
[2016-11-06] MEDS: FUROSEMIDE INJ/PF 20 MG/2 ML SDV IV SCH ×3 (01:44→17:33)
[2016-11-06 04:58] LABS: ARTERIAL BLOOD BASE EXCESS 9.2 mmol/L; ARTERIAL BLOOD O2 SATURATION 98.3 % (94-98)
[2016-11-06 05:00] LABS: ABSOLUTE BASOPHILS # (AUTO) 0.1 10^3/uL (0.0-0.2); ABSOLUTE EOSINOPHILS # (AUTO) 0.3 10^3/uL (0.0-0.6); ABSOLUTE MONOCYTES (AUTO) 0.7 10^3/uL (0.1-1.4); ABSOLUTE NEUT (AUTO) 5.4 10^3/uL (1.7-8.2); BASOPHILS % (AUTO) 0.8 % (0-2); EOSINOPHILS % (AUTO) 3.8 % (0-6); HEMATOCRIT 24.4 % (37.9-51.0); HGB HCT DIFFERENCE -0.7; LYMPHOCYTES % (AUTO) 13.1 % (13-45); MEAN CORPUSCULAR HEMOGLOBIN 28.2 pg (27.0-33.4); MEAN CORPUSCULAR HGB CONC 32.3 g/dL (32.0-36.0); MEAN CORPUSCULAR VOLUME 87 fl (80-97); RED CELL DISTRIBUTION WIDTH 16.2 % (11.5-14.0); SEGMENTED NEUTROPHILS % (AUTO) 73.3 % (42-78); WHITE BLOOD COUNT 7.4 10^3/uL (4.0-10.5)
[2016-11-06 05:06] LABS: HEMOGLOBIN 7.9 g/dL (13.5-17.0)
[2016-11-06] MEDS: AMPICILLIN SODIUM/SULBACTAM NA 3 GM in NORMAL SALINE 100 ML IV SCH ×4 (05:06→23:31)
[2016-11-06] MEDS: THEOPHYLLINE ANHYDROUS 80 MG/15 ML PO SCH ×4 (05:06→23:30)
[2016-11-06] MEDS: UDCUP PO SCH ×4 (05:06→23:30)
[2016-11-06] MEDS ORDERED: NORMAL SALINE 250 ML IV PRN (05:10)
[2016-11-06 05:21] LABS: ALANINE AMINOTRANSFERASE 26 U/L (21-72); ALBUMIN 2.2 g/dL (3.5-5.0); ALKALINE PHOSPHATASE 74 U/L (38-126); ANION GAP 9 (5-19); ASPARTATE AMINO TRANSFERASE 27 U/L (17-59); BILIRUBIN,DIRECT 0.5 mg/dL (0.0-0.4); BILIRUBIN,TOTAL 0.6 mg/dL (0.2-1.3); BLOOD UREA NITROGEN 39 mg/dL (7-20); CALCIUM 7.7 mg/dL (8.4-10.2); CARBON DIOXIDE 33 mmol/L (22-30); CHLORIDE 100 mmol/L (98-107); CREATININE RESULT 1.99 mg/dL (0.52-1.25); GLUCOSE 137 mg/dL (75-110); MAGNESIUM 1.7 mg/dL (1.6-2.3); POTASSIUM 3.4 mmol/L (3.6-5.0); TOTAL PROTEIN 5.3 g/dL (6.3-8.2)
[2016-11-06] MEDS ORDERED: MIDAZOLAM 2 MG/2 ML INJ ONE (07:42)
[2016-11-06] MEDS: TOBRAMYCIN SULFATE NEB 40 MG/ML 30 ML NEB SCH ×2 (07:46→19:55)
--- NOTE | 2016-11-06 07:58 | RADIOLOGY REPORT (SQ) ---
EXAM DESCRIPTION: CHEST SINGLE VIEW COMPLETED DATE/TIME: 11/06/2016 6:55 am REASON FOR STUDY: ARDS COMPARISON: 11/05/2016. EXAM PARAMETERS: NUMBER OF VIEWS: One view. TECHNIQUE: Single frontal radiographic view of the chest acquired. RADIATION DOSE: NA LIMITATIONS: As below. FINDINGS: LUNGS AND PLEURA: Moderate -severe opacity-effusion of bilateral lower hemithoraces and mo derate -severe extensive mixed airspace and interstitial opacities of both lung linares. Lung bases a nd costophrenic angles clipped off the image. MEDIASTINUM AND HILAR STRUCTURES: No masses. Contour normal. HEART AND VASCULAR STRUCTURES: Mild enlargement of the cardiac silhouette. BONES: No acute findings. HARDWARE: Adequate appearing endotracheal tube. Tip of a right internal jugular central line at the right atrium ; consider 6 cm retraction. Likely enteric tube obscured distally. OTHER: No other significant finding. IMPRESSION: Stable. Limitation. TECHNICAL DOCUMENTATION: JOB ID: [id number]
--- NOTE | 2016-11-06 08:30 | PDOC PROGRESS REPORT ---
Subjective Progress Note for:: 11/06/16 Subjective:: off versed squeezed R grip5 Physical Exam Vital Signs: Temp Pulse Resp BP Pulse Ox 99.7 F 90 11 L 93/49 L 98 11/06/16 08:14 11/06/16 08:14 11/06/16 08:14 11/06/16 08:14 11/06/16 08:14 Intake & Output 11/05/16 11/06/16 11/07/16 07:59 07:59 07:59 Intake Total 1128 882 0 Output Total 5125 4190 Balance -3997 -3308 0 Weight 401 lb 14.443 oz 395 lb 4.621 oz General appearance: PRESENT: no acute distress Respiratory exam: PRESENT: clear to auscultation maryann Cardiovascular exam: ABSENT: diastolic murmur, irregular rhythm, systolic murmur GI/Abdominal exam: ABSENT: mass, organolmegaly, tenderness Extremities exam: PRESENT: pedal edema Neurological exam: PRESENT: oriented to situation Psychiatric exam: PRESENT: appropriate affect Results Laboratory Results: 11/06/16 04:45 11/06/16 04:45 Abnormal - 24 hr 11/05/16 11/05/16 11/05/16 08:05 12:33 16:00 RBC Hgb Hct RDW APTT 61.9 H ABG pH ABG pO2 ABG HCO3 ABG Total CO2 ABG O2 Saturation Potassium 3.3 L Carbon Dioxide BUN Creatinine Est GFR ( Amer) Est GFR (Non-Af Amer) Glucose POC Glucose 157 H Calcium Direct Bilirubin Total Protein Albumin Crossmatch 11/05/16 11/06/16 11/06/16 18:41 00:27 04:45 RBC Hgb Hct RDW APTT ABG pH 7.53 H ABG pO2 107.1 H ABG HCO3 32.8 H ABG Total CO2 34.0 H ABG O2 Saturation 98.3 H Potassium Carbon Dioxide BUN Creatinine Est GFR ( Amer) Est GFR (Non-Af Amer) Glucose POC Glucose 155 H 135 H Calcium Direct Bilirubin Total Protein Albumin Crossmatch 11/06/16 11/06/16 11/06/16 04:45 04:45 05:25 RBC 2.80 L Hgb 7.9 L Hct 24.4 L RDW 16.2 H APTT ABG pH ABG pO2 ABG HCO3 ABG Total CO2 ABG O2 Saturation Potassium 3.4 L Carbon Dioxide 33 H BUN 39 H Creatinine 1.99 H Est GFR ( Amer) 40 L Est GFR (Non-Af Amer) 33 L Glucose 137 H POC Glucose Calcium 7.7 L Direct Bilirubin 0.5 H Total Protein 5.3 L Albumin 2.2 L Crossmatch See Detail Impressions: Renal Ultrasound 10/29/16 00:00 IMPRESSION: Limited study as noted above. No right renal abnormalities were identified. Left kidney could not be visualized. Eaton catheter in the bladder. Chest X-Ray 11/06/16 06:00 IMPRESSION: Stable. Limitation. Assessment & Plan - Diagnosis (1) Respiratory failure Qualifiers: Chronicity: chronic Respiratory failure complication: hypoxia and hypercapnia Qualified Code(s): J96.11 - Chronic respiratory failure with hypoxia Is this a current diagnosis for this admission?: YesPlan: now that he is alert, he may be amenable to begin weaning (2) Aspiration pneumonia Qualifiers: Aspiration pneumonia type: due to gastric secretions Laterality: bilateral Lung location: unspecified part of lung Qualified Code(s): J69.0 - Pneumonitis due to inhalation of food and vomit Is this a current diagnosis for this admission?: YesPlan: radiologists say same but looks a little better to me (3) Acute on chronic combined systolic and diastolic congestive heart failure Is this a current diagnosis for this admission?: YesPlan: still diuresing a lot on 20mg tid (4) Malnutrition due to starvation Is this a current diagnosis for this admission?: YesPlan: still high G output (5) Morbid (severe) obesity with alveolar hypoventilation Is this a current diagnosis for this admission?: Yes (6) Pulmonary hypertension Is this a current diagnosis for this admission?: Yes (7) Hematuria Qualifiers: Hematuria type: gross Qualified Code(s): R31.0 - Gross hematuria Is this a current diagnosis for this admission?: Yes (8) Cardiopulmonary arrest with successful resuscitation Is this a current diagnosis for this admission?: Yes (9) Hypothermia due to anesthesia Is this a current diagnosis for this admission?: YesPlan: hypothermic again (10) Anemia due to blood loss, acute Is this a current diagnosis for this admission?: YesPlan: would have been worse without diuresis. 2u prbc. Stop heparin
--- NOTE | 2016-11-06 08:31 | EKG REPORT ---
SEVERITY:- ABNORMAL ECG - SINUS RHYTHM FIRST DEGREE AV BLOCK ABNRM R PROG, CONSIDER ASMI OR LEAD PLACEMENT NONSPECIFIC T ABNORMALITIES, LATERAL LEADS : Confirmed by: Aby Brownlee 06-Nov-2016 08:31:04
[2016-11-06] MEDS ORDERED: ALTEPLASE INJ 2 MG VIAL (CATH CLEARANCE) INJ ONE (10:15)
[2016-11-06] MEDS: DOPAMINE HCL 800 MG/D5W 250 ML IV PRN (10:16)
[2016-11-06] MEDS: FAMOTIDINE INJ/PF 20 MG/2 ML SDV IV SCH ×2 (10:19→21:50)
[2016-11-06] MEDS ORDERED: PROPOFOL 100 ML IV ONE (11:00)
[2016-11-06] MEDS: DEXTROSE 5%-WATER 250 ML with NOREPINEPHRINE BITARTRATE 4 MG IV PRN ×4 (11:08→17:32)
--- NOTE | 2016-11-06 11:17 | PDOC PROGRESS REPORT ---
Subjective Progress Note for:: 11/06/16 Subjective:: Intubated and sedated Physical Exam Vital Signs: Temp Pulse Resp BP Pulse Ox 99.7 F 90 11 L 93/49 L 98 11/06/16 08:14 11/06/16 08:14 11/06/16 08:14 11/06/16 08:14 11/06/16 08:14 Intake & Output 11/05/16 11/06/16 11/07/16 06:59 06:59 06:59 Intake Total 1128 882 0 Output Total 5280 4365 Balance -7374 -2843 0 Weight 182.3 kg 179.3 kg General appearance: PRESENT: no acute distress, disheveled, morbidly obese Head exam: PRESENT: atraumatic, normocephalic Eye exam: PRESENT: conjunctiva pale Mouth exam: PRESENT: moist, neck supple, tongue midline, other - ET Neck exam: ABSENT: carotid bruit, JVD, lymphadenopathy, thyromegaly Respiratory exam: PRESENT: decreased breath sounds, prolonged expiratory phas, rhonchi, symmetrical, unlabored, wheezes Cardiovascular exam: PRESENT: RRR, +S1, +S2 Pulses: PRESENT: normal radial pulses GI/Abdominal exam: PRESENT: normal bowel sounds, soft. ABSENT: distended, guarding, mass, organolmegaly, rebound, tenderness Rectal exam: PRESENT: deferred Gentrourinary exam: PRESENT: indwelling catheter Extremities exam: PRESENT: +1 edema Musculoskeletal exam: PRESENT: normal inspection Neurological exam: PRESENT: awake Psychiatric exam: PRESENT: normal mood Skin exam: PRESENT: dry, warm Results Laboratory Results: 11/06/16 04:45 11/06/16 04:45 11/05/16 11/06/16 11/06/16 16:00 04:45 04:45 WBC 7.4 RBC 2.80 L Hgb 7.9 L Hct 24.4 L MCV 87 MCH 28.2 MCHC 32.3 RDW 16.2 H Plt Count 163 Seg Neutrophils % 73.3 Lymphocytes % 13.1 Monocytes % 9.0 Eosinophils % 3.8 Basophils % 0.8 Absolute Neutrophils 5.4 Absolute Lymphocytes 1.0 Absolute Monocytes 0.7 Absolute Eosinophils 0.3 Absolute Basophils 0.1 Carbonic Acid 1.22 HCO3/H2CO3 Ratio 26:1 ABG pH 7.53 H ABG pCO2 40.6 ABG pO2 107.1 H ABG HCO3 32.8 H ABG O2 Saturation 98.3 H ABG Base Excess 9.2 FiO2 35% Sodium Potassium 3.3 L Chloride Carbon Dioxide Anion Gap BUN Creatinine Est GFR ( Amer) Est GFR (Non-Af Amer) Glucose Calcium Magnesium Total Bilirubin AST ALT Alkaline Phosphatase Total Protein Albumin Blood Type Antibody Screen 11/06/16 11/06/16 04:45 05:25 WBC RBC Hgb Hct MCV MCH MCHC RDW Plt Count Seg Neutrophils % Lymphocytes % Monocytes % Eosinophils % Basophils % Absolute Neutrophils Absolute Lymphocytes Absolute Monocytes Absolute Eosinophils Absolute Basophils Carbonic Acid HCO3/H2CO3 Ratio ABG pH ABG pCO2 ABG pO2 ABG HCO3 ABG O2 Saturation ABG Base Excess FiO2 Sodium 142.0 Potassium 3.4 L Chloride 100 Carbon Dioxide 33 H Anion Gap 9 BUN 39 H Creatinine 1.99 H Est GFR ( Amer) 40 L Est GFR (Non-Af Amer) 33 L Glucose 137 H Calcium 7.7 L Magnesium 1.7 Total Bilirubin 0.6 AST 27 ALT 26 Alkaline Phosphatase 74 Total Protein 5.3 L Albumin 2.2 L Blood Type B POSITIVE Antibody Screen NEGATIVE 10/29/16 10/29/16 10/30/16 20:00 20:00 03:58 Creatine Kinase 72 55 CK-MB (CK-2) 1.52 Troponin I < 0.012 10/30/16 10/30/16 10/30/16 03:58 13:40 13:40 Creatine Kinase 45 L CK-MB (CK-2) 0.89 0.46 Troponin I < 0.012 < 0.012 Impressions: Renal Ultrasound 10/29/16 00:00 IMPRESSION: Limited study as noted above. No right renal abnormalities were identified. Left kidney could not be visualized. Eaton catheter in the bladder. Chest X-Ray 11/06/16 06:00 IMPRESSION: Stable. Limitation. Assessment & Plan - Diagnosis (1) Acute on chronic combined systolic and diastolic congestive heart failure Is this a current diagnosis for this admission?: Yes (2) Dyspnea Qualifiers: Dyspnea type: unspecified Qualified Code(s): R06.00 - Dyspnea, unspecified Is this a current diagnosis for this admission?: Yes (3) Morbid (severe) obesity with alveolar hypoventilation Is this a current diagnosis for this admission?: Yes (4) Pulmonary vascular congestion Is this a current diagnosis for this admission?: Yes (5) Respiratory failure Qualifiers: Chronicity: chronic Respiratory failure complication: hypoxia and hypercapnia Qualified Code(s): J96.11 - Chronic respiratory failure with hypoxia Is this a current diagnosis for this admission?: Yes (6) Cardiac arrest Is this a current diagnosis for this admission?: Yes - Time Critical Time spent with patient: 35 or more minutes - RN RT PCP 50 min
[2016-11-06] MEDS ORDERED: SCOPOLAMINE HYDROBROMIDE 1.5 MG PATCH.TD72 TD SCH (12:00)
--- NOTE | 2016-11-06 12:08 | EKG REPORT ---
SEVERITY:- ABNORMAL ECG - SINUS RHYTHM PROLONGED 1ST DEGREE AV BLOCK AND RARE WENCHEBACH, 2ND MOBITZ TYPE 1 NONSPECIFIC T ABNORMALITIES, LATERAL LEADS : Confirmed by: Aby Brownlee 06-Nov-2016 12:07:57
--- NOTE | 2016-11-06 12:47 | PROGRESS NOTE E ---
Progress Note NAME: HANSEL DELGADILLO : 1940 AGE: 76Y DATE: 11/06/2016 ROOM: [facility] SUBJECTIVE: The patient has made slight improvement. He is awake and he nods appropriately. He gestures that he has no chest pain, but he continues to have some shortness of breath. Also, his heart rate has come up and he is not any more bradycardic on theophylline. He had an EKG this morning which showed significant first-degree AV block and subsequent EKG showed what seems to be a second-degree Wenckebach but there is no dropped P wave since there is intermittent accelerated junction escape rhythm. He is also off pressors. He continues to require mechanical ventilation. There is no ventricular arrhythmia seen. PHYSICAL EXAMINATION: GENERAL: The patient is morbidly obese, at present in no acute distress. He is not fighting the ventilator. He seems to be slightly short of breath, but there are no accessory muscles of respiration in use. The patient is intubated and he is sedated. He is off pressors. VITAL SIGNS: His temperature is 99.7 degrees Fahrenheit, pulse is 87 beats per minute, blood pressure 100/51 off all pressors. His respiratory rate is 14, O2 sats are 91% on the mechanical ventilator with an FIO2 of 50%. HEENT: Head is atraumatic and normocephalic. Eyes: Pupils are equal, round, regular, reactive to light and accommodation. Extraocular movements could not be checked. There is conjunctival pallor. ENT is negative. NECK: Supple without lymphadenopathy or JVD. Trachea is central. There is no goiter. Carotids are equal without any bruits. LUNGS: Breath sounds are mostly clear to auscultation, except for having bibasilar crackles at the extreme bases. HEART: S1 and S2 is heard. There is no S3 gallop. There is no S4 gallop. There is a systolic murmur in the left sternal border and systolic murmur in the mitral area. There is no rub. ABDOMEN: Soft, obese, nontender. Bowel sounds are normal. There is no hepatosplenomegaly. EXTREMITIES: There is 1+ pedal edema in both the feet. There is trace edema in the legs. Femorals are diminished. Leg pulses are diminished. There are no femoral bruits. There is no evidence of cellulitis. CENTRAL NERVOUS SYSTEM: The patient seems to be conscious but further examination could not be tested except that the patient does follow commands. PSYCHIATRIC: The patient does not appear to be agitated. DIAGNOSTICS: The patient's chest x-ray shows [id number] opacity effusion in bilateral lower hemithoraces and [id number] extensive airspace interstitial opacities of both lungs. Lung bases and costophrenic angles *------* image. The patient's EKG this morning shows sinus rhythm with significant first-degree AV block. A subsequent EKG as mentioned earlier shows sinus rhythm with second-degree Wenckebach but there is no dropped P wave because there is accelerated junctional rhythm. His 24-hour intake is 882 mL, output is 4365 mL. The patient's ABG shows a pH of 7.53, PCO2 40.6, PCO2 is 107.1, and O2 sats are 98.3% on an FIO2 of 35%. The patient's sodium is 142, potassium 3.4, chloride is 100, CO2 is 33. The patient's BUN is 39, creatinine is 1.99, and GFR is reduced at 40 mL, which is chronic kidney disease stage 3. The patient's calcium is 7.7. His liver function tests are normal, except for direct bilirubin being high at 0.5. The patient's albumin is 2.2 and his total protein is 5.3. The patient's white count is 7400. His hemoglobin has dropped to 7.9 from 9 yesterday. His hematocrit is 24.4 and his platelet count is 163,000. IMPRESSION: 1. CARDIOPULMONARY ARREST WITH SUCCESSFUL RESUSCITATION. 2. ACUTE ON CHRONIC RESPIRATORY FAILURE. PATIENT WAS HYPOXIC AND HYPERCAPNIC, WHICH NOW HAVE RESOLVED. 3. ASPIRATION PNEUMONIA, BILATERAL. 4. FIRST-DEGREE AV BLOCK. 5. SECOND-DEGREE AV BLOCK (WENCKEBACH) WITHOUT DROPPED QRS DUE TO PATIENT HAVING INTERMITTENT ACCELERATED JUNCTIONAL RHYTHM. 6. ACUTE ON CHRONIC COMBINED SYSTOLIC AND DIASTOLIC HEART FAILURE. THE PATIENT CONTINUES TO HAVE SOME EVIDENCE OF HEART FAILURE. 7. DYSPNEA. THE PATIENT CONTINUES TO HAVE DYSPNEA. 8. SEVERE OBESITY WITH ALVEOLAR HYPOVENTILATION. 9. PULMONARY HYPERTENSION. 10. CHRONIC KIDNEY DISEASE, STAGE 3. 11. DIABETES MELLITUS, INSULIN REQUIRING. 12. HYPOTENSION; THIS SEEMS TO HAVE RESOLVED. THE PATIENT IS OFF PRESSORS. 13. ACUTE ON CHRONIC KIDNEY DISEASE. 14. BRADYCARDIA; THIS SEEMS TO HAVE RESOLVED. NOTE THAT THE PATIENT'S COREG AND LISINOPRIL HAVE BEEN HELD. 15. ANEMIA. THE PATIENT RECEIVED 2 UNITS PACKED RED BLOOD CELLS. 16. HYPOKALEMIA. 17. HISTORY OF HYPERTENSION. BP LOW NORMAL NOW OFF PRESSORS. 18. HYPERLIPIDEMIA. PLAN: 1. Note that the patient is status post successful cardiopulmonary arrest resuscitation. Most likely this was respiratory failure cardiac arrest and respiratory arrest. The chest x-ray continues to be without much improvement compared to yesterday. 2. For the patient's hypotension, the patient is off all pressors with low normal blood pressure. 3. For bradycardia, the patient is on scopolamine and theophylline. 4. The patient's respiratory failure is acute on chronic. The patient is intubated and sedated. The patient's oxygen delivery percentage has been reduced. 5. Hypotension, most likely related to RV dysfunction and sepsis. The patient's blood pressure now seems to be low normal off pressors. 6. Aspiration pneumonia. Continue antibiotic therapy. 7. Acute on chronic biventricular failure. Patient has both systolic left ventricular and systolic right ventricular and diastolic left ventricular failure. Continue diuretic therapy. 8. Morbid obesity, at present seems to be stable. 9. Pulmonary hypertension, probably severe bradycardia. Patient on scopolamine and theophylline seems to be improved, but the patient has significant AV block, which includes both first-degree AV block and second-degree AV block (Wenckebach) with episodes of accelerated junctional rhythm. 10. Acute on chronic kidney disease, currently stable, being followed by golf ball inspector. 11. Of note, the pulmonary condition is being followed by the parts remover. 12. Discussed with her caregiving providers. Medications have been reviewed. This continues to be a highly complex medical decision making case in view of the multiple comorbidities and the patient's very slow improvement. NOTE: Thirty minutes were spent on this patient with more than 50% of the time spent in direct patient care and review of medications and discussions with other physicians on the case. DICTATING PHYSICIAN: MIGUEL LOZANO M.D. [id number] PHY#: [id number] ID: [id number] JOB#: [id number] ACCT: [id number] cc: >
[2016-11-06] MEDS: PROPOFOL 100 ML IV PRN ×3 (16:06→23:36)
[2016-11-06 18:09] LABS: HEMATOCRIT 29.3 % (37.9-51.0); HEMOGLOBIN 9.7 g/dL (13.5-17.0); HGB HCT DIFFERENCE -0.2; MEAN CORPUSCULAR HEMOGLOBIN 28.7 pg (27.0-33.4); MEAN CORPUSCULAR HGB CONC 33.1 g/dL (32.0-36.0); MEAN CORPUSCULAR VOLUME 87 fl (80-97); RED BLOOD COUNT 3.38 10^6/uL (4.35-5.55); RED CELL DISTRIBUTION WIDTH 16.3 % (11.5-14.0)
--- NOTE | 2016-11-06 21:35 | PDOC PROGRESS REPORT ---
Subjective Progress Note for:: 11/06/16 Subjective:: Patient is currently intubated and sedated. Plans were discussed with supervising nurse of the patient. He look to be more aleart today. He was trying to mouth some words, but could not tell what he was saying due to the ET tube. His FiO2 has maintained at 35%. Blood pressures increasing to the 130s and heart rate has increased to the 80s. His dopamine drip was off and he is now on theophylline. Levophed is on now at 10mcg due to a drop in blood pressure. He produced 4L of urine yesterday while on 20mg TID of IV lasix. Patient showed ability to open eyes and follow commands once again. Physical Exam Vital Signs: Temp Pulse Resp BP Pulse Ox 98.4 F 81 13 114/81 90 L 11/06/16 19:46 11/06/16 19:55 11/06/16 19:55 11/06/16 14:50 11/06/16 19:55 Intake & Output 11/05/16 11/06/16 11/07/16 06:59 06:59 06:59 Intake Total 1252 296 2673 Output Total 5280 4365 1400 Balance -4152 -3483 -138 Weight 182.3 kg 179.3 kg General appearance: PRESENT: no acute distress, morbidly obese Head exam: PRESENT: atraumatic, normocephalic Mouth exam: PRESENT: moist, neck supple Respiratory exam: PRESENT: crackles. ABSENT: accessory muscle use, chest wall tenderness, clear to auscultation maryann, rales, rhonchi, stridor, tachypnea Cardiovascular exam: PRESENT: RRR, +S1, +S2, systolic murmur GI/Abdominal exam: PRESENT: normal bowel sounds, soft. ABSENT: organomegaly, tenderness Extremities exam: PRESENT: +1 edema. ABSENT: joint swelling Musculoskeletal exam: PRESENT: normal inspection. ABSENT: deformity Neurological exam: PRESENT: alert, awake Skin exam: PRESENT: dry, intact, warm. ABSENT: cyanosis Results Laboratory Results: 11/06/16 17:40 11/06/16 04:45 11/06/16 11/06/16 11/06/16 04:45 04:45 04:45 WBC 7.4 RBC 2.80 L Hgb 7.9 L Hct 24.4 L MCV 87 MCH 28.2 MCHC 32.3 RDW 16.2 H Plt Count 163 Seg Neutrophils % 73.3 Lymphocytes % 13.1 Monocytes % 9.0 Eosinophils % 3.8 Basophils % 0.8 Absolute Neutrophils 5.4 Absolute Lymphocytes 1.0 Absolute Monocytes 0.7 Absolute Eosinophils 0.3 Absolute Basophils 0.1 Carbonic Acid 1.22 HCO3/H2CO3 Ratio 26:1 ABG pH 7.53 H ABG pCO2 40.6 ABG pO2 107.1 H ABG HCO3 32.8 H ABG O2 Saturation 98.3 H ABG Base Excess 9.2 FiO2 35% Sodium 142.0 Potassium 3.4 L Chloride 100 Carbon Dioxide 33 H Anion Gap 9 BUN 39 H Creatinine 1.99 H Est GFR ( Amer) 40 L Est GFR (Non-Af Amer) 33 L Glucose 137 H Calcium 7.7 L Magnesium 1.7 Total Bilirubin 0.6 AST 27 ALT 26 Alkaline Phosphatase 74 Total Protein 5.3 L Albumin 2.2 L Blood Type Antibody Screen 11/06/16 11/06/16 05:25 17:40 WBC 10.0 RBC 3.38 L Hgb 9.7 L Hct 29.3 L MCV 87 MCH 28.7 MCHC 33.1 RDW 16.3 H Plt Count 188 Seg Neutrophils % Lymphocytes % Monocytes % Eosinophils % Basophils % Absolute Neutrophils Absolute Lymphocytes Absolute Monocytes Absolute Eosinophils Absolute Basophils Carbonic Acid HCO3/H2CO3 Ratio ABG pH ABG pCO2 ABG pO2 ABG HCO3 ABG O2 Saturation ABG Base Excess FiO2 Sodium Potassium Chloride Carbon Dioxide Anion Gap BUN Creatinine Est GFR ( Amer) Est GFR (Non-Af Amer) Glucose Calcium Magnesium Total Bilirubin AST ALT Alkaline Phosphatase Total Protein Albumin Blood Type B POSITIVE Antibody Screen NEGATIVE 10/29/16 10/29/16 10/30/16 20:00 20:00 03:58 Creatine Kinase 72 55 CK-MB (CK-2) 1.52 Troponin I < 0.012 10/30/16 10/30/16 10/30/16 03:58 13:40 13:40 Creatine Kinase 45 L CK-MB (CK-2) 0.89 0.46 Troponin I < 0.012 < 0.012 Impressions: Renal Ultrasound 10/29/16 00:00 IMPRESSION: Limited study as noted above. No right renal abnormalities were identified. Left kidney could not be visualized. Eaton catheter in the bladder. Chest X-Ray 11/06/16 06:00 IMPRESSION: Stable. Limitation. Assessment & Plan - Diagnosis (1) Hypokalemia Plan: Currently trending up, recommend continue doing daily IV potassium replacements. If potassium trends down tomorrow may need to increase the amount of IV potassium he is receiving to twice a day. (2) Acute kidney injury superimposed on chronic kidney disease Is this a current diagnosis for this admission?: YesPlan: creatinine has improved a slight bit. Continuing IV lasix at current dose. If urine production continues at the 4L a day rate, will decrease dosage to twice a day. (3) Aspiration pneumonia Qualifiers: Aspiration pneumonia type: due to gastric secretions Laterality: bilateral Lung location: unspecified part of lung Qualified Code(s): J69.0 - Pneumonitis due to inhalation of food and vomit Is this a current diagnosis for this admission?: YesPlan: Resolving, white count is down (4) Bradycardia Is this a current diagnosis for this admission?: YesPlan: Resolved while on Theophylline (5) CHF (congestive heart failure) Plan: Resolving, continuing IV lasix at current dosage. (6) Respiratory failure Qualifiers: Chronicity: chronic Respiratory failure complication: hypoxia and hypercapnia Qualified Code(s): J96.11 - Chronic respiratory failure with hypoxia Is this a current diagnosis for this admission?: YesPlan: Looks to be making great improvement on vent.
[2016-11-06] MEDS ORDERED: DILTIAZEM HCL 60 MG TABLET NG SCH (22:00)
[2016-11-07] MEDS: FUROSEMIDE INJ/PF 20 MG/2 ML SDV IV SCH ×3 (01:47→17:05)
[2016-11-07 04:51] LABS: ABSOLUTE EOSINOPHILS # (AUTO) 0.2 10^3/uL (0.0-0.6); ABSOLUTE LYMPHOCYTES (AUTO) 1.1 10^3/uL (0.5-4.7); ABSOLUTE MONOCYTES (AUTO) 0.9 10^3/uL (0.1-1.4); ABSOLUTE NEUT (AUTO) 6.1 10^3/uL (1.7-8.2); BASOPHILS % (AUTO) 0.6 % (0-2); EOSINOPHILS % (AUTO) 2.9 % (0-6); HEMATOCRIT 27.2 % (37.9-51.0); HEMOGLOBIN 9.1 g/dL (13.5-17.0); HGB HCT DIFFERENCE 0.1; LYMPHOCYTES % (AUTO) 13.3 % (13-45); MEAN CORPUSCULAR HEMOGLOBIN 28.6 pg (27.0-33.4); MEAN CORPUSCULAR HGB CONC 33.4 g/dL (32.0-36.0); MEAN CORPUSCULAR VOLUME 86 fl (80-97); MONOCYTES % (AUTO) 11.2 % (3-13); RED BLOOD COUNT 3.19 10^6/uL (4.35-5.55); RED CELL DISTRIBUTION WIDTH 16.2 % (11.5-14.0); WHITE BLOOD COUNT 8.4 10^3/uL (4.0-10.5)
[2016-11-07 04:52] LABS: ARTERIAL BLOOD O2 SATURATION 97.9 % (94-98)
[2016-11-07 05:10] LABS: ALANINE AMINOTRANSFERASE 26 U/L (21-72); ALBUMIN 2.2 g/dL (3.5-5.0); ALKALINE PHOSPHATASE 73 U/L (38-126); ANION GAP 10 (5-19); ASPARTATE AMINO TRANSFERASE 34 U/L (17-59); BILIRUBIN,DIRECT 0.6 mg/dL (0.0-0.4); BILIRUBIN,TOTAL 0.6 mg/dL (0.2-1.3); BLOOD UREA NITROGEN 37 mg/dL (7-20); CALCIUM 7.9 mg/dL (8.4-10.2); CARBON DIOXIDE 32 mmol/L (22-30); CHLORIDE 101 mmol/L (98-107); CREATININE RESULT 2.13 mg/dL (0.52-1.25); GLUCOSE 177 mg/dL (75-110); MAGNESIUM 1.7 mg/dL (1.6-2.3); POTASSIUM 3.1 mmol/L (3.6-5.0); SODIUM 143.2 mmol/L (137-145); TOTAL PROTEIN 5.5 g/dL (6.3-8.2); TRIGLYCERIDES 143 mg/dL (<150)
[2016-11-07 05:18] LABS: PREALBUMIN 10.3 mg/dL (17.6-36.0)
[2016-11-07] MEDS: AMPICILLIN SODIUM/SULBACTAM NA 3 GM in NORMAL SALINE 100 ML IV SCH ×3 (05:36→17:05)
[2016-11-07] MEDS: UDCUP PO SCH ×2 (05:41→12:31)
[2016-11-07] MEDS: THEOPHYLLINE ANHYDROUS 80 MG/15 ML PO SCH ×2 (05:41→12:31)
--- NOTE | 2016-11-07 07:25 | RADIOLOGY REPORT (SQ) ---
EXAM DESCRIPTION: CHEST SINGLE VIEW COMPLETED DATE/TIME: 11/07/2016 6:45 am REASON FOR STUDY: ARDS COMPARISON: 11/06/2016. EXAM PARAMETERS: NUMBER OF VIEWS: One view. TECHNIQUE: Single frontal radiographic view of the chest acquired. RADIATION DOSE: NA LIMITATIONS: None. FINDINGS: LUNGS AND PLEURA: Moderate mixed airspace and interstitial opacities of bilateral mid and lower lung linares, right more than left. Possible bilateral moderate effusions. Moderate lung volum e. MEDIASTINUM AND HILAR STRUCTURES: No masses. Contour normal. HEART AND VASCULAR STRUCTURES: Mild enlargement of the cardiac silhouette. BONES: No acute findings. HARDWARE: Adequate appearing endotracheal tube and likely adequate NG tube partially obscured distall y. Tip of a right internal jugular central line tip at the right atrium ; consider 8.6 cm retraction . OTHER: No other significant finding. IMPRESSION: No significant interval change pre TECHNICAL DOCUMENTATION: JOB ID: [id number]
--- NOTE | 2016-11-07 07:55 | PDOC PROGRESS REPORT ---
Subjective Progress Note for:: 11/07/16 Subjective:: back on propofol Physical Exam Vital Signs: Temp Pulse Resp BP Pulse Ox 96.8 F L 77 12 116/57 L 100 11/07/16 06:15 11/06/16 22:00 11/07/16 06:15 11/07/16 06:09 11/07/16 06:15 Intake & Output 11/05/16 11/06/16 11/07/16 07:59 07:59 07:59 Intake Total 8862 351 0008 Output Total 5124 4190 2335 Balance -3997 -3308 -457 Weight 401 lb 14.443 oz 395 lb 4.621 oz 392 lb 6.765 oz Respiratory exam: PRESENT: rhonchi Cardiovascular exam: ABSENT: diastolic murmur, irregular rhythm, systolic murmur GI/Abdominal exam: ABSENT: mass, organolmegaly Extremities exam: PRESENT: pedal edema Results Laboratory Results: 11/07/16 04:35 11/07/16 04:35 Abnormal - 24 hr 11/06/16 11/06/16 11/06/16 05:25 17:40 23:19 RBC 3.38 L Hgb 9.7 L Hct 29.3 L RDW 16.3 H Carbonic Acid ABG pCO2 ABG pO2 ABG HCO3 ABG Total CO2 Potassium Carbon Dioxide BUN Creatinine Est GFR ( Amer) Est GFR (Non-Af Amer) Glucose POC Glucose 169 H Calcium Direct Bilirubin Total Protein Albumin Prealbumin Crossmatch See Detail 11/07/16 11/07/16 11/07/16 04:35 04:35 04:35 RBC 3.19 L Hgb 9.1 L Hct 27.2 L RDW 16.2 H Carbonic Acid 1.59 H ABG pCO2 52.8 H ABG pO2 104.6 H ABG HCO3 35.6 H ABG Total CO2 37.2 H Potassium 3.1 L Carbon Dioxide 32 H BUN 37 H Creatinine 2.13 H Est GFR ( Amer) 37 L Est GFR (Non-Af Amer) 31 L Glucose 177 H POC Glucose Calcium 7.9 L Direct Bilirubin 0.6 H Total Protein 5.5 L Albumin 2.2 L Prealbumin 10.3 L Crossmatch Impressions: Renal Ultrasound 10/29/16 00:00 IMPRESSION: Limited study as noted above. No right renal abnormalities were identified. Left kidney could not be visualized. Eaton catheter in the bladder. Chest X-Ray 11/07/16 06:00 IMPRESSION: No significant interval change pre Assessment & Plan - Diagnosis (1) Respiratory failure Qualifiers: Chronicity: chronic Respiratory failure complication: hypoxia and hypercapnia Qualified Code(s): J96.11 - Chronic respiratory failure with hypoxia Is this a current diagnosis for this admission?: YesPlan: 35% peak [id number]. XR looks a little better. Day 10 vent (2) Aspiration pneumonia Qualifiers: Aspiration pneumonia type: due to gastric secretions Laterality: bilateral Lung location: unspecified part of lung Qualified Code(s): J69.0 - Pneumonitis due to inhalation of food and vomit Is this a current diagnosis for this admission?: Yes (3) Acute on chronic combined systolic and diastolic congestive heart failure Is this a current diagnosis for this admission?: YesPlan: [id number]. Down 29# p admission (4) Malnutrition due to starvation Is this a current diagnosis for this admission?: Yes (5) Morbid (severe) obesity with alveolar hypoventilation Is this a current diagnosis for this admission?: Yes (6) Pulmonary hypertension Is this a current diagnosis for this admission?: Yes (7) Hematuria Qualifiers: Hematuria type: gross Qualified Code(s): R31.0 - Gross hematuria Is this a current diagnosis for this admission?: Yes (8) Cardiopulmonary arrest with successful resuscitation Is this a current diagnosis for this admission?: Yes (9) Hypothermia due to anesthesia Is this a current diagnosis for this admission?: Yes (10) Anemia due to blood loss, acute Is this a current diagnosis for this admission?: Yes
[2016-11-07] MEDS: TOBRAMYCIN SULFATE NEB 40 MG/ML 30 ML NEB SCH ×2 (08:18→20:47)
[2016-11-07] MEDS: PROPOFOL 100 ML IV PRN ×4 (09:03→22:28)
[2016-11-07] MEDS: FAMOTIDINE INJ/PF 20 MG/2 ML SDV IV SCH ×2 (09:04→22:03)
[2016-11-07] MEDS: POTASSI CL 20 MEQ/50 ML RIDER 50 ML IV SCH ×2 (09:05→17:06)
--- NOTE | 2016-11-07 10:45 | EKG REPORT ---
SEVERITY:- ABNORMAL ECG - SINUS RHYTHM FIRST DEGREE AV BLOCK NONSPECIFIC T ABNORMALITIES, LATERAL LEADS : Confirmed by: Aby Brownlee 07-Nov-2016 10:44:47
--- NOTE | 2016-11-07 11:08 | PDOC PROGRESS REPORT ---
Subjective Progress Note for:: 11/07/16 Subjective:: Intubated and sedated Physical Exam Vital Signs: Temp Pulse Resp BP Pulse Ox 97.7 F 71 11 L 157/62 H 99 11/07/16 08:00 11/07/16 08:00 11/07/16 08:00 11/07/16 08:00 11/07/16 08:00 Intake & Output 11/06/16 11/07/16 11/08/16 06:59 06:59 06:59 Intake Total 882 1878 Output Total 4365 2335 250 Balance -3483 -457 -250 Weight 179.3 kg 178 kg General appearance: PRESENT: disheveled, morbidly obese Head exam: PRESENT: atraumatic, normocephalic Eye exam: PRESENT: conjunctiva pale Mouth exam: PRESENT: dry mucosa, neck supple, tongue midline, other - ET tube in place Neck exam: ABSENT: carotid bruit, JVD, lymphadenopathy, thyromegaly Respiratory exam: PRESENT: decreased breath sounds, prolonged expiratory phas, rales, rhonchi, symmetrical, unlabored Cardiovascular exam: PRESENT: irregular rhythm Pulses: PRESENT: normal radial pulses GI/Abdominal exam: PRESENT: normal bowel sounds, soft. ABSENT: distended, guarding, mass, organolmegaly, rebound, tenderness Rectal exam: PRESENT: deferred Gentrourinary exam: PRESENT: indwelling catheter Extremities exam: PRESENT: +1 edema Skin exam: PRESENT: dry, warm Results Laboratory Results: 11/07/16 04:35 11/07/16 04:35 11/06/16 11/06/16 11/07/16 05:25 17:40 04:35 WBC 10.0 RBC 3.38 L Hgb 9.7 L Hct 29.3 L MCV 87 MCH 28.7 MCHC 33.1 RDW 16.3 H Plt Count 188 Seg Neutrophils % Lymphocytes % Monocytes % Eosinophils % Basophils % Absolute Neutrophils Absolute Lymphocytes Absolute Monocytes Absolute Eosinophils Absolute Basophils Carbonic Acid 1.59 H HCO3/H2CO3 Ratio 22:1 ABG pH 7.45 ABG pCO2 52.8 H ABG pO2 104.6 H ABG HCO3 35.6 H ABG O2 Saturation 97.9 ABG Base Excess 10.0 FiO2 35% Sodium Potassium Chloride Carbon Dioxide Anion Gap BUN Creatinine Est GFR ( Amer) Est GFR (Non-Af Amer) Glucose Calcium Magnesium Total Bilirubin AST ALT Alkaline Phosphatase Total Protein Albumin Prealbumin Triglycerides Blood Type B POSITIVE Antibody Screen NEGATIVE 11/07/16 11/07/16 04:35 04:35 WBC 8.4 RBC 3.19 L Hgb 9.1 L Hct 27.2 L MCV 86 MCH 28.6 MCHC 33.4 RDW 16.2 H Plt Count 186 Seg Neutrophils % 72.0 Lymphocytes % 13.3 Monocytes % 11.2 Eosinophils % 2.9 Basophils % 0.6 Absolute Neutrophils 6.1 Absolute Lymphocytes 1.1 Absolute Monocytes 0.9 Absolute Eosinophils 0.2 Absolute Basophils 0.0 Carbonic Acid HCO3/H2CO3 Ratio ABG pH ABG pCO2 ABG pO2 ABG HCO3 ABG O2 Saturation ABG Base Excess FiO2 Sodium 143.2 Potassium 3.1 L Chloride 101 Carbon Dioxide 32 H Anion Gap 10 BUN 37 H Creatinine 2.13 H Est GFR ( Amer) 37 L Est GFR (Non-Af Amer) 31 L Glucose 177 H Calcium 7.9 L Magnesium 1.7 Total Bilirubin 0.6 AST 34 ALT 26 Alkaline Phosphatase 73 Total Protein 5.5 L Albumin 2.2 L Prealbumin 10.3 L Triglycerides 143 Blood Type Antibody Screen 10/29/16 10/29/16 10/30/16 20:00 20:00 03:58 Creatine Kinase 72 55 CK-MB (CK-2) 1.52 Troponin I < 0.012 10/30/16 10/30/16 10/30/16 03:58 13:40 13:40 Creatine Kinase 45 L CK-MB (CK-2) 0.89 0.46 Troponin I < 0.012 < 0.012 Impressions: Renal Ultrasound 10/29/16 00:00 IMPRESSION: Limited study as noted above. No right renal abnormalities were identified. Left kidney could not be visualized. Eaton catheter in the bladder. Chest X-Ray 11/07/16 06:00 IMPRESSION: No significant interval change pre Assessment & Plan - Diagnosis (1) Acute on chronic combined systolic and diastolic congestive heart failure Is this a current diagnosis for this admission?: Yes (2) Dyspnea Qualifiers: Dyspnea type: unspecified Qualified Code(s): R06.00 - Dyspnea, unspecified Is this a current diagnosis for this admission?: Yes (3) Morbid (severe) obesity with alveolar hypoventilation Is this a current diagnosis for this admission?: Yes (4) Pulmonary vascular congestion Is this a current diagnosis for this admission?: Yes (5) Respiratory failure Qualifiers: Chronicity: chronic Respiratory failure complication: hypoxia and hypercapnia Qualified Code(s): J96.11 - Chronic respiratory failure with hypoxia Is this a current diagnosis for this admission?: YesPlan: ARDs Radiographically PAO2/FIO@ improved (6) Cardiac arrest Is this a current diagnosis for this admission?: Yes - Time Critical Time spent with patient: 25-34 minutes
--- NOTE | 2016-11-07 16:53 | PDOC PROGRESS REPORT ---
Subjective Progress Note for:: 11/07/16 Subjective:: Patient was seen in the ICU today. Though he is intubated he is less sedated. Therefore he is able to interact to your questions with eye movements and sometimes moving his hands. Discussions were done with the treating nurse as well as with Dr. Lantigua. Labs and medications were reviewed. He continues to make decent amounts of urine. . Physical Exam Vital Signs: Temp Pulse Resp BP Pulse Ox 97.0 F 71 15 129/56 H 100 11/07/16 12:00 11/07/16 14:00 11/07/16 14:00 11/07/16 14:00 11/07/16 14:00 Intake & Output 11/06/16 11/07/16 11/08/16 06:59 06:59 06:59 Intake Total 882 1878 Output Total 4365 2335 1000 Balance -3483 -457 -1000 Weight 179.3 kg 178 kg Exam: Remains intubated though less sedated Respiratory exam: PRESENT: clear to auscultation maryann. ABSENT: crackles, rhonchi Cardiovascular exam: PRESENT: RRR, +S1, +S2, systolic murmur GI/Abdominal exam: PRESENT: normal bowel sounds, soft. ABSENT: organomegaly, tenderness Extremities exam: PRESENT: +1 edema Skin exam: ABSENT: erythema, mottled Results Laboratory Results: 11/07/16 04:35 11/07/16 04:35 11/06/16 11/07/16 11/07/16 17:40 04:35 04:35 WBC 10.0 8.4 RBC 3.38 L 3.19 L Hgb 9.7 L 9.1 L Hct 29.3 L 27.2 L MCV 87 86 MCH 28.7 28.6 MCHC 33.1 33.4 RDW 16.3 H 16.2 H Plt Count 188 186 Seg Neutrophils % 72.0 Lymphocytes % 13.3 Monocytes % 11.2 Eosinophils % 2.9 Basophils % 0.6 Absolute Neutrophils 6.1 Absolute Lymphocytes 1.1 Absolute Monocytes 0.9 Absolute Eosinophils 0.2 Absolute Basophils 0.0 Carbonic Acid 1.59 H HCO3/H2CO3 Ratio 22:1 ABG pH 7.45 ABG pCO2 52.8 H ABG pO2 104.6 H ABG HCO3 35.6 H ABG O2 Saturation 97.9 ABG Base Excess 10.0 FiO2 35% Sodium Potassium Chloride Carbon Dioxide Anion Gap BUN Creatinine Est GFR ( Amer) Est GFR (Non-Af Amer) Glucose Calcium Magnesium Total Bilirubin AST ALT Alkaline Phosphatase Total Protein Albumin Prealbumin Triglycerides 11/07/16 04:35 WBC RBC Hgb Hct MCV MCH MCHC RDW Plt Count Seg Neutrophils % Lymphocytes % Monocytes % Eosinophils % Basophils % Absolute Neutrophils Absolute Lymphocytes Absolute Monocytes Absolute Eosinophils Absolute Basophils Carbonic Acid HCO3/H2CO3 Ratio ABG pH ABG pCO2 ABG pO2 ABG HCO3 ABG O2 Saturation ABG Base Excess FiO2 Sodium 143.2 Potassium 3.1 L Chloride 101 Carbon Dioxide 32 H Anion Gap 10 BUN 37 H Creatinine 2.13 H Est GFR ( Amer) 37 L Est GFR (Non-Af Amer) 31 L Glucose 177 H Calcium 7.9 L Magnesium 1.7 Total Bilirubin 0.6 AST 34 ALT 26 Alkaline Phosphatase 73 Total Protein 5.5 L Albumin 2.2 L Prealbumin 10.3 L Triglycerides 143 10/29/16 10/29/16 10/30/16 20:00 20:00 03:58 Creatine Kinase 72 55 CK-MB (CK-2) 1.52 Troponin I < 0.012 10/30/16 10/30/16 10/30/16 03:58 13:40 13:40 Creatine Kinase 45 L CK-MB (CK-2) 0.89 0.46 Troponin I < 0.012 < 0.012 Impressions: Renal Ultrasound 10/29/16 00:00 IMPRESSION: Limited study as noted above. No right renal abnormalities were identified. Left kidney could not be visualized. Eaton catheter in the bladder. Chest X-Ray 11/07/16 06:00 IMPRESSION: No significant interval change pre Assessment & Plan - Diagnosis (1) CHF (congestive heart failure) Plan: Biventricular failure. On Lasix . Decent urine output on current doses of diuretics. Monitor. (2) CKD (chronic kidney disease) stage 3, GFR 30-59 ml/min Plan: His baseline creatinine is around 1.5 suggestive of CKD stage III.Likely underlying causes would be diabetes and hypertension with possibility of secondary FSGS (3) TALI (acute kidney injury) Is this a current diagnosis for this admission?: YesPlan: Most likely combination of prerenal from his cardiac failure in combination with septic/cardiogenic shock. He is currently off all his pressor agents which is encouraging. Good response to intravenous diuretics and will therefore continue current medications. No indications for renal replacements currently. (4) Acute on chronic combined systolic and diastolic congestive heart failure Is this a current diagnosis for this admission?: YesPlan: Being managed by cardiology. (5) Hematuria Qualifiers: Hematuria type: gross Qualified Code(s): R31.0 - Gross hematuria Is this a current diagnosis for this admission?: Yes (6) Morbid obesity Is this a current diagnosis for this admission?: Yes (7) Pulmonary hypertension Is this a current diagnosis for this admission?: Yes (8) Hypomagnesemia Plan: Replace and monitor (9) Bradycardia Is this a current diagnosis for this admission?: YesPlan: Currently maintained by theophylline.
--- NOTE | 2016-11-07 21:32 | PROGRESS NOTE E ---
Progress Note NAME: HANSEL DELGADILLO : 1940 AGE: 76Y DATE: 11/07/2016 ROOM: 610 SUBJECTIVE: Note that the patient remains status post. There is not much improvement from yesterday. From his pulmonary point of view he is still intubated and sedated, but the patient's heart rate now is in the 70s and the patient now has sinus rhythm with a first degree AV block. There are no ventricular arrhythmias. The patient is awake. *------* shows that his shortness of breath is the same as yesterday (dyspnea is the same as yesterday). He denies any chest pain or discomfort. There is no PND or orthopnea. His leg edema remains the same. There are no symptoms of confusion. OBJECTIVE: GENERAL: On examination the patient is morbidly obese, at present in no acute distress. He is not fighting the ventilator. He seems to be slightly short of breath like yesterday, but there are no accessory muscles of respiration in use. The patient is off pressors now and his blood pressure is good. VITAL SIGNS: Temperature is 97.7 degrees Fahrenheit. His pulse is 71 beats per minute. Blood pressure 157/62. Respirations are 11 per minute. O2 saturations are 99% on a mechanical ventilator with an FiO2 of 35%. HEENT: Head is atraumatic and normocephalic. Eyes: Pupils are equal, round, regular, reactive to light and accommodation. Extraocular movements are normal. There is no conjunctival pallor. ENT is negative. NECK: Supple without lymphadenopathy or JVD. Trachea is central. There is no goiter. Carotids are equal without any bruits. LUNGS: Breath sounds show bibasilar dry crackles. There is no chest wall tenderness. HEART: S1 and S2 is heard. There is no S3 gallop. There is no S4 gallop. There is a systolic murmur in the left sternal border and a systolic murmur in the mitral area. There is no rub. ABDOMEN: Soft, obese, nontender. Bowel sounds are normal. There is no hepatosplenomegaly. EXTREMITIES: There is 1+ pedal edema in both feet. There is trace pedal edema in the legs. CENTRAL NERVOUS SYSTEM: The patient seems to be conscious but further examination could not be tested except that the patient does follow commands. PSYCHIATRIC: The patient does not appear to be agitated. INTAKE/OUTPUT: The patient's total intake is 1878 mL, output is 2335 mL. DIAGNOSTIC STUDIES: Chest x-ray shows moderate mixed airspace and interstitial opacities of bilateral mid and lower lung linares, right more than left. Possible bilateral moderate effusions. There is mild enlargement of the cardiac silhouette but no definite evidence of heart failure. The patient's EKG shows sinus rhythm with significant first degree AV block, nonspecific T-wave abnormalities in the lateral leads. The patient's white count is 8400, hemoglobin 9.1, hematocrit is 27.2, platelet count is 186,000. The patient's sodium is 143.2, potassium is 3.1, chloride 101, CO2 is 32. The patient's BUN is 37, creatinine is 2.13, and GFR is reduced at 37 mL, which is stage 3 chronic kidney disease. The patient's calcium is 7.9, his glucose is 152. His liver function tests are normal except for a slightly direct bilirubin of 0.6. The patient's total protein is 5.5, albumin is 2.2. The patient's prealbumin is 10.3. Triglycerides are 143. IMPRESSION: 1. CARDIOPULMONARY ARREST WITH SUCCESSFUL RESUSCITATION. 2. ACUTE ON CHRONIC RESPIRATORY FAILURE. THE PATIENT WAS HYPOXIC AND HYPERCAPNIC. THE HYPOXIA HAS RESOLVED. THE PATIENT IS STILL HYPERCAPNIC. Blood gas shows a pH of 7.45, pCO2 is elevated at 52.8, pO2 is 104.6, and his O2 sats are 97.9% on FiO2 of 35%. 3. BILATERAL ASPIRATION PNEUMONIA. 4. FIRST DEGREE AV BLOCK. 5. SECOND DEGREE AV BLOCK ([place]) WHICH IS RESOLVED. 6. ACCELERATED JUNCTIONAL RHYTHM WHICH IS RESOLVED. 7. ACUTE ON CHRONIC LEFT VENTRICULAR DIASTOLIC HEART FAILURE AND AT PRESENT THERE IS NO EVIDENCE OF HEART FAILURE. 8. ACUTE ON CHRONIC RIGHT VENTRICULAR SYSTOLIC FAILURE. 9. DYSPNEA. 10. SEVERE OBESITY WITH ALVEOLAR HYPOVENTILATION. 11. PULMONARY HYPERTENSION, WHICH SEEMS TO BE MODERATE. 12. CHRONIC KIDNEY DISEASE STAGE 3. 13. DIABETES MELLITUS, INSULIN REQUIRING. 14. HYPOTENSION. THIS SEEMS TO HAVE RESOLVED, THE PATIENT IS OFF PRESSORS. 15. ACUTE ON CHRONIC KIDNEY DISEASE, IT SEEMS GFR IS WORSENED BUT ONLY SLIGHTLY. 16. BRADYCARDIA. THIS HAS RESOLVED. Note that the patient's Coreg and lisinopril have been held. The Coreg may be the cause of the patient's bradycardia and AV blocks. 17. ANEMIA. 18. HYPOKALEMIA. 19. HISTORY OF HYPERTENSION. Blood pressure now back to normal per pressors. 20. HYPERLIPIDEMIA. PLAN: 1. As mentioned earlier the patient is status post successful resuscitation of cardiopulmonary arrest, most likely this is respiratory failure causing respiratory arrest leading to cardiac arrest. The chest x-ray continues to be without much improvement compared to yesterday. 2. Hypotension, this is resolved. The patient's blood pressure is normal. We will later see if we can start the patient on hydralazine, but we will wait. 3. Bradycardia. This seems to be resolved. The patient continues to be in first degree AV block. We will stop the patient's theophylline and scopolamine. 4. Acute on chronic respiratory failure. The patient is intubated and sedated. Continue oxygen generally. 5. Hypotension. Most likely related to RV dysfunction and sepsis. The patient's blood pressure now is normal off pressors. 6. Aspiration pneumonia. Continue antibiotic therapy. There is not much improvement. 7. Acute on chronic left ventricular diastolic heart failure and right ventricular systolic heart failure. Continue diuretic therapy. 8. Morbid obesity, at present stable. 9. Pulmonary hypertension, moderate. 10. Acute on chronic kidney disease. It seems to be the GFR has worsened slightly but still stage 3. 11. 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 As mentioned earlier we will stop the patient's scopolamine and theophylline. We will wait until tomorrow to see if we can start the patient on hydralazine. Would not restart the patient on Coreg. The patient may benefit from Norvasc, but the problem with Norvasc it can cause further swelling of his extremities. NOTE: Thirty minutes were spent on this patient with more than 50% of the time spent in direct patient care and medications were reviewed and discussions with the other physicians on the case. Still continuous to be high level medical decision making in view of the high complexity of this case. We will follow with you. DICTATING PHYSICIAN: MIGUEL LOZANO M.D. [id number] [id number] ID: [id number] JOB#: [id number] ACCT: [id number] cc: >
[2016-11-08] MEDS: AMPICILLIN SODIUM/SULBACTAM NA 3 GM in NORMAL SALINE 100 ML IV SCH ×4 (00:13→17:23)
[2016-11-08] MEDS: PROPOFOL 100 ML IV PRN ×4 (00:27→08:20)
[2016-11-08] MEDS: FUROSEMIDE INJ/PF 20 MG/2 ML SDV IV SCH ×2 (01:43→10:32)
[2016-11-08 05:05] LABS: ARTERIAL BLOOD BASE EXCESS 9.5 mmol/L; ARTERIAL BLOOD O2 SATURATION 97.9 % (94-98)
[2016-11-08 05:23] LABS: ABSOLUTE EOSINOPHILS # (AUTO) 0.3 10^3/uL (0.0-0.6); ABSOLUTE LYMPHOCYTES (AUTO) 0.9 10^3/uL (0.5-4.7); ABSOLUTE MONOCYTES (AUTO) 0.6 10^3/uL (0.1-1.4); ABSOLUTE NEUT (AUTO) 5.1 10^3/uL (1.7-8.2); BASOPHILS % (AUTO) 0.6 % (0-2); EOSINOPHILS % (AUTO) 4.4 % (0-6); HEMATOCRIT 25.5 % (37.9-51.0); HEMOGLOBIN 8.5 g/dL (13.5-17.0); MEAN CORPUSCULAR HGB CONC 33.5 g/dL (32.0-36.0); MEAN CORPUSCULAR VOLUME 87 fl (80-97); MONOCYTES % (AUTO) 8.3 % (3-13); RED BLOOD COUNT 2.94 10^6/uL (4.35-5.55); RED CELL DISTRIBUTION WIDTH 16.3 % (11.5-14.0); SEGMENTED NEUTROPHILS % (AUTO) 73.7 % (42-78); WHITE BLOOD COUNT 6.9 10^3/uL (4.0-10.5)
[2016-11-08 05:26] LABS: ALANINE AMINOTRANSFERASE 32 U/L (21-72); ALBUMIN 2.1 g/dL (3.5-5.0); ALKALINE PHOSPHATASE 72 U/L (38-126); ANION GAP 9 (5-19); ASPARTATE AMINO TRANSFERASE 45 U/L (17-59); BILIRUBIN,DIRECT 0.5 mg/dL (0.0-0.4); BILIRUBIN,TOTAL 0.5 mg/dL (0.2-1.3); BLOOD UREA NITROGEN 33 mg/dL (7-20); CALCIUM 7.9 mg/dL (8.4-10.2); CARBON DIOXIDE 34 mmol/L (22-30); CHLORIDE 100 mmol/L (98-107); GLUCOSE 133 mg/dL (75-110); POTASSIUM 3.1 mmol/L (3.6-5.0); SODIUM 142.7 mmol/L (137-145); TOTAL PROTEIN 5.3 g/dL (6.3-8.2)
--- NOTE | 2016-11-08 07:33 | PDOC PROGRESS REPORT ---
Subjective Progress Note for:: 11/08/16 Subjective:: sedated Physical Exam Vital Signs: Temp Pulse Resp BP Pulse Ox 96.6 F L 68 13 147/63 H 98 11/08/16 06:25 11/07/16 20:47 11/08/16 06:25 11/07/16 17:56 11/08/16 06:25 Intake & Output 11/06/16 11/07/16 11/08/16 07:59 07:59 07:59 Intake Total 882 1878 1245 Output Total 4192 2985 3120 Balance -7740 -457 -1873 Weight 395 lb 4.621 oz 392 lb 6.765 oz 391 lb 12.183 oz Respiratory exam: PRESENT: clear to auscultation maryann Cardiovascular exam: ABSENT: diastolic murmur, irregular rhythm, systolic murmur GI/Abdominal exam: PRESENT: hypoactive bowel sounds. ABSENT: mass, organolmegaly Extremities exam: PRESENT: pedal edema Results Laboratory Results: 11/08/16 04:57 11/08/16 04:57 11/08/16 11/08/16 11/08/16 04:57 04:57 04:57 WBC 6.9 RBC 2.94 L Hgb 8.5 L Hct 25.5 L MCV 87 MCH 29.0 MCHC 33.5 RDW 16.3 H Plt Count 179 Seg Neutrophils % 73.7 Lymphocytes % 13.0 Monocytes % 8.3 Eosinophils % 4.4 Basophils % 0.6 Absolute Neutrophils 5.1 Absolute Lymphocytes 0.9 Absolute Monocytes 0.6 Absolute Eosinophils 0.3 Absolute Basophils 0.0 Carbonic Acid 1.69 H HCO3/H2CO3 Ratio 20:1 ABG pH 7.42 ABG pCO2 56.3 H ABG pO2 108.1 H ABG HCO3 35.3 H ABG O2 Saturation 97.9 ABG Base Excess 9.5 FiO2 35% Sodium 142.7 Potassium 3.1 L Chloride 100 Carbon Dioxide 34 H Anion Gap 9 BUN 33 H Creatinine 2.00 H Est GFR ( Amer) 40 L Est GFR (Non-Af Amer) 33 L Glucose 133 H Calcium 7.9 L Total Bilirubin 0.5 AST 45 ALT 32 Alkaline Phosphatase 72 Total Protein 5.3 L Albumin 2.1 L Impressions: Renal Ultrasound 10/29/16 00:00 IMPRESSION: Limited study as noted above. No right renal abnormalities were identified. Left kidney could not be visualized. Eaton catheter in the bladder. Assessment & Plan - Diagnosis (1) Respiratory failure Qualifiers: Chronicity: chronic Respiratory failure complication: hypoxia and hypercapnia Qualified Code(s): J96.11 - Chronic respiratory failure with hypoxia Is this a current diagnosis for this admission?: YesPlan: Pamela suspects ARDS now. (2) Aspiration pneumonia Qualifiers: Aspiration pneumonia type: due to gastric secretions Laterality: bilateral Lung location: unspecified part of lung Qualified Code(s): J69.0 - Pneumonitis due to inhalation of food and vomit Is this a current diagnosis for this admission?: YesPlan: d11 antibiotics & vent (3) Acute on chronic combined systolic and diastolic congestive heart failure Is this a current diagnosis for this admission?: YesPlan: still diuresing. Down 30# (4) Malnutrition due to starvation Is this a current diagnosis for this admission?: YesPlan: G out 100. Try suplena again (5) Morbid (severe) obesity with alveolar hypoventilation Is this a current diagnosis for this admission?: Yes (6) Pulmonary hypertension Is this a current diagnosis for this admission?: Yes (7) Hematuria Qualifiers: Hematuria type: gross Qualified Code(s): R31.0 - Gross hematuria Is this a current diagnosis for this admission?: Yes (8) Cardiopulmonary arrest with successful resuscitation Is this a current diagnosis for this admission?: Yes (9) Hypothermia due to anesthesia Is this a current diagnosis for this admission?: YesPlan: back on [facility] [place] (10) Anemia due to blood loss, acute Is this a current diagnosis for this admission?: YesPlan: hct25. May need 2u tomorrow - Inpatient Certification Medical Necessity: Failure to Improve With Outpatient Therapy, Significant Comorbidiites Make Outpatient Treatment Too Risky, Need Close Monitoring Due to Risk of Patient Decompensation, Need For IV Fluids, Need For Continuous Telemetry Monitoring, Need for IV Antibiotics, Risk of Complication if Not Cared For in Hospital, Risk of Diagnosis Which Will Require Inpatient Eval/Care/ Monitoring
--- NOTE | 2016-11-08 07:51 | RADIOLOGY REPORT (SQ) ---
EXAM DESCRIPTION: CHEST SINGLE VIEW COMPLETED DATE/TIME: 11/08/2016 6:37 am REASON FOR STUDY: Mechanical ventilation COMPARISON: 11/07/2016. EXAM PARAMETERS: NUMBER OF VIEWS: One view. TECHNIQUE: Single frontal radiographic view of the chest acquired. RADIATION DOSE: NA LIMITATIONS: None. FINDINGS: LUNGS AND PLEURA: Moderate mixed airspace and interstitial opacities with moderate bilater al lower haziness -layered effusion. Deep left costophrenic sulcus partially clipped. MEDIASTINUM AND HILAR STRUCTURES: No masses. Contour normal. HEART AND VASCULAR STRUCTURES: Moderate enlargement of the cardiac silhouette. BONES: No acute findings. HARDWARE: Adequate appearing endotracheal tube tip at the thoracic inlet. Likely adequate NG tube no t imaged distally. Right IJ central line tip at the lower cavoatrial junction. OTHER: No other significant finding. IMPRESSION: No significant interval change. TECHNICAL DOCUMENTATION: JOB ID: [id number]
[2016-11-08] MEDS: TOBRAMYCIN SULFATE NEB 40 MG/ML 30 ML NEB SCH (08:23)
[2016-11-08] MEDS: POTASSI CL 20 MEQ/50 ML RIDER 50 ML IV SCH ×2 (10:18→17:23)
[2016-11-08] MEDS: MIDAZOLAM HCL 100 ML IV PRN ×3 (10:32→22:56)
[2016-11-08] MEDS: FAMOTIDINE INJ/PF 20 MG/2 ML SDV IV SCH ×2 (10:32→21:19)
--- NOTE | 2016-11-08 10:56 | PDOC PROGRESS REPORT ---
Subjective Progress Note for:: 11/08/16 Subjective:: Intubated and sedated Physical Exam Vital Signs: Temp Pulse Resp BP Pulse Ox 97.7 F 70 10 L 106/47 L 96 11/08/16 07:59 11/08/16 07:59 11/08/16 07:59 11/08/16 07:59 11/08/16 07:59 Intake & Output 11/07/16 11/08/16 11/09/16 06:59 06:59 06:59 Intake Total 1878 1245 Output Total 9985 3120 180 Balance -457 -1875 -180 Weight 178 kg 177.7 kg General appearance: PRESENT: no acute distress, disheveled, morbidly obese Head exam: PRESENT: atraumatic, normocephalic Eye exam: PRESENT: conjunctiva pale Mouth exam: PRESENT: dry mucosa, neck supple, tongue midline, other - ET tube in place Neck exam: ABSENT: carotid bruit, JVD, lymphadenopathy, thyromegaly Respiratory exam: PRESENT: decreased breath sounds, prolonged expiratory phas, rales, rhonchi, symmetrical, tachypnea Cardiovascular exam: PRESENT: irregular rhythm Pulses: PRESENT: normal radial pulses GI/Abdominal exam: PRESENT: normal bowel sounds, soft. ABSENT: distended, guarding, mass, organolmegaly, rebound, tenderness Rectal exam: PRESENT: deferred Gentrourinary exam: PRESENT: indwelling catheter Extremities exam: PRESENT: +1 edema Skin exam: PRESENT: dry, warm Results Laboratory Results: 11/08/16 04:57 11/08/16 04:57 11/08/16 11/08/16 11/08/16 04:57 04:57 04:57 WBC 6.9 RBC 2.94 L Hgb 8.5 L Hct 25.5 L MCV 87 MCH 29.0 MCHC 33.5 RDW 16.3 H Plt Count 179 Seg Neutrophils % 73.7 Lymphocytes % 13.0 Monocytes % 8.3 Eosinophils % 4.4 Basophils % 0.6 Absolute Neutrophils 5.1 Absolute Lymphocytes 0.9 Absolute Monocytes 0.6 Absolute Eosinophils 0.3 Absolute Basophils 0.0 Carbonic Acid 1.69 H HCO3/H2CO3 Ratio 20:1 ABG pH 7.42 ABG pCO2 56.3 H ABG pO2 108.1 H ABG HCO3 35.3 H ABG O2 Saturation 97.9 ABG Base Excess 9.5 FiO2 35% Sodium 142.7 Potassium 3.1 L Chloride 100 Carbon Dioxide 34 H Anion Gap 9 BUN 33 H Creatinine 2.00 H Est GFR ( Amer) 40 L Est GFR (Non-Af Amer) 33 L Glucose 133 H Calcium 7.9 L Total Bilirubin 0.5 AST 45 ALT 32 Alkaline Phosphatase 72 Total Protein 5.3 L Albumin 2.1 L 10/29/16 10/29/16 10/30/16 20:00 20:00 03:58 Creatine Kinase 72 55 CK-MB (CK-2) 1.52 Troponin I < 0.012 10/30/16 10/30/16 10/30/16 03:58 13:40 13:40 Creatine Kinase 45 L CK-MB (CK-2) 0.89 0.46 Troponin I < 0.012 < 0.012 Impressions: Renal Ultrasound 10/29/16 00:00 IMPRESSION: Limited study as noted above. No right renal abnormalities were identified. Left kidney could not be visualized. Eaton catheter in the bladder. Chest X-Ray 11/08/16 06:00 IMPRESSION: No significant interval change. Assessment & Plan - Diagnosis (1) Acute on chronic combined systolic and diastolic congestive heart failure Is this a current diagnosis for this admission?: Yes (2) Dyspnea Qualifiers: Dyspnea type: unspecified Qualified Code(s): R06.00 - Dyspnea, unspecified Is this a current diagnosis for this admission?: No (3) Morbid (severe) obesity with alveolar hypoventilation Is this a current diagnosis for this admission?: Yes (4) Pulmonary vascular congestion Is this a current diagnosis for this admission?: YesPlan: Radiographically improved (5) Respiratory failure Qualifiers: Chronicity: chronic Respiratory failure complication: hypoxia and hypercapnia Qualified Code(s): J96.11 - Chronic respiratory failure with hypoxia Is this a current diagnosis for this admission?: YesPlan: Labs- All tests 24 hr 11/08/16 11/08/16 11/08/16 04:57 04:57 04:57 WBC 6.9 Hgb 8.5 L Hct 25.5 L Plt Count 179 ABG pH 7.42 ABG pCO2 56.3 H ABG pO2 108.1 H ABG O2 Saturation 97.9 FiO2 35% Carbon Dioxide 34 H 10/30/16 08:52 Gram Stain - Final Tracheal Aspirate Sputum Culture - Final Klebsiella Pneumoniae C.albicans/C.dubliniensis Normal Noemi Absent Very encouraged to speech has been weaned slowly from 15 cm of water to 7 cm water (6) Cardiac arrest Is this a current diagnosis for this admission?: Yes - Time Critical Time spent with patient: 35 or more minutes - Discussed with RN, RT, cardiology and nutrition 55min
[2016-11-08] MEDS: DEXTROSE 5%-WATER 250 ML with NOREPINEPHRINE BITARTRATE 4 MG IV PRN ×2 (11:24)
[2016-11-08] MEDS: MIDAZOLAM 2 MG/2 ML INJ IV PRN (16:19)
--- NOTE | 2016-11-08 16:39 | PDOC PROGRESS REPORT ---
Subjective Progress Note for:: 11/08/16 Subjective:: Patient is currently intubated and sedated. Plans were discussed with supervising nurse of the patient. He is responding questions and is able to point to things in the room. He was trying to mouth some words, but could not tell what he was saying due to the ET tube. His FiO2 is 40% as a work on weaning off the vent. Currently still sedated by 6mg of versed. Blood pressures increasing to the 140s to 150s and heart rate in the 80s. His dopamine drip was off and he is off theophylline. Levophed is off as well. He produced 3L of urine yesterday while on 20mg TID of IV lasix. Physical Exam Vital Signs: Temp Pulse Resp BP Pulse Ox 98.8 F 88 12 126/58 H 96 11/08/16 16:00 11/08/16 16:00 11/08/16 16:00 11/08/16 16:00 11/08/16 16:00 Intake & Output 11/07/16 11/08/16 11/09/16 06:59 06:59 06:59 Intake Total 1878 1245 Output Total 2335 3120 1080 Balance -457 -1875 -1080 Weight 178 kg 177.7 kg General appearance: PRESENT: no acute distress, morbidly obese, well-developed, well-nourished Head exam: PRESENT: atraumatic, normocephalic Mouth exam: PRESENT: moist, neck supple Neck exam: ABSENT: JVD, tracheal deviation Respiratory exam: PRESENT: clear to auscultation maryann. ABSENT: accessory muscle use, chest wall tenderness, crackles, rales, rhonchi, wheezes Cardiovascular exam: PRESENT: RRR, +S1, +S2, systolic murmur GI/Abdominal exam: PRESENT: normal bowel sounds, soft. ABSENT: organomegaly, tenderness Extremities exam: PRESENT: pedal edema - 1/2+. ABSENT: tenderness Musculoskeletal exam: PRESENT: normal inspection. ABSENT: deformity Neurological exam: PRESENT: alert, awake Skin exam: PRESENT: dry, intact, normal color Results Laboratory Results: 11/08/16 04:57 11/08/16 04:57 11/08/16 11/08/16 11/08/16 04:57 04:57 04:57 WBC 6.9 RBC 2.94 L Hgb 8.5 L Hct 25.5 L MCV 87 MCH 29.0 MCHC 33.5 RDW 16.3 H Plt Count 179 Seg Neutrophils % 73.7 Lymphocytes % 13.0 Monocytes % 8.3 Eosinophils % 4.4 Basophils % 0.6 Absolute Neutrophils 5.1 Absolute Lymphocytes 0.9 Absolute Monocytes 0.6 Absolute Eosinophils 0.3 Absolute Basophils 0.0 Carbonic Acid 1.69 H HCO3/H2CO3 Ratio 20:1 ABG pH 7.42 ABG pCO2 56.3 H ABG pO2 108.1 H ABG HCO3 35.3 H ABG O2 Saturation 97.9 ABG Base Excess 9.5 FiO2 35% Sodium 142.7 Potassium 3.1 L Chloride 100 Carbon Dioxide 34 H Anion Gap 9 BUN 33 H Creatinine 2.00 H Est GFR ( Amer) 40 L Est GFR (Non-Af Amer) 33 L Glucose 133 H Calcium 7.9 L Total Bilirubin 0.5 AST 45 ALT 32 Alkaline Phosphatase 72 Total Protein 5.3 L Albumin 2.1 L 10/29/16 10/29/16 10/30/16 20:00 20:00 03:58 Creatine Kinase 72 55 CK-MB (CK-2) 1.52 Troponin I < 0.012 10/30/16 10/30/16 10/30/16 03:58 13:40 13:40 Creatine Kinase 45 L CK-MB (CK-2) 0.89 0.46 Troponin I < 0.012 < 0.012 Impressions: Renal Ultrasound 10/29/16 00:00 IMPRESSION: Limited study as noted above. No right renal abnormalities were identified. Left kidney could not be visualized. Eaton catheter in the bladder. Chest X-Ray 11/08/16 06:00 IMPRESSION: No significant interval change. Assessment & Plan - Diagnosis (1) Hypokalemia Plan: Recommend IV potassium three times while he is urinating so much. (2) Acute kidney injury superimposed on chronic kidney disease Is this a current diagnosis for this admission?: YesPlan: Looks to be stable but still a slight bit above baseline. Decreasing lasix to 20mg IV BID. (3) Aspiration pneumonia Qualifiers: Aspiration pneumonia type: due to gastric secretions Laterality: bilateral Lung location: unspecified part of lung Qualified Code(s): J69.0 - Pneumonitis due to inhalation of food and vomit Is this a current diagnosis for this admission?: YesPlan: Resolving, white count is down (4) Bradycardia Is this a current diagnosis for this admission?: YesPlan: Resolved (5) CHF (congestive heart failure) Plan: Resolving, decreasing lasix to 20mg IV BID (6) Respiratory failure Qualifiers: Chronicity: chronic Respiratory failure complication: hypoxia and hypercapnia Qualified Code(s): J96.11 - Chronic respiratory failure with hypoxia Is this a current diagnosis for this admission?: YesPlan: Looks to be making great improvement on vent. He is currently working towards extubation.
[2016-11-08] MEDS ORDERED: FUROSEMIDE INJ/PF 20 MG/2 ML SDV IV SCH (22:00)
--- NOTE | 2016-11-08 22:32 | PROGRESS NOTE E ---
Progress Note NAME: HANSEL DELGADILLO : 1940 AGE: 76Y DATE: 11/08/2016 ROOM: 610 SUBJECTIVE: Note that the patient remains status post. There is not much improvement. The patient continues to have bilateral pleural effusions and also bilateral infiltrates. The patient has gone back into his rhythm of severe first degree AV block alternating with accelerated junctional escape rhythm, but the patient is not bradycardic. His blood pressure is stable. The patient is drowsy but still responds to questions by nodding his head. He denies any chest pain. He continues to have some dyspnea. Although it is difficult to state but the patient is straining on his restraints, suggest that there is no CVA. OBJECTIVE: GENERAL: On examination the patient is morbidly obese. VITAL SIGNS: He is afebrile with a temperature of 98.4 degrees Fahrenheit, pulse is 81 beats per minute, blood pressure 127/59, respirations are 10 on the mechanical ventilator and O2 saturations are 95% on an FiO2 of 40%. HEENT: Head is atraumatic and normocephalic. Eyes: Pupils are equal, round, regular, reactive to light and accommodation. Extraocular movements are normal. There is no conjunctival pallor. ENT is negative. NECK: Supple without lymphadenopathy. There appears to be some mild JVD today. Trachea is central. There is no goiter. Carotids are equal without any bruits. LUNGS: There is absent breath sounds in both bases and *------* bibasilar dry crackles. There is no chest wall tenderness since the patient does not grimace when pressed on the chest. HEART: S1 and S2 is heard. There is no S3 gallop. There is no S4 gallop. There is a variable S1 in intensity. There is a systolic murmur in the left sternal border and a systolic murmur in the mitral area. There is no rub. ABDOMEN: Soft, obese, nontender. Bowel sounds are normal. There is no hepatosplenomegaly. EXTREMITIES: There is still pedal edema in both feet. There is mild edema in the legs also. There is no cellulitis. CENTRAL NERVOUS SYSTEM: The patient appears to be slightly drowsy but still able to follow commands and from my judgment there are no focal deficits, but I cannot be sure. PSYCHIATRIC: The patient does not appear to be agitated. He is not fighting the ventilator. DIAGNOSTIC STUDIES: The patient's chest x-ray continues to show moderate cardiomegaly. Lungs show bilateral pleural effusions and also mixed airspace and interstitial opacities. There is moderate pleural effusions bilaterally. There is moderate cardiomegaly. The patient's rhythm strips on the monitor shows severe first degree AV block alternating with a skipped junctional escape rhythm. The patient's white count is 6900, hemoglobin has dropped to 8.5, hematocrit is 25.5, and his platelet count is 179,000. The patient's sodium is 142.7, potassium is 3.1, chloride is 100, CO2 is 34. The patient's BUN is 33, creatinine is 2.0, and the patient's GFR is 40, still chronic kidney disease but has slightly improved. Glucose is 133. His calcium is 7.6. His liver function tests are normal. His albumin is low at 2.1 and total protein is 5.3. IMPRESSION: 1. ACUTE ON CHRONIC RIGHT VENTRICULAR SYSTOLIC HEART FAILURE WITH BILATERAL LEG EDEMA AND BILATERAL PLEURAL EFFUSION. 2. PULMONARY HYPERTENSION. 3. SEVERE FIRST DEGREE AV BLOCK. 4. RIGHT FAILED JUNCTIONAL RHYTHM. 5. CARDIOPULMONARY ARREST BY HISTORY WITH SUCCESSFUL RESUSCITATION. 6. ACUTE ON CHRONIC RESPIRATORY FAILURE. Note that the patient's ABGs today shows a pH of 7.42, his pCO2 is still elevated at 56.3, but his pO2 is 108.1, and his O2 saturation are 97.9% on FiO2 of 35%. Hence the patient is still hypoxic respiratory failure. 7. ACUTE ON CHRONIC LEFT VENTRICULAR DIASTOLIC HEART FAILURE, AT PRESENT THERE IS NO SIGNIFICANT EVIDENCE OF HEART FAILURE. 8. ACUTE ON CHRONIC RIGHT VENTRICULAR SYSTOLIC FAILURE. 9. DYSPNEA. 10. SEVERE OBESITY WITH ALVEOLAR HYPOVENTILATION. 11. CHRONIC KIDNEY DISEASE STAGE 3 WITH SLIGHT IMPROVEMENT IN THE GFR. 12. DIABETES MELLITUS, INSULIN REQUIRING. BLOOD PRESSURE FAIRLY STABLE. 13. HYPOTENSION, RESOLVED. 14. BRADYCARDIA, RESOLVED. 15. ANEMIA. The patient's hemoglobin has dropped, this may be dilution. 16. HYPOKALEMIA. 17. HISTORY OF HYPERTENSION. 18. HYPERLIPIDEMIA. PLAN: We will cut down the fluids to KVO. Would change the patient's propofol to Versed drip for sedation. Also would continue the patient's Lasix. We will start the patient on Levophed at 1 mcg/min to see if this will help the patient's pulmonary hypertension. This has been discussed with filler leaf cutter long and attending physician on the case. TIME SPENT: Note 30 minutes of time spent on this patient with more than 50% of the time spent in direct patient care and also medications were reviewed and adjustment of medications and starting new medications. Continues to be high level medical decision making case. We will follow with you. Would also on anemia workup to make sure that this drop in hemoglobin is not dilution. ADDENDUM: The patient's 24 hour intake is 1245 mL, output is 3120 mL. PROGNOSIS: The patient's prognosis is very grave. Will follow with you, thanking you. DICTATING PHYSICIAN: MIGUEL LOZANO M.D. [id number] RENETTA#: [id number] ID: [id number] JOB#: [id number] ACCT: [id number] cc: >
[2016-11-09] MEDS: AMPICILLIN SODIUM/SULBACTAM NA 3 GM in NORMAL SALINE 100 ML IV SCH ×4 (00:30→17:56)
[2016-11-09] MEDS: MIDAZOLAM 2 MG/2 ML INJ IV PRN (02:54)
[2016-11-09] MEDS: MIDAZOLAM HCL 100 ML IV PRN (04:28)
[2016-11-09] MEDS: FUROSEMIDE INJ/PF 20 MG/2 ML SDV IV SCH ×3 (05:35→21:57)
[2016-11-09 05:58] LABS: ARTERIAL BLOOD BASE EXCESS 9.7 mmol/L; ARTERIAL BLOOD O2 SATURATION 94.7 % (94-98)
[2016-11-09] MEDS: POTASSI CL 20 MEQ/50 ML RIDER 20 MEQ/50 ML RTUPB IV SCH ×3 (05:58→21:59)
[2016-11-09 06:01] LABS: ABSOLUTE BASOPHILS # (AUTO) 0.1 10^3/uL (0.0-0.2); ABSOLUTE EOSINOPHILS # (AUTO) 0.3 10^3/uL (0.0-0.6); ABSOLUTE LYMPHOCYTES (AUTO) 1.3 10^3/uL (0.5-4.7); ABSOLUTE MONOCYTES (AUTO) 0.7 10^3/uL (0.1-1.4); ABSOLUTE NEUT (AUTO) 6.6 10^3/uL (1.7-8.2); BASOPHILS % (AUTO) 0.7 % (0-2); EOSINOPHILS % (AUTO) 2.8 % (0-6); HEMATOCRIT 29.2 % (37.9-51.0); HEMOGLOBIN 9.5 g/dL (13.5-17.0); HGB HCT DIFFERENCE -0.7; MEAN CORPUSCULAR HEMOGLOBIN 28.5 pg (27.0-33.4); MEAN CORPUSCULAR HGB CONC 32.4 g/dL (32.0-36.0); MEAN CORPUSCULAR VOLUME 88 fl (80-97); MONOCYTES % (AUTO) 8.4 % (3-13); RED BLOOD COUNT 3.33 10^6/uL (4.35-5.55); RED CELL DISTRIBUTION WIDTH 16.4 % (11.5-14.0); SEGMENTED NEUTROPHILS % (AUTO) 74.1 % (42-78)
[2016-11-09 06:26] LABS: ALANINE AMINOTRANSFERASE 37 U/L (21-72); ALBUMIN 2.4 g/dL (3.5-5.0); ALKALINE PHOSPHATASE 84 U/L (38-126); ANION GAP 10 (5-19); ASPARTATE AMINO TRANSFERASE 57 U/L (17-59); BILIRUBIN,DIRECT 0.6 mg/dL (0.0-0.4); BILIRUBIN,TOTAL 0.6 mg/dL (0.2-1.3); BLOOD UREA NITROGEN 29 mg/dL (7-20); CALCIUM 8.3 mg/dL (8.4-10.2); CARBON DIOXIDE 34 mmol/L (22-30); CHLORIDE 101 mmol/L (98-107); CREATININE RESULT 1.96 mg/dL (0.52-1.25); GLUCOSE 150 mg/dL (75-110); MAGNESIUM 1.6 mg/dL (1.6-2.3); SODIUM 144.9 mmol/L (137-145); TOTAL PROTEIN 5.7 g/dL (6.3-8.2)
[2016-11-09 07:33] LABS: FOLATE 6.68 ng/mL (>2.76)
--- NOTE | 2016-11-09 08:01 | RADIOLOGY REPORT (SQ) ---
EXAM DESCRIPTION: CHEST SINGLE VIEW COMPLETED DATE/TIME: 11/09/2016 6:28 am REASON FOR STUDY: Mechanical ventilation COMPARISON: 11/08/2016. EXAM PARAMETERS: NUMBER OF VIEWS: One view. TECHNIQUE: Single frontal radiographic view of the chest acquired. RADIATION DOSE: NA LIMITATIONS: None. FINDINGS: LUNGS AND PLEURA: Moderate mixed interstitial and airspace opacities of both lung linares, right more than left. Moderate left basilar opacity -effusion. MEDIASTINUM AND HILAR STRUCTURES: No masses. Contour normal. HEART AND VASCULAR STRUCTURES: Moderate enlargement of the cardiac silhouette. BONES: No acute findings. HARDWARE: Adequate appearing endotracheal tube. Tip of a right internal jugular central line at the right atrium ; consider 5 cm retraction. OTHER: No other significant finding. IMPRESSION: No significant interval change. TECHNICAL DOCUMENTATION: JOB ID: [id number]
[2016-11-09] MEDS: FAMOTIDINE INJ/PF 20 MG/2 ML SDV IV SCH ×2 (09:19→21:57)
--- NOTE | 2016-11-09 10:28 | PDOC PROGRESS REPORT ---
Subjective Progress Note for:: 11/09/16 Subjective:: trying to talk & write Physical Exam Vital Signs: Temp Pulse Resp BP Pulse Ox 96.6 F L 92 15 149/58 H 95 11/09/16 06:35 11/08/16 22:00 11/09/16 06:35 11/09/16 02:00 11/09/16 08:00 Intake & Output 11/08/16 11/09/16 11/10/16 07:59 07:59 07:59 Intake Total 1245 1378 Output Total 3308 2089 Balance -2054 Weight 391 lb 12.183 oz 382 lb 4.505 oz General appearance: PRESENT: no acute distress Respiratory exam: PRESENT: clear to auscultation maryann Cardiovascular exam: ABSENT: diastolic murmur, irregular rhythm, systolic murmur GI/Abdominal exam: ABSENT: mass, organolmegaly, tenderness Extremities exam: PRESENT: pedal edema Results Laboratory Results: 11/09/16 05:45 11/09/16 05:45 11/09/16 11/09/16 11/09/16 05:45 05:45 05:45 WBC 9.0 RBC 3.33 L Hgb 9.5 L Hct 29.2 L MCV 88 MCH 28.5 MCHC 32.4 RDW 16.4 H Plt Count 209 Seg Neutrophils % 74.1 Lymphocytes % 14.0 Monocytes % 8.4 Eosinophils % 2.8 Basophils % 0.7 Absolute Neutrophils 6.6 Absolute Lymphocytes 1.3 Absolute Monocytes 0.7 Absolute Eosinophils 0.3 Absolute Basophils 0.1 Retic Count (auto) 1.24 Absolute Retic 0.041 Carbonic Acid 1.69 H HCO3/H2CO3 Ratio 21:1 ABG pH 7.42 ABG pCO2 56.0 H ABG pO2 73.5 L ABG HCO3 35.7 H ABG O2 Saturation 94.7 ABG Base Excess 9.7 FiO2 35% Sodium 144.9 Potassium 3.0 L* Chloride 101 Carbon Dioxide 34 H Anion Gap 10 BUN 29 H Creatinine 1.96 H Est GFR ( Amer) 41 L Est GFR (Non-Af Amer) 34 L Glucose 150 H Calcium 8.3 L Magnesium 1.6 Iron 26.5 L TIBC Not Reportable % Saturation 11 Ferritin 236.00 Total Bilirubin 0.6 AST 57 ALT 37 Alkaline Phosphatase 84 Total Protein 5.7 L Albumin 2.4 L Vitamin B12 756.0 Folate 6.68 Impressions: Renal Ultrasound 10/29/16 00:00 IMPRESSION: Limited study as noted above. No right renal abnormalities were identified. Left kidney could not be visualized. Eaton catheter in the bladder. Chest X-Ray 11/09/16 06:00 IMPRESSION: No significant interval change. Assessment & Plan - Diagnosis (1) Respiratory failure Qualifiers: Chronicity: chronic Respiratory failure complication: hypoxia and hypercapnia Qualified Code(s): J96.11 - Chronic respiratory failure with hypoxia Is this a current diagnosis for this admission?: YesPlan: d12 vent. Less peep than at first. (2) Aspiration pneumonia Qualifiers: Aspiration pneumonia type: due to gastric secretions Laterality: bilateral Lung location: unspecified part of lung Qualified Code(s): J69.0 - Pneumonitis due to inhalation of food and vomit Is this a current diagnosis for this admission?: YesPlan: xr improving (3) Acute on chronic combined systolic and diastolic congestive heart failure Is this a current diagnosis for this admission?: YesPlan: diuresing. K3. Increased KCl to q8h (4) Malnutrition due to starvation Is this a current diagnosis for this admission?: YesPlan: feeding held 2h for residual 120 then restarted (5) Morbid (severe) obesity with alveolar hypoventilation Is this a current diagnosis for this admission?: Yes (6) Pulmonary hypertension Is this a current diagnosis for this admission?: Yes (7) Hematuria Qualifiers: Hematuria type: gross Qualified Code(s): R31.0 - Gross hematuria Is this a current diagnosis for this admission?: Yes (8) Cardiopulmonary arrest with successful resuscitation Is this a current diagnosis for this admission?: Yes (9) Hypothermia due to anesthesia Is this a current diagnosis for this admission?: Yes (10) Anemia due to blood loss, acute Is this a current diagnosis for this admission?: Yes - Inpatient Certification Medical Necessity: Significant Comorbidiites Make Outpatient Treatment Too Risky , Need Close Monitoring Due to Risk of Patient Decompensation, Need For Continuous Telemetry Monitoring, Need for IV Antibiotics, Risk of Complication if Not Cared For in Hospital, Risk of Diagnosis Which Will Require Inpatient Eval/Care/Monitoring
--- NOTE | 2016-11-09 12:56 | PDOC PROGRESS REPORT ---
Subjective Progress Note for:: 11/09/16 Subjective:: Patient is currently intubated and sedated. He is a little bit more sedated today. He was not opening his eyes but he was obeying commands. His FiO2 is 35% as he works on weaning off the vent. Currently still sedated by 2mg of versed. Blood pressures increasing to the 140s to 150s and heart rate in the 80s. His dopamine drip was off and he is off theophylline. Levophed is off as well. He produced 2L of urine yesterday while on 20mg TID of IV lasix. Physical Exam Vital Signs: Temp Pulse Resp BP Pulse Ox 96.6 F L 84 24 H 149/58 H 98 11/09/16 07:00 11/09/16 10:00 11/09/16 11:00 11/09/16 02:00 11/09/16 11:50 Intake & Output 11/08/16 11/09/16 11/10/16 06:59 06:59 06:59 Intake Total 1245 1378 Output Total 3120 2145 1535 Balance -1875 -767 -1535 Weight 177.7 kg 173.4 kg General appearance: PRESENT: no acute distress, morbidly obese, well-developed, well-nourished Head exam: PRESENT: atraumatic, normocephalic Mouth exam: PRESENT: moist, neck supple Neck exam: ABSENT: JVD, tracheal deviation Respiratory exam: PRESENT: crackles, rales. ABSENT: accessory muscle use, wheezes Cardiovascular exam: PRESENT: RRR, +S1, +S2, systolic murmur Vascular exam: PRESENT: normal capillary refill GI/Abdominal exam: PRESENT: normal bowel sounds, soft. ABSENT: organomegaly, tenderness Extremities exam: PRESENT: pedal edema - 1/2+. ABSENT: joint swelling Musculoskeletal exam: PRESENT: normal inspection. ABSENT: deformity Neurological exam: PRESENT: other - -currently sedated Skin exam: PRESENT: dry, normal color Results Laboratory Results: 11/09/16 05:45 11/09/16 05:45 11/09/16 11/09/16 11/09/16 05:45 05:45 05:45 WBC 9.0 RBC 3.33 L Hgb 9.5 L Hct 29.2 L MCV 88 MCH 28.5 MCHC 32.4 RDW 16.4 H Plt Count 209 Seg Neutrophils % 74.1 Lymphocytes % 14.0 Monocytes % 8.4 Eosinophils % 2.8 Basophils % 0.7 Absolute Neutrophils 6.6 Absolute Lymphocytes 1.3 Absolute Monocytes 0.7 Absolute Eosinophils 0.3 Absolute Basophils 0.1 Retic Count (auto) 1.24 Absolute Retic 0.041 Carbonic Acid 1.69 H HCO3/H2CO3 Ratio 21:1 ABG pH 7.42 ABG pCO2 56.0 H ABG pO2 73.5 L ABG HCO3 35.7 H ABG O2 Saturation 94.7 ABG Base Excess 9.7 FiO2 35% Sodium 144.9 Potassium 3.0 L* Chloride 101 Carbon Dioxide 34 H Anion Gap 10 BUN 29 H Creatinine 1.96 H Est GFR ( Amer) 41 L Est GFR (Non-Af Amer) 34 L Glucose 150 H Calcium 8.3 L Magnesium 1.6 Iron 26.5 L TIBC Not Reportable % Saturation 11 Ferritin 236.00 Total Bilirubin 0.6 AST 57 ALT 37 Alkaline Phosphatase 84 Total Protein 5.7 L Albumin 2.4 L Vitamin B12 756.0 Folate 6.68 10/29/16 10/29/16 10/30/16 20:00 20:00 03:58 Creatine Kinase 72 55 CK-MB (CK-2) 1.52 Troponin I < 0.012 10/30/16 10/30/16 10/30/16 03:58 13:40 13:40 Creatine Kinase 45 L CK-MB (CK-2) 0.89 0.46 Troponin I < 0.012 < 0.012 Impressions: Renal Ultrasound 10/29/16 00:00 IMPRESSION: Limited study as noted above. No right renal abnormalities were identified. Left kidney could not be visualized. Eaton catheter in the bladder. Chest X-Ray 11/09/16 06:00 IMPRESSION: No significant interval change. Assessment & Plan - Diagnosis (1) Hypokalemia Plan: Recent increase to 20mEQ IV TID, Will monitor to see if this raises the potassium levels. (2) Acute kidney injury superimposed on chronic kidney disease Is this a current diagnosis for this admission?: YesPlan: Looks to be stable but still a slight bit above baseline. Keep lasix at current dosage (3) CHF (congestive heart failure) Plan: Bilateral pleural effusions on X-ray. Keep IV lasix to 20mg TID. (4) Respiratory failure Qualifiers: Chronicity: chronic Respiratory failure complication: hypoxia and hypercapnia Qualified Code(s): J96.11 - Chronic respiratory failure with hypoxia Is this a current diagnosis for this admission?: YesPlan: Looks to be making great improvement on vent. He is currently working towards extubation.
[2016-11-09] MEDS: DEXTROSE 5%-WATER 250 ML with NOREPINEPHRINE BITARTRATE 4 MG IV PRN ×2 (18:16)
--- NOTE | 2016-11-09 21:57 | PROGRESS NOTE E ---
Progress Note NAME: HANSEL DELGADILLO : 1940 AGE: 76Y DATE: 11/09/2016 ROOM: [facility] SUBJECTIVE: Note that the patient is a little more sedated, but still able to follow commands. There is no arrhythmia seen on the monitor. The patient is able to lie down flat. He is still intubated and sedated. His rhythm is more like an accelerated junctional rhythm. Note I had started the patient on Levophed for his pulmonary hypertension and right heart failure but without my knowledge drip has been tapered and stopped by the nurse. OBJECTIVE: GENERAL: On examination the patient is morbidly obese. VITAL SIGNS: He is afebrile with a temperature of 96.3 degrees Fahrenheit, pulse is 79 beats per minute, blood pressure is 134/76, respirations are 12 per minute, O2 saturations are 95% on an FiO2 of 40%. HEENT: Head is atraumatic and normocephalic. Eyes: Pupils are equal, round, regular, reactive to light. Extraocular movements are not tested. There is no conjunctival pallor. ENT is negative. NECK: Supple without lymphadenopathy. There appears to be some mild JVD present. Trachea is central. There is no goiter. Carotids are equal without any bruits. LUNGS: There is absent breath sounds in both bases and there are bibasilar dry crackles above the area of dullness. There is no chest wall tenderness. HEART: S1 and S2 is heard. There is no S3 gallop. There is no S4 gallop. There is a systolic murmur in the left sternal border and the apex and in the mitral area. There is no rub. ABDOMEN: Soft, obese, nontender. Bowel sounds are normal. There is no hepatosplenomegaly. EXTREMITIES: There is still some edema in both lower extremities. Femorals are diminished and deep and there is no femoral bruits. Leg pulses are difficult to palpate. Capillary refill is normal. There is no cyanosis or clubbing. CENTRAL NERVOUS SYSTEM: Not tested since the patient today is more deeply sedated than yesterday. PSYCHIATRIC: Not tested since the patient today is more deeply sedated than yesterday. INTAKE/OUTPUT: The patient's 24 hour intake is 1378 mL, output is 2145 mL. DIAGNOSTIC STUDIES: Reports it seems to be still some bibasilar opacities and pleural effusions seem to be slightly improved. The patient's white count is 9000, hemoglobin is 9.5, hematocrit is 29.2, platelet count is 209,000. The patient's sodium is 144.9, potassium is 3.0, chloride is 101, CO2 is 34. The patient's BUN is 29, creatinine is 1.96, GFR is 41. The glucose is 150, calcium is 8.3. The patient's magnesium is 1.6. The patient's iron is 26.5 which is low, TIBC is not reportable, the percent saturation is 11, the ferritin is 236. The liver function tests are normal except for a slightly increased direct bilirubin 0.6. The patient's vitamin B12 is 756 and the patient's folate is 6.68. Albumin is 2.4, total protein is 5.7. IMPRESSION: 1. ACUTE ON CHRONIC RIGHT VENTRICULAR SYSTOLIC HEART FAILURE WITH BILATERAL LEG EDEMA AND BILATERAL PLEURAL EFFUSION. 2. PULMONARY HYPERTENSION. 3. SEVERE FIRST DEGREE AV BLOCK. AT PRESENT PATIENT IN ACCELERATED JUNCTIONAL RHYTHM. 4. ACCELERATED JUNCTIONAL RHYTHM. 5. CARDIOPULMONARY ARREST BY HISTORY WITH SUCCESSFUL RESUSCITATION. 6. ACUTE ON CHRONIC RESPIRATORY FAILURE. 7. ACUTE ON CHRONIC LEFT VENTRICULAR DIASTOLIC HEART FAILURE, AT PRESENT THERE IS NO SIGNIFICANT EVIDENCE OF LEFT HEART FAILURE. 8. ACUTE ON CHRONIC RIGHT VENTRICULAR SYSTOLIC FAILURE. 9. SEVERE OBESITY WITH ALVEOLAR HYPOVENTILATION. 10. CHRONIC KIDNEY DISEASE STAGE 3 WITH SLIGHT IMPROVEMENT IN THE GFR. 11. DIABETES MELLITUS, INSULIN REQUIRING. BLOOD SUGAR FAIRLY STABLE. 12. HYPOTENSION, RESOLVED. 13. BRADYCARDIA, RESOLVED. 14. ANEMIA, SEEMS TO BE IRON DEFICIENCY ANEMIA. 15. HYPOKALEMIA. 16. HISTORY OF HYPERTENSION. 17. HYPERLIPIDEMIA. RECOMMENDATION: Continue ventilator support and sedation. Would lighten the patient's sedation, replace the patient's potassium. Continue antibiotics. Continue diuretics. Continue the patient on Levophed for pulmonary hypertension. I have instructed the nurses not to wean off the Levophed and if there should be any complications with Levophed such as arrhythmias or increased blood pressure to call me before stopping it. Note, nephrology is following the case and later we will try to start the patient on hydralazine. TIME SPENT: Note 30 minutes spent on this patient with more than 50% of the time spent on direct patient care. His medications have been reviewed and discussions with the nurses and other caregiving providers. The patient continues to be in a scenario where high complex medical decision making is necessary. Will follow with you, thanking you. DICTATING PHYSICIAN: MIGUEL LOZANO M.D. [id number] RENETTA#: [id number] ID: [id number] JOB#: [id number] ACCT: [id number] cc: >
[2016-11-10] MEDS: AMPICILLIN SODIUM/SULBACTAM NA 3 GM in NORMAL SALINE 100 ML IV SCH ×5 (00:08→23:00)
[2016-11-10] MEDS: FUROSEMIDE INJ/PF 20 MG/2 ML SDV IV SCH ×3 (05:18→21:33)
[2016-11-10] MEDS: POTASSI CL 20 MEQ/50 ML RIDER 20 MEQ/50 ML RTUPB IV SCH ×3 (05:29→20:51)
[2016-11-10 05:38] LABS: ARTERIAL BLOOD BASE EXCESS 11.4 mmol/L; ARTERIAL BLOOD O2 SATURATION 96.6 % (94-98)
[2016-11-10 05:40] LABS: ABSOLUTE BASOPHILS # (AUTO) 0.1 10^3/uL (0.0-0.2); ABSOLUTE EOSINOPHILS # (AUTO) 0.3 10^3/uL (0.0-0.6); ABSOLUTE LYMPHOCYTES (AUTO) 1.2 10^3/uL (0.5-4.7); ABSOLUTE MONOCYTES (AUTO) 0.8 10^3/uL (0.1-1.4); ABSOLUTE NEUT (AUTO) 9.6 10^3/uL (1.7-8.2); BASOPHILS % (AUTO) 0.5 % (0-2); EOSINOPHILS % (AUTO) 2.2 % (0-6); HEMATOCRIT 31.9 % (37.9-51.0); HEMOGLOBIN 10.4 g/dL (13.5-17.0); HGB HCT DIFFERENCE -0.7; LYMPHOCYTES % (AUTO) 9.9 % (13-45); MEAN CORPUSCULAR HEMOGLOBIN 28.2 pg (27.0-33.4); MEAN CORPUSCULAR HGB CONC 32.5 g/dL (32.0-36.0); MEAN CORPUSCULAR VOLUME 87 fl (80-97); MONOCYTES % (AUTO) 7.1 % (3-13); RED BLOOD COUNT 3.68 10^6/uL (4.35-5.55); RED CELL DISTRIBUTION WIDTH 16.3 % (11.5-14.0); SEGMENTED NEUTROPHILS % (AUTO) 80.3 % (42-78)
[2016-11-10 05:55] LABS: ALANINE AMINOTRANSFERASE 44 U/L (21-72); ALBUMIN 2.7 g/dL (3.5-5.0); ALKALINE PHOSPHATASE 108 U/L (38-126); ANION GAP 10 (5-19); ASPARTATE AMINO TRANSFERASE 69 U/L (17-59); BILIRUBIN,DIRECT 0.6 mg/dL (0.0-0.4); BILIRUBIN,TOTAL 0.6 mg/dL (0.2-1.3); BLOOD UREA NITROGEN 23 mg/dL (7-20); CALCIUM 8.9 mg/dL (8.4-10.2); CARBON DIOXIDE 38 mmol/L (22-30); CHLORIDE 98 mmol/L (98-107); CREATININE RESULT 1.73 mg/dL (0.52-1.25); GLUCOSE 198 mg/dL (75-110); MAGNESIUM 1.5 mg/dL (1.6-2.3); PHOSPHORUS 3.7 mg/dL (2.5-4.5); POTASSIUM 3.1 mmol/L (3.6-5.0); SODIUM 146.4 mmol/L (137-145); TOTAL PROTEIN 6.4 g/dL (6.3-8.2); TRIGLYCERIDES 104 mg/dL (<150)
[2016-11-10] MEDS ORDERED: MAGNESIUM SULFATE/D5W 100 ML IV ONE (06:44)
--- NOTE | 2016-11-10 07:28 | PDOC PROGRESS REPORT ---
Subjective Progress Note for:: 11/10/16 Subjective:: nods Physical Exam Vital Signs: Temp Pulse Resp BP Pulse Ox 97.2 F 94 14 149/58 H 98 11/10/16 06:00 11/09/16 21:10 11/10/16 06:00 11/09/16 02:00 11/10/16 06:00 Intake & Output 11/08/16 11/09/16 11/10/16 07:59 07:59 07:59 Intake Total 1245 1378 1728 Output Total 3301 1159 2582 Balance -0009 -6121 -0684 Weight 391 lb 12.183 oz 382 lb 4.505 oz 375 lb 3.628 oz General appearance: PRESENT: no acute distress Respiratory exam: PRESENT: clear to auscultation maryann Cardiovascular exam: ABSENT: diastolic murmur, irregular rhythm, systolic murmur GI/Abdominal exam: ABSENT: mass, organolmegaly, tenderness Extremities exam: PRESENT: pedal edema - but less Neurological exam: PRESENT: alert Psychiatric exam: PRESENT: appropriate affect Results Laboratory Results: 11/10/16 05:25 11/10/16 05:25 Abnormal - 24 hr 11/09/16 11/09/16 11/09/16 05:45 11:26 15:35 WBC RBC Hgb Hct RDW Seg Neutrophils % Lymphocytes % Absolute Neutrophils Carbonic Acid ABG pCO2 ABG HCO3 ABG Total CO2 Sodium Potassium 3.0 L* Carbon Dioxide 34 H BUN 29 H Creatinine 1.96 H Est GFR ( Amer) 41 L Est GFR (Non-Af Amer) 34 L Glucose 150 H POC Glucose 157 H 160 H Calcium 8.3 L Magnesium Iron 26.5 L Direct Bilirubin 0.6 H AST Total Protein 5.7 L Albumin 2.4 L 11/09/16 11/10/16 11/10/16 18:03 05:25 05:25 WBC 12.0 H RBC 3.68 L Hgb 10.4 L Hct 31.9 L RDW 16.3 H Seg Neutrophils % 80.3 H Lymphocytes % 9.9 L Absolute Neutrophils 9.6 H Carbonic Acid 1.64 H ABG pCO2 54.6 H ABG HCO3 37.2 H ABG Total CO2 38.9 H Sodium Potassium Carbon Dioxide BUN Creatinine Est GFR ( Amer) Est GFR (Non-Af Amer) Glucose POC Glucose 164 H Calcium Magnesium Iron Direct Bilirubin AST Total Protein Albumin 11/10/16 05:25 WBC RBC Hgb Hct RDW Seg Neutrophils % Lymphocytes % Absolute Neutrophils Carbonic Acid ABG pCO2 ABG HCO3 ABG Total CO2 Sodium 146.4 H Potassium 3.1 L Carbon Dioxide 38 H BUN 23 H Creatinine 1.73 H Est GFR ( Amer) 47 L Est GFR (Non-Af Amer) 39 L Glucose 198 H POC Glucose Calcium Magnesium 1.5 L Iron Direct Bilirubin 0.6 H AST 69 H Total Protein Albumin 2.7 L Impressions: Renal Ultrasound 10/29/16 00:00 IMPRESSION: Limited study as noted above. No right renal abnormalities were identified. Left kidney could not be visualized. Eaton catheter in the bladder. Assessment & Plan - Diagnosis (1) Respiratory failure Qualifiers: Chronicity: chronic Respiratory failure complication: hypoxia and hypercapnia Qualified Code(s): J96.11 - Chronic respiratory failure with hypoxia Is this a current diagnosis for this admission?: YesPlan: I think he may be ready to wean. (2) Aspiration pneumonia Qualifiers: Aspiration pneumonia type: due to gastric secretions Laterality: bilateral Lung location: unspecified part of lung Qualified Code(s): J69.0 - Pneumonitis due to inhalation of food and vomit Is this a current diagnosis for this admission?: Yes (3) Acute on chronic combined systolic and diastolic congestive heart failure Is this a current diagnosis for this admission?: YesPlan: down50#. Mag rider (4) Malnutrition due to starvation Is this a current diagnosis for this admission?: YesPlan: feeding 35/h. Goal50 (5) Morbid (severe) obesity with alveolar hypoventilation Is this a current diagnosis for this admission?: Yes (6) Pulmonary hypertension Is this a current diagnosis for this admission?: YesPlan: continue levophed (7) Hematuria Qualifiers: Hematuria type: gross Qualified Code(s): R31.0 - Gross hematuria Is this a current diagnosis for this admission?: Yes (8) Cardiopulmonary arrest with successful resuscitation Is this a current diagnosis for this admission?: Yes (9) Hypothermia due to anesthesia Is this a current diagnosis for this admission?: Yes (10) Anemia due to blood loss, acute Is this a current diagnosis for this admission?: Yes
--- NOTE | 2016-11-10 07:43 | RADIOLOGY REPORT (SQ) ---
EXAM DESCRIPTION: CHEST SINGLE VIEW COMPLETED DATE/TIME: 11/10/2016 7:09 am REASON FOR STUDY: Mechanical ventilation COMPARISON: 11/09/2016. EXAM PARAMETERS: NUMBER OF VIEWS: One view. TECHNIQUE: Single frontal radiographic view of the chest acquired. RADIATION DOSE: NA LIMITATIONS: None. FINDINGS: LUNGS AND PLEURA: Moderate mixed airspace and interstitial opacity, moderate lung volume, and moderate left basilar opacity -layered effusion. Mild central pulmonary edema pattern. MEDIASTINUM AND HILAR STRUCTURES: No masses. Contour normal. HEART AND VASCULAR STRUCTURES: Heart normal in size. Normal vasculature. BONES: No acute findings. HARDWARE: Adequate appearing endotracheal tube. Rotated view. Right internal jugular line at the ri ght atrium; consider 4 cm retraction. Adequate appearing NG tube. OTHER: No other significant finding. IMPRESSION: No significant interval change. TECHNICAL DOCUMENTATION: JOB ID: [id number]
[2016-11-10] MEDS ORDERED: DEXAMETHASONE SOD PHOSPHATE INJ 4 MG/1 ML VIAL ONE (09:58)
[2016-11-10] MEDS ORDERED: PHENYLEPHRINE HCL INJ/PF 10 MG/1 ML SDV ONE (10:11)
[2016-11-10] MEDS ORDERED: SUCCINYLCHOLINE CHLORIDE INJ 200 MG/10 ML VIAL ONE (10:11)
[2016-11-10] MEDS: FAMOTIDINE INJ/PF 20 MG/2 ML SDV IV SCH ×2 (10:28→21:34)
[2016-11-10] MEDS ORDERED: DEXAMETHASONE SOD PHOSPHATE INJ 4 MG/1 ML VIAL IV ONE (11:15)
[2016-11-10] MEDS ORDERED: PROPOFOL 100 ML IV ONE (12:02)
[2016-11-10] MEDS: PROPOFOL 100 ML IV PRN ×5 (12:34→23:12)
[2016-11-10] MEDS ORDERED: PROPOFOL INJ 200 MG/20 ML VIAL IV ONE (12:36)
--- NOTE | 2016-11-10 12:43 | RADIOLOGY REPORT (SQ) ---
EXAM DESCRIPTION: CHEST SINGLE VIEW COMPLETED DATE/TIME: 11/10/2016 12:33 pm REASON FOR STUDY: EET PLACEMENT COMPARISON: 11/10/2016 EXAM PARAMETERS: NUMBER OF VIEWS: One view. TECHNIQUE: Single frontal radiographic view of the chest acquired. RADIATION DOSE: NA LIMITATIONS: Patient has made a shallow inspiration. FINDINGS: LUNGS AND PLEURA: There is increasing opacification of the right hemithorax which could re present atelectatic changes or pneumonic consolidation. Minimal densities are again identified in th e left lung. MEDIASTINUM AND HILAR STRUCTURES: No masses. Contour normal. HEART AND VASCULAR STRUCTURES: The configuration of the heart and mediastinal structures is unchanged . BONES: No acute findings. HARDWARE: Endotracheal tube is identified with its tip the level of the thoracic inlet. Central line is unchanged in position with its tip at the level of the right atrium. NG tube is seen in course t o the abdomen OTHER: No other significant finding. IMPRESSION: Increasing opacification of the right hemithorax as noted above. Other findings as note d above TECHNICAL DOCUMENTATION: JOB ID: [id number]
[2016-11-10] MEDS: INSULIN REG, HUMAN 100 UNIT/ML 3 ML VIAL (PYX) SUBCUT PRN ×3 (13:23→23:12)
--- NOTE | 2016-11-10 13:47 | PDOC PROGRESS REPORT ---
Subjective Progress Note for:: 11/09/16 Subjective:: Intubated and sedated responds appropriaye during vacation Physical Exam Vital Signs: Temp Pulse Resp BP Pulse Ox 96.6 F L 92 15 149/58 H 93 11/09/16 06:35 11/08/16 22:00 11/09/16 06:35 11/09/16 02:00 11/09/16 06:35 Intake & Output 11/08/16 11/09/16 11/10/16 06:59 06:59 06:59 Intake Total 1245 1378 Output Total 3120 2145 125 Balance -1875 -767 -125 Weight 177.7 kg 173.4 kg General appearance: PRESENT: no acute distress, cooperative, disheveled, morbidly obese Head exam: PRESENT: atraumatic, normocephalic Eye exam: PRESENT: conjunctiva pale, EOMI Mouth exam: PRESENT: dry mucosa, neck supple, tongue midline, other - R E Neck exam: ABSENT: carotid bruit, JVD, lymphadenopathy, thyromegaly Respiratory exam: PRESENT: decreased breath sounds, prolonged expiratory phas, rales, rhonchi, symmetrical, unlabored Cardiovascular exam: PRESENT: irregular rhythm Pulses: PRESENT: normal radial pulses GI/Abdominal exam: PRESENT: normal bowel sounds, soft. ABSENT: distended, guarding, mass, organolmegaly, rebound, tenderness Rectal exam: PRESENT: deferred Gentrourinary exam: PRESENT: indwelling catheter Extremities exam: PRESENT: +1 edema Neurological exam: PRESENT: alert, awake Psychiatric exam: PRESENT: flat affect Skin exam: PRESENT: dry Results Laboratory Results: 11/09/16 05:45 11/09/16 05:45 11/09/16 11/09/16 11/09/16 05:45 05:45 05:45 WBC 9.0 RBC 3.33 L Hgb 9.5 L Hct 29.2 L MCV 88 MCH 28.5 MCHC 32.4 RDW 16.4 H Plt Count 209 Seg Neutrophils % 74.1 Lymphocytes % 14.0 Monocytes % 8.4 Eosinophils % 2.8 Basophils % 0.7 Absolute Neutrophils 6.6 Absolute Lymphocytes 1.3 Absolute Monocytes 0.7 Absolute Eosinophils 0.3 Absolute Basophils 0.1 Retic Count (auto) 1.24 Absolute Retic 0.041 Carbonic Acid 1.69 H HCO3/H2CO3 Ratio 21:1 ABG pH 7.42 ABG pCO2 56.0 H ABG pO2 73.5 L ABG HCO3 35.7 H ABG O2 Saturation 94.7 ABG Base Excess 9.7 FiO2 35% Sodium 144.9 Potassium 3.0 L* Chloride 101 Carbon Dioxide 34 H Anion Gap 10 BUN 29 H Creatinine 1.96 H Est GFR ( Amer) 41 L Est GFR (Non-Af Amer) 34 L Glucose 150 H Calcium 8.3 L Magnesium 1.6 Iron 26.5 L TIBC Not Reportable % Saturation 11 Ferritin 236.00 Total Bilirubin 0.6 AST 57 ALT 37 Alkaline Phosphatase 84 Total Protein 5.7 L Albumin 2.4 L Vitamin B12 756.0 Folate 6.68 10/29/16 10/29/16 10/30/16 20:00 20:00 03:58 Creatine Kinase 72 55 CK-MB (CK-2) 1.52 Troponin I < 0.012 10/30/16 10/30/16 10/30/16 03:58 13:40 13:40 Creatine Kinase 45 L CK-MB (CK-2) 0.89 0.46 Troponin I < 0.012 < 0.012 Impressions: Renal Ultrasound 10/29/16 00:00 IMPRESSION: Limited study as noted above. No right renal abnormalities were identified. Left kidney could not be visualized. Eaton catheter in the bladder. Chest X-Ray 11/09/16 06:00 IMPRESSION: No significant interval change. Assessment & Plan - Diagnosis (1) Acute on chronic combined systolic and diastolic congestive heart failure Is this a current diagnosis for this admission?: Yes (2) Dyspnea Qualifiers: Dyspnea type: unspecified Qualified Code(s): R06.00 - Dyspnea, unspecified Is this a current diagnosis for this admission?: Yes (3) Morbid (severe) obesity with alveolar hypoventilation Is this a current diagnosis for this admission?: Yes (4) Pulmonary vascular congestion Is this a current diagnosis for this admission?: YesPlan: low dose levophed per cardiology (5) Respiratory failure Qualifiers: Chronicity: chronic Respiratory failure complication: hypoxia and hypercapnia Qualified Code(s): J96.11 - Chronic respiratory failure with hypoxia Is this a current diagnosis for this admission?: YesPlan: improving decreased FIO2 and PEEP requirements (6) Cardiac arrest Is this a current diagnosis for this admission?: Yes - Time Critical Time spent with patient: 35 or more minutes - 40 min
[2016-11-10 13:54] LABS: ARTERIAL BLOOD O2 SATURATION 95.9 % (94-98)
--- NOTE | 2016-11-10 13:54 | PDOC PROGRESS REPORT ---
Subjective Progress Note for:: 11/10/16 Subjective:: Intubated responds appropriately to commands Physical Exam Vital Signs: Temp Pulse Resp BP Pulse Ox 97.5 F 88 14 177/72 H 97 11/10/16 08:00 11/10/16 08:00 11/10/16 08:00 11/10/16 08:00 11/10/16 08:00 Intake & Output 11/09/16 11/10/16 11/11/16 06:59 06:59 06:59 Intake Total 1378 1728 Output Total 2148 4555 250 Balance -767 -2827 -250 Weight 173.4 kg 170.2 kg General appearance: PRESENT: no acute distress, cooperative, disheveled, morbidly obese Head exam: PRESENT: atraumatic, normocephalic Eye exam: PRESENT: conjunctiva pale, EOMI Mouth exam: PRESENT: dry mucosa, neck supple, tongue midline, other - ET tube in placed Neck exam: ABSENT: carotid bruit, JVD, lymphadenopathy, thyromegaly Respiratory exam: PRESENT: decreased breath sounds, prolonged expiratory phas, rhonchi, symmetrical, unlabored Cardiovascular exam: PRESENT: irregular rhythm Pulses: PRESENT: normal radial pulses GI/Abdominal exam: PRESENT: normal bowel sounds, soft. ABSENT: distended, guarding, mass, organolmegaly, rebound, tenderness Rectal exam: PRESENT: deferred Gentrourinary exam: PRESENT: indwelling catheter Extremities exam: PRESENT: +1 edema Neurological exam: PRESENT: alert, awake Skin exam: PRESENT: dry Results Laboratory Results: 11/10/16 05:25 11/10/16 05:25 11/10/16 11/10/16 11/10/16 05:25 05:25 05:25 WBC 12.0 H RBC 3.68 L Hgb 10.4 L Hct 31.9 L MCV 87 MCH 28.2 MCHC 32.5 RDW 16.3 H Plt Count 254 Seg Neutrophils % 80.3 H Lymphocytes % 9.9 L Monocytes % 7.1 Eosinophils % 2.2 Basophils % 0.5 Absolute Neutrophils 9.6 H Absolute Lymphocytes 1.2 Absolute Monocytes 0.8 Absolute Eosinophils 0.3 Absolute Basophils 0.1 Carbonic Acid 1.64 H HCO3/H2CO3 Ratio 22:1 ABG pH 7.45 ABG pCO2 54.6 H ABG pO2 84.4 ABG HCO3 37.2 H ABG O2 Saturation 96.6 ABG Base Excess 11.4 FiO2 40% Sodium 146.4 H Potassium 3.1 L Chloride 98 Carbon Dioxide 38 H Anion Gap 10 BUN 23 H Creatinine 1.73 H Est GFR ( Amer) 47 L Est GFR (Non-Af Amer) 39 L Glucose 198 H Calcium 8.9 Phosphorus 3.7 Magnesium 1.5 L Total Bilirubin 0.6 AST 69 H ALT 44 Alkaline Phosphatase 108 Total Protein 6.4 Albumin 2.7 L Triglycerides 104 10/29/16 10/29/16 10/30/16 20:00 20:00 03:58 Creatine Kinase 72 55 CK-MB (CK-2) 1.52 Troponin I < 0.012 10/30/16 10/30/16 10/30/16 03:58 13:40 13:40 Creatine Kinase 45 L CK-MB (CK-2) 0.89 0.46 Troponin I < 0.012 < 0.012 Impressions: Renal Ultrasound 10/29/16 00:00 IMPRESSION: Limited study as noted above. No right renal abnormalities were identified. Left kidney could not be visualized. Eaton catheter in the bladder. Chest X-Ray 11/10/16 06:00 IMPRESSION: No significant interval change. Assessment & Plan - Diagnosis (1) Acute on chronic combined systolic and diastolic congestive heart failure Is this a current diagnosis for this admission?: Yes (2) Dyspnea Qualifiers: Dyspnea type: unspecified Qualified Code(s): R06.00 - Dyspnea, unspecified Is this a current diagnosis for this admission?: Yes (3) Morbid (severe) obesity with alveolar hypoventilation Is this a current diagnosis for this admission?: No (4) Pulmonary vascular congestion Is this a current diagnosis for this admission?: YesPlan: low dose levophed per cardiology (5) Respiratory failure Qualifiers: Chronicity: chronic Respiratory failure complication: hypoxia and hypercapnia Qualified Code(s): J96.11 - Chronic respiratory failure with hypoxia Is this a current diagnosis for this admission?: YesPlan: min vol,fio2,rr,airway pressures and mental status suggest sucessful extubation (6) Cardiac arrest Is this a current diagnosis for this admission?: Yes - Time Critical Time spent with patient: 35 or more minutes - spoke with patient, RN,RT ,cardiology extubated but with in 2 hrs patient lethargic tachcipnic and hypoxic reintubated 85 min
[2016-11-10 16:04] LABS: ARTERIAL BLOOD BASE EXCESS 9.7 mmol/L; ARTERIAL BLOOD O2 SATURATION 97.5 % (94-98)
[2016-11-10] MEDS: DEXTROSE 5%-WATER 250 ML with NOREPINEPHRINE BITARTRATE 4 MG IV PRN ×2 (16:41)
[2016-11-11] MEDS: PROPOFOL 100 ML IV PRN ×5 (02:42→21:32)
[2016-11-11] MEDS: FUROSEMIDE INJ/PF 20 MG/2 ML SDV IV SCH ×3 (05:22→21:31)
[2016-11-11] MEDS: AMPICILLIN SODIUM/SULBACTAM NA 3 GM in NORMAL SALINE 100 ML IV SCH ×3 (05:23→18:10)
[2016-11-11 05:51] LABS: ARTERIAL BLOOD O2 SATURATION 97.4 % (94-98)
[2016-11-11 06:03] LABS: ABSOLUTE MONOCYTES (AUTO) 0.7 10^3/uL (0.1-1.4); ABSOLUTE NEUT (AUTO) 12.2 10^3/uL (1.7-8.2); BASOPHILS % (AUTO) 0.3 % (0-2); EOSINOPHILS % (AUTO) 0.1 % (0-6); HEMATOCRIT 28.4 % (37.9-51.0); HEMOGLOBIN 9.1 g/dL (13.5-17.0); HGB HCT DIFFERENCE -1.1; LYMPHOCYTES % (AUTO) 6.9 % (13-45); MEAN CORPUSCULAR HEMOGLOBIN 27.7 pg (27.0-33.4); MEAN CORPUSCULAR HGB CONC 32.1 g/dL (32.0-36.0); MEAN CORPUSCULAR VOLUME 86 fl (80-97); MONOCYTES % (AUTO) 4.8 % (3-13); RED BLOOD COUNT 3.28 10^6/uL (4.35-5.55); RED CELL DISTRIBUTION WIDTH 16.8 % (11.5-14.0); SEGMENTED NEUTROPHILS % (AUTO) 87.9 % (42-78); WHITE BLOOD COUNT 13.8 10^3/uL (4.0-10.5)
[2016-11-11 06:08] LABS: ANION GAP 9 (5-19); BLOOD UREA NITROGEN 25 mg/dL (7-20); CALCIUM 8.5 mg/dL (8.4-10.2); CARBON DIOXIDE 37 mmol/L (22-30); CHLORIDE 97 mmol/L (98-107); CREATININE RESULT 1.82 mg/dL (0.52-1.25); GLUCOSE 232 mg/dL (75-110); MAGNESIUM 1.6 mg/dL (1.6-2.3); PHOSPHORUS 3.8 mg/dL (2.5-4.5); POTASSIUM 3.2 mmol/L (3.6-5.0); SODIUM 143.4 mmol/L (137-145)
--- NOTE | 2016-11-11 06:49 | PDOC PROGRESS REPORT ---
Subjective Progress Note for:: 11/11/16 Subjective:: sedated Physical Exam Vital Signs: Temp Pulse Resp BP Pulse Ox 99.0 F 74 12 153/64 H 97 11/11/16 06:00 11/10/16 20:41 11/11/16 06:00 11/11/16 05:41 11/11/16 06:00 Intake & Output 11/09/16 11/10/16 11/11/16 07:59 07:59 07:59 Intake Total 1378 1728 1910 Output Total 2564 3514 2024 Balance -1187 -2227 -115 Weight 382 lb 4.505 oz 375 lb 3.628 oz 380 lb 8.285 oz Respiratory exam: PRESENT: rhonchi Cardiovascular exam: ABSENT: diastolic murmur, irregular rhythm, systolic murmur GI/Abdominal exam: ABSENT: mass, organolmegaly Extremities exam: PRESENT: pedal edema Results Laboratory Results: 11/11/16 05:45 11/11/16 05:45 11/11/16 11/11/16 05:45 05:45 WBC 13.8 H RBC 3.28 L Hgb 9.1 L Hct 28.4 L MCV 86 MCH 27.7 MCHC 32.1 RDW 16.8 H Plt Count 256 Seg Neutrophils % 87.9 H Lymphocytes % 6.9 L Monocytes % 4.8 Eosinophils % 0.1 Basophils % 0.3 Absolute Neutrophils 12.2 H Absolute Lymphocytes 1.0 Absolute Monocytes 0.7 Absolute Eosinophils 0.0 Absolute Basophils 0.0 Carbonic Acid HCO3/H2CO3 Ratio ABG pH ABG pCO2 ABG pO2 ABG HCO3 ABG O2 Saturation ABG Base Excess FiO2 Sodium 143.4 Potassium 3.2 L Chloride 97 L Carbon Dioxide 37 H Anion Gap 9 BUN 25 H Creatinine 1.82 H Est GFR ( Amer) 44 L Est GFR (Non-Af Amer) 37 L Glucose 232 H Calcium 8.5 Phosphorus 3.8 Magnesium 1.6 Impressions: Renal Ultrasound 10/29/16 00:00 IMPRESSION: Limited study as noted above. No right renal abnormalities were identified. Left kidney could not be visualized. Eaton catheter in the bladder. Chest X-Ray 11/10/16 06:00 IMPRESSION: No significant interval change. Assessment & Plan - Diagnosis (1) Respiratory failure Qualifiers: Chronicity: chronic Respiratory failure complication: hypoxia and hypercapnia Qualified Code(s): J96.11 - Chronic respiratory failure with hypoxia Is this a current diagnosis for this admission?: YesPlan: reintubated after 85min. Day14 vent. Trach or dnr? (2) Aspiration pneumonia Qualifiers: Aspiration pneumonia type: due to gastric secretions Laterality: bilateral Lung location: unspecified part of lung Qualified Code(s): J69.0 - Pneumonitis due to inhalation of food and vomit Is this a current diagnosis for this admission?: YesPlan: wbc14. Day 14 antibiotics. Reculture sputum. (3) Acute on chronic combined systolic and diastolic congestive heart failure Is this a current diagnosis for this admission?: YesPlan: less output on 40mg tid (4) Malnutrition due to starvation Is this a current diagnosis for this admission?: YesPlan: Feding held for residual then resumed this am. (5) Morbid (severe) obesity with alveolar hypoventilation Is this a current diagnosis for this admission?: NoPlan: On xr lungs look clear but small for body size with high diaphrams. (6) Pulmonary hypertension Is this a current diagnosis for this admission?: Yes (7) Hematuria Qualifiers: Hematuria type: gross Qualified Code(s): R31.0 - Gross hematuria Is this a current diagnosis for this admission?: Yes (8) Cardiopulmonary arrest with successful resuscitation Is this a current diagnosis for this admission?: Yes (9) Hypothermia due to anesthesia Is this a current diagnosis for this admission?: Yes (10) Anemia due to blood loss, acute Is this a current diagnosis for this admission?: Yes - Inpatient Certification Medical Necessity: Failure to Improve With Outpatient Therapy, Significant Comorbidiites Make Outpatient Treatment Too Risky, Need Close Monitoring Due to Risk of Patient Decompensation, Need For IV Fluids, Need For Continuous Telemetry Monitoring, Need for IV Antibiotics, Risk of Complication if Not Cared For in Hospital, Risk of Diagnosis Which Will Require Inpatient Eval/Care/ Monitoring
--- NOTE | 2016-11-11 08:41 | RADIOLOGY REPORT (SQ) ---
EXAM DESCRIPTION: CHEST SINGLE VIEW COMPLETED DATE/TIME: 11/11/2016 6:37 am REASON FOR STUDY: acute resp failure/pna COMPARISON: 11/10/2016 EXAM PARAMETERS: NUMBER OF VIEWS: One view. TECHNIQUE: Single frontal radiographic view of the chest acquired. RADIATION DOSE: NA LIMITATIONS: Patient has made a shallow inspiration FINDINGS: LUNGS AND PLEURA: The previously described bilateral airspace opacities show interval impr ovement with decreasing confluence. Residual changes are identified predominately in the right upper lung field. MEDIASTINUM AND HILAR STRUCTURES: No masses. Contour normal. HEART AND VASCULAR STRUCTURES: The configuration of the heart and mediastinal structures is unchanged . BONES: No acute findings. HARDWARE: Endotracheal tube and central line are unchanged in position. OTHER: No other significant finding. IMPRESSION: Interval improvement as noted above TECHNICAL DOCUMENTATION: JOB ID: [id number]
[2016-11-11] MEDS: FAMOTIDINE INJ/PF 20 MG/2 ML SDV IV SCH ×2 (09:18→21:30)
[2016-11-11] MEDS: DEXTROSE 5%-WATER 250 ML with NOREPINEPHRINE BITARTRATE 4 MG IV PRN ×2 (11:57)
[2016-11-11] MEDS: INSULIN REG, HUMAN 100 UNIT/ML 3 ML VIAL (PYX) SUBCUT PRN ×2 (12:09→18:13)
[2016-11-11] MEDS: POTASSIUM CHLORIDE 20 MEQ/50 ML RTU IV SCH ×2 (14:17→21:32)
--- NOTE | 2016-11-11 17:02 | PDOC PROGRESS REPORT ---
Subjective Progress Note for:: 11/11/16 Subjective:: Intubated responds appropriately to commands spouse at bedside Physical Exam Vital Signs: Temp Pulse Resp BP Pulse Ox 99.1 F 73 14 141/62 H 98 11/11/16 08:00 11/11/16 08:53 11/11/16 08:00 11/11/16 08:00 11/11/16 08:00 Intake & Output 11/10/16 11/11/16 11/12/16 06:59 06:59 06:59 Intake Total 1728 1910 Output Total 2 2024 125 Balance -2827 -115 -125 Weight 170.2 kg 172.6 kg General appearance: PRESENT: no acute distress, cooperative, disheveled, morbidly obese Head exam: PRESENT: atraumatic, normocephalic Eye exam: PRESENT: conjunctiva pale, EOMI Mouth exam: PRESENT: dry mucosa, neck supple, tongue midline, other - ET tube Neck exam: ABSENT: carotid bruit, JVD, lymphadenopathy, thyromegaly Respiratory exam: PRESENT: decreased breath sounds, prolonged expiratory phas, rales, rhonchi, symmetrical, tachypnea Cardiovascular exam: PRESENT: irregular rhythm Pulses: PRESENT: normal radial pulses GI/Abdominal exam: PRESENT: diminished bowel sounds, soft - obese. ABSENT: distended, guarding, mass, organolmegaly, rebound, tenderness Rectal exam: PRESENT: deferred Gentrourinary exam: PRESENT: indwelling catheter Extremities exam: PRESENT: +1 edema Neurological exam: PRESENT: alert, awake Psychiatric exam: PRESENT: flat affect Skin exam: PRESENT: dry Results Laboratory Results: 11/11/16 05:45 11/11/16 05:45 11/10/16 11/10/16 11/11/16 13:15 15:52 05:45 WBC RBC Hgb Hct MCV MCH MCHC RDW Plt Count Seg Neutrophils % Lymphocytes % Monocytes % Eosinophils % Basophils % Absolute Neutrophils Absolute Lymphocytes Absolute Monocytes Absolute Eosinophils Absolute Basophils Carbonic Acid 2.43 H 1.63 H 1.48 H HCO3/H2CO3 Ratio 16:1 21:1 25:1 ABG pH 7.30 L 7.44 7.50 H ABG pCO2 80.7 H* 54.1 H 49.3 H ABG pO2 92.5 97.7 89.7 ABG HCO3 38.9 H 35.5 H 37.8 H ABG O2 Saturation 95.9 97.5 97.4 ABG Base Excess 10.0 9.7 13.0 FiO2 70% 60% 40% Sodium Potassium Chloride Carbon Dioxide Anion Gap BUN Creatinine Est GFR ( Amer) Est GFR (Non-Af Amer) Glucose Calcium Phosphorus Magnesium 11/11/16 11/11/16 05:45 05:45 WBC 13.8 H RBC 3.28 L Hgb 9.1 L Hct 28.4 L MCV 86 MCH 27.7 MCHC 32.1 RDW 16.8 H Plt Count 256 Seg Neutrophils % 87.9 H Lymphocytes % 6.9 L Monocytes % 4.8 Eosinophils % 0.1 Basophils % 0.3 Absolute Neutrophils 12.2 H Absolute Lymphocytes 1.0 Absolute Monocytes 0.7 Absolute Eosinophils 0.0 Absolute Basophils 0.0 Carbonic Acid HCO3/H2CO3 Ratio ABG pH ABG pCO2 ABG pO2 ABG HCO3 ABG O2 Saturation ABG Base Excess FiO2 Sodium 143.4 Potassium 3.2 L Chloride 97 L Carbon Dioxide 37 H Anion Gap 9 BUN 25 H Creatinine 1.82 H Est GFR ( Amer) 44 L Est GFR (Non-Af Amer) 37 L Glucose 232 H Calcium 8.5 Phosphorus 3.8 Magnesium 1.6 10/29/16 10/29/16 10/30/16 20:00 20:00 03:58 Creatine Kinase 72 55 CK-MB (CK-2) 1.52 Troponin I < 0.012 10/30/16 10/30/16 10/30/16 03:58 13:40 13:40 Creatine Kinase 45 L CK-MB (CK-2) 0.89 0.46 Troponin I < 0.012 < 0.012 Impressions: Renal Ultrasound 10/29/16 00:00 IMPRESSION: Limited study as noted above. No right renal abnormalities were identified. Left kidney could not be visualized. Eaton catheter in the bladder. Chest X-Ray 11/11/16 06:00 IMPRESSION: Interval improvement as noted above Assessment & Plan - Diagnosis (1) Acute on chronic combined systolic and diastolic congestive heart failure Is this a current diagnosis for this admission?: Yes (2) Dyspnea Qualifiers: Dyspnea type: unspecified Qualified Code(s): R06.00 - Dyspnea, unspecified Is this a current diagnosis for this admission?: Yes (3) Morbid (severe) obesity with alveolar hypoventilation Is this a current diagnosis for this admission?: No (4) Pulmonary vascular congestion Is this a current diagnosis for this admission?: Yes (5) Respiratory failure Qualifiers: Chronicity: chronic Respiratory failure complication: hypoxia and hypercapnia Qualified Code(s): J96.11 - Chronic respiratory failure with hypoxia Is this a current diagnosis for this admission?: YesPlan: extubated later acute desaturation and hypercapnia consulted surgery for tracheostomy (6) Cardiac arrest Is this a current diagnosis for this admission?: Yes - Time Critical Time spent with patient: 35 or more minutes - spoke with RN,RT,spouse and patient 55 min
--- NOTE | 2016-11-11 21:07 | PROGRESS NOTE E ---
Progress Note NAME: HANSEL DELGADILLO : 1940 AGE: 76Y DATE: 11/11/2016 ROOM: [facility] SUBJECTIVE: The patient is intubated and sedated. He seems to be now in sinus rhythm with severe first-degree AV block. There is no ventricular arrhythmia seen. He continues to be on Levophed at 3 mcg/min. OBJECTIVE: GENERAL: On examination the patient is morbidly obese. VITAL SIGNS: He is afebrile with a temperature of 98.8 degrees Fahrenheit, pulse is 69 beats per minute, blood pressure is 167/68, respirations are 12 per minute, O2 saturations are 97% on FiO2 of 40%. HEENT: Head is atraumatic and normocephalic. Eyes: Pupils are equal, round, regular, reactive to light. There is no conjunctival pallor. ENT is negative. NECK: Supple without lymphadenopathy. There is still some mild JVD. Trachea is central. There is no goiter. Carotids are equal without any bruits. LUNGS: There is absent breath sounds in both bases and there are bibasilar dry crackles above the area of dullness. There are no rales or CHF. HEART: S1 and S2 is heard. There is no S3 gallop. There is no S4 gallop. There is a systolic murmur in the left sternal border and the apex and the mitral area. There is no rub. ABDOMEN: Soft, obese, nontender. Bowel sounds are normal. There is no hepatosplenomegaly. EXTREMITIES: There is mild pedal edema which is 1+. Femorals are diminished and deep. There are no femoral bruits. Leg pulses are difficult to palpate. Capillary refill is normal. There is no cyanosis or clubbing. CENTRAL NERVOUS SYSTEM: Not tested. PSYCHIATRIC: Not tested. INTAKE/OUTPUT: The patient's intake is 1910 mL, output is 2025 mL. IMAGING STUDIES: The patient's chest x-ray shows bilateral airspace and opacity. It showed interval improvement with decreasing confluence. There is no congestive heart failure/pulmonary edema by chest x-ray. DIAGNOSTIC STUDIES: The patient's white count is 13,800, hemoglobin is 9.1, hematocrit 28.4 and platelet count 256,000. The patient's sodium is 143.4, potassium is 3.2, chloride is 97, CO2 is 37. The patient's BUN is 25, creatinine is 1.82, GFR is reduced at 44 mL, which is chronic kidney disease stage 3. The patient's glucose is 232. The patient's calcium is 8.5, phosphorus is 3.8, magnesium is 1.6. ABG showed a pH of 7.50, pCO2 is 49.3, pO2 is 89.7 and O2 sats are 97.4% on FiO2 of 40%. IMPRESSION: 1. [id number] RIGHT VENTRICULAR SYSTOLIC HEART FAILURE WITH BILATERAL LEG EDEMA AND BILATERAL PLEURAL EFFUSION. There is some improvement with the current treatment. 2. PULMONARY HYPERTENSION. 3. SEVERE FIRST DEGREE AV BLOCK. 4. ACCELERATED JUNCTIONAL RHYTHM HAS RESOLVED. The patient is now in severe first degree AV block. 5. HISTORY OF CARDIOPULMONARY ARREST THIS ADMISSION WITH SUCCESSFUL RESUSCITATION. 6. [id number] RESPIRATORY FAILURE. 7. [id number] LEFT VENTRICULAR DIASTOLIC HEART FAILURE. 8. ACUTE ON CHRONIC RIGHT VENTRICULAR SYSTOLIC FAILURE. 9. SEVERE OBESITY WITH ALVEOLAR HYPOVENTILATION. 10. CHRONIC KIDNEY DISEASE STAGE 3 WITH SLIGHT IMPROVEMENT IN THE GFR. 11. DIABETES MELLITUS, INSULIN REQUIRING. Blood sugar fairly stable. 12. HYPOTENSION, RESOLVED. 13. BRADYCARDIA, RESOLVED. 14. ANEMIA, SEEMS TO BE IRON DEFICIENCY ANEMIA. 15. HYPOKALEMIA. 16. HISTORY OF HYPERTENSION. Blood pressure is still not well controlled. 17. HYPERLIPIDEMIA. RECOMMENDATION: Will continue the patient on ventilator support and off supplementation. Will continue respiratory treatment. Continue antibiotics. Continue Levophed. Continue IV Lasix. TIME SPENT: Note 30 minutes spent on this patient with more than 50% of the time spent on direct patient care. His medications have been reviewed and medications have been adjusted and added and discussed with other caregiving providers. The patient continues to be a case where highly complex medical decision making is necessary. Will follow with you, thanking you. DICTATING PHYSICIAN: MIGUEL LOZANO M.D. [id number] PHY#: [id number] ID: [id number] JOB#: [id number] ACCT: [id number] cc: >
[2016-11-12] MEDS: AMPICILLIN SODIUM/SULBACTAM NA 3 GM in NORMAL SALINE 100 ML IV SCH ×4 (00:44→17:06)
[2016-11-12] MEDS: INSULIN REG, HUMAN 100 UNIT/ML 3 ML VIAL (PYX) SUBCUT PRN ×3 (00:45→18:44)
[2016-11-12] MEDS: PROPOFOL 100 ML IV PRN ×5 (02:24→21:48)
[2016-11-12] MEDS: FUROSEMIDE INJ/PF 20 MG/2 ML SDV IV SCH (05:10)
[2016-11-12] MEDS: POTASSIUM CHLORIDE 20 MEQ/50 ML RTU IV SCH ×2 (05:12→17:07)
[2016-11-12 05:38] LABS: ABSOLUTE BASOPHILS # (AUTO) 0.1 10^3/uL (0.0-0.2); ABSOLUTE EOSINOPHILS # (AUTO) 0.3 10^3/uL (0.0-0.6); ABSOLUTE LYMPHOCYTES (AUTO) 1.8 10^3/uL (0.5-4.7); ABSOLUTE NEUT (AUTO) 12.8 10^3/uL (1.7-8.2); BASOPHILS % (AUTO) 0.6 % (0-2); EOSINOPHILS % (AUTO) 2.1 % (0-6); HEMATOCRIT 29.1 % (37.9-51.0); HEMOGLOBIN 9.4 g/dL (13.5-17.0); HGB HCT DIFFERENCE -0.9; LYMPHOCYTES % (AUTO) 11.2 % (13-45); MEAN CORPUSCULAR HEMOGLOBIN 28.1 pg (27.0-33.4); MEAN CORPUSCULAR HGB CONC 32.2 g/dL (32.0-36.0); MEAN CORPUSCULAR VOLUME 87 fl (80-97); MONOCYTES % (AUTO) 6.3 % (3-13); RED BLOOD COUNT 3.34 10^6/uL (4.35-5.55); RED CELL DISTRIBUTION WIDTH 16.5 % (11.5-14.0); SEGMENTED NEUTROPHILS % (AUTO) 79.8 % (42-78); WHITE BLOOD COUNT 16.1 10^3/uL (4.0-10.5)
[2016-11-12 06:02] LABS: ARTERIAL BLOOD BASE EXCESS 13.7 mmol/L; ARTERIAL BLOOD O2 SATURATION 98.1 % (94-98)
[2016-11-12 06:02] LABS: ALANINE AMINOTRANSFERASE 35 U/L (21-72); ALBUMIN 2.4 g/dL (3.5-5.0); ALKALINE PHOSPHATASE 94 U/L (38-126); ANION GAP 8 (5-19); ASPARTATE AMINO TRANSFERASE 44 U/L (17-59); BILIRUBIN,DIRECT 0.5 mg/dL (0.0-0.4); BILIRUBIN,TOTAL 0.5 mg/dL (0.2-1.3); BLOOD UREA NITROGEN 28 mg/dL (7-20); CALCIUM 8.6 mg/dL (8.4-10.2); CARBON DIOXIDE 39 mmol/L (22-30); CHLORIDE 97 mmol/L (98-107); CREATININE RESULT 1.83 mg/dL (0.52-1.25); GLUCOSE 246 mg/dL (75-110); MAGNESIUM 1.5 mg/dL (1.6-2.3); POTASSIUM 3.1 mmol/L (3.6-5.0); SODIUM 143.6 mmol/L (137-145)
[2016-11-12] MEDS ORDERED: LIDOCAINE 2% INJ-PF (20 MG/ML) 10 ML AMPUL ONE (07:38)
[2016-11-12] MEDS ORDERED: VECURONIUM BROMIDE INJ 10 MG VIAL IV ONE (07:38)
--- NOTE | 2016-11-12 07:57 | RADIOLOGY REPORT (SQ) ---
EXAM DESCRIPTION: CHEST SINGLE VIEW COMPLETED DATE/TIME: 11/12/2016 6:52 am REASON FOR STUDY: pna/chf/resp failure COMPARISON: 11/11/2016. EXAM PARAMETERS: NUMBER OF VIEWS: One view. TECHNIQUE: Single frontal radiographic view of the chest acquired. RADIATION DOSE: NA LIMITATIONS: None. FINDINGS: LUNGS AND PLEURA: Moderate mixed airspace and interstitial opacities of both lung linares. Moderate-small lung volumes. Minimal left basilar opacity -effusion. MEDIASTINUM AND HILAR STRUCTURES: No masses. Contour normal. HEART AND VASCULAR STRUCTURES: Heart normal in size. Normal vasculature. BONES: No acute findings. HARDWARE: Adequate appearing endotracheal tube. Right internal jugular central line at the inferior right atrium ; consider 8 cm retraction. Adequate appearing NG tube. OTHER: No other significant finding. IMPRESSION: No significant interval change. TECHNICAL DOCUMENTATION: JOB ID: [id number]
--- NOTE | 2016-11-12 08:30 | PDOC PROGRESS REPORT ---
Subjective Subjective:: alert on diprivan Physical Exam Vital Signs: Temp Pulse Resp BP Pulse Ox 98.1 F 45 L 12 157/63 H 100 11/12/16 07:45 11/12/16 07:45 11/12/16 07:45 11/12/16 07:45 11/12/16 07:45 Intake & Output 11/11/16 11/12/16 11/13/16 07:59 07:59 07:59 Intake Total 1910 2381 Output Total 3 3364 Balance -115 -1344 Weight 380 lb 8.285 oz 373 lb 10.936 oz General appearance: PRESENT: no acute distress Respiratory exam: PRESENT: rhonchi Cardiovascular exam: ABSENT: diastolic murmur, irregular rhythm, systolic murmur GI/Abdominal exam: ABSENT: mass, organolmegaly, tenderness Extremities exam: PRESENT: pedal edema Results Laboratory Results: 11/12/16 05:30 11/12/16 05:30 11/12/16 11/12/16 11/12/16 05:30 05:30 05:30 WBC 16.1 H RBC 3.34 L Hgb 9.4 L Hct 29.1 L MCV 87 MCH 28.1 MCHC 32.2 RDW 16.5 H Plt Count 241 Seg Neutrophils % 79.8 H Lymphocytes % 11.2 L Monocytes % 6.3 Eosinophils % 2.1 Basophils % 0.6 Absolute Neutrophils 12.8 H Absolute Lymphocytes 1.8 Absolute Monocytes 1.0 Absolute Eosinophils 0.3 Absolute Basophils 0.1 Carbonic Acid Cancelled HCO3/H2CO3 Ratio Cancelled ABG pH Cancelled ABG pCO2 Cancelled ABG pO2 Cancelled ABG HCO3 Cancelled ABG O2 Saturation Cancelled ABG Base Excess Cancelled FiO2 Cancelled Sodium 143.6 Potassium 3.1 L Chloride 97 L Carbon Dioxide 39 H Anion Gap 8 BUN 28 H Creatinine 1.83 H Est GFR ( Amer) 44 L Est GFR (Non-Af Amer) 36 L Glucose 246 H Calcium 8.6 Magnesium 1.5 L Total Bilirubin 0.5 AST 44 ALT 35 Alkaline Phosphatase 94 Total Protein 6.0 L Albumin 2.4 L 11/12/16 05:45 WBC RBC Hgb Hct MCV MCH MCHC RDW Plt Count Seg Neutrophils % Lymphocytes % Monocytes % Eosinophils % Basophils % Absolute Neutrophils Absolute Lymphocytes Absolute Monocytes Absolute Eosinophils Absolute Basophils Carbonic Acid 1.32 HCO3/H2CO3 Ratio 28:1 ABG pH 7.55 H ABG pCO2 44.0 ABG pO2 99.3 ABG HCO3 37.5 H ABG O2 Saturation 98.1 H ABG Base Excess 13.7 FiO2 40% Sodium Potassium Chloride Carbon Dioxide Anion Gap BUN Creatinine Est GFR ( Amer) Est GFR (Non-Af Amer) Glucose Calcium Magnesium Total Bilirubin AST ALT Alkaline Phosphatase Total Protein Albumin Impressions: Renal Ultrasound 10/29/16 00:00 IMPRESSION: Limited study as noted above. No right renal abnormalities were identified. Left kidney could not be visualized. Eaton catheter in the bladder. Chest X-Ray 11/12/16 06:00 IMPRESSION: No significant interval change. Assessment & Plan - Diagnosis (1) Respiratory failure Qualifiers: Chronicity: chronic Respiratory failure complication: hypoxia and hypercapnia Qualified Code(s): J96.11 - Chronic respiratory failure with hypoxia Is this a current diagnosis for this admission?: YesPlan: trach (2) Aspiration pneumonia Qualifiers: Aspiration pneumonia type: due to gastric secretions Laterality: bilateral Lung location: unspecified part of lung Qualified Code(s): J69.0 - Pneumonitis due to inhalation of food and vomit Is this a current diagnosis for this admission?: YesPlan: wbc16. Polys in sputum. Culture blood & urine too (3) Acute on chronic combined systolic and diastolic congestive heart failure Is this a current diagnosis for this admission?: YesPlan: add NG KCl to iv (4) Malnutrition due to starvation Is this a current diagnosis for this admission?: YesPlan: sugar 200s on feeding. Start lantus 15 (5) Morbid (severe) obesity with alveolar hypoventilation Is this a current diagnosis for this admission?: No (6) Pulmonary hypertension Is this a current diagnosis for this admission?: Yes (7) Hematuria Qualifiers: Hematuria type: gross Qualified Code(s): R31.0 - Gross hematuria Is this a current diagnosis for this admission?: Yes (8) Cardiopulmonary arrest with successful resuscitation Is this a current diagnosis for this admission?: Yes (9) Hypothermia due to anesthesia Is this a current diagnosis for this admission?: Yes (10) Anemia due to blood loss, acute Is this a current diagnosis for this admission?: Yes
[2016-11-12] MEDS: POTASSI CL 20 MEQ/50 ML RIDER 20 MEQ/50 ML RTUPB IV SCH ×2 (08:51→10:36)
[2016-11-12] MEDS: MAGNESIUM SULFATE/D5W 1 GM/100 ML RTUPB IV SCH ×2 (08:52→10:09)
[2016-11-12] MEDS ORDERED: POTASSIUM CHLORIDE 20 MEQ/15 ML UDCUP NG SCH (10:00)
[2016-11-12] MEDS ORDERED: POTASSIUM CHLORIDE 20 MEQ/15 ML UDCUP PO SCH (10:00)
[2016-11-12] MEDS ORDERED: ENALAPRILAT DIHYDRATE INJ/PF 1.25 MG/1 ML SDV IV ONE (10:30)
[2016-11-12] MEDS: FAMOTIDINE INJ/PF 20 MG/2 ML SDV IV SCH ×2 (10:35→21:47)
[2016-11-12] MEDS: DEXTROSE 5%-WATER 250 ML with NOREPINEPHRINE BITARTRATE 4 MG IV PRN ×2 (10:48)
--- NOTE | 2016-11-12 10:48 | PDOC PROGRESS REPORT ---
Subjective Progress Note for:: 11/12/16 Subjective:: Intubated responds appropriately to commands At bedside with surgeon discussing tracheostomy Physical Exam Vital Signs: Temp Pulse Resp BP Pulse Ox 98.1 F 45 L 12 157/63 H 100 11/12/16 07:45 11/12/16 07:45 11/12/16 07:45 11/12/16 07:45 11/12/16 07:45 Intake & Output 11/11/16 11/12/16 11/13/16 06:59 06:59 06:59 Intake Total 1910 2381 Output Total 2024 0631 400 Balance -870 -944 -400 Weight 172.6 kg 169.5 kg General appearance: PRESENT: no acute distress, cooperative, disheveled, morbidly obese Head exam: PRESENT: atraumatic, normocephalic Eye exam: PRESENT: conjunctiva pale, EOMI Mouth exam: PRESENT: dry mucosa, neck supple, tongue midline, other - ET tube in place day #15 Neck exam: ABSENT: carotid bruit, JVD, lymphadenopathy, thyromegaly Respiratory exam: PRESENT: decreased breath sounds, prolonged expiratory phas, rales, rhonchi, symmetrical, unlabored Cardiovascular exam: PRESENT: irregular rhythm Pulses: PRESENT: normal radial pulses GI/Abdominal exam: PRESENT: normal bowel sounds, soft. ABSENT: distended, guarding, mass, organolmegaly, rebound, tenderness Rectal exam: PRESENT: deferred Gentrourinary exam: PRESENT: indwelling catheter Extremities exam: PRESENT: +1 edema Neurological exam: PRESENT: awake Skin exam: PRESENT: dry, warm Results Laboratory Results: 11/12/16 05:30 11/12/16 05:30 11/12/16 11/12/16 11/12/16 05:30 05:30 05:30 WBC 16.1 H RBC 3.34 L Hgb 9.4 L Hct 29.1 L MCV 87 MCH 28.1 MCHC 32.2 RDW 16.5 H Plt Count 241 Seg Neutrophils % 79.8 H Lymphocytes % 11.2 L Monocytes % 6.3 Eosinophils % 2.1 Basophils % 0.6 Absolute Neutrophils 12.8 H Absolute Lymphocytes 1.8 Absolute Monocytes 1.0 Absolute Eosinophils 0.3 Absolute Basophils 0.1 Carbonic Acid Cancelled HCO3/H2CO3 Ratio Cancelled ABG pH Cancelled ABG pCO2 Cancelled ABG pO2 Cancelled ABG HCO3 Cancelled ABG O2 Saturation Cancelled ABG Base Excess Cancelled FiO2 Cancelled Sodium 143.6 Potassium 3.1 L Chloride 97 L Carbon Dioxide 39 H Anion Gap 8 BUN 28 H Creatinine 1.83 H Est GFR ( Amer) 44 L Est GFR (Non-Af Amer) 36 L Glucose 246 H Calcium 8.6 Magnesium 1.5 L Total Bilirubin 0.5 AST 44 ALT 35 Alkaline Phosphatase 94 Total Protein 6.0 L Albumin 2.4 L 11/12/16 05:45 WBC RBC Hgb Hct MCV MCH MCHC RDW Plt Count Seg Neutrophils % Lymphocytes % Monocytes % Eosinophils % Basophils % Absolute Neutrophils Absolute Lymphocytes Absolute Monocytes Absolute Eosinophils Absolute Basophils Carbonic Acid 1.32 HCO3/H2CO3 Ratio 28:1 ABG pH 7.55 H ABG pCO2 44.0 ABG pO2 99.3 ABG HCO3 37.5 H ABG O2 Saturation 98.1 H ABG Base Excess 13.7 FiO2 40% Sodium Potassium Chloride Carbon Dioxide Anion Gap BUN Creatinine Est GFR ( Amer) Est GFR (Non-Af Amer) Glucose Calcium Magnesium Total Bilirubin AST ALT Alkaline Phosphatase Total Protein Albumin 10/29/16 10/29/16 10/30/16 20:00 20:00 03:58 Creatine Kinase 72 55 CK-MB (CK-2) 1.52 Troponin I < 0.012 10/30/16 10/30/16 10/30/16 03:58 13:40 13:40 Creatine Kinase 45 L CK-MB (CK-2) 0.89 0.46 Troponin I < 0.012 < 0.012 Impressions: Renal Ultrasound 10/29/16 00:00 IMPRESSION: Limited study as noted above. No right renal abnormalities were identified. Left kidney could not be visualized. Eaton catheter in the bladder. Chest X-Ray 11/12/16 06:00 IMPRESSION: No significant interval change. Assessment & Plan - Diagnosis (1) Acute on chronic combined systolic and diastolic congestive heart failure Is this a current diagnosis for this admission?: Yes (2) Dyspnea Qualifiers: Dyspnea type: unspecified Qualified Code(s): R06.00 - Dyspnea, unspecified Is this a current diagnosis for this admission?: Yes (3) Morbid (severe) obesity with alveolar hypoventilation Is this a current diagnosis for this admission?: No (4) Pulmonary vascular congestion Is this a current diagnosis for this admission?: Yes (5) Respiratory failure Qualifiers: Chronicity: chronic Respiratory failure complication: hypoxia and hypercapnia Qualified Code(s): J96.11 - Chronic respiratory failure with hypoxia Is this a current diagnosis for this admission?: Yes (6) Cardiac arrest Is this a current diagnosis for this admission?: Yes - Time Critical Time spent with patient: 35 or more minutes - Spoke with surgeon, RN, RT, patient answered total 55 minutes
--- NOTE | 2016-11-12 11:56 | PDOC CONSULTATION ---
Consultation Consult Date: 11/12/16 Consult reason:: Patient is seen at the request of Dr. Lantigua for tracheostomy tube placement History of Present Illness Admission Date/PCP: 10/26/16 08:54 TOR ANDREWS MD History of Present Illness: Patient is a 76-year-old male presented emergency department for difficulty breathing. Patient states his symptoms were onset this morning. Patient was seen here on 09/18/2016 for cardiac arrest and respiratory distress. Patient was residing at [place] for recovery and was discharged yesterday. Patient was on oxygen at [facility] and was discharged without oxygen at home yesterday. Patinet was placed on BiPAP and states he is feeling better during exam. Patient has patient is not questioning is denying any chest discomfort. He has noted some diarrhea. He denied any fever chills. Patient has morbid obesity. Patient has been hospitalized for 2 and half weeks in the intensive care unit persisting respiratory failure, ventilatory dependency likely related to hypo- ventilation syndrome secondary to morbid obesity. The patient has an 8.5 inner diameter oral tracheal tube in position. Patient has failed one episode of extubation. He has been intubated for over 2 weeks. Past Medical History Cardiac Medical History: Reports: Hyperlipidema, Hypertension - 4-6meds since Denies: Myocardial Infarction Pulmonary Medical History: Reports: Intubation, Pneumonia, Respiratory Failure Denies: Asthma Neurological Medical History: Reports: Other - diabetic neuropathy Denies: Seizures Endocrine Medical History: Reports: Diabetes Mellitus Type 2, Obesity - [id number] Renal/ Medical History: Reports: Chronic Kidney Disease - 2015 cr1.1. [id number] Malignancy Medical History: Reports: None GI Medical History: Reports: None, Hepatitis - hepB treated 1990 Denies: Hiatal Hernia Musculoskeltal Medical History: Reports: Arthritis, Gout Traumatic Medical History: Reports: None Hematology: Denies: Anemia, Sickle Cell Disease Infectious Medical History: Reports: Hepatitis B Past Surgical History Past Surgical History: Reports: Orthopedic Surgery - L menisectomy Denies: Pacemaker Social History Lives with: Family Smoking Status: Former Smoker Number of Years Smokin Last Time Smoked: 1991 Frequency of Alcohol Use: None Hx Recreational Drug Use: No Drugs: None Hx Prescription Drug Abuse: No - Advance Directive Resuscitation Status: Full Code Family History Family History: Hypertension Parental Family History Reviewed: No Children Family History Reviewed: No Sibling(s) Family History Reviewed.: No Medication/Allergy Home Medications: Atorvastatin Calcium [Lipitor 40 mg Tablet] 40 mg PO DAILY 10/26/16 Carvedilol [Coreg 25 mg Tablet] 25 mg PO Q12 10/26/16 Felodipine [Felodipine ER] 10 mg PO DAILY 10/26/16 Insulin Glargine,Hum.rec.anlog [Lantus Solostar] 33 units SQ QHS 10/26/16 Lisinopril [Prinivil 40 mg Tablet] 40 mg PO DAILY 10/26/16 Allergies/Adverse Reactions: No Known Allergies Allergy (Unverified 10/16/12 14:18) Physical Exam Vital Signs: Temp Pulse Resp BP Pulse Ox 98.4 F 80 12 130/93 H 96 11/12/16 11:45 11/12/16 10:00 11/12/16 11:45 11/12/16 11:13 11/12/16 11:45 Intake & Output 11/11/16 11/12/16 11/13/16 06:59 06:59 06:59 Intake Total 1910 2381 Output Total 7 5924 800 Balance -115 -944 -800 Weight 172.6 kg 169.5 kg General appearance: PRESENT: other - Patient sedated on ventilator needed only able to communicate with eyes and facial expression Neck exam: PRESENT: other - Appears midline. Range of motion of the neck cannot be completely assessed. Results Laboratory Results: 11/12/16 05:30 11/12/16 05:30 11/12/16 11/12/16 11/12/16 05:30 05:30 05:30 WBC 16.1 H RBC 3.34 L Hgb 9.4 L Hct 29.1 L MCV 87 MCH 28.1 MCHC 32.2 RDW 16.5 H Plt Count 241 Seg Neutrophils % 79.8 H Lymphocytes % 11.2 L Monocytes % 6.3 Eosinophils % 2.1 Basophils % 0.6 Absolute Neutrophils 12.8 H Absolute Lymphocytes 1.8 Absolute Monocytes 1.0 Absolute Eosinophils 0.3 Absolute Basophils 0.1 Carbonic Acid Cancelled HCO3/H2CO3 Ratio Cancelled ABG pH Cancelled ABG pCO2 Cancelled ABG pO2 Cancelled ABG HCO3 Cancelled ABG O2 Saturation Cancelled ABG Base Excess Cancelled FiO2 Cancelled Sodium 143.6 Potassium 3.1 L Chloride 97 L Carbon Dioxide 39 H Anion Gap 8 BUN 28 H Creatinine 1.83 H Est GFR ( Amer) 44 L Est GFR (Non-Af Amer) 36 L Glucose 246 H Calcium 8.6 Magnesium 1.5 L Total Bilirubin 0.5 AST 44 ALT 35 Alkaline Phosphatase 94 Total Protein 6.0 L Albumin 2.4 L 11/12/16 05:45 WBC RBC Hgb Hct MCV MCH MCHC RDW Plt Count Seg Neutrophils % Lymphocytes % Monocytes % Eosinophils % Basophils % Absolute Neutrophils Absolute Lymphocytes Absolute Monocytes Absolute Eosinophils Absolute Basophils Carbonic Acid 1.32 HCO3/H2CO3 Ratio 28:1 ABG pH 7.55 H ABG pCO2 44.0 ABG pO2 99.3 ABG HCO3 37.5 H ABG O2 Saturation 98.1 H ABG Base Excess 13.7 FiO2 40% Sodium Potassium Chloride Carbon Dioxide Anion Gap BUN Creatinine Est GFR ( Amer) Est GFR (Non-Af Amer) Glucose Calcium Magnesium Total Bilirubin AST ALT Alkaline Phosphatase Total Protein Albumin 10/29/16 10/29/16 10/30/16 20:00 20:00 03:58 Creatine Kinase 72 55 CK-MB (CK-2) 1.52 Troponin I < 0.012 10/30/16 10/30/16 10/30/16 03:58 13:40 13:40 Creatine Kinase 45 L CK-MB (CK-2) 0.89 0.46 Troponin I < 0.012 < 0.012 Impressions: Renal Ultrasound 10/29/16 00:00 IMPRESSION: Limited study as noted above. No right renal abnormalities were identified. Left kidney could not be visualized. Eaton catheter in the bladder. Chest X-Ray 11/12/16 06:00 IMPRESSION: No significant interval change. Assessment & Plan - Diagnosis (1) Morbid obesity Is this a current diagnosis for this admission?: YesPlan: Assessment: Respiratory failure secondary to morbid obesity, hypoventilatory syndrome, and persisting pneumonia. Has failed extubation, and is felt to be an appropriate candidate for transition tracheostomy. Discussion I spoke with the patient about the indications and mechanics of tracheostomy placement. I also spent a fair amount of time on the telephone discussing this in detail with him, Roberto. I explained that this intervention is a device to transition the patient from current ICU, ventilator status to long-term care facility, and that it would not change his overall condition but would help facilitate his management. I did explain there are risks benefits and alternatives including bleeding, infection, risk of airway failure etc. I believe the son who will provide informed consent agrees to proceed. In addition we will replace his central line to reduce risk of line sepsis from the 2-week-old line in his right neck
--- NOTE | 2016-11-12 12:35 | EKG REPORT ---
SEVERITY:- ABNORMAL ECG - SINUS RHYTHM SUPRAVENTRICULAR BIGEMINY FIRST DEGREE AV BLOCK PROBABLE LEFT ATRIAL ABNORMALITY NONSPECIFIC INTRAVENTRICULAR CONDUCTION DELAY NONSPECIFIC ST-T CHANGES- INFERIOR LEADS : Confirmed by: Tony Clement MD 12-Nov-2016 12:34:42
[2016-11-12] MEDS ORDERED: PROPOFOL INJ 200 MG/20 ML VIAL IV ONE ×2 (12:59→15:01)
[2016-11-12] MEDS ORDERED: LIDOCAINE 1%/EPINEPHRINE INJ 20 ML VIAL ONE (12:59)
[2016-11-12] MEDS ORDERED: FENTANYL CITRATE INJ/PF 100 MCG/2 ML AMPUL ONE (12:59)
[2016-11-12] MEDS ORDERED: MIDAZOLAM 2 MG/2 ML INJ ONE (13:00)
[2016-11-12] MEDS ORDERED: LIDOCAINE 2% JELLY 30 ML TUBE ONE (13:00)
--- NOTE | 2016-11-12 13:37 | PROGRESS NOTE E ---
Progress Note NAME: HANSEL DELGADILLO : 1940 AGE: 76Y DATE: 11/12/2016 ROOM: [facility] SUBJECTIVE: Note that the patient continues to be intubated but his sedation is off. He is awake and alert and answers my questions. He denies chest pain or shortness of breath. He complains of discomfort in his abdomen. There is no nausea, vomiting or diarrhea. The patient at present is in second-degree AV block, Mobitz type 1 Wenckebach, with a stable blood pressure. The patient is going to have his tracheostomy done later today. There is no ventricular arrhythmia seen. OBJECTIVE: GENERAL: On examination, the patient is morbidly obese, at present in no acute distress. VITAL SIGNS: He is afebrile with a temperature of 98.4 degrees Fahrenheit. His pulse is 67 beats per minute. Current blood pressure is 136/85. Respirations are 12 per minute. O2 sats are 97% on mechanical ventilator via FIO2 of 40%. HEENT: Head is atraumatic, normocephalic. Eyes - Pupils are equal, round, regular, reactive to light. ENT is negative. NECK: Supple. There is no JVD. Carotids are equal. There is no bruit. There is no lymphadenopathy. Trachea is central. LUNGS: Show absent breath sounds in both bases, but there are dry crackles above the area of dullness. There are no rales of CHF. HEART: S1, S2 is heard. There is no S3 gallop. There is no S4 gallop. There is a systolic murmur in the left sternal border and the apex and in the mitral area. There is no rub. ABDOMEN: Obese, nontender. Bowel sounds are normal. There is no hepatosplenomegaly. EXTREMITIES: There is mild pedal edema which is 1-. Femorals are diminished and deep. There are no femoral bruits. Leg pulses are difficult to palpate. Capillary refill is normal. There is no cyanosis or clubbing. CENTRAL NERVOUS SYSTEM: The patient is awake, alert. He is in restraints but is able to move all extremities against resistance. PSYCHIATRIC: The patient does not appear to be agitated or fighting the ventilator. DIAGNOSTICS: The patient's 24-hour intake has been 2381 mL, output of 3325 mL. The patient's EKG shows sinus rhythm with second-degree AV block, probably *------* abnormality, nonspecific IVCD, nonspecific ST/T changes. The patient's white count is 16,100, hemoglobin is 9.4, hematocrit is 29.1, platelet count is 241,000. The patient's sodium is 143.6, potassium is 3.1, chloride is 97, CO2 is 39. The patient's BUN is 28, creatinine is 1.83, GFR is 44 and remains sustained. His glucose is 246. His calcium is 8.6 and his magnesium 1.5. His liver function tests are normal, except for a mildly elevated direct bilirubin of 0.5. His albumin is 2.4, total protein is 6. His ABG showed a pH of 7.55, PCO2 is 44, PO2 is 99.3, O2 sats are 98.1% on FIO2 of 40%. IMPRESSION: 1. ACUTE ON CHRONIC RIGHT VENTRICULAR SYSTOLIC HEART FAILURE WITH BILATERAL LEG EDEMA AND BILATERAL PLEURAL EFFUSION. THERE IS SOME IMPROVEMENT WITH THE CURRENT TREATMENT. 2. PULMONARY HYPERTENSION. 3. SEVERE FIRST-DEGREE AV BLOCK. AT PRESENT THE PATIENT IS IN SECOND-DEGREE AV BLOCK, MOBITZ TYPE 1, WENCKEBACH. 4. ACCELERATED JUNCTIONAL RHYTHM HAS RESOLVED. THE PATIENT IS NOW IN SECOND-DEGREE AV BLOCK, MOBITZ TYPE 1, WENCKEBACH. 5. HISTORY OF CARDIOPULMONARY ARREST THIS ADMISSION WITH SUCCESSFUL RESUSCITATION. 6. ACUTE ON CHRONIC RESPIRATORY FAILURE. 7. ACUTE ON CHRONIC LEFT VENTRICULAR DIASTOLIC HEART FAILURE. AT PRESENT NO EVIDENCE OF LEFT VENTRICULAR DIASTOLIC FAILURE. 8. ACUTE ON CHRONIC RIGHT VENTRICULAR SYSTOLIC FAILURE. 9. SEVERE OBESITY WITH ALVEOLAR HYPOVENTILATION. 10. CHRONIC KIDNEY DISEASE, STAGE 3. GFR REMAINS STABLE AT 44. 11. DIABETES MELLITUS, INSULIN REQUIRING. BLOOD SUGAR IS STILL NOT WELL CONTROLLED. 12. HYPOTENSION, RESOLVED. 13. BRADYCARDIA, RESOLVED. 14. ANEMIA, SEEMS TO BE IRON DEFICIENCY. 15. HYPOKALEMIA. 16. HISTORY OF HYPERTENSION. 17. HYPERLIPIDEMIA. 18. MILD HYPOMAGNESEMIA. RECOMMENDATIONS: Continue ventilation support. The patient later will be going for tracheostomy and should be acceptable risk for this tracheostomy procedure. Replace the patient's potassium and magnesium. Continue the patient's Levophed. Continue the patient's Lasix. Dr. Brownlee will follow the patient in the a.m. Note, 30 minutes were spent on this patient with more 50% of the time spent in direct patient care. His medications have been reviewed. Later we will start the patient on STEVE inhibitor and watch the patient's BUN and creatinine. Note, he still continues to require highly complex medical decision making in view of multiple comorbidities and the slow progress. Discussed with other caregiving providers on the case. Will follow with you. DICTATING PHYSICIAN: MIGUEL LOZANO M.D. [id number] PHY#: [id number] ID: [id number] JOB#: [id number] ACCT: [id number] cc: >
[2016-11-12] MEDS ORDERED: PROMETHAZINE HCL INJ 25 MG/1 ML VIAL IV PRN ×2 (14:04)
[2016-11-12] MEDS ORDERED: FENTANYL CITRATE INJ/PF 100 MCG/2 ML AMPUL IV PRN ×3 (14:04)
[2016-11-12] MEDS ORDERED: MORPHINE SULFATE 10 MG/ML INJ IV PRN ×2 (14:04→15:17)
[2016-11-12] MEDS ORDERED: ONDANSETRON HCL INJ/PF 4 MG/2 ML SDV IV PRN (14:04)
[2016-11-12] MEDS ORDERED: DIPHENHYDRAMINE HCL 50 MG/ML VIAL IV PRN (14:04)
[2016-11-12] MEDS ORDERED: MEPERIDINE HCL/PF INJ 25 MG/1 ML DISP.SYRIN IV PRN (14:04)
[2016-11-12] MEDS ORDERED: OXYCODONE-ACETAMINOPHEN 5-325 MG TABLET PO PRN ×2 (14:04)
--- NOTE | 2016-11-12 14:38 | Operative Report ---
Operative Report DATE OF SURGERY: 11/12/16 PREOPERATIVE DIAGNOSIS: 1. Respiratory failure. 2. Prolonged ICU stay with central line POSTOPERATIVE DIAGNOSIS: Same OPERATION: 1. Operative tracheostomy with #6 Shiley fenestrated trach. 2. Ultrasound directed insertion of left internal jugular vein central venous access catheter SURGEON: ROC TORRES ANESTHESIA: GA TISSUE REMOVED OR ALTERED: None COMPLICATIONS: None ESTIMATED BLOOD LOSS: Minimal INTRAOPERATIVE FINDINGS: See below PROCEDURE: The patient was taken from the intensive care unit the main operating room where general anesthesia was induced through the existing endotracheal tube patient was placed in a reverse Trendelenburg position, breast taped caudad, neck hyperextended to expose the anterior cervical region. The neck was prepped and draped in sterile fashion after clipping hair. Surgical plan and surgical timeout were conducted. The skin overlying lower was anesthetized with 1% lidocaine plain. A transverse cervical incision was made approximately 2 fingerbreadths above the sternal notch. Subcutaneous tissue, platysma divided with electrocautery. Strap muscles were divided in midline without difficulty coming right down to the thyroid gland. Because of the configuration of the patient's neck receiving into the patient's head-chest area, we were able to palpate the thyrocricoid complex, and identified the trachea. Again unfortunately the thyroid isthmus was right in the way so the isthmus was divided with electrocautery with good hemostasis. A deep vein, small caliber, running transversely across the trachea below the isthmus was divided after clipping it. We used peanut dissection to expose the anterior trachea. Retractors were used to retract both right and left lobes of the posterior to the rather generous trachea. A large tracheal hook was placed under tracheal ring 2, and upside down U cut in the trachea with a #15 blade, and a 2-0 Prolene rescue stitch was secured to the tracheal flap. The endotracheal tube was removed, and the #6 Shiley catheter easily inserted into the trachea. The obturator was removed, and the ventilation cannula inserted. Ventilation tubing attached to the trach. There was excellent rise and fall of the chest, with good oxygenation and satisfactory ventilation. Balloon was inflated to a reasonable tension, hemostasis regarding the left thyroid lobe was handled with a little Surgicel and there was minimal bleeding. The tracheostomy tube was secured to the skin at 4 sites with 2-0 Prolene suture, and band straps applied to the trach. The left neck was then prepped and draped in sterile fashion, repeat timeout conducted. Ultrasound guidance was used to insert a triple-lumen central venous access catheter into the left internal jugular vein using Seldinger technique without difficulty. There was excellent blood flow through all 3 lm. Catheter was flushed with saline and secured to the skin with Biopatch 2-0 silk suture and sterile dressing. Trach fabric straps secured into position. Patient taught procedure well and had no problems with oxygenation and ventilation was taken to intensive care unit in stable condition.
[2016-11-12] MEDS: FUROSEMIDE INJ/PF 40 MG/4 ML SDV IV SCH ×2 (15:27→21:46)
--- NOTE | 2016-11-12 16:08 | RADIOLOGY REPORT (SQ) ---
EXAM DESCRIPTION: CHEST SINGLE VIEW COMPLETED DATE/TIME: 11/12/2016 3:25 pm REASON FOR STUDY: s/p TRACH COMPARISON: 11/12/2016 EXAM PARAMETERS: NUMBER OF VIEWS: One view. TECHNIQUE: Single frontal radiographic view of the chest acquired. RADIATION DOSE: NA LIMITATIONS: None. FINDINGS: LUNGS AND PLEURA: Airspace and interstitial disease. Mild asymmetrical pulmonary edema is suggested. Infiltrates are more prominent than on earlier study. MEDIASTINUM AND HILAR STRUCTURES: A tracheostomy tube is in good position. HEART AND VASCULAR STRUCTURES: Cardiomegaly is present. BONES: No acute findings. HARDWARE: Bilateral internal jugular catheters with the tips of the catheters near or in the right at rium. Tracheostomy tube. OTHER: No other significant finding. IMPRESSION: 1. Cardiomegaly with bilateral infiltrates, more on the right than the left. An asymme trical pulmonary edema cannot be excluded. 2. Tracheostomy tube as described. 3. Bilateral internal jugular catheters with the tips of the catheters or near the right atrium. TECHNICAL DOCUMENTATION: JOB ID: [id number]
--- NOTE | 2016-11-12 20:30 | PDOC PROGRESS REPORT ---
Subjective Progress Note for:: 11/12/16 - Subjective:: Patient was returning from a tracheotomy surgery. He was sedated with propofol , but had his eyes open and following commands. Blood pressures in the 140s to 150s and heart rate in the 80s. He is having occasional bradycardic heart rates. His dopamine drip was off and he is off theophylline. Levophed is off as well. He produced 6.5L of urine over the weekend while on 20mg TID of IV lasix. Physical Exam Vital Signs: Temp Pulse Resp BP Pulse Ox 97.7 F 65 16 143/66 H 99 11/12/16 18:30 11/12/16 18:00 11/12/16 18:30 11/12/16 18:13 11/12/16 18:30 Intake & Output 11/11/16 11/12/16 11/13/16 06:59 06:59 06:59 Intake Total 1910 2381 869 Output Total 2024 3325 2100 Balance -115 -294 -1231 Weight 172.6 kg 169.5 kg General appearance: PRESENT: mild distress, morbidly obese, well-developed, well -nourished Head exam: PRESENT: atraumatic, normocephalic Mouth exam: PRESENT: moist, neck supple Neck exam: ABSENT: JVD, tracheal deviation Respiratory exam: PRESENT: crackles, rhonchi. ABSENT: accessory muscle use, clear to auscultation maryann Cardiovascular exam: PRESENT: RRR, +S1, +S2, systolic murmur GI/Abdominal exam: PRESENT: normal bowel sounds, soft. ABSENT: organomegaly, tenderness Extremities exam: PRESENT: +1 edema. ABSENT: joint swelling Musculoskeletal exam: PRESENT: normal inspection. ABSENT: deformity Neurological exam: PRESENT: altered, other - -sedated but following commands Skin exam: PRESENT: dry, normal color Results Laboratory Results: 11/12/16 05:30 11/12/16 15:47 11/12/16 11/12/16 11/12/16 05:30 05:30 05:30 WBC 16.1 H RBC 3.34 L Hgb 9.4 L Hct 29.1 L MCV 87 MCH 28.1 MCHC 32.2 RDW 16.5 H Plt Count 241 Seg Neutrophils % 79.8 H Lymphocytes % 11.2 L Monocytes % 6.3 Eosinophils % 2.1 Basophils % 0.6 Absolute Neutrophils 12.8 H Absolute Lymphocytes 1.8 Absolute Monocytes 1.0 Absolute Eosinophils 0.3 Absolute Basophils 0.1 Carbonic Acid Cancelled HCO3/H2CO3 Ratio Cancelled ABG pH Cancelled ABG pCO2 Cancelled ABG pO2 Cancelled ABG HCO3 Cancelled ABG O2 Saturation Cancelled ABG Base Excess Cancelled FiO2 Cancelled Sodium 143.6 Potassium 3.1 L Chloride 97 L Carbon Dioxide 39 H Anion Gap 8 BUN 28 H Creatinine 1.83 H Est GFR ( Amer) 44 L Est GFR (Non-Af Amer) 36 L Glucose 246 H Calcium 8.6 Magnesium 1.5 L Total Bilirubin 0.5 AST 44 ALT 35 Alkaline Phosphatase 94 Total Protein 6.0 L Albumin 2.4 L 11/12/16 11/12/16 05:45 15:47 WBC RBC Hgb Hct MCV MCH MCHC RDW Plt Count Seg Neutrophils % Lymphocytes % Monocytes % Eosinophils % Basophils % Absolute Neutrophils Absolute Lymphocytes Absolute Monocytes Absolute Eosinophils Absolute Basophils Carbonic Acid 1.32 HCO3/H2CO3 Ratio 28:1 ABG pH 7.55 H ABG pCO2 44.0 ABG pO2 99.3 ABG HCO3 37.5 H ABG O2 Saturation 98.1 H ABG Base Excess 13.7 FiO2 40% Sodium Potassium 3.4 L Chloride Carbon Dioxide Anion Gap BUN Creatinine Est GFR ( Amer) Est GFR (Non-Af Amer) Glucose Calcium Magnesium Total Bilirubin AST ALT Alkaline Phosphatase Total Protein Albumin 10/29/16 10/29/16 10/30/16 20:00 20:00 03:58 Creatine Kinase 72 55 CK-MB (CK-2) 1.52 Troponin I < 0.012 10/30/16 10/30/16 10/30/16 03:58 13:40 13:40 Creatine Kinase 45 L CK-MB (CK-2) 0.89 0.46 Troponin I < 0.012 < 0.012 Impressions: Renal Ultrasound 10/29/16 00:00 IMPRESSION: Limited study as noted above. No right renal abnormalities were identified. Left kidney could not be visualized. Eaton catheter in the bladder. Chest X-Ray 11/12/16 14:38 IMPRESSION: 1. Cardiomegaly with bilateral infiltrates, more on the right than the left. An asymmetrical pulmonary edema cannot be excluded. 2. Tracheostomy tube as described. 3. Bilateral internal jugular catheters with the tips of the catheters or near the right atrium. Assessment & Plan - Diagnosis (1) Hypokalemia Plan: Increasing IV K to 40mEQ TID with bmps q12 until he has been decreased on diuretics. (2) Acute kidney injury superimposed on chronic kidney disease Is this a current diagnosis for this admission?: YesPlan: currently stable (3) CHF (congestive heart failure) Plan: Continue on lasix 20mg IV TID (4) Respiratory failure Qualifiers: Chronicity: chronic Respiratory failure complication: hypoxia and hypercapnia Qualified Code(s): J96.11 - Chronic respiratory failure with hypoxia Is this a current diagnosis for this admission?: YesPlan: recently received a trach due to failed extubation, sats in the 90s (5) Elevated white blood cell count Plan: currently awaiting results of newell cultures (6) Hypomagnesemia Plan: IV magnesium 1g BID until diuretics have been decreased and he is not producing as much urine
[2016-11-12] MEDS: LISINOPRIL 10 MG TABLET PO SCH (21:47)
[2016-11-12] MEDS ORDERED: INSULIN GLARGINE,HUM.REC.ANLOG 300 UNIT/3 ML INSULN.PEN SUBCUT SCH (22:00)
[2016-11-13] MEDS: AMPICILLIN SODIUM/SULBACTAM NA 3 GM in NORMAL SALINE 100 ML IV SCH ×2 (00:06→05:16)
[2016-11-13] MEDS: INSULIN REG, HUMAN 100 UNIT/ML 3 ML VIAL (PYX) SUBCUT PRN (00:07)
[2016-11-13] MEDS: PROPOFOL 100 ML IV PRN ×8 (02:05→23:38)
[2016-11-13] MEDS: FUROSEMIDE INJ/PF 40 MG/4 ML SDV IV SCH ×3 (05:15→21:25)
[2016-11-13] MEDS: POTASSI CL 20 MEQ/50 ML RIDER 20 MEQ/50 ML RTUPB IV SCH ×3 (05:16→21:39)
[2016-11-13] MEDS ORDERED: POTASSIUM CHLORIDE 20 MEQ/50 ML RTU IV SCH (06:00)
[2016-11-13 06:05] LABS: ARTERIAL BLOOD BASE EXCESS 11.4 mmol/L; ARTERIAL BLOOD O2 SATURATION 98.1 % (94-98)
[2016-11-13 06:06] LABS: ABSOLUTE BASOPHILS # (AUTO) 0.1 10^3/uL (0.0-0.2); ABSOLUTE EOSINOPHILS # (AUTO) 0.4 10^3/uL (0.0-0.6); ABSOLUTE LYMPHOCYTES (AUTO) 1.5 10^3/uL (0.5-4.7); ABSOLUTE MONOCYTES (AUTO) 1.1 10^3/uL (0.1-1.4); ABSOLUTE NEUT (AUTO) 11.4 10^3/uL (1.7-8.2); BASOPHILS % (AUTO) 0.5 % (0-2); EOSINOPHILS % (AUTO) 2.8 % (0-6); HEMATOCRIT 29.4 % (37.9-51.0); HEMOGLOBIN 9.5 g/dL (13.5-17.0); HGB HCT DIFFERENCE -0.9; LYMPHOCYTES % (AUTO) 10.5 % (13-45); MEAN CORPUSCULAR HEMOGLOBIN 28.3 pg (27.0-33.4); MEAN CORPUSCULAR HGB CONC 32.4 g/dL (32.0-36.0); MEAN CORPUSCULAR VOLUME 88 fl (80-97); MONOCYTES % (AUTO) 7.4 % (3-13); RED BLOOD COUNT 3.36 10^6/uL (4.35-5.55); SEGMENTED NEUTROPHILS % (AUTO) 78.8 % (42-78); WHITE BLOOD COUNT 14.4 10^3/uL (4.0-10.5)
[2016-11-13 06:19] LABS: ALANINE AMINOTRANSFERASE 32 U/L (21-72); ALBUMIN 2.4 g/dL (3.5-5.0); ALKALINE PHOSPHATASE 93 U/L (38-126); ANION GAP 6 (5-19); ASPARTATE AMINO TRANSFERASE 31 U/L (17-59); BILIRUBIN,DIRECT 0.5 mg/dL (0.0-0.4); BILIRUBIN,TOTAL 0.5 mg/dL (0.2-1.3); BLOOD UREA NITROGEN 27 mg/dL (7-20); CALCIUM 8.5 mg/dL (8.4-10.2); CARBON DIOXIDE 39 mmol/L (22-30); CHLORIDE 96 mmol/L (98-107); GLUCOSE 211 mg/dL (75-110); MAGNESIUM 1.6 mg/dL (1.6-2.3); PHOSPHORUS 3.9 mg/dL (2.5-4.5); POTASSIUM 3.3 mmol/L (3.6-5.0); SODIUM 141.2 mmol/L (137-145); TOTAL PROTEIN 5.9 g/dL (6.3-8.2)
[2016-11-13] MEDS: DEXTROSE 5%-WATER 250 ML with NOREPINEPHRINE BITARTRATE 4 MG IV PRN ×2 (07:19)
--- NOTE | 2016-11-13 07:19 | RADIOLOGY REPORT (SQ) ---
EXAM DESCRIPTION: CHEST SINGLE VIEW COMPLETED DATE/TIME: 11/13/2016 6:31 am REASON FOR STUDY: resp failure COMPARISON: 11/12/2016. EXAM PARAMETERS: NUMBER OF VIEWS: One view. TECHNIQUE: Single frontal radiographic view of the chest acquired. RADIATION DOSE: NA LIMITATIONS: None. FINDINGS: LUNGS AND PLEURA: Moderate mixed interstitial and airspace opacities with lower lobe predo minance, moderate lung volumes. Moderate possible left layered effusion. MEDIASTINUM AND HILAR STRUCTURES: No masses. Contour normal. HEART AND VASCULAR STRUCTURES: Moderate enlargement of the cardiac silhouette. BONES: No acute findings. HARDWARE: Midline tracheostomy. Adequate appearing NG tube. Left S internal jugular central line ti p at the upper right atrium ; consider 4 cm retraction. OTHER: No other significant finding. IMPRESSION: No significant interval change. TECHNICAL DOCUMENTATION: JOB ID: [id number]
--- NOTE | 2016-11-13 08:31 | PDOC PROGRESS REPORT ---
Subjective Progress Note for:: 11/13/16 Subjective:: nods NO to ?pain Physical Exam Vital Signs: Temp Pulse Resp BP Pulse Ox 98.6 F 64 14 124/59 L 94 11/13/16 07:41 11/13/16 07:41 11/13/16 07:41 11/13/16 07:41 11/13/16 07:41 Intake & Output 11/12/16 11/13/16 11/14/16 07:59 07:59 07:59 Intake Total 2381 2155 Output Total 3725 3500 Balance -1344 -1345 Weight 373 lb 10.936 oz 379 lb 13.703 oz General appearance: PRESENT: no acute distress Respiratory exam: PRESENT: rhonchi Cardiovascular exam: ABSENT: diastolic murmur, irregular rhythm, systolic murmur GI/Abdominal exam: ABSENT: mass, organolmegaly, tenderness Extremities exam: PRESENT: pedal edema Results Laboratory Results: 11/13/16 05:35 11/13/16 05:35 Abnormal - 24 hr 11/12/16 11/12/16 11/12/16 12:39 15:47 18:42 WBC RBC Hgb Hct RDW Seg Neutrophils % Lymphocytes % Absolute Neutrophils ABG pH ABG pO2 ABG HCO3 ABG Total CO2 ABG O2 Saturation Potassium 3.4 L Chloride Carbon Dioxide BUN Creatinine Est GFR ( Amer) Est GFR (Non-Af Amer) Glucose POC Glucose 237 H 233 H Direct Bilirubin NT-Pro-B Natriuret Pep Total Protein Albumin 11/12/16 11/13/16 11/13/16 23:43 05:35 05:35 WBC 14.4 H RBC 3.36 L Hgb 9.5 L Hct 29.4 L RDW 17.0 H Seg Neutrophils % 78.8 H Lymphocytes % 10.5 L Absolute Neutrophils 11.4 H ABG pH 7.52 H ABG pO2 101.2 H ABG HCO3 35.4 H ABG Total CO2 36.8 H ABG O2 Saturation 98.1 H Potassium Chloride Carbon Dioxide BUN Creatinine Est GFR ( Amer) Est GFR (Non-Af Amer) Glucose POC Glucose 215 H Direct Bilirubin NT-Pro-B Natriuret Pep Total Protein Albumin 11/13/16 11/13/16 05:35 05:35 WBC RBC Hgb Hct RDW Seg Neutrophils % Lymphocytes % Absolute Neutrophils ABG pH ABG pO2 ABG HCO3 ABG Total CO2 ABG O2 Saturation Potassium 3.3 L Chloride 96 L Carbon Dioxide 39 H BUN 27 H Creatinine 1.80 H Est GFR ( Amer) 45 L Est GFR (Non-Af Amer) 37 L Glucose 211 H POC Glucose Direct Bilirubin 0.5 H NT-Pro-B Natriuret Pep 2010 H Total Protein 5.9 L Albumin 2.4 L 11/11/16 06:54 Tracheal Aspirate Gram Stain - Final 11/11/16 06:54 Tracheal Aspirate Sputum Culture - Final Klebsiella Pneumoniae Pseudomonas Aeruginosa Normal Noemi Absent Impressions: Renal Ultrasound 10/29/16 00:00 IMPRESSION: Limited study as noted above. No right renal abnormalities were identified. Left kidney could not be visualized. Eaton catheter in the bladder. Chest X-Ray 11/13/16 06:00 IMPRESSION: No significant interval change. Assessment & Plan - Diagnosis (1) Respiratory failure Qualifiers: Chronicity: chronic Respiratory failure complication: hypoxia and hypercapnia Qualified Code(s): J96.11 - Chronic respiratory failure with hypoxia Is this a current diagnosis for this admission?: YesPlan: consider [facility] in [place] when we are done with levophed (or before in their ICU) (2) Aspiration pneumonia Qualifiers: Aspiration pneumonia type: due to gastric secretions Laterality: bilateral Lung location: unspecified part of lung Qualified Code(s): J69.0 - Pneumonitis due to inhalation of food and vomit Is this a current diagnosis for this admission?: YesPlan: now proteus & pseudomonas too. Switch unasyn to fortaz. Continue tobra nebs. (3) Acute on chronic combined systolic and diastolic congestive heart failure Is this a current diagnosis for this admission?: YesPlan: diuresing. On electrolyte protocol. (4) Malnutrition due to starvation Is this a current diagnosis for this admission?: YesPlan: increase lantus to 30u (5) Morbid (severe) obesity with alveolar hypoventilation Is this a current diagnosis for this admission?: No (6) Pulmonary hypertension Is this a current diagnosis for this admission?: Yes (7) Hematuria Qualifiers: Hematuria type: gross Qualified Code(s): R31.0 - Gross hematuria Is this a current diagnosis for this admission?: Yes (8) Cardiopulmonary arrest with successful resuscitation Is this a current diagnosis for this admission?: Yes (9) Hypothermia due to anesthesia Is this a current diagnosis for this admission?: Yes (10) Anemia due to blood loss, acute Is this a current diagnosis for this admission?: Yes - Inpatient Certification Medical Necessity: Failure to Improve With Outpatient Therapy, Significant Comorbidiites Make Outpatient Treatment Too Risky, Need Close Monitoring Due to Risk of Patient Decompensation, Need For IV Fluids, Need For Continuous Telemetry Monitoring, Need for IV Antibiotics, Risk of Complication if Not Cared For in Hospital, Risk of Diagnosis Which Will Require Inpatient Eval/Care/ Monitoring
[2016-11-13] MEDS: MAGNESIUM SULFATE/D5W 100 ML IV SCH ×2 (09:23→21:49)
[2016-11-13] MEDS: FAMOTIDINE INJ/PF 20 MG/2 ML SDV IV SCH ×2 (09:24→21:26)
[2016-11-13] MEDS: LISINOPRIL 10 MG TABLET PO SCH ×2 (09:24→21:45)
[2016-11-13] MEDS: CEFTAZIDIME PENTAHYDRATE 1 GM in DEXTROSE 5%-WATER 50 ML IV SCH ×2 (10:29→21:46)
--- NOTE | 2016-11-13 10:39 | PDOC PROGRESS REPORT ---
Subjective Progress Note for:: 11/13/16 Subjective:: s/p tracheostomy Physical Exam Vital Signs: Temp Pulse Resp BP Pulse Ox 98.6 F 64 14 124/59 L 94 11/13/16 07:41 11/13/16 07:41 11/13/16 07:41 11/13/16 07:41 11/13/16 07:41 Intake & Output 11/12/16 11/13/16 11/14/16 06:59 06:59 06:59 Intake Total 2381 2155 Output Total 3325 3700 200 Balance -944 -1545 -200 Weight 169.5 kg 172.3 kg General appearance: PRESENT: no acute distress, disheveled, morbidly obese Head exam: PRESENT: atraumatic, normocephalic Eye exam: PRESENT: conjunctiva pale Mouth exam: PRESENT: dry mucosa, neck supple, tongue midline Neck exam: PRESENT: tracheostomy. ABSENT: carotid bruit, JVD, lymphadenopathy, thyromegaly, tracheal deviation Respiratory exam: PRESENT: decreased breath sounds, prolonged expiratory phas, rales, rhonchi, symmetrical, unlabored. ABSENT: accessory muscle use, retraction, stridor, tachypnea Cardiovascular exam: PRESENT: irregular rhythm Pulses: PRESENT: normal radial pulses GI/Abdominal exam: PRESENT: diminished bowel sounds, soft. ABSENT: distended, guarding, mass, organolmegaly, rebound, tenderness Rectal exam: PRESENT: deferred Gentrourinary exam: PRESENT: indwelling catheter Extremities exam: PRESENT: pedal edema Skin exam: PRESENT: dry, warm Results Laboratory Results: 11/13/16 05:35 11/13/16 05:35 11/12/16 11/13/16 11/13/16 15:47 05:35 05:35 WBC 14.4 H RBC 3.36 L Hgb 9.5 L Hct 29.4 L MCV 88 MCH 28.3 MCHC 32.4 RDW 17.0 H Plt Count 248 Seg Neutrophils % 78.8 H Lymphocytes % 10.5 L Monocytes % 7.4 Eosinophils % 2.8 Basophils % 0.5 Absolute Neutrophils 11.4 H Absolute Lymphocytes 1.5 Absolute Monocytes 1.1 Absolute Eosinophils 0.4 Absolute Basophils 0.1 Carbonic Acid 1.34 HCO3/H2CO3 Ratio 26:1 ABG pH 7.52 H ABG pCO2 44.4 ABG pO2 101.2 H ABG HCO3 35.4 H ABG O2 Saturation 98.1 H ABG Base Excess 11.4 FiO2 40% Sodium Potassium 3.4 L Chloride Carbon Dioxide Anion Gap BUN Creatinine Est GFR ( Amer) Est GFR (Non-Af Amer) Glucose Calcium Phosphorus Magnesium Total Bilirubin AST ALT Alkaline Phosphatase Total Protein Albumin 11/13/16 05:35 WBC RBC Hgb Hct MCV MCH MCHC RDW Plt Count Seg Neutrophils % Lymphocytes % Monocytes % Eosinophils % Basophils % Absolute Neutrophils Absolute Lymphocytes Absolute Monocytes Absolute Eosinophils Absolute Basophils Carbonic Acid HCO3/H2CO3 Ratio ABG pH ABG pCO2 ABG pO2 ABG HCO3 ABG O2 Saturation ABG Base Excess FiO2 Sodium 141.2 Potassium 3.3 L Chloride 96 L Carbon Dioxide 39 H Anion Gap 6 BUN 27 H Creatinine 1.80 H Est GFR ( Amer) 45 L Est GFR (Non-Af Amer) 37 L Glucose 211 H Calcium 8.5 Phosphorus 3.9 Magnesium 1.6 Total Bilirubin 0.5 AST 31 ALT 32 Alkaline Phosphatase 93 Total Protein 5.9 L Albumin 2.4 L 11/11/16 06:54 Tracheal Aspirate Gram Stain - Final 11/11/16 06:54 Tracheal Aspirate Sputum Culture - Final Klebsiella Pneumoniae Pseudomonas Aeruginosa Normal Noemi Absent 10/29/16 10/29/16 10/30/16 20:00 20:00 03:58 Creatine Kinase 72 55 CK-MB (CK-2) 1.52 Troponin I < 0.012 NT-Pro-B Natriuret Pep 10/30/16 10/30/16 10/30/16 03:58 13:40 13:40 Creatine Kinase 45 L CK-MB (CK-2) 0.89 0.46 Troponin I < 0.012 < 0.012 NT-Pro-B Natriuret Pep 11/13/16 05:35 Creatine Kinase CK-MB (CK-2) Troponin I NT-Pro-B Natriuret Pep 2010 H Impressions: Renal Ultrasound 10/29/16 00:00 IMPRESSION: Limited study as noted above. No right renal abnormalities were identified. Left kidney could not be visualized. Eaton catheter in the bladder. Chest X-Ray 11/13/16 06:00 IMPRESSION: No significant interval change. Assessment & Plan - Diagnosis (1) Acute on chronic combined systolic and diastolic congestive heart failure Is this a current diagnosis for this admission?: Yes (2) Dyspnea Qualifiers: Dyspnea type: unspecified Qualified Code(s): R06.00 - Dyspnea, unspecified Is this a current diagnosis for this admission?: YesPlan: Much improved, Requiring less FiO2 (3) Morbid (severe) obesity with alveolar hypoventilation Is this a current diagnosis for this admission?: YesPlan: Primary reason for failed extubation (4) Pulmonary vascular congestion Is this a current diagnosis for this admission?: Yes (5) Respiratory failure Qualifiers: Chronicity: chronic Respiratory failure complication: hypoxia and hypercapnia Qualified Code(s): J96.11 - Chronic respiratory failure with hypoxia Is this a current diagnosis for this admission?: Yes (6) Cardiac arrest Is this a current diagnosis for this admission?: Yes - Time Critical Time spent with patient: 25-34 minutes
[2016-11-13] MEDS: DOPAMINE HCL 800 MG/D5W 250 ML IV PRN (10:43)
[2016-11-13] MEDS ORDERED: SCOPOLAMINE HYDROBROMIDE 1.5 MG PATCH.TD72 TD SCH (12:00)
--- NOTE | 2016-11-13 12:01 | PDOC PROGRESS REPORT ---
Subjective Progress Note for:: 11/13/16 Subjective:: Patient about the same and has made very little progress. Patient now status post tracheostomy. There is no significant change in general condition. Patient continues to be intermittently bradycardic but generally maintains blood pressure. Telemetry strips shows intermittent Wenckebach and AV block second-degree. Patient remains intubated now through tracheostomy, sedated, patient however looks comfortable and in acute distress. Chest x-ray showed bilateral airspace disease, most likely bilateral aspiration pneumonia. Medications reviewed. Medications: Medications have been reviewed. Physical Exam Vital Signs: Temp Pulse Resp BP Pulse Ox 98.6 F 66 14 149/56 H 99 11/13/16 11:30 11/13/16 10:00 11/13/16 11:30 11/13/16 11:14 11/13/16 11:30 Intake & Output 11/12/16 11/13/16 11/14/16 06:59 06:59 06:59 Intake Total 2381 2155 Output Total 3325 3700 435 Balance -944 -1545 -435 Weight 169.5 kg 172.3 kg Exam: GENERAL: well-nourished and in no acute distress. Patient is intubated and sedated. Orientation cannot be checked HEAD: Atraumatic, normocephalic. EYES: Pupils equal round and reactive to light, extraocular movements could not be checked, sclera anicteric, conjunctiva are normal. ENT: TMs normal, nares patent, oropharynx clear without exudates. Moist mucous membranes. No oral ulcerations or bleeding gums noted NECK: supple without lymphadenopathy or JVD. Trachea is central. No cervical or axillary lymphadenopathy noted. Carotids are 2+ LUNGS: Breath sounds mostly clear to auscultation patient is noted to have bibasal crackles at the extreme bases CHEST: Palpation of the chest wall shows no significant chest wall tenderness or abnormalities. 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 ABDOMEN: Soft, no significant tenderness appreciated, normoactive bowel sounds. No guarding, no rebound. No rigidity noted . No masses appreciated. EXTREMITIES: Pedal pulses are 1-2+, no calf tenderness noted, 1+ pedal edema noted. No clubbing or cyanosis. Chronic dermatitis changes noted in lower legs both sides NEUROLOGICAL: The patient cannot participate in the neurological exam but no facial asymmetry noted. Extremities slightly hypotonic PSYCH: This cannot be evaluated. Patient cannot participate. SKIN: No significant ecchymosis, rash, or signs of pruritus noted. MUSCULOSKELETAL EXAM: No significant joint swelling noted. Patient cannot participate in musculoskeletal exam Results Laboratory Results: 11/13/16 05:35 11/13/16 05:35 11/12/16 11/13/16 11/13/16 15:47 05:35 05:35 WBC 14.4 H RBC 3.36 L Hgb 9.5 L Hct 29.4 L MCV 88 MCH 28.3 MCHC 32.4 RDW 17.0 H Plt Count 248 Seg Neutrophils % 78.8 H Lymphocytes % 10.5 L Monocytes % 7.4 Eosinophils % 2.8 Basophils % 0.5 Absolute Neutrophils 11.4 H Absolute Lymphocytes 1.5 Absolute Monocytes 1.1 Absolute Eosinophils 0.4 Absolute Basophils 0.1 Carbonic Acid 1.34 HCO3/H2CO3 Ratio 26:1 ABG pH 7.52 H ABG pCO2 44.4 ABG pO2 101.2 H ABG HCO3 35.4 H ABG O2 Saturation 98.1 H ABG Base Excess 11.4 FiO2 40% Sodium Potassium 3.4 L Chloride Carbon Dioxide Anion Gap BUN Creatinine Est GFR ( Amer) Est GFR (Non-Af Amer) Glucose Calcium Phosphorus Magnesium Total Bilirubin AST ALT Alkaline Phosphatase Total Protein Albumin 11/13/16 05:35 WBC RBC Hgb Hct MCV MCH MCHC RDW Plt Count Seg Neutrophils % Lymphocytes % Monocytes % Eosinophils % Basophils % Absolute Neutrophils Absolute Lymphocytes Absolute Monocytes Absolute Eosinophils Absolute Basophils Carbonic Acid HCO3/H2CO3 Ratio ABG pH ABG pCO2 ABG pO2 ABG HCO3 ABG O2 Saturation ABG Base Excess FiO2 Sodium 141.2 Potassium 3.3 L Chloride 96 L Carbon Dioxide 39 H Anion Gap 6 BUN 27 H Creatinine 1.80 H Est GFR ( Amer) 45 L Est GFR (Non-Af Amer) 37 L Glucose 211 H Calcium 8.5 Phosphorus 3.9 Magnesium 1.6 Total Bilirubin 0.5 AST 31 ALT 32 Alkaline Phosphatase 93 Total Protein 5.9 L Albumin 2.4 L 11/11/16 06:54 Tracheal Aspirate Gram Stain - Final 11/11/16 06:54 Tracheal Aspirate Sputum Culture - Final Klebsiella Pneumoniae Pseudomonas Aeruginosa Normal Noemi Absent 10/29/16 10/29/16 10/30/16 20:00 20:00 03:58 Creatine Kinase 72 55 CK-MB (CK-2) 1.52 Troponin I < 0.012 NT-Pro-B Natriuret Pep 10/30/16 10/30/16 10/30/16 03:58 13:40 13:40 Creatine Kinase 45 L CK-MB (CK-2) 0.89 0.46 Troponin I < 0.012 < 0.012 NT-Pro-B Natriuret Pep 11/13/16 05:35 Creatine Kinase CK-MB (CK-2) Troponin I NT-Pro-B Natriuret Pep 2010 H Impressions: Renal Ultrasound 10/29/16 00:00 IMPRESSION: Limited study as noted above. No right renal abnormalities were identified. Left kidney could not be visualized. Eaton catheter in the bladder. Chest X-Ray 11/13/16 06:00 IMPRESSION: No significant interval change. Assessment & Plan - Diagnosis (1) Cardiopulmonary arrest with successful resuscitation Is this a current diagnosis for this admission?: Yes (2) Respiratory failure Qualifiers: Chronicity: chronic Respiratory failure complication: hypoxia and hypercapnia Qualified Code(s): J96.11 - Chronic respiratory failure with hypoxia Is this a current diagnosis for this admission?: Yes (3) Aspiration pneumonia Qualifiers: Aspiration pneumonia type: due to gastric secretions Laterality: bilateral Lung location: unspecified part of lung Qualified Code(s): J69.0 - Pneumonitis due to inhalation of food and vomit Is this a current diagnosis for this admission?: Yes (4) Acute on chronic combined systolic and diastolic congestive heart failure Is this a current diagnosis for this admission?: Yes (5) Dyspnea Qualifiers: Dyspnea type: unspecified Qualified Code(s): R06.00 - Dyspnea, unspecified Is this a current diagnosis for this admission?: Yes (6) Morbid (severe) obesity with alveolar hypoventilation Is this a current diagnosis for this admission?: Yes (7) Pulmonary hypertension Is this a current diagnosis for this admission?: Yes (8) Chronic kidney disease (CKD) Qualifiers: Chronic kidney disease stage: stage 3 (moderate) Qualified Code(s): N18.3 - Chronic kidney disease, stage 3 (moderate) Is this a current diagnosis for this admission?: Yes (9) Hypotension (arterial) Qualifiers: Hypotension type: other hypotension type Qualified Code(s): I95.89 - Other hypotension Is this a current diagnosis for this admission?: Yes (10) Acute kidney injury superimposed on chronic kidney disease Is this a current diagnosis for this admission?: Yes (11) Bradycardia Is this a current diagnosis for this admission?: Yes - Notes Notes: Status post cardiopulmonary arrest with successful resuscitation: Believe that patient predominantly and primarily had respiratory arrest most likely brought on by aspiration pneumonia. Continue ventilatory support, continue oxygenation. Chest x-ray shows progressive but slight improvement each day by my review. Continue antibiotic therapy. Respiratory failure: Acute on chronic. Pulmonary assisting in care. Currently has tracheostomy. Hypotension: Possibly related to severe RV dysfunction, sepsis etc. continue with vasopressor therapy. Currently on Levophed at low-dose. Aspiration pneumonia: Continue antibiotic therapy. Biventricular failure: Patient has LV systolic diastolic failure and significant RV failure. Continue diuretic therapy. Morbid obesity: Currently stable. Pulmonary hypertension: Possibly severe. Will let book canvasser manage this. Bradycardia: Patient noted to have sinus bradycardia with intermittent Mobitz type I second-degree heart block. Telemetry strips reviewed showed intermittent Wenckebach. Lab work including TSH free T3 and free T4 level, came back normal. May consider restarting dopamine drip if this is a significant problems. Have Acute on Chronic kidney disease: Currently stable. Dr Mijares following. Overall prognosis is poor. - Time Time with patient: Greater than 35 minutes - CODE STATUS was discussed, patient remains full code. Surrogate decision-maker unchanged. Multiple medical problems were addressed. More than 50% of the time spent coordinating care, discussing management plans with involved caregivers. Management plans discussed with involved personnels. Medical decision making was of moderate to high complexity, patient's has multiple comorbidities. Medications reviewed and adjusted accordingly: Yes
[2016-11-13] MEDS ORDERED: CEFTAZIDIME PENTAHYDRATE 1 GM in DEXTROSE 5%-WATER 50 ML IV SCH (14:00)
[2016-11-13] MEDS ORDERED: PIPERACILLIN SODIUM/TAZOBACTAM 3.375 GM in NORMAL SALINE 100 ML IV SCH (15:00)
--- NOTE | 2016-11-13 15:55 | PDOC PROGRESS REPORT ---
Subjective Progress Note for:: 11/13/16 Subjective:: Patient has trach and is sedated on vent. He has his eyes opens and can answer questions with nods. He denies pain. Blood pressures remains in the 140s to 150s and heart rate in the 80s. He is having occasional bradycardic heart rates. His dopamine drip was off and he is off theophylline. Levophed is at 2mcg. He produced 3.7L of urine over the day yesterday while on 20mg TID of IV lasix. Physical Exam Vital Signs: Temp Pulse Resp BP Pulse Ox 98.4 F 69 13 161/93 H 100 11/13/16 14:00 11/13/16 14:00 11/13/16 14:00 11/13/16 14:00 11/13/16 14:00 Intake & Output 11/12/16 11/13/16 11/14/16 06:59 06:59 06:59 Intake Total 2381 2155 40 Output Total 3325 3700 685 Balance -944 -1545 -645 Weight 169.5 kg 172.3 kg General appearance: PRESENT: no acute distress, morbidly obese, well-developed, well-nourished Head exam: PRESENT: atraumatic, normocephalic Mouth exam: PRESENT: moist, neck supple Neck exam: PRESENT: full ROM. ABSENT: tracheal deviation Respiratory exam: PRESENT: clear to auscultation maryann, crackles, rhonchi. ABSENT : accessory muscle use, chest wall tenderness, tachypnea, wheezes Cardiovascular exam: PRESENT: RRR, +S1, +S2, systolic murmur GI/Abdominal exam: PRESENT: normal bowel sounds, soft. ABSENT: organomegaly, tenderness Extremities exam: PRESENT: +1 edema. ABSENT: joint swelling Neurological exam: PRESENT: altered, other - sedated but following commands. Skin exam: PRESENT: dry, normal color Results Laboratory Results: 11/13/16 05:35 11/13/16 05:35 11/12/16 11/13/16 11/13/16 15:47 05:35 05:35 WBC 14.4 H RBC 3.36 L Hgb 9.5 L Hct 29.4 L MCV 88 MCH 28.3 MCHC 32.4 RDW 17.0 H Plt Count 248 Seg Neutrophils % 78.8 H Lymphocytes % 10.5 L Monocytes % 7.4 Eosinophils % 2.8 Basophils % 0.5 Absolute Neutrophils 11.4 H Absolute Lymphocytes 1.5 Absolute Monocytes 1.1 Absolute Eosinophils 0.4 Absolute Basophils 0.1 Carbonic Acid 1.34 HCO3/H2CO3 Ratio 26:1 ABG pH 7.52 H ABG pCO2 44.4 ABG pO2 101.2 H ABG HCO3 35.4 H ABG O2 Saturation 98.1 H ABG Base Excess 11.4 FiO2 40% Sodium Potassium 3.4 L Chloride Carbon Dioxide Anion Gap BUN Creatinine Est GFR ( Amer) Est GFR (Non-Af Amer) Glucose Calcium Phosphorus Magnesium Total Bilirubin AST ALT Alkaline Phosphatase Total Protein Albumin 11/13/16 05:35 WBC RBC Hgb Hct MCV MCH MCHC RDW Plt Count Seg Neutrophils % Lymphocytes % Monocytes % Eosinophils % Basophils % Absolute Neutrophils Absolute Lymphocytes Absolute Monocytes Absolute Eosinophils Absolute Basophils Carbonic Acid HCO3/H2CO3 Ratio ABG pH ABG pCO2 ABG pO2 ABG HCO3 ABG O2 Saturation ABG Base Excess FiO2 Sodium 141.2 Potassium 3.3 L Chloride 96 L Carbon Dioxide 39 H Anion Gap 6 BUN 27 H Creatinine 1.80 H Est GFR ( Amer) 45 L Est GFR (Non-Af Amer) 37 L Glucose 211 H Calcium 8.5 Phosphorus 3.9 Magnesium 1.6 Total Bilirubin 0.5 AST 31 ALT 32 Alkaline Phosphatase 93 Total Protein 5.9 L Albumin 2.4 L 11/12/16 10:25 Catheterized Urine Urine Culture - Final C.albicans/C.dubliniensis 11/11/16 06:54 Tracheal Aspirate Gram Stain - Final 11/11/16 06:54 Tracheal Aspirate Sputum Culture - Final Klebsiella Pneumoniae Pseudomonas Aeruginosa Normal Noemi Absent 10/29/16 10/29/16 10/30/16 20:00 20:00 03:58 Creatine Kinase 72 55 CK-MB (CK-2) 1.52 Troponin I < 0.012 NT-Pro-B Natriuret Pep 10/30/16 10/30/16 10/30/16 03:58 13:40 13:40 Creatine Kinase 45 L CK-MB (CK-2) 0.89 0.46 Troponin I < 0.012 < 0.012 NT-Pro-B Natriuret Pep 11/13/16 05:35 Creatine Kinase CK-MB (CK-2) Troponin I NT-Pro-B Natriuret Pep 2010 H Impressions: Renal Ultrasound 10/29/16 00:00 IMPRESSION: Limited study as noted above. No right renal abnormalities were identified. Left kidney could not be visualized. Eaton catheter in the bladder. Chest X-Ray 11/13/16 06:00 IMPRESSION: No significant interval change. Assessment & Plan - Diagnosis (1) Hypokalemia Plan: Keeping IV Potassium to 40mEQ TID with bmps q12 until he has been decreased on diuretics. (2) Acute kidney injury superimposed on chronic kidney disease Is this a current diagnosis for this admission?: YesPlan: currently stable (3) CHF (congestive heart failure) Plan: Continue on lasix 20mg IV TID (4) Respiratory failure Qualifiers: Chronicity: chronic Respiratory failure complication: hypoxia and hypercapnia Qualified Code(s): J96.11 - Chronic respiratory failure with hypoxia Is this a current diagnosis for this admission?: YesPlan: recently received a trach due to failed extubation, sats in the 90s (5) Hypomagnesemia Plan: IV magnesium 1g BID until diuretics have been decreased and he is not producing as much urine (6) Aspiration pneumonia Qualifiers: Aspiration pneumonia type: due to gastric secretions Laterality: bilateral Lung location: unspecified part of lung Qualified Code(s): J69.0 - Pneumonitis due to inhalation of food and vomit Is this a current diagnosis for this admission?: YesPlan: On ceftazidime and tobramycin nebulizers
[2016-11-13 20:15] LABS: ANION GAP 9 (5-19); BLOOD UREA NITROGEN 29 mg/dL (7-20); CALCIUM 8.5 mg/dL (8.4-10.2); CARBON DIOXIDE 36 mmol/L (22-30); CHLORIDE 95 mmol/L (98-107); CREATININE RESULT 1.83 mg/dL (0.52-1.25); GLUCOSE 316 mg/dL (75-110); POTASSIUM 3.4 mmol/L (3.6-5.0); SODIUM 139.6 mmol/L (137-145)
[2016-11-13] MEDS: IMIPENEM/CILASTATIN SODIUM 500 MG in NORMAL SALINE 100 ML IV SCH (21:45)
[2016-11-13] MEDS ORDERED: INSULIN GLARGINE,HUM.REC.ANLOG 300 UNIT/3 ML INSULN.PEN SUBCUT SCH (22:00)
[2016-11-14] MEDS: PROPOFOL 100 ML IV PRN ×4 (04:15→21:39)
[2016-11-14] MEDS: FUROSEMIDE INJ/PF 40 MG/4 ML SDV IV SCH ×3 (05:41→21:32)
[2016-11-14] MEDS: POTASSI CL 20 MEQ/50 ML RIDER 20 MEQ/50 ML RTUPB IV SCH ×3 (05:41→21:38)
[2016-11-14] MEDS: IMIPENEM/CILASTATIN SODIUM 500 MG in NORMAL SALINE 100 ML IV SCH ×3 (05:42→21:35)
[2016-11-14] MEDS ORDERED: POTASSI CL 20 MEQ/50 ML RIDER 20 MEQ/50 ML RTUPB IV ONE (06:11)
[2016-11-14] MEDS ORDERED: POTASSI CL 20 MEQ/50 ML RIDER 0 MEQ/0 ML RTUPB IV ONE (06:11)
[2016-11-14] MEDS: INSULIN REG, HUMAN 100 UNIT/ML 3 ML VIAL (PYX) SUBCUT PRN ×4 (07:47→21:36)
[2016-11-14 07:48] LABS: ABSOLUTE BASOPHILS # (AUTO) 0.1 10^3/uL (0.0-0.2); ABSOLUTE EOSINOPHILS # (AUTO) 0.4 10^3/uL (0.0-0.6); ABSOLUTE LYMPHOCYTES (AUTO) 1.2 10^3/uL (0.5-4.7); ABSOLUTE MONOCYTES (AUTO) 1.1 10^3/uL (0.1-1.4); ABSOLUTE NEUT (AUTO) 11.2 10^3/uL (1.7-8.2); BASOPHILS % (AUTO) 0.6 % (0-2); EOSINOPHILS % (AUTO) 3.1 % (0-6); HEMATOCRIT 28.9 % (37.9-51.0); HEMOGLOBIN 9.3 g/dL (13.5-17.0); LYMPHOCYTES % (AUTO) 8.9 % (13-45); MEAN CORPUSCULAR HEMOGLOBIN 28.2 pg (27.0-33.4); MEAN CORPUSCULAR HGB CONC 32.1 g/dL (32.0-36.0); MEAN CORPUSCULAR VOLUME 88 fl (80-97); MONOCYTES % (AUTO) 7.6 % (3-13); RED BLOOD COUNT 3.29 10^6/uL (4.35-5.55); RED CELL DISTRIBUTION WIDTH 16.8 % (11.5-14.0); SEGMENTED NEUTROPHILS % (AUTO) 79.8 % (42-78)
[2016-11-14 07:55] LABS: ARTERIAL BLOOD BASE EXCESS 9.1 mmol/L; ARTERIAL BLOOD O2 SATURATION 97.2 % (94-98)
[2016-11-14 07:58] LABS: ALANINE AMINOTRANSFERASE 28 U/L (21-72); ALBUMIN 2.5 g/dL (3.5-5.0); ALKALINE PHOSPHATASE 97 U/L (38-126); ANION GAP 8 (5-19); ASPARTATE AMINO TRANSFERASE 28 U/L (17-59); BILIRUBIN,DIRECT 0.5 mg/dL (0.0-0.4); BILIRUBIN,TOTAL 0.5 mg/dL (0.2-1.3); BLOOD UREA NITROGEN 31 mg/dL (7-20); CALCIUM 8.4 mg/dL (8.4-10.2); CARBON DIOXIDE 36 mmol/L (22-30); CHLORIDE 94 mmol/L (98-107); CREATININE RESULT 1.88 mg/dL (0.52-1.25); GLUCOSE 270 mg/dL (75-110); PHOSPHORUS 4.4 mg/dL (2.5-4.5); POTASSIUM 3.5 mmol/L (3.6-5.0); SODIUM 137.8 mmol/L (137-145); TOTAL PROTEIN 5.9 g/dL (6.3-8.2)
--- NOTE | 2016-11-14 08:26 | PDOC PROGRESS REPORT ---
Subjective Progress Note for:: 11/14/16 Subjective:: sedated Physical Exam Vital Signs: Temp Pulse Resp BP Pulse Ox 99.0 F 51 L 12 132/62 H 97 11/14/16 07:40 11/13/16 22:00 11/14/16 07:40 11/14/16 07:40 11/14/16 07:40 Intake & Output 11/12/16 11/13/16 11/14/16 07:59 07:59 07:59 Intake Total 2381 2155 2774 Output Total 3725 3500 2290 Balance -1344 -1345 484 Weight 373 lb 10.936 oz 379 lb 13.703 oz 379 lb 13.703 oz Respiratory exam: PRESENT: rhonchi Cardiovascular exam: ABSENT: diastolic murmur, irregular rhythm, systolic murmur GI/Abdominal exam: ABSENT: mass, organolmegaly Extremities exam: PRESENT: pedal edema Results Laboratory Results: 11/13/16 05:35 11/13/16 19:30 Abnormal - 24 hr 11/13/16 11/13/16 19:30 21:57 Potassium 3.4 L Chloride 95 L Carbon Dioxide 36 H BUN 29 H Creatinine 1.83 H Est GFR ( Amer) 44 L Est GFR (Non-Af Amer) 36 L Glucose 316 H POC Glucose 327 H 11/12/16 10:25 Catheterized Urine Urine Culture - Final C.albicans/C.dubliniensis 11/11/16 06:54 Tracheal Aspirate Gram Stain - Final 11/11/16 06:54 Tracheal Aspirate Sputum Culture - Final Klebsiella Pneumoniae Pseudomonas Aeruginosa Normal Noemi Absent Impressions: Renal Ultrasound 10/29/16 00:00 IMPRESSION: Limited study as noted above. No right renal abnormalities were identified. Left kidney could not be visualized. Eaton catheter in the bladder. Assessment & Plan - Diagnosis (1) Respiratory failure Qualifiers: Chronicity: chronic Respiratory failure complication: hypoxia and hypercapnia Qualified Code(s): J96.11 - Chronic respiratory failure with hypoxia Is this a current diagnosis for this admission?: Yes Plan: told LTAC might be appropriate soon. (2) Aspiration pneumonia Qualifiers: Aspiration pneumonia type: due to gastric secretions Laterality: bilateral Lung location: unspecified part of lung Qualified Code(s): J69.0 - Pneumonitis due to inhalation of food and vomit Is this a current diagnosis for this admission?: Yes (3) Acute on chronic combined systolic and diastolic congestive heart failure Is this a current diagnosis for this admission?: Yes (4) Malnutrition due to starvation Is this a current diagnosis for this admission?: Yes (5) Morbid (severe) obesity with alveolar hypoventilation Is this a current diagnosis for this admission?: Yes (6) Pulmonary hypertension Is this a current diagnosis for this admission?: Yes (7) Hematuria Qualifiers: Hematuria type: gross Qualified Code(s): R31.0 - Gross hematuria Is this a current diagnosis for this admission?: Yes (8) Cardiopulmonary arrest with successful resuscitation Is this a current diagnosis for this admission?: Yes (9) Hypothermia due to anesthesia Is this a current diagnosis for this admission?: Yes (10) Anemia due to blood loss, acute Is this a current diagnosis for this admission?: Yes (11) Bacteremia due to Gram-positive bacteria Is this a current diagnosis for this admission?: Yes Plan: 1of2. Follow sensitivities (12) Ventricular tachycardia, nonsustained Is this a current diagnosis for this admission?: Yes Plan: K coming up. ?stop levophed - Inpatient Certification Medical Necessity: Failure to Improve With Outpatient Therapy, Significant Comorbidiites Make Outpatient Treatment Too Risky, Need Close Monitoring Due to Risk of Patient Decompensation, Need For IV Fluids, Need For Continuous Telemetry Monitoring, Need for IV Antibiotics, Risk of Complication if Not Cared For in Hospital, Risk of Diagnosis Which Will Require Inpatient Eval/Care/ Monitoring
[2016-11-14] MEDS ORDERED: INSULIN GLARGINE,HUM.REC.ANLOG 300 UNIT/3 ML INSULN.PEN SUBCUT SCH (08:27)
--- NOTE | 2016-11-14 09:05 | RADIOLOGY REPORT (SQ) ---
EXAM DESCRIPTION: CHEST SINGLE VIEW COMPLETED DATE/TIME: 11/14/2016 8:14 am REASON FOR STUDY: acute/chronic resp failure COMPARISON: CT chest 09/18/2016 Chest films 10/26/2016, 10/31/2016, 11/08/2016, 11/12/2016, 11/13/2016 EXAM PARAMETERS: NUMBER OF VIEWS: One view. TECHNIQUE: Single frontal radiographic view of the chest acquired. RADIATION DOSE: NA LIMITATIONS: Obese patient, portable technique FINDINGS: LUNGS AND PLEURA: Mild alveolar and interstitial infiltrates bilaterally from probable pul monary edema. This is similar compared 11/13/2016. No gross pleural effusions or pneumothorax. MEDIASTINUM AND HILAR STRUCTURES: No masses. Contour normal. HEART AND VASCULAR STRUCTURES: Stable moderate to marked cardiomegaly BONES: No acute findings. HARDWARE: Tracheostomy tube tip in the midtrachea. Nasogastric tube tip and side port in the stomach . OTHER: No other significant finding. IMPRESSION: Persistent alveolar and interstitial infiltrates from probable fluid overload or congest lo failure. This is similar compared 11/13/2016 TECHNICAL DOCUMENTATION: JOB ID: [id number]
[2016-11-14] MEDS: FAMOTIDINE INJ/PF 20 MG/2 ML SDV IV SCH ×2 (09:38→21:33)
[2016-11-14] MEDS: CEFTAZIDIME PENTAHYDRATE 1 GM in DEXTROSE 5%-WATER 50 ML IV SCH ×2 (09:39→21:32)
[2016-11-14] MEDS ORDERED: ENOXAPARIN SODIUM INJ 30 MG/0.3 ML DISP.SYRIN SUBCUT SCH (10:00)
[2016-11-14] MEDS: LISINOPRIL 10 MG TABLET PO SCH ×2 (10:53→21:33)
--- NOTE | 2016-11-14 16:15 | PDOC PROGRESS REPORT ---
Subjective Progress Note for:: 11/14/16 Subjective:: Lethargic, but arousable,s/p tracheostomy day 2 Physical Exam Vital Signs: Temp Pulse Resp BP Pulse Ox 99.1 F 73 12 132/62 H 98 11/14/16 07:56 11/14/16 07:56 11/14/16 07:56 11/14/16 07:56 11/14/16 07:56 Intake & Output 11/13/16 11/14/16 11/15/16 06:59 06:59 06:59 Intake Total 2155 2774 Output Total 3700 2325 255 Balance -1545 449 -255 Weight 172.3 kg 172.3 kg General appearance: PRESENT: no acute distress, disheveled, morbidly obese, well -developed Head exam: PRESENT: atraumatic, normocephalic Eye exam: PRESENT: conjunctiva pale, EOMI Mouth exam: PRESENT: dry mucosa, neck supple, tongue midline Neck exam: PRESENT: tracheostomy. ABSENT: carotid bruit, JVD, thyromegaly Respiratory exam: PRESENT: decreased breath sounds, prolonged expiratory phas, rales, rhonchi, symmetrical, unlabored Cardiovascular exam: PRESENT: irregular rhythm. ABSENT: bradycardia, clicks, RRR, rubs Pulses: PRESENT: normal radial pulses GI/Abdominal exam: PRESENT: normal bowel sounds, soft. ABSENT: distended, guarding, mass, organolmegaly, rebound, tenderness Rectal exam: PRESENT: deferred Gentrourinary exam: PRESENT: indwelling catheter Extremities exam: PRESENT: +1 edema Skin exam: PRESENT: dry, warm Results Laboratory Results: 11/13/16 05:35 11/13/16 19:30 11/13/16 19:30 Sodium 139.6 Potassium 3.4 L Chloride 95 L Carbon Dioxide 36 H Anion Gap 9 BUN 29 H Creatinine 1.83 H Est GFR ( Amer) 44 L Est GFR (Non-Af Amer) 36 L Glucose 316 H Calcium 8.5 11/12/16 10:25 Catheterized Urine Urine Culture - Final C.albicans/C.dubliniensis 11/11/16 06:54 Tracheal Aspirate Gram Stain - Final 11/11/16 06:54 Tracheal Aspirate Sputum Culture - Final Klebsiella Pneumoniae Pseudomonas Aeruginosa Normal Noemi Absent 10/29/16 10/29/16 10/30/16 20:00 20:00 03:58 Creatine Kinase 72 55 CK-MB (CK-2) 1.52 Troponin I < 0.012 NT-Pro-B Natriuret Pep 10/30/16 10/30/16 10/30/16 03:58 13:40 13:40 Creatine Kinase 45 L CK-MB (CK-2) 0.89 0.46 Troponin I < 0.012 < 0.012 NT-Pro-B Natriuret Pep 11/13/16 05:35 Creatine Kinase CK-MB (CK-2) Troponin I NT-Pro-B Natriuret Pep 2010 H Impressions: Renal Ultrasound 10/29/16 00:00 IMPRESSION: Limited study as noted above. No right renal abnormalities were identified. Left kidney could not be visualized. Eaton catheter in the bladder. Assessment & Plan - Diagnosis (1) Acute on chronic combined systolic and diastolic congestive heart failure Is this a current diagnosis for this admission?: Yes (2) Dyspnea Qualifiers: Dyspnea type: unspecified Qualified Code(s): R06.00 - Dyspnea, unspecified Is this a current diagnosis for this admission?: Yes (3) Morbid (severe) obesity with alveolar hypoventilation Is this a current diagnosis for this admission?: Yes Plan: Discharge plan actively seeking LTAC (4) Pulmonary vascular congestion Is this a current diagnosis for this admission?: Yes (5) Respiratory failure Qualifiers: Chronicity: chronic Respiratory failure complication: hypoxia and hypercapnia Qualified Code(s): J96.11 - Chronic respiratory failure with hypoxia Is this a current diagnosis for this admission?: Yes (6) Cardiac arrest Is this a current diagnosis for this admission?: Yes - Time Critical Time spent with patient: 25-34 minutes
[2016-11-14 18:04] LABS: ANION GAP 7 (5-19); BLOOD UREA NITROGEN 30 mg/dL (7-20); CALCIUM 8.5 mg/dL (8.4-10.2); CARBON DIOXIDE 37 mmol/L (22-30); CHLORIDE 93 mmol/L (98-107); CREATININE RESULT 1.99 mg/dL (0.52-1.25); GLUCOSE 255 mg/dL (75-110); POTASSIUM 3.7 mmol/L (3.6-5.0); SODIUM 137.4 mmol/L (137-145)
[2016-11-14] MEDS: ENOXAPARIN SODIUM INJ 30 MG/0.3 ML DISP.SYRIN SUBCUT SCH (20:44)
[2016-11-15] MEDS: PROPOFOL 100 ML IV PRN ×2 (02:02→04:56)
[2016-11-15] MEDS: DEXTROSE 5%-WATER 250 ML with NOREPINEPHRINE BITARTRATE 4 MG IV PRN ×2 (02:05)
[2016-11-15 04:47] LABS: ABSOLUTE BASOPHILS # (AUTO) 0.1 10^3/uL (0.0-0.2); ABSOLUTE EOSINOPHILS # (AUTO) 0.4 10^3/uL (0.0-0.6); ABSOLUTE LYMPHOCYTES (AUTO) 1.4 10^3/uL (0.5-4.7); ABSOLUTE MONOCYTES (AUTO) 1.3 10^3/uL (0.1-1.4); BASOPHILS % (AUTO) 0.4 % (0-2); EOSINOPHILS % (AUTO) 2.9 % (0-6); HEMATOCRIT 28.5 % (37.9-51.0); HEMOGLOBIN 9.3 g/dL (13.5-17.0); HGB HCT DIFFERENCE -0.6; LYMPHOCYTES % (AUTO) 9.7 % (13-45); MEAN CORPUSCULAR HEMOGLOBIN 28.2 pg (27.0-33.4); MEAN CORPUSCULAR HGB CONC 32.6 g/dL (32.0-36.0); MEAN CORPUSCULAR VOLUME 86 fl (80-97); MONOCYTES % (AUTO) 9.1 % (3-13); SEGMENTED NEUTROPHILS % (AUTO) 77.9 % (42-78); WHITE BLOOD COUNT 14.1 10^3/uL (4.0-10.5)
[2016-11-15 04:49] LABS: ARTERIAL BLOOD BASE EXCESS 11.3 mmol/L; ARTERIAL BLOOD O2 SATURATION 98.7 % (94-98)
[2016-11-15] MEDS: FUROSEMIDE INJ/PF 40 MG/4 ML SDV IV SCH (05:09)
[2016-11-15] MEDS: POTASSI CL 20 MEQ/50 ML RIDER 20 MEQ/50 ML RTUPB IV SCH (05:10)
[2016-11-15] MEDS: IMIPENEM/CILASTATIN SODIUM 500 MG in NORMAL SALINE 100 ML IV SCH ×3 (05:10→21:01)
[2016-11-15 05:11] LABS: ANION GAP 7 (5-19); BLOOD UREA NITROGEN 30 mg/dL (7-20); CALCIUM 8.7 mg/dL (8.4-10.2); CARBON DIOXIDE 38 mmol/L (22-30); CHLORIDE 94 mmol/L (98-107); CREATININE RESULT 2.03 mg/dL (0.52-1.25); GLUCOSE 223 mg/dL (75-110); MAGNESIUM 1.8 mg/dL (1.6-2.3); PHOSPHORUS 4.5 mg/dL (2.5-4.5); POTASSIUM 3.3 mmol/L (3.6-5.0); SODIUM 139.1 mmol/L (137-145)
[2016-11-15] MEDS ORDERED: INSULIN GLARGINE,HUM.REC.ANLOG 300 UNIT/3 ML INSULN.PEN SUBCUT SCH (05:14)
[2016-11-15] MEDS: INSULIN REG, HUMAN 100 UNIT/ML 3 ML VIAL (PYX) SUBCUT PRN ×3 (05:28→18:44)
--- NOTE | 2016-11-15 08:17 | PDOC PROGRESS REPORT ---
Subjective Progress Note for:: 11/15/16 Subjective:: alert but not nodding now. Mouthed by lips to nurse that he was unhappy. Physical Exam Vital Signs: Temp Pulse Resp BP Pulse Ox 98.4 F 62 16 135/58 H 100 11/15/16 06:30 11/15/16 08:03 11/15/16 06:30 11/15/16 06:26 11/15/16 06:30 Intake & Output 11/14/16 11/15/16 11/16/16 07:59 07:59 07:59 Intake Total 2774 2395 Output Total 2380 2075 Balance 394 320 Weight 379 lb 13.703 oz 377 lb 13.957 oz General appearance: PRESENT: no acute distress Respiratory exam: PRESENT: clear to auscultation maryann Cardiovascular exam: ABSENT: diastolic murmur, irregular rhythm, systolic murmur GI/Abdominal exam: ABSENT: mass, organolmegaly, tenderness Extremities exam: ABSENT: pedal edema Results Laboratory Results: 11/15/16 04:32 11/15/16 04:32 Abnormal - 24 hr 11/14/16 11/14/16 11/14/16 05:10 05:10 05:10 WBC 14.0 H RBC 3.29 L Hgb 9.3 L Hct 28.9 L RDW 16.8 H Seg Neutrophils % 79.8 H Lymphocytes % 8.9 L Absolute Neutrophils 11.2 H Carbonic Acid ABG pH 7.49 H ABG pCO2 ABG pO2 ABG HCO3 33.4 H ABG Total CO2 34.7 H ABG O2 Saturation Potassium 3.5 L Chloride 94 L Carbon Dioxide 36 H BUN 31 H Creatinine 1.88 H Est GFR ( Amer) 43 L Est GFR (Non-Af Amer) 35 L Glucose 270 H POC Glucose Direct Bilirubin 0.5 H Total Protein 5.9 L Albumin 2.5 L 11/14/16 11/14/16 11/14/16 11:42 17:35 17:40 WBC RBC Hgb Hct RDW Seg Neutrophils % Lymphocytes % Absolute Neutrophils Carbonic Acid ABG pH ABG pCO2 ABG pO2 ABG HCO3 ABG Total CO2 ABG O2 Saturation Potassium Chloride 93 L Carbon Dioxide 37 H BUN 30 H Creatinine 1.99 H Est GFR ( Amer) 40 L Est GFR (Non-Af Amer) 33 L Glucose 255 H POC Glucose 248 H 247 H Direct Bilirubin Total Protein Albumin 11/14/16 11/15/16 11/15/16 21:23 04:32 04:32 WBC RBC Hgb Hct RDW Seg Neutrophils % Lymphocytes % Absolute Neutrophils Carbonic Acid 1.52 H ABG pH 7.47 H ABG pCO2 50.6 H ABG pO2 129.5 H ABG HCO3 36.3 H ABG Total CO2 37.9 H ABG O2 Saturation 98.7 H Potassium 3.3 L Chloride 94 L Carbon Dioxide 38 H BUN 30 H Creatinine 2.03 H Est GFR ( Amer) 39 L Est GFR (Non-Af Amer) 32 L Glucose 223 H POC Glucose 272 H Direct Bilirubin Total Protein Albumin 11/15/16 04:32 WBC 14.1 H RBC 3.30 L Hgb 9.3 L Hct 28.5 L RDW 17.0 H Seg Neutrophils % Lymphocytes % 9.7 L Absolute Neutrophils 11.0 H Carbonic Acid ABG pH ABG pCO2 ABG pO2 ABG HCO3 ABG Total CO2 ABG O2 Saturation Potassium Chloride Carbon Dioxide BUN Creatinine Est GFR ( Amer) Est GFR (Non-Af Amer) Glucose POC Glucose Direct Bilirubin Total Protein Albumin Impressions: Renal Ultrasound 10/29/16 00:00 IMPRESSION: Limited study as noted above. No right renal abnormalities were identified. Left kidney could not be visualized. Eaton catheter in the bladder. Assessment & Plan - Diagnosis (1) Respiratory failure Qualifiers: Chronicity: chronic Respiratory failure complication: hypoxia and hypercapnia Qualified Code(s): J96.11 - Chronic respiratory failure with hypoxia Is this a current diagnosis for this admission?: Yes Plan: stop propofol. Told him about ITAC (2) Aspiration pneumonia Qualifiers: Aspiration pneumonia type: due to gastric secretions Laterality: bilateral Lung location: unspecified part of lung Qualified Code(s): J69.0 - Pneumonitis due to inhalation of food and vomit Is this a current diagnosis for this admission?: Yes (3) Acute on chronic combined systolic and diastolic congestive heart failure Is this a current diagnosis for this admission?: Yes Plan: edema gone. Stop furosemide lisinopril & K riders. (4) Malnutrition due to starvation Is this a current diagnosis for this admission?: Yes Plan: increased lantus to 60 (5) Morbid (severe) obesity with alveolar hypoventilation Is this a current diagnosis for this admission?: Yes (6) Pulmonary hypertension Is this a current diagnosis for this admission?: Yes Plan: stopped levofed (7) Hematuria Qualifiers: Hematuria type: gross Qualified Code(s): R31.0 - Gross hematuria Is this a current diagnosis for this admission?: Yes (8) Cardiopulmonary arrest with successful resuscitation Is this a current diagnosis for this admission?: Yes (9) Hypothermia due to anesthesia Is this a current diagnosis for this admission?: Yes (10) Anemia due to blood loss, acute Is this a current diagnosis for this admission?: Yes (11) Bacteremia due to Gram-positive bacteria Is this a current diagnosis for this admission?: Yes Plan: continue primaxin alone (12) Ventricular tachycardia, nonsustained Is this a current diagnosis for this admission?: Yes
[2016-11-15] MEDS: FAMOTIDINE INJ/PF 20 MG/2 ML SDV IV SCH ×2 (09:44→21:02)
[2016-11-15] MEDS: SERTRALINE HCL 50 MG TABLET NG SCH (09:58)
[2016-11-15] MEDS: POTASSIUM CHLORIDE 20 MEQ/15 ML UDCUP PO SCH ×2 (09:59→21:02)
[2016-11-15] MEDS ORDERED: MAGNESIUM SULFATE/D5W 1 GM/100 ML RTUPB IV SCH (10:00)
--- NOTE | 2016-11-15 11:20 | PDOC PROGRESS REPORT ---
Subjective Progress Note for:: 11/15/16 Subjective:: Lethargic, but arousable,s/p tracheostomy day 3,Responds appropriately to commands Physical Exam Vital Signs: Temp Pulse Resp BP Pulse Ox 98.4 F 91 16 135/58 H 100 11/15/16 06:30 11/14/16 19:57 11/15/16 06:30 11/15/16 06:26 11/15/16 06:30 Intake & Output 11/14/16 11/15/16 11/16/16 06:59 06:59 06:59 Intake Total 2774 2395 Output Total 2325 2330 Balance 449 65 Weight 172.3 kg 171.4 kg General appearance: PRESENT: no acute distress, cooperative, disheveled, morbidly obese Head exam: PRESENT: atraumatic, normocephalic Eye exam: PRESENT: conjunctiva pale, EOMI Mouth exam: PRESENT: moist, neck supple, tongue midline Neck exam: PRESENT: tracheostomy Respiratory exam: PRESENT: decreased breath sounds, prolonged expiratory phas, rales, rhonchi, stridor, unlabored Cardiovascular exam: PRESENT: irregular rhythm Pulses: PRESENT: normal radial pulses GI/Abdominal exam: PRESENT: normal bowel sounds, soft. ABSENT: distended, guarding, mass, organolmegaly, rebound, tenderness Rectal exam: PRESENT: deferred Gentrourinary exam: PRESENT: indwelling catheter Extremities exam: PRESENT: +1 edema Neurological exam: PRESENT: awake Skin exam: PRESENT: dry Results Laboratory Results: 11/15/16 04:32 11/15/16 04:32 11/14/16 11/14/16 11/14/16 05:10 05:10 05:10 WBC 14.0 H RBC 3.29 L Hgb 9.3 L Hct 28.9 L MCV 88 MCH 28.2 MCHC 32.1 RDW 16.8 H Plt Count 220 Seg Neutrophils % 79.8 H Lymphocytes % 8.9 L Monocytes % 7.6 Eosinophils % 3.1 Basophils % 0.6 Absolute Neutrophils 11.2 H Absolute Lymphocytes 1.2 Absolute Monocytes 1.1 Absolute Eosinophils 0.4 Absolute Basophils 0.1 Carbonic Acid 1.35 HCO3/H2CO3 Ratio 24:1 ABG pH 7.49 H ABG pCO2 44.7 ABG pO2 87.5 ABG HCO3 33.4 H ABG O2 Saturation 97.2 ABG Base Excess 9.1 FiO2 40% Sodium 137.8 Potassium 3.5 L Chloride 94 L Carbon Dioxide 36 H Anion Gap 8 BUN 31 H Creatinine 1.88 H Est GFR ( Amer) 43 L Est GFR (Non-Af Amer) 35 L Glucose 270 H Calcium 8.4 Phosphorus Magnesium Total Bilirubin 0.5 AST 28 ALT 28 Alkaline Phosphatase 97 Total Protein 5.9 L Albumin 2.5 L 11/14/16 11/14/16 11/15/16 05:10 17:35 04:32 WBC RBC Hgb Hct MCV MCH MCHC RDW Plt Count Seg Neutrophils % Lymphocytes % Monocytes % Eosinophils % Basophils % Absolute Neutrophils Absolute Lymphocytes Absolute Monocytes Absolute Eosinophils Absolute Basophils Carbonic Acid 1.52 H HCO3/H2CO3 Ratio 23:1 ABG pH 7.47 H ABG pCO2 50.6 H ABG pO2 129.5 H ABG HCO3 36.3 H ABG O2 Saturation 98.7 H ABG Base Excess 11.3 FiO2 40% Sodium 137.4 Potassium 3.7 Chloride 93 L Carbon Dioxide 37 H Anion Gap 7 BUN 30 H Creatinine 1.99 H Est GFR ( Amer) 40 L Est GFR (Non-Af Amer) 33 L Glucose 255 H Calcium 8.5 Phosphorus 4.4 Magnesium 2.0 Total Bilirubin AST ALT Alkaline Phosphatase Total Protein Albumin 11/15/16 11/15/16 04:32 04:32 WBC 14.1 H RBC 3.30 L Hgb 9.3 L Hct 28.5 L MCV 86 MCH 28.2 MCHC 32.6 RDW 17.0 H Plt Count 216 Seg Neutrophils % 77.9 Lymphocytes % 9.7 L Monocytes % 9.1 Eosinophils % 2.9 Basophils % 0.4 Absolute Neutrophils 11.0 H Absolute Lymphocytes 1.4 Absolute Monocytes 1.3 Absolute Eosinophils 0.4 Absolute Basophils 0.1 Carbonic Acid HCO3/H2CO3 Ratio ABG pH ABG pCO2 ABG pO2 ABG HCO3 ABG O2 Saturation ABG Base Excess FiO2 Sodium 139.1 Potassium 3.3 L Chloride 94 L Carbon Dioxide 38 H Anion Gap 7 BUN 30 H Creatinine 2.03 H Est GFR ( Amer) 39 L Est GFR (Non-Af Amer) 32 L Glucose 223 H Calcium 8.7 Phosphorus 4.5 Magnesium 1.8 Total Bilirubin AST ALT Alkaline Phosphatase Total Protein Albumin 10/29/16 10/29/1617 20:00 20:00 03:58 Creatine Kinase 72 55 CK-MB (CK-2) 1.52 Troponin I < 0.012 NT-Pro-B Natriuret Pep 10/30/16 10/30/16 10/30/16 03:58 13:40 13:40 Creatine Kinase 45 L CK-MB (CK-2) 0.89 0.46 Troponin I < 0.012 < 0.012 NT-Pro-B Natriuret Pep 11/13/16 05:35 Creatine Kinase CK-MB (CK-2) Troponin I NT-Pro-B Natriuret Pep 2010 H Impressions: Renal Ultrasound 10/29/16 00:00 IMPRESSION: Limited study as noted above. No right renal abnormalities were identified. Left kidney could not be visualized. Eaton catheter in the bladder. Assessment & Plan - Diagnosis (1) Acute on chronic combined systolic and diastolic congestive heart failure Is this a current diagnosis for this admission?: Yes (2) Dyspnea Qualifiers: Dyspnea type: unspecified Qualified Code(s): R06.00 - Dyspnea, unspecified Is this a current diagnosis for this admission?: Yes (3) Morbid (severe) obesity with alveolar hypoventilation Is this a current diagnosis for this admission?: Yes (4) Pulmonary vascular congestion Is this a current diagnosis for this admission?: Yes (5) Respiratory failure Qualifiers: Chronicity: chronic Respiratory failure complication: hypoxia and hypercapnia Qualified Code(s): J96.11 - Chronic respiratory failure with hypoxia; J96.12 - Chronic respiratory failure with hypercapnia Is this a current diagnosis for this admission?: Yes (6) Cardiac arrest Is this a current diagnosis for this admission?: Yes - Time Critical Time spent with patient: 25-34 minutes
--- NOTE | 2016-11-15 12:42 | PDOC PROGRESS REPORT ---
Subjective Progress Note for:: 11/15/16 Subjective:: Patient is currently breathing through trach with ventilator attached. His eyes are open, he is mouthing some words and giving nods. He is currently in the process of being transferred to [facility]. Most medications have been discontinued and transferred over to PO. He is still producing about 2 L of urine a day. Physical Exam Vital Signs: Temp Pulse Resp BP Pulse Ox 98.4 F 62 13 148/61 H 97 11/15/16 08:00 11/15/16 08:03 11/15/16 08:00 11/15/16 08:00 11/15/16 08:00 Intake & Output 11/14/16 11/15/16 11/16/16 06:59 06:59 06:59 Intake Total 2774 2395 Output Total 2325 2330 400 Balance 449 65 -400 Weight 172.3 kg 171.4 kg General appearance: PRESENT: no acute distress, morbidly obese, well-developed, well-nourished Head exam: PRESENT: atraumatic, normocephalic Mouth exam: PRESENT: moist, neck supple Neck exam: PRESENT: full ROM. ABSENT: tracheal deviation Respiratory exam: PRESENT: crackles, rhonchi. ABSENT: accessory muscle use Cardiovascular exam: PRESENT: RRR, +S1, +S2, systolic murmur GI/Abdominal exam: PRESENT: normal bowel sounds, soft. ABSENT: organomegaly, tenderness Extremities exam: PRESENT: +1 edema - on lower legs. ABSENT: joint swelling Musculoskeletal exam: PRESENT: normal inspection. ABSENT: deformity Neurological exam: PRESENT: altered, awake Skin exam: PRESENT: dry, normal color Results Laboratory Results: 11/15/16 04:32 11/15/16 04:32 11/14/16 11/15/16 11/15/16 17:35 04:32 04:32 WBC RBC Hgb Hct MCV MCH MCHC RDW Plt Count Seg Neutrophils % Lymphocytes % Monocytes % Eosinophils % Basophils % Absolute Neutrophils Absolute Lymphocytes Absolute Monocytes Absolute Eosinophils Absolute Basophils Carbonic Acid 1.52 H HCO3/H2CO3 Ratio 23:1 ABG pH 7.47 H ABG pCO2 50.6 H ABG pO2 129.5 H ABG HCO3 36.3 H ABG O2 Saturation 98.7 H ABG Base Excess 11.3 FiO2 40% Sodium 137.4 139.1 Potassium 3.7 3.3 L Chloride 93 L 94 L Carbon Dioxide 37 H 38 H Anion Gap 7 7 BUN 30 H 30 H Creatinine 1.99 H 2.03 H Est GFR ( Amer) 40 L 39 L Est GFR (Non-Af Amer) 33 L 32 L Glucose 255 H 223 H Calcium 8.5 8.7 Phosphorus 4.5 Magnesium 1.8 11/15/16 04:32 WBC 14.1 H RBC 3.30 L Hgb 9.3 L Hct 28.5 L MCV 86 MCH 28.2 MCHC 32.6 RDW 17.0 H Plt Count 216 Seg Neutrophils % 77.9 Lymphocytes % 9.7 L Monocytes % 9.1 Eosinophils % 2.9 Basophils % 0.4 Absolute Neutrophils 11.0 H Absolute Lymphocytes 1.4 Absolute Monocytes 1.3 Absolute Eosinophils 0.4 Absolute Basophils 0.1 Carbonic Acid HCO3/H2CO3 Ratio ABG pH ABG pCO2 ABG pO2 ABG HCO3 ABG O2 Saturation ABG Base Excess FiO2 Sodium Potassium Chloride Carbon Dioxide Anion Gap BUN Creatinine Est GFR ( Amer) Est GFR (Non-Af Amer) Glucose Calcium Phosphorus Magnesium 11/12/16 10:25 Blood Blood Culture - Final Pseudomonas Aeruginosa 10/29/16 10/29/16 10/30/16 20:00 20:00 03:58 Creatine Kinase 72 55 CK-MB (CK-2) 1.52 Troponin I < 0.012 NT-Pro-B Natriuret Pep 10/30/16 10/30/16 10/30/16 03:58 13:40 13:40 Creatine Kinase 45 L CK-MB (CK-2) 0.89 0.46 Troponin I < 0.012 < 0.012 NT-Pro-B Natriuret Pep 11/13/16 05:35 Creatine Kinase CK-MB (CK-2) Troponin I NT-Pro-B Natriuret Pep 2010 H Impressions: Renal Ultrasound 10/29/16 00:00 IMPRESSION: Limited study as noted above. No right renal abnormalities were identified. Left kidney could not be visualized. Eaton catheter in the bladder. Assessment & Plan - Diagnosis (1) Hypokalemia Plan: Switching to PO potassium. If not on lasix at high dosage would recommend 20mEQ PO BID. (2) Acute kidney injury superimposed on chronic kidney disease Is this a current diagnosis for this admission?: Yes Plan: When transferring would recommend 20mg of PO lasix qd. (3) CHF (congestive heart failure) Plan: Resolving (4) Respiratory failure Qualifiers: Chronicity: chronic Respiratory failure complication: hypoxia and hypercapnia Qualified Code(s): J96.11 - Chronic respiratory failure with hypoxia Is this a current diagnosis for this admission?: Yes Plan: Transferring to [facility] to wean off vent. (5) Hypomagnesemia Plan: Recommend magnesium replacement if he is going to continue taking lasix. 400mg PO qd
[2016-11-15 18:27] LABS: ANION GAP 7 (5-19); BLOOD UREA NITROGEN 32 mg/dL (7-20); CALCIUM 8.7 mg/dL (8.4-10.2); CARBON DIOXIDE 36 mmol/L (22-30); CHLORIDE 94 mmol/L (98-107); CREATININE RESULT 1.88 mg/dL (0.52-1.25); GLUCOSE 240 mg/dL (75-110); POTASSIUM 3.5 mmol/L (3.6-5.0); SODIUM 137.2 mmol/L (137-145)
[2016-11-15] MEDS: ENOXAPARIN SODIUM INJ 30 MG/0.3 ML DISP.SYRIN SUBCUT SCH (19:55)
[2016-11-16] MEDS: INSULIN REG, HUMAN 100 UNIT/ML 3 ML VIAL (PYX) SUBCUT PRN ×2 (00:34→05:37)
[2016-11-16] MEDS: IMIPENEM/CILASTATIN SODIUM 500 MG in NORMAL SALINE 100 ML IV SCH (05:07)
[2016-11-16 05:34] LABS: ARTERIAL BLOOD BASE EXCESS 8.7 mmol/L; ARTERIAL BLOOD O2 SATURATION 98.1 % (94-98)
[2016-11-16 05:51] LABS: ABSOLUTE BASOPHILS # (AUTO) 0.1 10^3/uL (0.0-0.2); ABSOLUTE EOSINOPHILS # (AUTO) 0.3 10^3/uL (0.0-0.6); ABSOLUTE LYMPHOCYTES (AUTO) 1.2 10^3/uL (0.5-4.7); ABSOLUTE MONOCYTES (AUTO) 1.2 10^3/uL (0.1-1.4); ABSOLUTE NEUT (AUTO) 11.7 10^3/uL (1.7-8.2); BASOPHILS % (AUTO) 0.5 % (0-2); HEMATOCRIT 30.1 % (37.9-51.0); HEMOGLOBIN 9.6 g/dL (13.5-17.0); HGB HCT DIFFERENCE -1.3; LYMPHOCYTES % (AUTO) 8.4 % (13-45); MEAN CORPUSCULAR HEMOGLOBIN 27.8 pg (27.0-33.4); MEAN CORPUSCULAR HGB CONC 31.7 g/dL (32.0-36.0); MEAN CORPUSCULAR VOLUME 88 fl (80-97); MONOCYTES % (AUTO) 8.2 % (3-13); RED BLOOD COUNT 3.44 10^6/uL (4.35-5.55); RED CELL DISTRIBUTION WIDTH 17.2 % (11.5-14.0); SEGMENTED NEUTROPHILS % (AUTO) 80.9 % (42-78); WHITE BLOOD COUNT 14.4 10^3/uL (4.0-10.5)
[2016-11-16 06:07] LABS: ALBUMIN 2.6 g/dL (3.5-5.0); ANION GAP 10 (5-19); BLOOD UREA NITROGEN 31 mg/dL (7-20); CALCIUM 8.9 mg/dL (8.4-10.2); CARBON DIOXIDE 35 mmol/L (22-30); CHLORIDE 95 mmol/L (98-107); CREATININE RESULT 1.75 mg/dL (0.52-1.25); GLUCOSE 211 mg/dL (75-110); POTASSIUM 3.4 mmol/L (3.6-5.0); SODIUM 139.9 mmol/L (137-145); TOTAL PROTEIN 6.4 g/dL (6.3-8.2)
[2016-11-16 06:08] LABS: ALANINE AMINOTRANSFERASE 45 U/L (21-72); ALKALINE PHOSPHATASE 157 U/L (38-126); ASPARTATE AMINO TRANSFERASE 63 U/L (17-59); BILIRUBIN,DIRECT 0.4 mg/dL (0.0-0.4); BILIRUBIN,TOTAL 0.4 mg/dL (0.2-1.3)
--- NOTE | 2016-11-16 07:36 | RADIOLOGY REPORT (SQ) ---
EXAM DESCRIPTION: CHEST SINGLE VIEW COMPLETED DATE/TIME: 11/16/2016 5:59 am REASON FOR STUDY: resp fail COMPARISON: 11/15/2016. EXAM PARAMETERS: NUMBER OF VIEWS: One view. TECHNIQUE: Single frontal radiographic view of the chest acquired. RADIATION DOSE: NA LIMITATIONS: None. FINDINGS: LUNGS AND PLEURA: Mild mixed interstitial and airspace opacity. Moderate lung volume. MEDIASTINUM AND HILAR STRUCTURES: No masses. Contour normal. HEART AND VASCULAR STRUCTURES: Heart normal in size. Normal vasculature. BONES: No acute findings. HARDWARE: Tracheostomy tube. Left internal jugular central line tip at the right atrium ; consider 6 cm retraction. Tracheostomy tube. NG tube is partially obscured distally. OTHER: No other significant finding. IMPRESSION: No significant interval change. TECHNICAL DOCUMENTATION: JOB ID: [id number]
--- NOTE | 2016-11-16 08:15 | PDOC TRANSFER SUMMARY ---
General Admission Date/PCP: 10/26/16 08:54 TOR ANDREWS MD Transfer Date: 11/16/16 Accepting Facility: Other (Comments) - [facility] Resuscitation Status: Do Not Resuscitate - Transfer Diagnosis (1) Respiratory failure Is this a current diagnosis for this admission?: Yes (2) Aspiration pneumonia Is this a current diagnosis for this admission?: Yes (3) Acute on chronic combined systolic and diastolic congestive heart failure Is this a current diagnosis for this admission?: Yes (4) Malnutrition due to starvation Is this a current diagnosis for this admission?: Yes (5) Morbid (severe) obesity with alveolar hypoventilation Is this a current diagnosis for this admission?: Yes (6) Pulmonary hypertension Is this a current diagnosis for this admission?: Yes (7) Hematuria Is this a current diagnosis for this admission?: Yes (8) Cardiopulmonary arrest with successful resuscitation Is this a current diagnosis for this admission?: Yes (9) Hypothermia due to anesthesia Is this a current diagnosis for this admission?: Yes (10) Anemia due to blood loss, acute Is this a current diagnosis for this admission?: Yes (11) Ventricular tachycardia, nonsustained Is this a current diagnosis for this admission?: Yes - Transfer Medications Home Medications: Atorvastatin Calcium [Lipitor 40 mg Tablet] 40 mg PO DAILY 10/26/16 Transfer Medications: Current Medications Dextrose (Dextrose Inj 50% Syringe (25 Gm/50 Ml)) 12.5 gm IV PRN PRN; Protocol PRN Reason: FOR BG 50-69 IN ALERT PATIENT Stop: 11/25/16 09:02 Dextrose (Dextrose Inj 50% Syringe (25 Gm/50 Ml)) 25 gm IV PRN PRN PRN Reason: Protocol Stop: 11/25/16 09:02 Enoxaparin Sodium (Lovenox Inj 30 Mg/0.3 Ml Disp.Syrin) 30 mg SUBCUT DAILY@ 1999 [facility] Stop: 12/14/16 19:59 Last Admin: 11/15/16 19:55 Dose: 30 mg Famotidine (Pepcid Inj/Pf 20 Mg/2 Ml Sdv) 10 mg IV Q12 [facility] Stop: 11/30/16 21:59 Last Admin: 11/15/16 21:02 Dose: 10 mg Furosemide (Lasix 20 Mg Tablet) 20 mg NG DAILY [facility] Stop: 12/16/16 09:59 Glucagon (Glucagen Inj 1 Mg Vial) 1 mg IM PRN PRN; Protocol PRN Reason: Evaluate for BG < 70 Stop: 11/25/16 09:02 Glucose (Glutose 40% Gel 15 Gm Tube) 15 gm PO PRN PRN; Protocol PRN Reason: FOR BG 50-69 IN ALERT PATIENT Stop: 11/25/16 09:02 Glucose (Glutose 40% Gel 15 Gm Tube) 30 gm PO PRN PRN; Protocol PRN Reason: FOR BG < 50 IN ALERT PATIENT Stop: 11/25/16 09:02 Heparin Sodium (Porcine) (Heparin Flush 10 Unit/Ml 5 Ml Disp.Syrg) 30 unit IV .AFTER EACH USE PRN PRN Reason: AFTER EACH INTERMITTENT USE Stop: 11/28/16 14:32 Last Admin: 11/16/16 05:06 Dose: 30 unit Heparin Sodium (Porcine) (Heparin Flush 10 Unit/Ml 5 Ml Disp.Syrg) 30 unit IV Q8 [facility] Stop: 11/28/16 21:59 Last Admin: 11/16/16 05:06 Dose: 30 unit Heparin Sodium (Porcine) (Heparin Rtu 1,000 Units/500 Ml Ns Pressure Bg) 1,000 unit in 500 mls @ 0 mls/hr IV .CONTINUOUS FLUSH PRN PRN Reason: UD Stop: 12/03/16 03:30 Last Admin: 11/09/16 22:09 Dose: 500 ml Imipenem/Cilastatin Sodium 500 (mg/ Sodium Chloride) 100 mls @ 100 mls/hr IV Q8 [facility] Stop: 11/20/16 21:59 Last Admin: 11/16/16 05:07 Dose: 500 mg Insulin Glargine (Lantus Insulin Inj 300 Unit/3 Ml Pen) 60 unit SUBCUT QHS [facility] Stop: 12/15/16 05:13 Last Admin: 11/15/16 21:03 Dose: 60 unit Insulin Human Regular (Humulin R (Pyxis) Insulin 100 Unit/Ml 3ml) 0 - 12 unit SUBCUT Q6HP PRN PRN Reason: Protocol Stop: 11/28/16 09:22 Last Admin: 11/16/16 00:34 Dose: 4 unit Magnesium Oxide (Mag-Ox 400 Mg Tablet) 400 mg NG DAILY [facility] Stop: 12/16/16 09:59 Potassium Chloride (Kaon-Cl 20 Meq/15 Ml Udcup) 20 meq PO Q12 [facility] Stop: 12/15/16 09:59 Last Admin: 11/15/16 21:02 Dose: 20 meq Scopolamine HBr (Transderm-Scop 1.5 Mg Patch) 1 each TD Q3D@1200 [facility] Stop: 12/13/16 11:59 Last Admin: 11/13/16 12:20 Dose: 1 each Sertraline HCl (Zoloft 50 Mg Tablet) 50 mg NG DAILY [facility] Stop: 12/15/16 09:59 Last Admin: 11/15/16 09:58 Dose: 50 mg Sodium Chloride (Saline Flush 2.5 Ml Monoject Prefil Syrin) 2.5 ml IV Q8 [facility] Stop: 11/25/16 13:59 Last Admin: 11/16/16 05:07 Dose: 2.5 ml Sodium Chloride (Nacl 0.9% Inj/Pf 10 Ml Sdv) 10 ml IV .AFTER EACH USE PRN PRN Reason: AFTER EACH INTERMITTENT USE Stop: 11/28/16 14:32 Last Admin: 11/11/16 00:18 Dose: 10 ml - Allergies Allergies/Adverse Reactions: No Known Allergies Allergy (Unverified 10/16/12 14:18) - Diet/Activity Discharge Diet: Tube Feeding (Comments) - [id number] goal 50/h now 20/h Hospital Course Hospital Course: 2 months ago he arrested here with vfib. At [facility] he also rode the vent for pneumonia and sepsis. Cath was nonobstructive. Now here while undergoing diuresis on day 5, he became bradycardic, arrested, and was bagged and intubated. He required peep15 and high settings. Xray showed new bilateral infiltrates. We suspected aspiration pneumonia and started cefepime and vanc. Echo confirmed left diastolic failure and right combined failure acute on chronic. Both atria were big. MR was mild. The L ventricle was stiff. Hypokinesis was absent. Ejection fraction was normal. R ventricular pressure was 61. Furosemide drip gave a better diuresis of 44#. Scopolamine and theophylline were tried for bradycardia. Sputum grew klebsiella. Vanc was switched to unasyn and nebulized tobramycin. Xrays slowly improved leaving a diffuse ground glass appearance of ARDS. On 12aug he was extubated for 85min then reintubated for distress. Sputum grew pseudomonas. Unasyn was switched to fortaz. On 15aug 1of2 blood cultures grew pseudomonas and antibiotics were switched to imipenem. He is able to nod and mouth words. He is discouraged. Sertraline was started yesterday. Physical Exam Vital Signs: Temp Pulse Resp BP Pulse Ox 99.1 F 81 16 170/74 H 99 11/16/16 04:00 11/15/16 20:00 11/16/16 02:45 11/16/16 01:57 11/16/16 02:45 Intake & Output 11/14/16 11/15/16 11/16/16 07:59 07:59 07:59 Intake Total 2774 2395 931 Output Total 2380 8025 1795 Balance 394 320 -864 Weight 379 lb 13.703 oz 377 lb 13.957 oz General appearance: PRESENT: no acute distress Respiratory exam: PRESENT: rhonchi Cardiovascular exam: ABSENT: diastolic murmur, irregular rhythm, systolic murmur GI/Abdominal exam: ABSENT: mass, organolmegaly, tenderness Extremities exam: ABSENT: pedal edema Neurological exam: PRESENT: alert Psychiatric exam: PRESENT: appropriate affect Results Laboratory Results: 11/15/16 04:32 11/15/16 17:15 11/12/16 10:25 Blood Blood Culture - Final Pseudomonas Aeruginosa Labs- Last Values WBC 14.1 10^3/uL (4.0-10.5) H 11/15/16 04:32 RBC 3.30 10^6/uL (4.35-5.55) L 11/15/16 04:32 Hgb 9.3 g/dL (13.5-17.0) L 11/15/16 04:32 Hct 28.5 % (37.9-51.0) L 11/15/16 04:32 MCV 86 fl (80-97) 11/15/16 04:32 MCH 28.2 pg (27.0-33.4) 11/15/16 04:32 MCHC 32.6 g/dL (32.0-36.0) 11/15/16 04:32 RDW 17.0 % (11.5-14.0) H 11/15/16 04:32 Plt Count 216 10^3/uL (150-450) 11/15/16 04:32 Seg Neutrophils % 77.9 % (42-78) 11/15/16 04:32 Lymphocytes % 9.7 % (13-45) L 11/15/16 04:32 Monocytes % 9.1 % (3-13) 11/15/16 04:32 Eosinophils % 2.9 % (0-6) 11/15/16 04:32 Basophils % 0.4 % (0-2) 11/15/16 04:32 Absolute Neutrophils 11.0 10^3/uL (1.7-8.2) H 11/15/16 04:32 Absolute Lymphocytes 1.4 10^3/uL (0.5-4.7) 11/15/16 04:32 Absolute Monocytes 1.3 10^3/uL (0.1-1.4) 11/15/16 04:32 Absolute Eosinophils 0.4 10^3/uL (0.0-0.6) 11/15/16 04:32 Absolute Basophils 0.1 10^3/uL (0.0-0.2) 11/15/16 04:32 Retic Count (auto) 1.24 % (0.66-2.85) 11/09/16 05:45 Absolute Retic 0.041 10^6/uL (0.028-0.122) 11/09/16 05:45 PT 14.9 SEC (11.4-15.4) 11/05/16 08:05 INR 1.09 11/05/16 08:05 APTT 61.9 SEC (23.5-35.8) H 11/05/16 08:05 Carbonic Acid 1.52 mmol/L (1.05-1.35) H 11/15/16 04:32 HCO3/H2CO3 Ratio 23:1 11/15/16 04:32 ABG pH 7.47 (7.35-7.45) H 11/15/16 04:32 ABG pCO2 50.6 mmHg (35-45) H 11/15/16 04:32 ABG pO2 129.5 mmHg (80-100) H 11/15/16 04:32 ABG HCO3 36.3 mmol/L (20-26) H 11/15/16 04:32 ABG Total CO2 37.9 mmol/L (23-27) H 11/15/16 04:32 ABG O2 Saturation 98.7 % (94-98) H 11/15/16 04:32 ABG Base Excess 11.3 mmol/L 11/15/16 04:32 FiO2 40% 11/15/16 04:32 Sodium 137.2 mmol/L (137-145) 11/15/16 17:15 Potassium 3.5 mmol/L (3.6-5.0) L 11/15/16 17:15 Chloride 94 mmol/L (98-107) L 11/15/16 17:15 Carbon Dioxide 36 mmol/L (22-30) H 11/15/16 17:15 Anion Gap 7 (5-19) 11/15/16 17:15 BUN 32 mg/dL (7-20) H 11/15/16 17:15 Creatinine 1.88 mg/dL (0.52-1.25) H 11/15/16 17:15 Est GFR ( Amer) 43 (>60) L 11/15/16 17:15 Est GFR (Non-Af Amer) 35 (>60) L 11/15/16 17:15 Glucose 240 mg/dL (75-110) H 11/15/16 17:15 POC Glucose 223 mg/dL (70-110) H 11/16/16 00:25 Lactic Acid 1.4 mmol/L (0.7-2.1) 10/31/16 04:48 Calcium 8.7 mg/dL (8.4-10.2) 11/15/16 17:15 Phosphorus 4.5 mg/dL (2.5-4.5) 11/15/16 04:32 Magnesium 1.8 mg/dL (1.6-2.3) 11/15/16 04:32 Iron 26.5 ug/dL (49-181) L 11/09/16 05:45 TIBC Not Reportable 11/09/16 05:45 % Saturation 11 % 11/09/16 05:45 Ferritin 236.00 ng/mL (17.9-464.0) 11/09/16 05:45 Total Bilirubin 0.5 mg/dL (0.2-1.3) 11/14/16 05:10 Direct Bilirubin 0.5 mg/dL (0.0-0.4) H 11/14/16 05:10 Indirect Bilirubin Not Reportable 11/14/16 05:10 Neonat Total Bilirubin Not Reportable 11/14/16 05:10 AST 28 U/L (17-59) 11/14/16 05:10 ALT 28 U/L (21-72) 11/14/16 05:10 Alkaline Phosphatase 97 U/L (38-126) 11/14/16 05:10 Creatine Kinase 45 U/L (55-170) L 10/30/16 13:40 CK-MB (CK-2) 0.46 ng/mL (<4.55) 10/30/16 13:40 Troponin I < 0.012 ng/mL 10/30/16 13:40 NT-Pro-B Natriuret Pep 2010 pg/mL (5-900) H 11/13/16 05:35 Total Protein 5.9 g/dL (6.3-8.2) L 11/14/16 05:10 Albumin 2.5 g/dL (3.5-5.0) L 11/14/16 05:10 Prealbumin 10.3 mg/dL (17.6-36.0) L 11/07/16 04:35 Triglycerides 104 mg/dL (<150) 11/10/16 05:25 Vitamin B12 756.0 pg/mL (239-931) 11/09/16 05:45 Folate 6.68 ng/mL (>2.76) 11/09/16 05:45 TSH 1.53 uIU/mL (0.47-4.68) 10/31/16 11:08 Free T4 1.50 ng/dL (0.78-2.19) 10/31/16 11:08 Free T3 pg/mL 2.93 pg/mL (2.77-5.27) 10/31/16 11:08 Urine Color YELLOW 11/02/16 19:55 Urine Appearance SLIGHTLY-CLOUDY 11/02/16 19:55 Urine pH 5.0 (5.0-9.0) 11/02/16 19:55 Ur Specific [place] 1.012 11/02/16 19:55 Urine Protein NEGATIVE mg/dL (NEGATIVE) 11/02/16 19:55 Urine Glucose (UA) NEGATIVE mg/dL (NEGATIVE) 11/02/16 19:55 Urine Ketones NEGATIVE mg/dL (NEGATIVE) 11/02/16 19:55 Urine Blood MODERATE (NEGATIVE) H 11/02/16 19:55 Urine Nitrite NEGATIVE (NEGATIVE) 11/02/16 19:55 Urine Bilirubin NEGATIVE (NEGATIVE) 11/02/16 19:55 Urine Urobilinogen NEGATIVE mg/dL (<2.0) 11/02/16 19:55 Ur Leukocyte Esterase NEGATIVE (NEGATIVE) 11/02/16 19:55 Urine WBC (Auto) 13 /HPF 11/02/16 19:55 Urine RBC (Auto) 74 /HPF 11/02/16 19:55 U Hyaline Cast (Auto) 1 /LPF 11/01/16 18:03 Urine Bacteria (Auto) TRACE /HPF 11/02/16 19:55 Squamous Epi Cells Auto <1 /HPF 11/02/16 19:55 Urine Mucus (Auto) RARE /LPF 11/02/16 19:55 Urine Ascorbic Acid NEGATIVE (NEGATIVE) 11/02/16 19:55 Time Trough Drawn 1108 10/31/16 11:08 Vancomycin Trough 22.0 ug/mL (5.0-20.0) H 10/31/16 11:08 Theophylline 8.1 ug/mL (10.0-20.0) L 11/05/16 16:00 Blood Type B POSITIVE 11/06/16 05:25 Blood Type Confirm B POSITIVE 11/06/16 05:30 Antibody Screen NEGATIVE 11/06/16 05:25 Crossmatch See Detail 11/06/16 05:25 Impressions: Renal Ultrasound 10/29/16 00:00 IMPRESSION: Limited study as noted above. No right renal abnormalities were identified. Left kidney could not be visualized. Eaton catheter in the bladder. Plan Discharge Plan: to [facility] for vent weaning
[2016-11-16] MEDS: SERTRALINE HCL 50 MG TABLET NG SCH (09:17)
[2016-11-16] MEDS: POTASSIUM CHLORIDE 20 MEQ/15 ML UDCUP PO SCH (09:18)
[2016-11-16] MEDS: FAMOTIDINE INJ/PF 20 MG/2 ML SDV IV SCH (09:18)
[2016-11-16] MEDS ORDERED: MAGNESIUM OXIDE 400 MG TABLET NG SCH (10:00)
[2016-11-16] MEDS ORDERED: FUROSEMIDE 20 MG TABLET NG SCH (10:00)
[2016-11-16 10:44] VITALS: BP 155/84
--- NOTE | 2016-11-16 11:39 | PDOC PROGRESS REPORT ---
Subjective Progress Note for:: 11/14/16 Subjective:: Patient about the same and has made very little progress. Patient now status post tracheostomy. There is no significant change in general condition. Patient continues to be intermittently bradycardic but generally maintains blood pressure. Telemetry strips shows intermittent Wenckebach and AV block second-degree. Patient remains intubated now through tracheostomy, sedated, patient however looks comfortable and in acute distress. Chest x-ray showed bilateral airspace disease, most likely bilateral aspiration pneumonia. Medications reviewed. Medications: Medications have been reviewed. Physical Exam Vital Signs: Temp Pulse Resp BP Pulse Ox 99.5 F 83 13 151/65 H 99 11/14/16 14:00 11/14/16 14:00 11/14/16 14:00 11/14/16 14:00 11/14/16 14:00 Intake & Output 11/13/16 11/14/16 11/15/16 06:59 06:59 06:59 Intake Total 2155 2774 Output Total 3700 2325 600 Balance -1545 449 -600 Weight 172.3 kg 172.3 kg Results Laboratory Results: 11/14/16 05:10 11/14/16 05:10 11/13/16 11/14/16 11/14/16 19:30 05:10 05:10 WBC RBC Hgb Hct MCV MCH MCHC RDW Plt Count Seg Neutrophils % Lymphocytes % Monocytes % Eosinophils % Basophils % Absolute Neutrophils Absolute Lymphocytes Absolute Monocytes Absolute Eosinophils Absolute Basophils Carbonic Acid 1.35 HCO3/H2CO3 Ratio 24:1 ABG pH 7.49 H ABG pCO2 44.7 ABG pO2 87.5 ABG HCO3 33.4 H ABG O2 Saturation 97.2 ABG Base Excess 9.1 FiO2 40% Sodium 139.6 137.8 Potassium 3.4 L 3.5 L Chloride 95 L 94 L Carbon Dioxide 36 H 36 H Anion Gap 9 8 BUN 29 H 31 H Creatinine 1.83 H 1.88 H Est GFR ( Amer) 44 L 43 L Est GFR (Non-Af Amer) 36 L 35 L Glucose 316 H 270 H Calcium 8.5 8.4 Phosphorus Magnesium Total Bilirubin 0.5 AST 28 ALT 28 Alkaline Phosphatase 97 Total Protein 5.9 L Albumin 2.5 L 11/14/16 11/14/16 05:10 05:10 WBC 14.0 H RBC 3.29 L Hgb 9.3 L Hct 28.9 L MCV 88 MCH 28.2 MCHC 32.1 RDW 16.8 H Plt Count 220 Seg Neutrophils % 79.8 H Lymphocytes % 8.9 L Monocytes % 7.6 Eosinophils % 3.1 Basophils % 0.6 Absolute Neutrophils 11.2 H Absolute Lymphocytes 1.2 Absolute Monocytes 1.1 Absolute Eosinophils 0.4 Absolute Basophils 0.1 Carbonic Acid HCO3/H2CO3 Ratio ABG pH ABG pCO2 ABG pO2 ABG HCO3 ABG O2 Saturation ABG Base Excess FiO2 Sodium Potassium Chloride Carbon Dioxide Anion Gap BUN Creatinine Est GFR ( Amer) Est GFR (Non-Af Amer) Glucose Calcium Phosphorus 4.4 Magnesium 2.0 Total Bilirubin AST ALT Alkaline Phosphatase Total Protein Albumin 11/12/16 10:25 Catheterized Urine Urine Culture - Final C.albicans/C.dubliniensis 10/29/16 10/29/16 10/30/16 20:00 20:00 03:58 Creatine Kinase 72 55 CK-MB (CK-2) 1.52 Troponin I < 0.012 NT-Pro-B Natriuret Pep 10/30/16 10/30/16 10/30/16 03:58 13:40 13:40 Creatine Kinase 45 L CK-MB (CK-2) 0.89 0.46 Troponin I < 0.012 < 0.012 NT-Pro-B Natriuret Pep 11/13/16 05:35 Creatine Kinase CK-MB (CK-2) Troponin I NT-Pro-B Natriuret Pep 2010 H Impressions: Renal Ultrasound 10/29/16 00:00 IMPRESSION: Limited study as noted above. No right renal abnormalities were identified. Left kidney could not be visualized. Eaton catheter in the bladder. Chest X-Ray 11/14/16 06:00 IMPRESSION: Persistent alveolar and interstitial infiltrates from probable fluid overload or congestive failure. This is similar compared 11/13/2016 Assessment & Plan - Diagnosis (1) Cardiopulmonary arrest with successful resuscitation Is this a current diagnosis for this admission?: Yes (2) Respiratory failure Qualifiers: Chronicity: chronic Respiratory failure complication: hypoxia and hypercapnia Qualified Code(s): J96.11 - Chronic respiratory failure with hypoxia; J96.12 - Chronic respiratory failure with hypercapnia Is this a current diagnosis for this admission?: Yes (3) Aspiration pneumonia Qualifiers: Aspiration pneumonia type: due to gastric secretions Laterality: bilateral Lung location: unspecified part of lung Qualified Code(s): J69.0 - Pneumonitis due to inhalation of food and vomit Is this a current diagnosis for this admission?: Yes (4) Acute on chronic combined systolic and diastolic congestive heart failure Is this a current diagnosis for this admission?: Yes (5) Dyspnea Qualifiers: Dyspnea type: unspecified Qualified Code(s): R06.00 - Dyspnea, unspecified Is this a current diagnosis for this admission?: Yes (6) Morbid (severe) obesity with alveolar hypoventilation Is this a current diagnosis for this admission?: Yes (7) Pulmonary hypertension Is this a current diagnosis for this admission?: Yes (8) Chronic kidney disease (CKD) Qualifiers: Chronic kidney disease stage: stage 3 (moderate) Qualified Code(s): N18.3 - Chronic kidney disease, stage 3 (moderate) Is this a current diagnosis for this admission?: Yes (9) Hypotension (arterial) Qualifiers: Hypotension type: other hypotension type Qualified Code(s): I95.89 - Other hypotension Is this a current diagnosis for this admission?: Yes (10) Acute kidney injury superimposed on chronic kidney disease Is this a current diagnosis for this admission?: Yes (11) Bradycardia Is this a current diagnosis for this admission?: Yes - Notes Notes: Status post cardiopulmonary arrest with successful resuscitation: Believe that patient predominantly and primarily had respiratory arrest most likely brought on by aspiration pneumonia. Continue ventilatory support, continue oxygenation. Chest x-ray shows progressive but slight improvement each day by my review. Continue antibiotic therapy. Respiratory failure: Acute on chronic. Pulmonary assisting in care. Currently has tracheostomy. Patient being ventilated through tracheostomy. Arrangements are being made for patient to be transferred to long-term ventilator care. Hypotension: Possibly related to severe RV dysfunction, sepsis etc. continue with vasopressor therapy. Currently on Levophed at low-dose. Will consider tapering it. Aspiration pneumonia: Continue antibiotic therapy. Biventricular failure: Patient has LV systolic diastolic failure and significant RV failure. Continue diuretic therapy. Morbid obesity: Currently stable. Pulmonary hypertension: Possibly severe. 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 Bradycardia: Patient noted to have sinus bradycardia with intermittent Mobitz type I second-degree heart block. Telemetry strips reviewed showed intermittent Wenckebach. Feel that this is from intermittent vagal stimulation , no need for temporary pacemaker. I have restarted patient on a scopolamine patch. Acute on Chronic kidney disease: Currently stable. Dr Mijares following. Overall prognosis is poor.
--- NOTE | 2016-11-16 11:42 | PDOC PROGRESS REPORT ---
Subjective Progress Note for:: 11/15/16 Subjective:: Patient about the same and has made very little progress. Patient now status post tracheostomy. There is no significant change in general condition. Patient continues to be intermittently bradycardic but generally maintains blood pressure. Telemetry strips shows intermittent Wenckebach and AV block second-degree. Patient remains intubated now through tracheostomy, now only minimally sedated, patient however looks comfortable and in acute distress. Chest x-ray showed bilateral airspace disease, most likely bilateral aspiration pneumonia. Medications reviewed. Medications: Medications have been reviewed. Physical Exam Vital Signs: Temp Pulse Resp BP Pulse Ox 98.8 F 81 14 163/85 H 97 11/15/16 19:50 11/15/16 20:00 11/15/16 18:00 11/15/16 18:00 11/15/16 19:24 Intake & Output 11/14/16 11/15/16 11/16/16 06:59 06:59 06:59 Intake Total 2774 2395 931 Output Total 2325 2330 1285 Balance 449 65 -354 Weight 172.3 kg 171.4 kg Exam: GENERAL: well-nourished and in no acute distress. Patient is intubated through tracheostomy and is being artificially ventilated. Orientation cannot be checked, but patient seems to respond appropriately. HEAD: Atraumatic, normocephalic. EYES: Pupils equal round and reactive to light, extraocular movements could not be checked, sclera anicteric, conjunctiva are normal. ENT: TMs normal, nares patent, oropharynx clear without exudates. Moist mucous membranes. No oral ulcerations or bleeding gums noted NECK: supple without lymphadenopathy or JVD. Trachea is central. No cervical or axillary lymphadenopathy noted. Carotids are 2+ LUNGS: Breath sounds mostly clear to auscultation patient is noted to have bibasal crackles at the extreme bases CHEST: Palpation of the chest wall shows no significant chest wall tenderness or abnormalities. 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 ABDOMEN: Soft, no significant tenderness appreciated, normoactive bowel sounds. No guarding, no rebound. No rigidity noted . No masses appreciated. EXTREMITIES: Pedal pulses are 1-2+, no calf tenderness noted, 1-2+ pedal edema noted. No clubbing or cyanosis. NEUROLOGICAL: The patient cannot participate in the neurological exam but no facial asymmetry noted. Extremities slightly hypotonic PSYCH: This cannot be evaluated. Patient cannot participate. SKIN: No significant ecchymosis, dermatitis and rash noted both lower legs. MUSCULOSKELETAL EXAM: No significant joint swelling noted. Patient cannot participate in musculoskeletal exam. Results Laboratory Results: 11/15/16 04:32 11/15/16 17:15 11/15/16 11/15/16 11/15/16 04:32 04:32 04:32 WBC 14.1 H RBC 3.30 L Hgb 9.3 L Hct 28.5 L MCV 86 MCH 28.2 MCHC 32.6 RDW 17.0 H Plt Count 216 Seg Neutrophils % 77.9 Lymphocytes % 9.7 L Monocytes % 9.1 Eosinophils % 2.9 Basophils % 0.4 Absolute Neutrophils 11.0 H Absolute Lymphocytes 1.4 Absolute Monocytes 1.3 Absolute Eosinophils 0.4 Absolute Basophils 0.1 Carbonic Acid 1.52 H HCO3/H2CO3 Ratio 23:1 ABG pH 7.47 H ABG pCO2 50.6 H ABG pO2 129.5 H ABG HCO3 36.3 H ABG O2 Saturation 98.7 H ABG Base Excess 11.3 FiO2 40% Sodium 139.1 Potassium 3.3 L Chloride 94 L Carbon Dioxide 38 H Anion Gap 7 BUN 30 H Creatinine 2.03 H Est GFR ( Amer) 39 L Est GFR (Non-Af Amer) 32 L Glucose 223 H Calcium 8.7 Phosphorus 4.5 Magnesium 1.8 11/15/16 17:15 WBC RBC Hgb Hct MCV MCH MCHC RDW Plt Count Seg Neutrophils % Lymphocytes % Monocytes % Eosinophils % Basophils % Absolute Neutrophils Absolute Lymphocytes Absolute Monocytes Absolute Eosinophils Absolute Basophils Carbonic Acid HCO3/H2CO3 Ratio ABG pH ABG pCO2 ABG pO2 ABG HCO3 ABG O2 Saturation ABG Base Excess FiO2 Sodium 137.2 Potassium 3.5 L Chloride 94 L Carbon Dioxide 36 H Anion Gap 7 BUN 32 H Creatinine 1.88 H Est GFR ( Amer) 43 L Est GFR (Non-Af Amer) 35 L Glucose 240 H Calcium 8.7 Phosphorus Magnesium 11/12/16 10:25 Blood Blood Culture - Final Pseudomonas Aeruginosa 10/29/16 10/29/16 10/30/16 20:00 20:00 03:58 Creatine Kinase 72 55 CK-MB (CK-2) 1.52 Troponin I < 0.012 NT-Pro-B Natriuret Pep 10/30/16 10/30/16 10/30/16 03:58 13:40 13:40 Creatine Kinase 45 L CK-MB (CK-2) 0.89 0.46 Troponin I < 0.012 < 0.012 NT-Pro-B Natriuret Pep 11/13/16 05:35 Creatine Kinase CK-MB (CK-2) Troponin I NT-Pro-B Natriuret Pep 2010 H Impressions: Renal Ultrasound 10/29/16 00:00 IMPRESSION: Limited study as noted above. No right renal abnormalities were identified. Left kidney could not be visualized. Eaton catheter in the bladder. Assessment & Plan - Diagnosis (1) Cardiopulmonary arrest with successful resuscitation Is this a current diagnosis for this admission?: Yes (2) Respiratory failure Qualifiers: Chronicity: chronic Respiratory failure complication: hypoxia and hypercapnia Qualified Code(s): J96.11 - Chronic respiratory failure with hypoxia; J96.12 - Chronic respiratory failure with hypercapnia Is this a current diagnosis for this admission?: Yes (3) Aspiration pneumonia Qualifiers: Aspiration pneumonia type: due to gastric secretions Laterality: bilateral Lung location: unspecified part of lung Qualified Code(s): J69.0 - Pneumonitis due to inhalation of food and vomit Is this a current diagnosis for this admission?: Yes (4) Acute on chronic combined systolic and diastolic congestive heart failure Is this a current diagnosis for this admission?: Yes (5) Dyspnea Qualifiers: Dyspnea type: unspecified Qualified Code(s): R06.00 - Dyspnea, unspecified Is this a current diagnosis for this admission?: Yes (6) Morbid (severe) obesity with alveolar hypoventilation Is this a current diagnosis for this admission?: Yes (7) Pulmonary hypertension Is this a current diagnosis for this admission?: Yes (8) Chronic kidney disease (CKD) Qualifiers: Chronic kidney disease stage: stage 3 (moderate) Qualified Code(s): N18.3 - Chronic kidney disease, stage 3 (moderate) Is this a current diagnosis for this admission?: Yes (9) Hypotension (arterial) Qualifiers: Hypotension type: other hypotension type Qualified Code(s): I95.89 - Other hypotension Is this a current diagnosis for this admission?: Yes (10) Acute kidney injury superimposed on chronic kidney disease Is this a current diagnosis for this admission?: Yes (11) Bradycardia Is this a current diagnosis for this admission?: Yes - Notes Notes: Status post cardiopulmonary arrest with successful resuscitation: Believe that patient predominantly and primarily had respiratory arrest most likely brought on by aspiration pneumonia. Continue ventilatory support, continue oxygenation. Chest x-ray shows progressive but slight improvement each day by my review. Continue antibiotic therapy. Respiratory failure: Acute on chronic. Pulmonary assisting in care. Currently has tracheostomy. Hypotension: Possibly related to severe RV dysfunction, sepsis etc. continue with vasopressor therapy. Have instructed nurse to try to taper levo fed to off. This is an impediment to transfer to chronic ventilator unit. Aspiration pneumonia: Stable. Biventricular failure: Patient has LV systolic diastolic failure and significant RV failure. Continue diuretic therapy. Morbid obesity: Currently stable. Pulmonary hypertension: Possibly severe. 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 Bradycardia: Patient noted to have sinus bradycardia with intermittent Mobitz type I second-degree heart block. Telemetry strips reviewed showed intermittent Wenckebach. Continue a scopolamine patch every 72 hours. Currently is stable. Acute on Chronic kidney disease: Currently stable. Dr Mijares following. Overall prognosis is poor. - Time Time with patient: Greater than 35 minutes - CODE STATUS was discussed, patient remains full code. Surrogate decision-maker unchanged. Multiple medical problems were addressed. More than 50% of the time spent coordinating care, discussing management plans with involved caregivers. Management plans discussed with involved personnels. Medical decision making was of moderate to high complexity, patient's has multiple comorbidities. Medications reviewed and adjusted accordingly: Yes
--- NOTE | 2016-11-16 11:52 | PDOC PROGRESS REPORT ---
Subjective Progress Note for:: 11/16/16 Subjective:: Patient about the same and has made very little progress. Patient now status post tracheostomy. There is no significant change in general condition. Patient continues to be intermittently bradycardic but generally maintains blood pressure. Telemetry strips shows intermittent Wenckebach and AV block second-degree. Heart rate overall is stable. Now off Levophed drip. Patient remains intubated now through tracheostomy, now only minimally sedated, patient however looks comfortable and in acute distress. Medications reviewed. Medications: Medications have been reviewed. Physical Exam Vital Signs: Temp Pulse Resp BP Pulse Ox 99.2 F 84 20 155/84 H 100 11/16/16 10:00 11/16/16 10:00 11/16/16 10:00 11/16/16 10:00 11/16/16 10:00 Intake & Output 11/15/16 11/16/16 11/17/16 06:59 06:59 06:59 Intake Total 2395 1638 Output Total 2330 1830 40 Balance 65 -192 -40 Weight 171.4 kg 170.6 kg 170.6 kg Exam: GENERAL: well-nourished and in no acute distress. Patient is intubated through tracheostomy and is being artificially ventilated. Orientation cannot be checked, but patient seems to respond appropriately when he is in mood. HEAD: Atraumatic, normocephalic. EYES: Pupils equal round and reactive to light, extraocular movements could not be checked, sclera anicteric, conjunctiva are normal. ENT: TMs normal, nares patent, oropharynx clear without exudates. Moist mucous membranes. No oral ulcerations or bleeding gums noted NECK: supple without lymphadenopathy or JVD. Trachea is central. No cervical or axillary lymphadenopathy noted. Carotids are 2+ LUNGS: Breath sounds mostly clear to auscultation patient is noted to have bibasal crackles at the extreme bases CHEST: Palpation of the chest wall shows no significant chest wall tenderness or abnormalities. 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 ABDOMEN: Soft, no significant tenderness appreciated, normoactive bowel sounds. No guarding, no rebound. No rigidity noted . No masses appreciated. EXTREMITIES: Pedal pulses are 1-2+, no calf tenderness noted, 1-2+ pedal edema noted. No clubbing or cyanosis. NEUROLOGICAL: The patient cannot participate in the neurological exam but no facial asymmetry noted. Extremities slightly hypotonic PSYCH: This cannot be evaluated. Patient cannot participate. SKIN: No significant ecchymosis, dermatitis and rash noted both lower legs. MUSCULOSKELETAL EXAM: No significant joint swelling noted. Patient cannot participate in musculoskeletal exam. Results Laboratory Results: 11/16/16 05:23 11/16/16 05:23 11/15/16 11/16/16 11/16/16 17:15 05:23 05:23 WBC 14.4 H RBC 3.44 L Hgb 9.6 L Hct 30.1 L MCV 88 MCH 27.8 MCHC 31.7 L RDW 17.2 H Plt Count 216 Seg Neutrophils % 80.9 H Lymphocytes % 8.4 L Monocytes % 8.2 Eosinophils % 2.0 Basophils % 0.5 Absolute Neutrophils 11.7 H Absolute Lymphocytes 1.2 Absolute Monocytes 1.2 Absolute Eosinophils 0.3 Absolute Basophils 0.1 Carbonic Acid 1.41 H HCO3/H2CO3 Ratio 23:1 ABG pH 7.47 H ABG pCO2 46.8 H ABG pO2 105.2 H ABG HCO3 33.4 H ABG O2 Saturation 98.1 H ABG Base Excess 8.7 FiO2 40% Sodium 137.2 Potassium 3.5 L Chloride 94 L Carbon Dioxide 36 H Anion Gap 7 BUN 32 H Creatinine 1.88 H Est GFR ( Amer) 43 L Est GFR (Non-Af Amer) 35 L Glucose 240 H Calcium 8.7 Magnesium Total Bilirubin AST ALT Alkaline Phosphatase Total Protein Albumin 11/16/16 05:23 WBC RBC Hgb Hct MCV MCH MCHC RDW Plt Count Seg Neutrophils % Lymphocytes % Monocytes % Eosinophils % Basophils % Absolute Neutrophils Absolute Lymphocytes Absolute Monocytes Absolute Eosinophils Absolute Basophils Carbonic Acid HCO3/H2CO3 Ratio ABG pH ABG pCO2 ABG pO2 ABG HCO3 ABG O2 Saturation ABG Base Excess FiO2 Sodium 139.9 Potassium 3.4 L Chloride 95 L Carbon Dioxide 35 H Anion Gap 10 BUN 31 H Creatinine 1.75 H Est GFR ( Amer) 46 L Est GFR (Non-Af Amer) 38 L Glucose 211 H Calcium 8.9 Magnesium 2.0 Total Bilirubin 0.4 AST 63 H ALT 45 Alkaline Phosphatase 157 H Total Protein 6.4 Albumin 2.6 L 11/12/16 10:25 Blood Blood Culture - Final Pseudomonas Aeruginosa 10/29/16 10/29/16 10/30/16 20:00 20:00 03:58 Creatine Kinase 72 55 CK-MB (CK-2) 1.52 Troponin I < 0.012 NT-Pro-B Natriuret Pep 10/30/16 10/30/16 10/30/16 03:58 13:40 13:40 Creatine Kinase 45 L CK-MB (CK-2) 0.89 0.46 Troponin I < 0.012 < 0.012 NT-Pro-B Natriuret Pep 11/13/16 05:35 Creatine Kinase CK-MB (CK-2) Troponin I NT-Pro-B Natriuret Pep 2010 H Impressions: Renal Ultrasound 10/29/16 00:00 IMPRESSION: Limited study as noted above. No right renal abnormalities were identified. Left kidney could not be visualized. Eaton catheter in the bladder. Chest X-Ray 11/16/16 06:00 IMPRESSION: No significant interval change. Assessment & Plan - Diagnosis (1) Cardiopulmonary arrest with successful resuscitation Is this a current diagnosis for this admission?: Yes (2) Respiratory failure Qualifiers: Chronicity: chronic Respiratory failure complication: hypoxia and hypercapnia Qualified Code(s): J96.11 - Chronic respiratory failure with hypoxia; J96.12 - Chronic respiratory failure with hypercapnia Is this a current diagnosis for this admission?: Yes (3) Aspiration pneumonia Qualifiers: Aspiration pneumonia type: due to gastric secretions Laterality: bilateral Lung location: unspecified part of lung Qualified Code(s): J69.0 - Pneumonitis due to inhalation of food and vomit Is this a current diagnosis for this admission?: Yes (4) Acute on chronic combined systolic and diastolic congestive heart failure Is this a current diagnosis for this admission?: Yes (5) Dyspnea Qualifiers: Dyspnea type: unspecified Qualified Code(s): R06.00 - Dyspnea, unspecified Is this a current diagnosis for this admission?: Yes (6) Morbid (severe) obesity with alveolar hypoventilation Is this a current diagnosis for this admission?: Yes (7) Pulmonary hypertension Is this a current diagnosis for this admission?: Yes (8) Chronic kidney disease (CKD) Qualifiers: Chronic kidney disease stage: stage 3 (moderate) Qualified Code(s): N18.3 - Chronic kidney disease, stage 3 (moderate) Is this a current diagnosis for this admission?: Yes (9) Hypotension (arterial) Qualifiers: Hypotension type: other hypotension type Qualified Code(s): I95.89 - Other hypotension Is this a current diagnosis for this admission?: Yes (10) Acute kidney injury superimposed on chronic kidney disease Is this a current diagnosis for this admission?: Yes (11) Bradycardia Is this a current diagnosis for this admission?: Yes - Notes Notes: Status post cardiopulmonary arrest with successful resuscitation: Believe that patient predominantly and primarily had respiratory arrest most likely brought on by aspiration pneumonia. Continue ventilatory support, continue oxygenation. Chest x-ray shows significant improvement when compared with prior chest x-rays. Respiratory failure: Acute on chronic. Pulmonary assisting in care. Currently has tracheostomy. Hypotension: Possibly related to severe RV dysfunction, sepsis etc. today off vasopressors. May consider Midodrin if needed. Patient is being transferred to ventilator unit. Aspiration pneumonia: Stable. Significantly improved. Biventricular failure: Patient has LV systolic diastolic failure and significant RV failure. Continue diuretic therapy. Morbid obesity: Currently stable. Pulmonary hypertension: Possibly severe. Will let fixed income director manage this. Bradycardia: Patient noted to have sinus bradycardia with intermittent Mobitz type I second-degree heart block. Telemetry strips reviewed showed intermittent Wenckebach. Continue a scopolamine patch every 72 hours. Currently is stable. No need for temporary pacemaker Acute on Chronic kidney disease: Currently stable. Dr Mijares following. Overall prognosis is poor. - Time Time with patient: Greater than 35 minutes - CODE STATUS : was discussed, patient remains DO NOT RESUSCITATE. Surrogate decision-maker unchanged. Multiple medical problems were addressed. More than 50% of the time spent coordinating care, discussing management plans with involved caregivers. Management plans discussed with involved personnels. Medical decision making was of moderate to high complexity, patient's has multiple comorbidities. Medications reviewed and adjusted accordingly: Yes
--- NOTE | 2016-11-16 14:46 | PDOC PROGRESS REPORT ---
Subjective Progress Note for:: 11/16/16 Subjective:: Awaiting pathology understanding transfer imminent Physical Exam Vital Signs: Temp Pulse Resp BP Pulse Ox 99.3 F 81 22 H 169/82 H 97 11/16/16 06:00 11/15/16 20:00 11/16/16 06:00 11/16/16 05:57 11/16/16 06:00 Intake & Output 11/15/16 11/16/16 11/17/16 06:59 06:59 06:59 Intake Total 2395 1638 Output Total 2330 1830 Balance 65 -192 Weight 171.4 kg 170.6 kg General appearance: PRESENT: no acute distress, cooperative, disheveled, morbidly obese Head exam: PRESENT: atraumatic, normocephalic Eye exam: PRESENT: conjunctiva pale, EOMI Mouth exam: PRESENT: moist, neck supple, tongue midline Neck exam: PRESENT: tracheostomy Respiratory exam: PRESENT: decreased breath sounds, prolonged expiratory phas, rhonchi, symmetrical, unlabored Cardiovascular exam: PRESENT: irregular rhythm Pulses: PRESENT: normal radial pulses GI/Abdominal exam: PRESENT: normal bowel sounds, soft. ABSENT: distended, guarding, mass, organolmegaly, rebound, tenderness Rectal exam: PRESENT: deferred Gentrourinary exam: PRESENT: indwelling catheter Extremities exam: PRESENT: +1 edema Neurological exam: PRESENT: awake Psychiatric exam: PRESENT: flat affect Skin exam: PRESENT: dry, warm Results Laboratory Results: 11/16/16 05:23 11/16/16 05:23 11/15/16 11/16/16 11/16/16 17:15 05:23 05:23 WBC 14.4 H RBC 3.44 L Hgb 9.6 L Hct 30.1 L MCV 88 MCH 27.8 MCHC 31.7 L RDW 17.2 H Plt Count 216 Seg Neutrophils % 80.9 H Lymphocytes % 8.4 L Monocytes % 8.2 Eosinophils % 2.0 Basophils % 0.5 Absolute Neutrophils 11.7 H Absolute Lymphocytes 1.2 Absolute Monocytes 1.2 Absolute Eosinophils 0.3 Absolute Basophils 0.1 Carbonic Acid 1.41 H HCO3/H2CO3 Ratio 23:1 ABG pH 7.47 H ABG pCO2 46.8 H ABG pO2 105.2 H ABG HCO3 33.4 H ABG O2 Saturation 98.1 H ABG Base Excess 8.7 FiO2 40% Sodium 137.2 Potassium 3.5 L Chloride 94 L Carbon Dioxide 36 H Anion Gap 7 BUN 32 H Creatinine 1.88 H Est GFR ( Amer) 43 L Est GFR (Non-Af Amer) 35 L Glucose 240 H Calcium 8.7 Magnesium Total Bilirubin AST ALT Alkaline Phosphatase Total Protein Albumin 11/16/16 05:23 WBC RBC Hgb Hct MCV MCH MCHC RDW Plt Count Seg Neutrophils % Lymphocytes % Monocytes % Eosinophils % Basophils % Absolute Neutrophils Absolute Lymphocytes Absolute Monocytes Absolute Eosinophils Absolute Basophils Carbonic Acid HCO3/H2CO3 Ratio ABG pH ABG pCO2 ABG pO2 ABG HCO3 ABG O2 Saturation ABG Base Excess FiO2 Sodium 139.9 Potassium 3.4 L Chloride 95 L Carbon Dioxide 35 H Anion Gap 10 BUN 31 H Creatinine 1.75 H Est GFR ( Amer) 46 L Est GFR (Non-Af Amer) 38 L Glucose 211 H Calcium 8.9 Magnesium 2.0 Total Bilirubin 0.4 AST 63 H ALT 45 Alkaline Phosphatase 157 H Total Protein 6.4 Albumin 2.6 L 11/12/16 10:25 Blood Blood Culture - Final Pseudomonas Aeruginosa 10/29/16 10/29/16 10/30/16 20:00 20:00 03:58 Creatine Kinase 72 55 CK-MB (CK-2) 1.52 Troponin I < 0.012 NT-Pro-B Natriuret Pep 10/30/16 10/30/16 10/30/16 03:58 13:40 13:40 Creatine Kinase 45 L CK-MB (CK-2) 0.89 0.46 Troponin I < 0.012 < 0.012 NT-Pro-B Natriuret Pep 11/13/16 05:35 Creatine Kinase CK-MB (CK-2) Troponin I NT-Pro-B Natriuret Pep 2010 H Impressions: Renal Ultrasound 10/29/16 00:00 IMPRESSION: Limited study as noted above. No right renal abnormalities were identified. Left kidney could not be visualized. Eaton catheter in the bladder. Chest X-Ray 11/16/16 06:00 IMPRESSION: No significant interval change. Assessment & Plan - Diagnosis (1) Acute on chronic combined systolic and diastolic congestive heart failure Is this a current diagnosis for this admission?: Yes (2) Dyspnea Qualifiers: Dyspnea type: unspecified Qualified Code(s): R06.00 - Dyspnea, unspecified Is this a current diagnosis for this admission?: Yes (3) Morbid (severe) obesity with alveolar hypoventilation Is this a current diagnosis for this admission?: Yes Plan: Patient scheduled to leave for LTAC today. ventilator Dependent obesity hypoventilation syndrome (4) Pulmonary vascular congestion Is this a current diagnosis for this admission?: Yes (5) Respiratory failure Qualifiers: Chronicity: chronic Respiratory failure complication: hypoxia and hypercapnia Qualified Code(s): J96.11 - Chronic respiratory failure with hypoxia; J96.12 - Chronic respiratory failure with hypercapnia Is this a current diagnosis for this admission?: No (6) Cardiac arrest Is this a current diagnosis for this admission?: No - Time Critical Time spent with patient: 25-34 minutes
--- NOTE | 2016-11-16 15:32 | RADIOLOGY REPORT (SQ) ---
EXAM DESCRIPTION: CHEST SINGLE VIEW COMPLETED DATE/TIME: 11/15/2016 6:39 am REASON FOR STUDY: Acute on chronic respiratory failure COMPARISON: AP chest 11/14/2016, 11/12/2016, 11/11/2016, 11/10/2016 TECHNIQUE: AP chest 11/15/2016, 0612 hours LIMITATIONS: None FINDINGS: Left jugular central line tip right atrium. Tracheostomy tube tip midtrachea. Nasogastri c tube tip and side port in the stomach. Further clearing of bilateral airspace disease compared to prior studies. Left lung grossly clear. Minimal residual airspace disease right upper lobe. No pleural effusions or pneumothorax. IMPRESSION: Tubes and lines unchanged. Continuing improvement in appearance of the chest. Minimal residual airspace disease right upper lob e.
== END 2016-11-16 10:20 | DRG 4 ==
LOC: ER 03:56 → UNDOADMIN 06:12 → EH 06:12 → 3N 07:41 → ICU 10-29 08:51
PROVIDERS: ADMIT Family Medicine; ATTEND Family Medicine
PROC: 5A1955Z Respiratory Ventilation, Greater than 96 Consecutive Hours (ICD-10-PCS; 2016-10-26)
PROC: 0BH17EZ Insertion of Endotracheal Airway into Trachea, Via Natural or Artificial Opening (ICD-10-PCS; 2016-10-29)
PROC: 03HB33Z Insertion of Infusion Device into Right Radial Artery, Percutaneous Approach (ICD-10-PCS; 2016-10-29)
PROC: 05HM33Z Insertion of Infusion Device into Right Internal Jugular Vein, Percutaneous Approach (ICD-10-PCS; 2016-10-29)
PROC: B543ZZA Ultrasonography of Right Jugular Veins, Guidance (ICD-10-PCS; 2016-10-29)
PROC: 0DH67UZ Insertion of Feeding Device into Stomach, Via Natural or Artificial Opening (ICD-10-PCS; 2016-10-30)
PROC: 30233N1 Transfusion of Nonautologous Red Blood Cells into Peripheral Vein, Percutaneous Approach (ICD-10-PCS; 2016-11-06)
PROC: 02HV33Z Insertion of Infusion Device into Superior Vena Cava, Percutaneous Approach (ICD-10-PCS; 2016-11-12)
PROC: B548ZZA Ultrasonography of Superior Vena Cava, Guidance (ICD-10-PCS; 2016-11-12)
PROC: 0B110F4 Bypass Trachea to Cutaneous with Tracheostomy Device, Open Approach (ICD-10-PCS; principal; 2016-11-12 13:30)
DX: I13.0 Hypertensive heart and chronic kidney disease with heart failure and stage 1 through stage 4 chronic kidney disease, or unspecified chronic kidney disease (principal); I50.43 Acute on chronic combined systolic (congestive) and diastolic (congestive) heart failure; J96.21 Acute and chronic respiratory failure with hypoxia; J96.22 Acute and chronic respiratory failure with hypercapnia; J69.0 Pneumonitis due to inhalation of food and vomit; I46.9 Cardiac arrest, cause unspecified; E66.2 Morbid (severe) obesity with alveolar hypoventilation; Z68.43 Body mass index [BMI] 50.0-59.9, adult; N17.9 Acute kidney failure, unspecified; E46 Unspecified protein-calorie malnutrition; D62 Acute posthemorrhagic anemia; I47.2 Ventricular tachycardia; N18.3 Chronic kidney disease, stage 3 (moderate); E11.22 Type 2 diabetes mellitus with diabetic chronic kidney disease; Z66 Do not resuscitate; I44.0 Atrioventricular block, first degree; E87.6 Hypokalemia; T88.51XA Hypothermia following anesthesia, initial encounter; R31.0 Gross hematuria; I95.89 Other hypotension; R00.1 Bradycardia, unspecified; E11.40 Type 2 diabetes mellitus with diabetic neuropathy, unspecified; I27.2 Other secondary pulmonary hypertension; E78.5 Hyperlipidemia, unspecified; M19.90 Unspecified osteoarthritis, unspecified site; M10.9 Gout, unspecified; Z79.82 Long term (current) use of aspirin; Z79.899 Other long term (current) drug therapy; Z79.4 Long term (current) use of insulin; Z87.891 Personal history of nicotine dependence
CPT/HCPCS: 00320; 31500; 36415; 36430; 71010; 76770; 80048; 80053; 80198; 80202; 81001; 82550; 82553; 82607; 82728; 82746; 82803; 82962; 83540; 83550; 83605; 83735; 83880; 84100; 84132; 84134; 84439; 84443; 84478; 84481; 84484; 85025; 85027; 85045; 85610; 85730; 86850; 86900; 86901; 86920; 87040; 87070; 87077; 87086; 87186; 87205; 93005; 93010; 93306; 94002; 94003; 94640; 94660; 99285; C1751; G8981-GP; G8982-GP; J0295; J0330; J0713; J0743; J1100; J1265; J1642; J1644; J1650; J1815; J1940; J2250; J2270; J2370; J2543; J2704; J2997; J3010; J3370; J3475; J3480; J3490; J7050; J7060; J7685; P9016; S0028

== ENCOUNTER → 2019-12-24 | Outpatient (CLI) | payer MEDICARE, OTHER ==
--- NOTE | 2019-12-24 22:00 | EKG REPORT ---
SEVERITY:- ABNORMAL ECG - SINUS RHYTHM SUPRAVENTRICULAR BIGEMINY FIRST DEGREE AV BLOCK LEFT ATRIAL ABNORMALITY LVH WITH SECONDARY REPOLARIZATION ABNORMALITY ANTERIOR Q WAVES, POSSIBLY DUE TO LVH : Confirmed by: Sarah Aguillon MD 24-Dec-2019 22:00:20
== END ==
LOC: OD 11:28
PROVIDERS: ATTEND Family Medicine
DX: R00.2 Palpitations (principal)
CPT/HCPCS: 93005; 93010